=== PATIENT | male | born 1940 | race Caucasian/White ===

== ENCOUNTER 2022-07-19 15:00 | Outpatient (CLI) | payer MEDICARE, BC, SELFPAY | END 2022-07-19 15:01 | disposition home or self-care (01) | PROVIDERS: PCP Family Medicine; Visit Provider Family Medicine | DX: I48.91 Unspecified atrial fibrillation (principal); I25.10 Atherosclerotic heart disease of native coronary artery without angina pectoris; I10 Essential (primary) hypertension; E78.5 Hyperlipidemia, unspecified; E66.01 Morbid (severe) obesity due to excess calories; E11.9 Type 2 diabetes mellitus without complications; Z79.01 Long term (current) use of anticoagulants | CPT/HCPCS: 80053 ==

== ENCOUNTER 2022-11-29 11:14 | Outpatient (CLI) | payer MEDICARE, BC, SELFPAY ==
[2022-11-29 10:33] LABS: Triglycerides* 181 mg/dL (40-149)
[2022-11-29 10:34] LABS: HDL Cholesterol* 53 mg/dL (>=40)
[2022-11-29 11:01] LABS: Creatinine Urine 45.5 mg/dL
[2022-11-29 11:02] LABS: PSA Screen* 5.25 ng/mL (0.10-4.00)
[2022-11-29 11:09] LABS: Microalbumin Creatinine Ratio 20 mg/g (0-30); Microalbumin Urine 1 mg/dL
[2022-11-30 18:56] LABS: Cholesterol* 163 mg/dL (90-199); LDL Cholesterol Calculated 74 mg/dL (<100)
== END 2022-11-29 11:15 | disposition home or self-care (01) ==
PROVIDERS: PCP Family Medicine; Visit Provider Family Medicine
DX: E11.9 Type 2 diabetes mellitus without complications (principal); Z12.5 Encounter for screening for malignant neoplasm of prostate; Z13.6 Encounter for screening for cardiovascular disorders
CPT/HCPCS: 80061; 82043; 82570; 84153

== ENCOUNTER 2023-12-27 10:50 | Outpatient (CLI) | payer MEDICARE, BC, SELFPAY ==
--- OUTSIDE RECORDS SUMMARY | 2023-12-27 10:54 | XMS_ITS | Clinical Summary ---
Author Name Unknown Organization [facility] Address [place], [place] [address] Care Team Providers Care Waste Treatment Operator Name Role Phone Pcp, No Primary Care Provider Unavailabl e Social History Tobacco Use Types Packs/Day Years Used Date Smoking Tobacco: Never Assessed Sex and Gender Information Value Date Recorded Sex Assigned at Not on file Gender Identity Not on file Sexual Orientation Not on file Plan of Treatment Health Maintenance Due Date Last Done Comments Tdap 1952 Depression screening for age 12+ 1953 BMI (ht and wt on same day) for age 18+ 1959 Tetanus booster 1961 Zoster (shingles) series for age 50+ (1 of 2) 1991 Medicare Wellness for age 65+ 2006 Pneumococcal series for age 65+ (1 of 1 - PCV) 2006 COVID-19 vaccine series (2022-24 season) 2023 03/28/2023, 03/03/2022, 08/23/2021, Additional history exists Influenza for age 65+ 07/28/2023 Care Teams Waste Treatment Operator Relationship Specialty Start Date End Date Pcp, No . PCP - General 12/23/22
--- OUTSIDE RECORDS SUMMARY | 2023-12-27 10:55 | XMS_ITS | Encounter Summary ---
Author Name Unknown Organization [facility] Address [address] [place] [address] Care Team Providers Care Commissary Agent Name Role Phone Elsewhere, Pcp Primary Care Provider Unavailabl e Encounter Details Date Type Department Care Team (Latest Contact Info) Description 11/24/2023 10:21 AM CHILDREN TEACHER - 11/24/2023 11:59 PM [facility] Encounter Department of Laboratory Medicine in [place], [place] [address] [phone] Saba Nicole, Nicole-Micah., P.A. [address] [phone] Diabetes Mellitus Type 2 With Other Circulatory Complication Hyperglycemic (HCC); Nursing Home Use Of Insulin Active (HCC) Discharge Disposition: Home or Self Care Social History Tobacco Use Types Packs/Day Years Used Date Smoking Tobacco: Former Cigarettes 1 0 0 07/28/1960 - 11/27/1979 Smokeless Tobacco: Never Alcohol Use Standard Drinks/Week Comments No 0 (1 standard drink = 0.6 oz pur e alcohol) Humiliation, Afraid, Rape, and Kick questionnair e Answer Date Recorded Within the last year, have y ou been afraid of your partner or ex-partner? No 06/02/2022 Within the last year, have y ou been humiliated or emotionally abused in other ways by your partner or ex-partner? No Within the last year, have y ou been kicked, hit, slapped, or otherwise physically hurt by your partner or ex-partner? No 06/02/2022 Within the last year, have y ou been raped or forced to have any kind of sexual activity by your partner or ex-partner? No 06/02/2022 Social Connection and Isolat ion Panel [NHANES] Answer Date Recorded In a typical week, how many times do you talk on the phone with family, friends, or neighbors? More than three times a week 06/02/2022 How often do you get togethe r with friends or relatives? Three times a week 06/02/2022 How often do you attend chur ch or quaker services? More than 4 times per year 06/02/2022 Do you belong to any clubs o r organizations such as presybeterian groups, unions, fraternal or athletic groups, or school groups? Yes 06/02/2022 How often do you attend meet ings of the clubs or organizations you belong to? 1 to 4 times per year 06/02/2022 Are you , , di vorced, , never , or living with a partner? 06/02/2022 AUDIT-C Answer Date Recorded Q1: How often do you have a drink containing alc ohol? Never 06/02/2022 Average Number of Drinks Not on file 022 Frequency of Binge Drinking Not on file 05/2022 Overall Financial Resource Strain (CARDIA) Answe r Date Recorded How hard is it for you to pa y for the very basics like food, housing, medical care, and heating? Not hard at all 06/02/2022 [facility] - Occupational Stress Questionnaire Answer Date Recorded Do you feel stress - tense, restless, nervous, or anxious, or unable to sleep at night because your mind is troubled all the time - these days? Only a little 06/02/2022 Exercise Vital Sign Answer Date Recorde d On average, how many days pe r week do you engage in moderate to strenuous exercise (like a brisk walk)? 7 days 06/02/2022 On average, how many minutes do you engage in exercise at this level? 10 min 06/02/2022 Hunger Vital Sign Answer Date Recorded Within the past 12 months, y ou worried that your food would run out before you got the money to buy more. Never true 06/02/20 Within the past 12 months, t he food you bought just didn't last and you didn't have money to get more. Never true 06/02/2022 PRAPARE - Transportation Answer Date Re corded In the past 12 months, has l ack of transportation kept you from medical appointments or from getting medications? No 05/2022 In the past 12 months, has l ack of transportation kept you from meetings, work, or from getting things needed for daily living? No 06/02/2022 Housing Stability Vital Sign Answer Toñito e Recorded In the last 12 months, was t here a time when you were not able to pay the mortgage or rent on time? Yes 06/02/2022 In the last 12 months, how many places have you lived? 1 06/02/2022 In the last 12 months, was t here a time when you did not have a steady place to sleep or slept in a senior care (including now)? Yes 06/02/2022 Nutrition Answer Date Recorded Nutrition: EVOO Fat Source No 06/02 On average, how many serving s of fruits and vegetables do you eat per day (serving size is equal to 1 cup or approximately the size of a tennis ball)? 0-1 06/02/2022 Dental Answer Date Recorded Dental: Regular Dentist Yes 06/02/20 Employment Answer Date Recorded Employment status Retired 06/02/2022 Education Answer Date Recorded What is the highest level of school you have completed or the highest degree you have received? 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 0 07/16/2014 cholecalciferol (VITAMIN D3) 10 mcg (400 Unit) tablet Take 10 mcg by mouth daily. 0 Contour Test Strips strips daily. for testing 0 07/07/2021 Droplet Pen Needle 32 gauge x 5/32 needle 0 07/07/2021 foot care products pad FOR HOME USE 0 09/29/2018 wtaydvzt-scdouszhyjy-otx t cb25 116-100 mg capsule Take 1 tablet by mouth 2 (two) times a day. 0 07/16/2014 hydroCHLOROthiazide (HYDRODIURIL) 25 mg tablet Take 25 mg by mouth daily. 0 11/28/2018 insulin glargine-yfgn (SEMGLEE) 100 unit/mL (3 mL) injection INJECT 20 UNITS UNDER THE SKIN AT BEDTIME FOR DIABETES 0 08/30/2023 isosorbide mononitrate (IMDUR) 60 mg 24 hr tablet Take 60 mg by mouth daily. 0 10/24/2018 losartan (COZAAR) 100 mg tablet Take 1 tablet by mouth daily. 0 07/16/2014 metFORMIN XR (GLUCOPHAGE-XR) 500 mg 24 hr tabletIndications:Diabet es Mellitus Type 2 With Diabetic Chronic Kidney Disease Hyperglycemic (HCC) Take 2 tablets (1,000 mg total) by mouth 2 (two) times a day with meals. 360 tablet 3 06/14/2023 06/13/2024 metoprolol tartrate (LOPRESSOR) 100 mg tablet Take 100 mg by mouth 2 (two) times a day. 0 11/28/2018 multivitamin tablet Take 1 tablet by mouth daily. 0 07/16/2014 omega 0-eqw-ysw-fish oil 100-160-1,000 mg capsule Take 2 capsules by mouth daily. 0 07/16/2014 pravastatin (PRAVACHOL) 40 mg tablet Take 1 tablet by mouth daily. 0 07/16/2014 psyllium husk (METAMUCIL) 0.4 gram capsule Take 1 capsule by mouth 2 (two) times a day. 0 10/07/2015 semaglutide (OZEMPIC) 1 mg/dose (4 mg/3 mL) injection 2 mg every 7 (seven) days. 0 09/11/2023 spironolactone (ALDACTONE) 25 mg tablet Take 25 mg by mouth daily. 0 11/28/2018 warfarin (COUMADIN) 5 mg tablet Take 5 mg by mouth daily. 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 30 mL 3 06/14/2023 12/07/2023 semaglutide (OZEMPIC) 1 mg/dose (4 mg/3 mL) injection 2 mg. 0 07/13/2022 12/07/2023 documented as of this encounter Miscellaneous Notes * Result Encounter Note - Saba Nicole P.A.-C. - 11/28/2023 2:37 PM CHILDREN TEACHER Willie Vyas, Happy early birthday! Your basic metabolic panel is normal. Your A1c continues to be stable at 7.3%. Please let me know if you have any questions, otherwise I will see you on December 07. Thanks! Saba Nicole P.A.-C. DREN TEACHER documented in this encounter Plan of Treatment Upcoming Encounters Date Type Department Care Team (Late st Contact Info) Description 03/13/2024 12:30 PM CDT Appointment Department of Laboratory Medicine in [place], [place] [address], [place] [phone] Saba Nicole P.A.-C., P.A. [address] [place] [phone] 03/13/2024 2:30 PM CDT Office Visit Department of Endocrinology in [place], [place] [address], [place] [phone] Saba Nicole P.A.-C., P.A. [address] [place] [phone] documented as of this encounter Procedures Procedure Name Priority Date/Time Associated Diagnosis Comments HEMOGLOBIN A1C, B Routine 11/24/2023 10: 40 AM CHILDREN TEACHER Diabetes Mellitus Type 2 With Other Circulatory Complication Hyperglycemic (HCC) Size Stamper Use Of Insulin Active (HCC) BASIC METABOLIC PANEL, S/P Routine 11/24/2023 10:40 AM CHILDREN TEACHER Diabetes Mellitus Type 2 With Other Circulatory Complication Hyperglycemic (HCC) Size Stamper Use Of Insulin Active (HCC) documented in this encounter Results * (ABNORMAL) Basic Metabolic Panel (11/24/2023 10:40 AM CHILDREN TEACHER) Pathologist [facility] Potassium, P 4.4 3.6 - 5.2 mmol/L 11/24/2023 11:41 AM CHILDREN TEACHER OWAT Sodium, P 141 135 - 145 mmol/L 11/24/2023 11:41 AM CHILDREN TEACHER OWAT Chloride, P 102 98 - 107 mmol/L 11/24/2023 11:41 AM CHILDREN TEACHER OWAT Bicarbonate, P 26 22 - 29 mmol/L 11/24/2023 11:41 AM CHILDREN TEACHER OWAT Anion Gap, P 13 7 - 15 11/24/2023 11:41 AM CHILDREN TEACHER OWAT BUN (Blood Urea Nitrogen), P 23 8 - 24 mg/dL 11/24/2023 11:41 AM CHILDREN TEACHER OWAT Creatinine 1.13 0.74 - 1.35 mg/dL 11/24/2023 11:41 AM CHILDREN TEACHER OWAT Estimated GFR (eGFR) 65 >=60 mL/min/BSA 11/24/2023 11:41 AM CHILDREN TEACHER OWAT Comment: Estimated GFR calculated using the 2020 CKD_EPI creatinine equation. Calcium, Total, P 9.5 8.8 - 10.2 mg/dL 11/24/2023 11:41 AM CHILDREN TEACHER OWAT Glucose, P 198(H) 70 - 140 mg/dL 11/24/2023 11:41 AM CHILDREN TEACHER OWAT Blood (Blood, Venous) 11/24/2023 10:40 AM CHILDREN TEACHER 11/24/2023 10:51 AM CHILDREN TEACHER Saba Nicole P.A.-C., P.A. LAB BL OOD ADD-ON Performing Organization Address City/[facility]/ZIP Co de Phone Number [facility] [address] [place] [address], [place] OWAT [facility] [address] [place] [address] * (ABNORMAL) Hemoglobin A1c (11/24/2023 10:40 AM CHILDREN TEACHER) Hemoglobin A1c, B 7.3(H) 4.2 - 5.6 % 11/24/2023 11:32 AM CHILDREN TEACHER OWAT Comment: Hemoglobin A1c values greater than or equal to 6.5 percent are diagnostic for diabetes mellitus. ??Diagnosis should be confirmed by repeat testing. ??In diabetic patients, HbA1c goals should be discussed with healthcare provider. Blood (Blood, Venous) 11/24/2023 10:40 AM CHILDREN TEACHER 11/24/2023 10:52 AM CHILDREN TEACHER Saba Nicole P.A.-C., P.A. LAB BL OOD ADD-ON Performing Organization Address City/[facility]/ZIP Co de Phone Number [facility] [address] [place] [address], [place] OWAT [facility] [address] [place] [address] documented in this encounter Visit Diagnoses Diagnosis Diabetes Mellitus Type 2 With Other Circulatory Complication Hyperglycemic (HCC) Nursing Home Use Of Insulin Active (HCC) documented in this encounter Care Teams Commissary Agent Relationship Specialty Start Date End Date Elsewhere, Pcp PCP - General Family Medicine 11/19/20 documented as of this encounter
--- OUTSIDE RECORDS SUMMARY | 2023-12-27 10:55 | XMS_ITS | Referral Summary ---
Author Name Unknown Organization 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. For routine questions regarding patient records, call [phone] during business hours, M-F 8:00 AM - 5:00 PM Central Time. Record requests for emergency care only can be directed to [phone] at any time.[facility] Encounters Date Type Department Care Team Description 12/07/2023 11:00 AM EMBEDDED SYSTEMS SOFTWARE ENGINEER Office Visit Department of Endocrinology in [place], [place] [address] [phone] Saba Nicole P.A.-C., P.A. 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 Diabetes Mellitus Type 2 With Other Circulatory Complication Hyperglycemic (HCC); Longterm Use Of Insulin Active (HCC) Discharge Disposition: Home or Self Care 10/12/2023 9:04 AM EMBEDDED SYSTEMS SOFTWARE ENGINEER - 10/12/2023 11:59 PM EMBEDDED SYSTEMS SOFTWARE ENGINEER Hospital Encounter Department of Cardiac Rehabilitation in [place], [place] [address] [place] [phone] Mal Oreilly M.D. 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; Longterm Current Use Of Injectable Non-Insulin Antidiabetic Drugs; Air Valve Repairer Use Of Insulin Active (HCC); Hypertension Pulmonary (HCC); Atrial Fibrillation Permanent (HCC) Discharge Disposition: Home or Self Care 10/12/2023 7:31 AM EMBEDDED SYSTEMS SOFTWARE ENGINEER - 10/12/2023 8:00 AM EMBEDDED SYSTEMS SOFTWARE ENGINEER Hospital Encounter Department of Laboratory Medicine and Pathology, [facility] in [place], [place] [address] [place] [phone] Mal Oreilly M.D. 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; Longterm Current Use Of Injectable Non-Insulin Antidiabetic Drugs; Air Valve Repairer Use Of Insulin Active (HCC); Hypertension Pulmonary (HCC); Atrial Fibrillation Permanent (HCC) 10/09/2023 10:45 AM [facility] Clinical Communication Virtual Review in [place], [place] [address] [place] [address] Pre-visit Intake from Last 3 Months Allergies No known active allergies Medications Medication Sig Dispensed Refills Start Date End Date Status foot care products pad FOR HOME USE 0 09/29/2018 Active aspirin 81 mg chewable tablet Chew 1 tablet daily. 0 07/16/2014 Active omega 9-pgs-gjj-fish oil 100-160-1,000 mg capsule Take 2 capsules by mouth daily. 0 07/16/2014 Active glucosam-chondroiti n-diet cb25 116-100 mg capsule Take 1 tablet by mouth 2 (two) times a day. 0 07/16/2014 Active hydroCHLOROthiazide (HYDRODIURIL) 25 mg tablet Take 25 mg by mouth daily. 0 11/28/2018 Active isosorbide mononitrate (IMDUR) 60 mg 24 hr tablet Take 60 mg by mouth daily. 0 10/24/2018 Active losartan (COZAAR) 100 mg tablet Take 1 tablet by mouth daily. 0 07/16/2014 Active metoprolol tartrate (LOPRESSOR) 100 mg tablet Take 100 mg by mouth 2 (two) times a day. 0 11/28/2018 Active multivitamin tablet Take 1 tablet by mouth daily. 0 07/16/2014 Active pravastatin (PRAVACHOL) 40 mg tablet Take 1 tablet by mouth daily. 0 07/16/2014 Active psyllium husk (METAMUCIL) 0.4 gram capsule Take 1 capsule by mouth 2 (two) times a day. 0 10/07/2015 Active spironolactone (ALDACTONE) 25 mg tablet Take 25 mg by mouth daily. 0 11/28/2018 Active warfarin (COUMADIN) 5 mg tablet Take 5 mg by mouth daily. Now taking 0.5 tab on Wed and Fri and 1 tab all other days 0 10/07/2015 Active cholecalciferol (VITAMIN D3) 10 mcg (400 Unit) tablet Take 10 mcg by mouth daily. 0 Active Contour Test Strips strips daily. for testing 0 07/07/2021 Active Droplet Pen Needle 32 gauge x 5/32 needle 0 07/07/2021 Active empagliflozin (JARDIANCE) 25 mg tablet Take 1 tablet (25 mg total) by mouth every morning before breakfast. Take with 8-16 oz water 30 minutes prior to breakfast. 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 360 tablet 3 06/14/2023 4 Active semaglutide (OZEMPIC) 1 mg/dose (4 mg/3 mL) injection 2 mg every 7 (seven) days. 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 7 kit 3 12/07/2023 5 Active semaglutide (OZEMPIC) 1 mg/dose (4 mg/3 mL) injection 2 mg. 0 07/13/2022 4 Discontinue d(Duplicate order) flash glucose sensor (FreeStyle Cyrus 2 Sensor) kitIndications:Diab etes Mellitus Type 2 With Diabetic Neuropathy Hyperglycemic (HCC),Diabetes Mellitus Type 2 With Diabetic Chronic Kidney Disease Hyperglycemic (HCC),Air Valve Repairer Use Of Insulin Active (HCC) 1 each (1 kit total) every 14 (fourteen) days. 7 kit 3 01/24/2023 4 Discontinue d(Reorder) insulin glargine (Lantus Solostar U-100 Insulin) 100 unit/mL (3 mL) injectionIndication s:Diabetes Mellitus Type 2 With Diabetic Chronic Kidney Disease Hyperglycemic (HCC),Diabetes Mellitus Type 2 With Diabetic Neuropathy Hyperglycemic (HCC) Inject 18 Units under the skin at bedtime. 30 mL 3 06/14/2023 4 Discontinue d(Reorder) Active Problems Problem Noted Date Diagnosed Date Air Valve Repairer Use Of Insulin Active 12/14/2022 Air Valve Repairer Current Use Of Inj ectable Non-Insulin Antidiabetic Drugs 10/05/2022 Diabetes Mellitus Type 2 With Diabetic Neuropath y 06/06/2022 Overview: Diagnosis Maintenance Updates Nov 2023 Diabetes Mellitus Type 2 Wit h Other Circulatory Complication 06/06/2022 Overview: Diagnosis Maintenance Updates Nov 2023 Diabetes Mellitus Type 2 Wit h Diabetic Chronic Kidney Disease 06/06/2022 Overview: Diagnosis Maintenance Updates Nov 2023 Regurgitation Tricuspid 11/28/2019 Apnea Sleep Obstructive 11/28/2019 Atrial Fibrillation Permanent 12/05/2018 Morbid Obesity Body Mass Ind ex >= 35 with Comorbid Condition 12/05/2018 Hypertension Pulmonary 08/20/2015 Diabetes Mellitus Type 2 08/20/2015 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 Angina Pectoris 07/27/2007 Coronary Arterial Bypass Graft Status Post Perso nal History 12/14/2000 Social History Tobacco Use Types Packs/Day Years Used Date Smoking Tobacco: Former Cigarettes 1 0 0 07/28/1960 - 11/27/1979 Smokeless Tobacco: Never Tobacco Cessation:Counseling Given: Not Answered Alcohol Use Standard Drinks/Week Comments No 0 (1 standard drink = 0.6 oz pur e alcohol) [facility] Utilities Answer Date Recorded In the past 12 months has e [employer], gas, oil, or water [employer] threatened to shut off services in your home? No 12/03/2023 Humiliation, Afraid, Rape, and Kick questionnair e [...] week 06/02/2022 How often do you attend [facility] or mu-ism services? More than 4 times per year 06/02/2022 Do you belong to any clubs o r organizations such as sikh groups, unions, fraternal or athletic groups, or [...] and heating? Not hard at all 06/02/2022 [facility] Occupat ional Health - Occupational Stress Questionnaire Answer Date [...] to strenuous exercise (like a brisk walk)? 6 days On average, how many minutes do you engage in exercise at this level? Patient declined 12/03/2023 Hunger Vital Sign Answer Date Recorded Within the past 12 months, y ou worried that your food would run out before you got the money to buy more. Never true 12/03/19 24 Within the past 12 months, t he food you bought just didn't last and you didn't have money to get more. Never true 12/03/2023 PRAPARE - Transportation Answer Date Re corded In the past 12 months, has l ack of transportation kept you from medical appointments or from getting medications? No 05/2024 In the past 12 months, has l ack of transportation kept you from meetings, work, or from getting things needed for daily living? No 12/03/2023 Nutrition Answer Date Recorded Nutrition: EVOO Fat Source No 12/03 On average, how many serving s of fruits and vegetables do you eat per day (serving size is equal to 1 cup or approximately the size of a tennis ball)? 0-2 12/03/2023 Dental Answer Date Recorded Dental: Regular Dentist Yes 06/02/20 Employment Answer Date Recorded Employment status Retired 12/03/2023 Housing Stability Answer Date Recorded What is your living situation today? I have a [facility] place to live 12/03/2023 Education Answer Date Recorded What is the highest level of school you have completed or the highest degree you have received? Associate degree: academic program 06/02/2022 Sex and Gender Information Value Date Recorded Sex Assigned at Male 09/22/2023 8:15 PM CDT Gender Identity Male 09/22/2023 8:15 PM CDT Sexual Orientation Straight 06/02/2022 12 :11 PM CDT Last Filed Vital Signs Vital Sign Reading Time Taken Comments Blood Pressure 118/58 12/07/2023 10:51 AM EMBEDDED SYSTEMS SOFTWARE ENGINEER Pulse 56 12/07/2023 10:51 AM EMBEDDED SYSTEMS SOFTWARE ENGINEER Temperature 36.4 ??C (97.6 ??F) 06/14/2023 2 :46 PM CDT Respiratory Rate 20 01/21/2014 11:1 6 AM EMBEDDED SYSTEMS SOFTWARE ENGINEER Vital sign result from Clinical Notes. Oxygen Saturation 94% 06/14/2023 2:4 6 PM CDT Inhaled Oxygen Concentration - - Weight 138 kg (303 lb 5.7 oz) 12/07/2023 10:51 AM EMBEDDED SYSTEMS SOFTWARE ENGINEER Height 183.3 cm (6' 0.17) 02/22/2023 1 :51 PM CDT Body Mass Index 40.95 02/22/2023 1:51 PM CDT Plan of Treatment Upcoming Encounters Date Type Department Care Team (Late st Contact Info) Description 03/13/2024 12:30 PM CDT Appointment Department of Laboratory Medicine in [place], [place] [address] [place] [phone] Saba Nicole P.A.-C., P.A. [address] [place] [phone] 03/13/2024 2:30 PM CDT Office Visit Department of Endocrinology in [place], [place] [address] [place] [phone] Saba Nicole P.A.-C., P.A. [address] [place] [phone] Medical Devices Implanted Type Area Procedures Nurse Device Identifier Shelf Expiration Date Model / Serial / Lot [place] [employer] Fuzzy 1 X 1 - [place] [id number] Implanted:Qty: 1 on 12/14/2000 Mesh or Patch Threat Stack Description:Device Manufactu rer - Mingly. Device Status Text - [id number]. [facility] Data - [id number]. Procedures Procedure Name Priority Date/Time Associated Diagnosis Comments BASIC METABOLIC PANEL, S/P Routine 11/24/2023 10:40 AM EMBEDDED SYSTEMS SOFTWARE ENGINEER Diabetes Mellitus Type 2 With Other Circulatory Complication Hyperglycemic (HCC) Longterm Use Of Insulin Active (HCC) HEMOGLOBIN A1C, B Routine 11/24/2023 10: 40 AM EMBEDDED SYSTEMS SOFTWARE ENGINEER Diabetes Mellitus Type 2 With Other Circulatory Complication Hyperglycemic (HCC) Longterm Use Of Insulin Active (HCC) ECG Routine 10/12/2023 12:19 PM EMBEDDED SYSTEMS SOFTWARE ENGINEER 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 Angina Pectoris Diabetes Mellitus Type 2 With Other Circulatory Complication Hyperglycemic (HCC) 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 Longterm Current Use Of Injectable Non-Insulin Antidiabetic Drugs Longterm Use Of Insulin Active (HCC) Hypertension Pulmonary (HCC) Atrial Fibrillation Permanent (HCC) 6 MINUTE WALK Routine 10/12/2023 10:30 AM EMBEDDED SYSTEMS SOFTWARE ENGINEER 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 Angina Pectoris Diabetes Mellitus Type 2 With Other Circulatory Complication Hyperglycemic (HCC) 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 Air Valve Repairer Current Use Of Injectable Non-Insulin Antidiabetic Drugs Longterm Use Of Insulin Active (HCC) Hypertension Pulmonary (HCC) Atrial Fibrillation Permanent (HCC) (TTE) 2D ECHO DOPPLER COLOR Routine 10/12/2023 8:53 AM EMBEDDED SYSTEMS SOFTWARE ENGINEER 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 Angina Pectoris Diabetes Mellitus Type 2 With Other Circulatory Complication Hyperglycemic (HCC) 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 Air Valve Repairer Current Use Of Injectable Non-Insulin Antidiabetic Drugs Longterm Use Of Insulin Active (HCC) Hypertension Pulmonary (HCC) Atrial Fibrillation Permanent (HCC) NT-PRO B-TYPE NATRIURETIC PEPTIDE (BNP), S Routine 10/12/2023 7:45 AM EMBEDDED SYSTEMS SOFTWARE ENGINEER 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 Angina Pectoris Diabetes Mellitus Type 2 With Other Circulatory Complication Hyperglycemic (HCC) 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 Longterm Current Use Of Injectable Non-Insulin Antidiabetic Drugs Longterm Use Of Insulin Active (HCC) Hypertension Pulmonary (HCC) Atrial Fibrillation Permanent (HCC) THYROID FUNCTION CASCADE, S Routine 10/12/2023 7:45 AM EMBEDDED SYSTEMS SOFTWARE ENGINEER 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 Angina Pectoris Diabetes Mellitus Type 2 With Other Circulatory Complication Hyperglycemic (HCC) 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 Longterm Current Use Of Injectable Non-Insulin Antidiabetic Drugs Air Valve Repairer Use Of Insulin Active (HCC) Hypertension Pulmonary (HCC) Atrial Fibrillation Permanent (HCC) BUN (BLOOD UREA NITROGEN), S/P Routine 10/12/2023 7:45 AM EMBEDDED SYSTEMS SOFTWARE ENGINEER 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 Angina Pectoris Diabetes Mellitus Type 2 With Other Circulatory Complication Hyperglycemic (HCC) 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 Air Valve Repairer Current Use Of Injectable Non-Insulin Antidiabetic Drugs Air Valve Repairer Use Of Insulin Active (HCC) Hypertension Pulmonary (HCC) Atrial Fibrillation Permanent (HCC) BILIRUBIN, TOT, S/P Routine 10/12/2023 7 :45 AM EMBEDDED SYSTEMS SOFTWARE ENGINEER 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 Angina Pectoris Diabetes Mellitus Type 2 With Other Circulatory Complication Hyperglycemic (HCC) 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 Air Valve Repairer Current Use Of Injectable Non-Insulin Antidiabetic Drugs Longterm Use Of Insulin Active (HCC) Hypertension Pulmonary (HCC) Atrial Fibrillation Permanent (HCC) ALKALINE PHOSPHATASE, S/P Routine 10/12/2023 7:45 AM EMBEDDED SYSTEMS SOFTWARE ENGINEER 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 Angina Pectoris Diabetes Mellitus Type 2 With Other Circulatory Complication Hyperglycemic (HCC) 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 Longterm Current Use Of Injectable Non-Insulin Antidiabetic Drugs Longterm Use Of Insulin Active (HCC) Hypertension Pulmonary (HCC) Atrial Fibrillation Permanent (HCC) ALANINE AMINOTRANSFERASE (ALT), S/P Routine 10/12/2023 7:45 AM EMBEDDED SYSTEMS SOFTWARE ENGINEER 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 Angina Pectoris Diabetes Mellitus Type 2 With Other Circulatory Complication Hyperglycemic (HCC) 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 Air Valve Repairer Current Use Of Injectable Non-Insulin Antidiabetic Drugs Longterm Use Of Insulin Active (HCC) Hypertension Pulmonary (HCC) Atrial Fibrillation Permanent (HCC) ASPARTATE AMINOTRANSFERASE (AST), S/P Routine 10/12/2023 7:45 AM EMBEDDED SYSTEMS SOFTWARE ENGINEER 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 Angina Pectoris Diabetes Mellitus Type 2 With Other Circulatory Complication Hyperglycemic (HCC) 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 Air Valve Repairer Current Use Of Injectable Non-Insulin Antidiabetic Drugs Air Valve Repairer Use Of Insulin Active (HCC) Hypertension Pulmonary (HCC) Atrial Fibrillation Permanent (HCC) ALBUMIN, S/P Routine 10/12/2023 7:45 AM EMBEDDED SYSTEMS SOFTWARE ENGINEER 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 Angina Pectoris Diabetes Mellitus Type 2 With Other Circulatory Complication Hyperglycemic (HCC) 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 Longterm Current Use Of Injectable Non-Insulin Antidiabetic Drugs Air Valve Repairer Use Of Insulin Active (HCC) Hypertension Pulmonary (HCC) Atrial Fibrillation Permanent (HCC) CREATININE WITH EGFR, S/P Routine 10/12/2023 7:45 AM EMBEDDED SYSTEMS SOFTWARE ENGINEER 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 Angina Pectoris Diabetes Mellitus Type 2 With Other Circulatory Complication Hyperglycemic (HCC) 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 Air Valve Repairer Current Use Of Injectable Non-Insulin Antidiabetic Drugs Air Valve Repairer Use Of Insulin Active (HCC) Hypertension Pulmonary (HCC) Atrial Fibrillation Permanent (HCC) POTASSIUM, S/P Routine 10/12/2023 7:45 AM EMBEDDED SYSTEMS SOFTWARE ENGINEER 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 Angina Pectoris Diabetes Mellitus Type 2 With Other Circulatory Complication Hyperglycemic (HCC) 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 Air Valve Repairer Current Use Of Injectable Non-Insulin Antidiabetic Drugs Air Valve Repairer Use Of Insulin Active (HCC) Hypertension Pulmonary (HCC) Atrial Fibrillation Permanent (HCC) SODIUM, S/P Routine 10/12/2023 7:45 AM EMBEDDED SYSTEMS SOFTWARE ENGINEER 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 Angina Pectoris Diabetes Mellitus Type 2 With Other Circulatory Complication Hyperglycemic (HCC) 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 Air Valve Repairer Current Use Of Injectable Non-Insulin Antidiabetic Drugs Longterm Use Of Insulin Active (HCC) Hypertension Pulmonary (HCC) Atrial Fibrillation Permanent (HCC) PROTHROMBIN TIME (PT), P Routine 10/12/2023 7:45 AM EMBEDDED SYSTEMS SOFTWARE ENGINEER 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 Angina Pectoris Diabetes Mellitus Type 2 With Other Circulatory Complication Hyperglycemic (HCC) 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 Air Valve Repairer Current Use Of Injectable Non-Insulin Antidiabetic Drugs Air Valve Repairer Use Of Insulin Active (HCC) Hypertension Pulmonary (HCC) Atrial Fibrillation Permanent (HCC) CBC WITH DIFFERENTIAL, B Routine 10/12/2023 7:45 AM EMBEDDED SYSTEMS SOFTWARE ENGINEER 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 Angina Pectoris Diabetes Mellitus Type 2 With Other Circulatory Complication Hyperglycemic (HCC) 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 Air Valve Repairer Current Use Of Injectable Non-Insulin Antidiabetic Drugs Air Valve Repairer Use Of Insulin Active (HCC) Hypertension Pulmonary (HCC) Atrial Fibrillation Permanent (HCC) from Last 3 Months Results * (ABNORMAL) Hemoglobin A1c (11/24/2023 10:40 AM EMBEDDED SYSTEMS SOFTWARE ENGINEER) Hemoglobin A1c, B 7.3(H) 4.2 - 5.6 % 11/24/2023 11:32 AM EMBEDDED SYSTEMS SOFTWARE ENGINEER OWAT Comment: Hemoglobin A1c values greater than or equal to 6.5 percent are diagnostic for diabetes mellitus. ??Diagnosis should be confirmed by repeat testing. ??In diabetic patients, HbA1c goals should be discussed with healthcare provider. Blood (Blood, Venous) 11/24/2023 10:40 AM EMBEDDED SYSTEMS SOFTWARE ENGINEER 11/24/2023 10:52 AM EMBEDDED SYSTEMS SOFTWARE ENGINEER Saba Nicole P.A.-C., P.A. LAB BL OOD ADD[facility] [address] [place] [address], [facility] [place] [address] [place] [address] * (ABNORMAL) Basic Metabolic Panel (11/24/2023 10:40 AM EMBEDDED SYSTEMS SOFTWARE ENGINEER) Potassium, P 4.4 3.6 - 5.2 mmol/L 11/24/2023 11:41 AM EMBEDDED SYSTEMS SOFTWARE ENGINEER OWAT Sodium, P 141 135 - 145 mmol/L 11/24/2023 11:41 AM EMBEDDED SYSTEMS SOFTWARE ENGINEER OWAT Chloride, P 102 98 - 107 mmol/L 11/24/2023 11:41 AM EMBEDDED SYSTEMS SOFTWARE ENGINEER OWAT Bicarbonate, P 26 22 - 29 mmol/L 11/24/2023 11:41 AM EMBEDDED SYSTEMS SOFTWARE ENGINEER OWAT Anion Gap, P 13 7 - 15 11/24/2023 11:41 AM EMBEDDED SYSTEMS SOFTWARE ENGINEER [employer]AT BUN (Blood Urea Nitrogen), P 23 8 - 24 mg/dL 11/24/2023 11:41 AM EMBEDDED SYSTEMS SOFTWARE ENGINEER OWAT Creatinine 1.13 0.74 - 1.35 mg/dL 11/24/2023 11:41 AM EMBEDDED SYSTEMS SOFTWARE ENGINEER OWAT Estimated GFR (eGFR) 65 >=60 mL/min/BSA 11/24/2023 11:41 AM EMBEDDED SYSTEMS SOFTWARE ENGINEER OWAT Comment: Estimated GFR calculated using the 2020 CKD_EPI creatinine equation. Calcium, Total, P 9.5 8.8 - 10.2 mg/dL 11/24/2023 11:41 AM EMBEDDED SYSTEMS SOFTWARE ENGINEER OWAT Glucose, P 198(H) 70 - 140 mg/dL 11/24/2023 11:41 AM EMBEDDED SYSTEMS SOFTWARE ENGINEER OWAT Blood (Blood, Venous) 11/24/2023 10:40 AM EMBEDDED SYSTEMS SOFTWARE ENGINEER 11/24/2023 10:51 AM EMBEDDED SYSTEMS SOFTWARE ENGINEER Saba Nicole P.A.-C., PEdwin LAB BL OOD ADD-ON [facility] [address] [place] [address], [facility] [place] [address] [place] [address] * ECG 12 Lead (10/12/2023 12:19 PM EMBEDDED SYSTEMS SOFTWARE ENGINEER) Ventricular Rate ECG/Min 81 BPM MUSE QRSD Interval 150 ms MUSE QT Interval 422 ms MUSE QTC Interval 490 ms MUSE R [place] 181 degrees MUSE T Wave [place] 3 degrees MUSE 10/12/2023 12:1 9 PM EMBEDDED SYSTEMS SOFTWARE ENGINEER 10/12/2023 12:45 PM EMBEDDED SYSTEMS SOFTWARE ENGINEER Impressions MUSE - 10/12/2023 12:30 PM EMBEDDED SYSTEMS SOFTWARE ENGINEER Atrial fibrillation Right superior axis deviation Right bundle branch block with secondary ST-T abnormalities When compared with ECG of 22-FEB-2023 11:59, No significant change was found Reviewed by PAUL Sierra Narrative Procedure Note Raf Griffin M.D., M.P.H. - 10/12/2023 IMPRESSION: Atrial fibrillation Right superior axis deviation Right bundle branch block with secondary ST-T abnormalities When compared with ECG of 22-FEB-2023 11:59, No significant change was found Reviewed by PAUL Sierra Mal Oreilly M.D. ECG ORDERABLES Performing Organization Address City/[facility]/ZIP Co de Phone Number MUSE NA * 6 MINUTE WALK (10/12/2023 10:30 AM EMBEDDED SYSTEMS SOFTWARE ENGINEER) Narrative Neelam Kent M.D., Ph.D. - 10/12/2023 10:30 AM EMBEDDED SYSTEMS SOFTWARE ENGINEER Neelam Kent M.D., Ph.D. ? 10/13/2023 ??6:26 PM Six Minute Walk Performed by: Anthony Skelton CRAT Authorized by: Mal Oreilly M.D. ?? Were medications taken in the last 24 hours?: ?? PRE WALK Assistive Device: ??None 6 Min Walk Distance Type: ??Track Height (cm): ??183 Weight (kg): ??136 BMI: ??40.6 Resting Heart Rate: ??80 Heart Rate Source: ??Apical Pulse Resting BP: ??122/60 BP Cuff Arm: ??Left BP Cuff Size: ??RegularSupplemental Oxygen used: ??Supplemental Oxygen Not Used Resting SpO2: ??95 SpO2 Site: ??Finger Gillian Dyspnea: ??0 - Nothing at all Gillian Fatigue: ??0 - Nothing at all POST WALK Heart Rate: ??112 Heart Rate Source: ??Apical Pulse SpO2: ??92 BP: ??162/70 BP Cuff Side: ??Left Gillian Dyspnea: ??3 - Moderate Gillian Fatigue: ??0 - Nothing at all Time of Test: ??09:20 EMBEDDED SYSTEMS SOFTWARE ENGINEER Total Distance Walked (Feet): ??1200 Total Distance Walked (Meters): ??365.76 Total # of Times Stopped: ??0 Time Stopped (Seconds): ??0 Time Walked (Seconds): ??360 CALCULATIONS Estimated MPH: ??2.3 Estimated METs: ??2.76 % of Predicted Distance: ??104.47 COMMENTS The patients dyspnea resolved after two minutes of standing rest. ?? Mal Oreilly M.D. CV STRESS PROCEDURE S * (TTE) 2D ECHO DOPPLER COLOR (10/12/2023 8:53 AM EMBEDDED SYSTEMS SOFTWARE ENGINEER) [facility] Signature Ejection Fraction 60 MC CV EIMS LV Mass Index 75 MC CV EIMS LV End-Diastolic Diameter 56 MC CV EIMS LV End-Systolic Diameter 43 MC CV EIMS MV E Velocity 1 MC CV EIMS MV e' Velocity Medial 0.06 MC CV EIMS MV E/e' Medial 16.7 MC CV EIMS Left ventricular stroke volume index 33 MC CV EIMS Cardiac Output 7.15 MC CV EIMS Cardiac Index 2.79 MC CV EIMS LV Interventricular Septal Wall Thickness 9 MC CV EIMS LV Posterior Wall Thickness 9 MC CV EIMS LV Relative Wall Thickness 32 MC CV EIMS RV 4-Chamber Basal Diameter 48 MC CV EIMS RV 4-Chamber Mid Diameter 43 MC CV EIMS RV 4-Chamber Length 76 MC CV EIMS TAPSE 13 MC CV EIMS Tricuspid Annular S? 0.09 MC CV EIMS RV Free Wall Strain -9 MC CV EIMS TR Vmax 3.1 MC CV EIMS RA Pressure 10 MC CV EIMS RV Systolic Pressure 48 MC CV EIMS TR Vmax/RVOT TVI 0.28 MC CV EIMS TV Regurgitant Volume 41 MC CV EIMS Anatomical Region Laterality Modality Echocardiography 10/12/2023 8:11 AM EMBEDDED SYSTEMS SOFTWARE ENGINEER Impressions 10/12/2023 9:15 AM EMBEDDED SYSTEMS SOFTWARE ENGINEER Echocardiogram performed per left ventricular function protocol. Last full echocardiogram performed 02/22/2023. LEFT VENTRICLE:Mildly enlarged left ventricular chamber size. Estimated left ventricular ejection fraction 60% with beat to beat variability. Normal left ventricular wall thickness. Flattening of the ventricular septum. Abnormal ventricular septal motion due to pacing. No regional wall motion abnormalities. Indeterminate left ventricular filling pressure. RIGHT VENTRICLE:Moderately enlarged right ventricular chamber size. Moderate- severely reduced right ventricular systolic function. Estimated right ventricular systolic pressure 48 mmHg (right atrial pressure of 10 mmHg). Averaged right ventricular free wall longitudinal peak systolic strain is -9% (normal </= -25%). ATRIA:Severely enlarged left atrial size. Severely enlarged right atrial size. CARDIAC VALVES:Trileaflet aortic valve. Sclerotic aortic valve. Trivial aortic valve regurgitation. Mildly thickened mitral valve. Trivial mitral valve regurgitation. Normal pulmonary valve. Normal pulmonary valve systolic velocities. Mild pulmonary valve regurgitation. Tricuspid annulus dilatation. Mildly thickened tricuspid valve. Moderate-severe tricuspid valve regurgitation. Tricuspid regurgitation ERO (PISA) 0.39 cm2. Tricuspid regurgitant volume (PISA) 41 ml. OTHER ECHO FINDINGS:Enlarged inferior vena cava size with reduced inspiratory collapse (<50%). Systolic flow reversals in the hepatic veins by pulsed wave Doppler and color flow imaging. Ascending aorta not well visualized. Abdominal aorta incompletely visualized. Normal abdominal aorta Doppler flow pattern. Lipomatous atrial septum. Possible patent foramen ovale. No ??pericardial effusion. No intracardiac mass or thrombus, but the left atrial appendage cannot be visualized adequately with transthoracic echo to exclude thrombus in this location. For the complete report, see the Order-Level Documents. Narrative 10/12/2023 9:15 AM EMBEDDED SYSTEMS SOFTWARE ENGINEER For the complete report, see the Order-Level Documents. Hemodynamics Heart Rate: 80 BPM Blood Pressure: 110 / 66 mmHg ECG: Atrial fibrillation with ectopics, Right bundle branch block Final Impressions 1. Mildly enlarged left ventricular chamber size. 2. Estimated left ventricular ejection fraction 60% with beat to beat variability. 3. No regional wall motion abnormalities. 4. Moderately enlarged right ventricular chamber size. 5. Moderate-severely reduced right ventricular systolic function. 6. Averaged right ventricular free wall longitudinal peak systolic strain is -9% (normal </= -25%). 7. Estimated right ventricular systolic pressure 48 mmHg (right atrial pressure of 10 mmHg). 8. Trivial aortic valve regurgitation. 9. Trivial mitral valve regurgitation. 10. Moderate-severe tricuspid valve regurgitation. 11. Compared to the report of 02/22/2023 no significant change has occurred. Procedure Note Caro, Young Rodriguez M.D., Ph.D. - 10/12/2023 For the complete report, see the Order-Level Documents. Hemodynamics Heart Rate: 80 BPM Blood Pressure: 110 / 66 mmHg ECG: Atrial fibrillation with ectopics, Right bundle branch block Final Impressions 1. Mildly enlarged left ventricular chamber size. 2. Estimated left ventricular ejection fraction 60% with beat to beatvariability. 3. No regional wall motion abnormalities. 4. Moderately enlarged right ventricular chamber size. 5. Moderate-severely reduced right ventricular systolic function. 6. Averaged right ventricular free wall longitudinal peak systolic strainis -9% (normal </= -25%). 7. Estimated right ventricular systolic pressure 48 mmHg (right atrialpressure of 10 mmHg). 8. Trivial aortic valve regurgitation. 9. Trivial mitral valve regurgitation. 10. Moderate-severe tricuspid valve regurgitation. 11. Compared to the report of 02/22/2023 no significant change hasoccurred. Findings Echocardiogram performed per left ventricular function protocol. Last fullechocardiogram performed 02/22/2023. LEFT VENTRICLE:Mildly enlarged left ventricular chamber size. Estimatedleft ventricular ejection fraction 60% with beat to beat variability.Normal left ventricular wall thickness. Flattening of the ventricularseptum. Abnormal ventricular septal motion due to pacing. No regional wallmotion abnormalities. Indeterminate left ventricular filling pressure. RIGHT VENTRICLE:Moderately enlarged right ventricular chamber size.Moderate- severely reduced right ventricular systolic function. Estimatedright ventricular systolic pressure 48 mmHg (right atrial pressure of 10mmHg). Averaged right ventricular free wall longitudinal peak systolicstrain is -9% (normal </= -25%). ATRIA:Severely enlarged left atrial size. Severely enlarged right atrialsize. CARDIAC VALVES:Trileaflet aortic valve. Sclerotic aortic valve. Trivialaortic valve regurgitation. Mildly thickened mitral valve. Trivial mitralvalve regurgitation. Normal pulmonary valve. Normal pulmonary valvesystolic velocities. Mild pulmonary valve regurgitation. Tricuspid annulusdilatation. Mildly thickened tricuspid valve. Moderate-severe tricuspidvalve regurgitation. Tricuspid regurgitation ERO (PISA) 0.39 cm2.Tricuspid regurgitant volume (PISA) 41 ml. OTHER ECHO FINDINGS:Enlarged inferior vena cava size with reducedinspiratory collapse (<50%). Systolic flow reversals in the hepatic veinsby pulsed wave Doppler and color flow imaging. Ascending aorta not wellvisualized. Abdominal aorta incompletely visualized. Normal abdominalaorta Doppler flow pattern. Lipomatous atrial septum. Possible patentforamen ovale. No pericardial effusion. No intracardiac mass or thrombus,but the left atrial appendage cannot be visualized adequately withtransthoracic echo to exclude thrombus in this location. For the complete report, see the Order-Level Documents. Mal Oreilly M.D. CV ECHO PROCEDURES * Thyroid Function [place] (10/12/2023 7:45 AM EMBEDDED SYSTEMS SOFTWARE ENGINEER) TSH, Sensitive 2.0 0.3 - 4.2 mIU/L 10/12/2023 9:11 AM EMBEDDED SYSTEMS SOFTWARE ENGINEER DTL Blood (Blood, Venous) 10/12/2023 7:45 AM EMBEDDED SYSTEMS SOFTWARE ENGINEER 10/12/2023 8:30 AM EMBEDDED SYSTEMS SOFTWARE ENGINEER Mal Oreilly M.D. LAB BLOOD ADD-ON [facility] [place] [address] * NT-Pro B-Type Natriuretic Peptide (BNP) (10/12/2023 7:45 AM EMBEDDED SYSTEMS SOFTWARE ENGINEER) Pathologist [facility] NT-Pro BNP 353 <=540 pg/mL 10/12/2023 9:11 AM EMBEDDED SYSTEMS SOFTWARE ENGINEER DTL Comment: NT-proBNP values less than 300 pg/mL have a 99% negative predictive value for excluding acute congestive heart failure. A cutoff of 1200 pg/mL for patients with an eGFR<60 yields a diagnostic sensitivity and specificity of 89% and 72% for acute congestive heart failure. A diagnostic NT-proBNP cutoff of 1800 pg/mL has been suggested in adults over 75 years of age in the absence of renal failure. Blood (Blood, Venous) 10/12/2023 7:45 AM EMBEDDED SYSTEMS SOFTWARE ENGINEER 10/12/2023 8:30 AM EMBEDDED SYSTEMS SOFTWARE ENGINEER Mal Oreilly M.D. LAB BLOOD ADD-ON [facility] [address] [place] [address] * (ABNORMAL) Prothrombin Time (PT) (10/12/2023 7:45 AM EMBEDDED SYSTEMS SOFTWARE ENGINEER) Pathologist [facility] Prothrombin Time, P 38.9(H) 9.4 - 12.5 sec 10/12/2023 8:42 AM EMBEDDED SYSTEMS SOFTWARE ENGINEER DTL INR 3.4 0.9 - 1.1 10/12/2023 8:42 AM EMBEDDED SYSTEMS SOFTWARE ENGINEER DTL Comment: ----ADDITIONAL INFORMATION---- Standard intensity warfarin therapeutic range: 2.0 to 3.0 ?? High intensity warfarin therapeutic range: 2.5 to 3.5 Blood (Blood, Venous) 10/12/2023 7:45 AM EMBEDDED SYSTEMS SOFTWARE ENGINEER 10/12/2023 8:09 AM EMBEDDED SYSTEMS SOFTWARE ENGINEER Mal Oreilly M.D. LAB BLOOD ADD-ON [facility] [address] [place] [address], [facility] DTL [facility] [address] [place] [address] * CBC with Differential, Blood (10/12/2023 7:45 AM EMBEDDED SYSTEMS SOFTWARE ENGINEER) Hemoglobin 15.3 13.2 - 16.6 g/dL 10/12/2023 8:39 AM EMBEDDED SYSTEMS SOFTWARE ENGINEER DTL Hematocrit 44.9 38.3 - 48.6 % 10/12/2023 8:39 AM EMBEDDED SYSTEMS SOFTWARE ENGINEER DTL Erythrocytes 4.89 4.35 - 5.65 x10(12)/L 10/12/2023 8:39 AM EMBEDDED SYSTEMS SOFTWARE ENGINEER DTL MCV 91.8 78.2 - 97.9 fL 10/12/2023 8:39 AM EMBEDDED SYSTEMS SOFTWARE ENGINEER DTL RBC Distrib Width 13.7 11.8 - 14.5 % 10/12/2023 8:39 AM EMBEDDED SYSTEMS SOFTWARE ENGINEER DTL Platelet Count 155 135 - 317 x10(9)/L 10/12/2023 8:39 AM EMBEDDED SYSTEMS SOFTWARE ENGINEER DTL Leukocytes 7.5 3.4 - 9.6 x10(9)/L 10/12/2023 8:39 AM EMBEDDED SYSTEMS SOFTWARE ENGINEER DTL Neutrophils 4.31 1.56 - 6.45 x10(9)/L 10/12/2023 8:39 AM EMBEDDED SYSTEMS SOFTWARE ENGINEER DHPM Lymphocytes 2.19 0.95 - 3.07 x10(9)/L 10/12/2023 8:39 AM EMBEDDED SYSTEMS SOFTWARE ENGINEER DTL Monocytes 0.60 0.26 - 0.81 x10(9)/L 10/12/2023 8:39 AM EMBEDDED SYSTEMS SOFTWARE ENGINEER DTL Eosinophils 0.35 0.03 - 0.48 x10(9)/L 10/12/2023 8:39 AM EMBEDDED SYSTEMS SOFTWARE ENGINEER DTL Basophils 0.04 0.01 - 0.08 x10(9)/L 10/12/2023 8:39 AM EMBEDDED SYSTEMS SOFTWARE ENGINEER DTL Blood (Blood, Venous) 10/12/2023 7:45 AM EMBEDDED SYSTEMS SOFTWARE ENGINEER 10/12/2023 8:09 AM EMBEDDED SYSTEMS SOFTWARE ENGINEER Mal Oreilly M.D. LAB BLOOD ADD-ON [facility] [address] [place] [address], [facility] [address] [place] [address] [facility] [address] [place] [address] * BUN (Blood Urea Nitrogen) (10/12/2023 7:45 AM EMBEDDED SYSTEMS SOFTWARE ENGINEER) BUN (Blood Urea Nitrogen), S 24 8 - 24 mg/dL 10/12/2023 9:11 AM EMBEDDED SYSTEMS SOFTWARE ENGINEER DTL Blood (Blood, Venous) 10/12/2023 7:45 AM EMBEDDED SYSTEMS SOFTWARE ENGINEER 10/12/2023 8:30 AM EMBEDDED SYSTEMS SOFTWARE ENGINEER Mal Oreilly M.D. LAB BLOOD ADD-ON [facility] [address] [place], [place] [address] [address] [place] [address] * ALT (Alanine Aminotransferase) (10/12/2023 7:45 AM EMBEDDED SYSTEMS SOFTWARE ENGINEER) Alanine Aminotransferase (ALT), S 23 7 - 55 U/L 10/12/2023 9:11 AM EMBEDDED SYSTEMS SOFTWARE ENGINEER DT Blood (Blood, Venous) 10/12/2023 7:45 AM EMBEDDED SYSTEMS SOFTWARE ENGINEER 10/12/2023 8:30 AM EMBEDDED SYSTEMS SOFTWARE ENGINEER Mal Oreilly M.D. LAB BLOOD ADD-ON [facility] [address] [place] [address], [facility] [address] [place] [address] * AST (Aspartate Aminotransferase) (10/12/2023 7:45 AM EMBEDDED SYSTEMS SOFTWARE ENGINEER) Aspartate Aminotransferase (AST), S 19 8 - 48 U/L 10/12/2023 9:11 AM EMBEDDED SYSTEMS SOFTWARE ENGINEER DTL Blood (Blood, Venous) 10/12/2023 7:45 AM EMBEDDED SYSTEMS SOFTWARE ENGINEER 10/12/2023 8:30 AM EMBEDDED SYSTEMS SOFTWARE ENGINEER Mal Oreilly M.D. LAB BLOOD ADD-ON Performing Organization Address City/[facility]/ZIP Co de Phone Number [facility] [address] [place] [address] * Sodium (10/12/2023 7:45 AM EMBEDDED SYSTEMS SOFTWARE ENGINEER) Sodium, S 143 135 - 145 mmol/L 10/12/2023 9:11 AM EMBEDDED SYSTEMS SOFTWARE ENGINEER DTL Blood (Blood, Venous) 10/12/2023 7:45 AM EMBEDDED SYSTEMS SOFTWARE ENGINEER 10/12/2023 8:30 AM EMBEDDED SYSTEMS SOFTWARE ENGINEER Mal Oreilly M.D. LAB BLOOD ADD-ON Performing Organization Address City/[facility] Co de Phone Number [facility] [address] [place], [place] [id number] [place] [address] 200 [place] [address] * Potassium, S (10/12/2023 7:45 AM EMBEDDED SYSTEMS SOFTWARE ENGINEER) Potassium, S 4.9 3.6 - 5.2 mmol/L 10/12/2023 9:11 AM EMBEDDED SYSTEMS SOFTWARE ENGINEER DTL Blood (Blood, Venous) 10/12/2023 7:45 AM EMBEDDED SYSTEMS SOFTWARE ENGINEER 10/12/2023 8:30 AM EMBEDDED SYSTEMS SOFTWARE ENGINEER Mal Oreilly M.D. LAB BLOOD ADD-ON [facility] [address] [place], [place] [id number] [place] [address] 200 [place] [address] * Alkaline Phosphatase (10/12/2023 7:45 AM EMBEDDED SYSTEMS SOFTWARE ENGINEER) Alkaline Phosphatase, S 48 40 - 129 U/L 10/12/2023 9:11 AM EMBEDDED SYSTEMS SOFTWARE ENGINEER DTL Blood (Blood, Venous) 10/12/2023 7:45 AM EMBEDDED SYSTEMS SOFTWARE ENGINEER 10/12/2023 8:30 AM EMBEDDED SYSTEMS SOFTWARE ENGINEER Mal Oreilly M.D. LAB BLOOD ADD-ON [facility] [address] [place] [address], [facility] [address] [place] [address] * Creatinine with Estimated GFR (10/12/2023 7:45 AM EMBEDDED SYSTEMS SOFTWARE ENGINEER) Creatinine 1.16 0.74 - 1.35 mg/dL 10/12/2023 9:11 AM EMBEDDED SYSTEMS SOFTWARE ENGINEER DTL Estimated GFR (eGFR) 63 >=60 mL/min/BSA 10/12/2023 9:11 AM EMBEDDED SYSTEMS SOFTWARE ENGINEER DTL Comment: Estimated GFR calculated using the 2020 CKD_EPI creatinine equation. Blood (Blood, Venous) 10/12/2023 7:45 AM EMBEDDED SYSTEMS SOFTWARE ENGINEER 10/12/2023 8:30 AM EMBEDDED SYSTEMS SOFTWARE ENGINEER Mal Oreilly M.D. LAB BLOOD ADD-ON Performing Organization Address City/[facility]/ZIP Co de Phone Number [facility] [address] [place] [address], [facility] [address] [place] [address] * Bilirubin, Total (10/12/2023 7:45 AM EMBEDDED SYSTEMS SOFTWARE ENGINEER) Pathologist [facility] Bilirubin, Total, S 1.0 0.0 - 1.2 mg/dL 10/12/2023 9:11 AM EMBEDDED SYSTEMS SOFTWARE ENGINEER DTL Blood (Blood, Venous) 10/12/2023 7:45 AM EMBEDDED SYSTEMS SOFTWARE ENGINEER 10/12/2023 8:30 AM EMBEDDED SYSTEMS SOFTWARE ENGINEER Mal Oreilly M.D. LAB BLOOD ADD-ON [facility] [address] [place] [address], [facility] [address] [place] [address] * Albumin (10/12/2023 7:45 AM EMBEDDED SYSTEMS SOFTWARE ENGINEER) Albumin, S 4.3 3.5 - 5.0 g/dL 10/12/2023 9:11 AM EMBEDDED SYSTEMS SOFTWARE ENGINEER DTL Blood (Blood, Venous) 10/12/2023 7:45 AM EMBEDDED SYSTEMS SOFTWARE ENGINEER 10/12/2023 8:30 AM EMBEDDED SYSTEMS SOFTWARE ENGINEER Mal Oreilly M.D. LAB BLOOD ADD-ON [facility] [address] [place] [address], [facility] DTL [facility] [address] [place] [address] from Last 3 Months Care Teams [employer] Relationship Specialty Start Date End Date Elsewhere, Pcp PCP - General Family Medicine 11/19/20
--- OUTSIDE RECORDS SUMMARY | 2023-12-27 10:55 | XMS_ITS | Clinical Summary ---
Author Name Unknown Organization [facility] Address [address] [place] [address] Care Team Providers Care Family Specialist Name Role Phone Elsewhere, Pcp Primary Care Provider Unavailabl e Source Comments Patient records contain information from all sites at [facility]. For routine questions regarding patient records, call [phone] during business hours, M-F 8:00 AM - 5:00 PM Central Time. Record requests for emergency care only can be directed to [phone] at any time.[facility] Allergies No known active allergies Medications Medication Sig Dispensed Refills Start Date End Date Status foot care products pad FOR HOME USE 0 09/29/2018 Active aspirin 81 mg chewable tablet Chew 1 tablet daily. 0 07/16/2014 Active omega 0-bjr-bwh-fish oil 100-160-1,000 mg capsule Take 2 capsules [...] flash glucose sensor (FreeStyle Cyrus 2 Sensor) kitIndications:Medical Sales Associate Use Of Insulin Active (HCC),Diabetes Mellitus Type [...] 2 With Diabetic Chronic Kidney Disease Hyperglycemic (HCC),Medical Sales Associate Use Of Insulin Active (HCC) 1 each [...] Active Problems Problem Noted Date Diagnosed Date Medical Sales Associate Use Of Insulin Active 12/14/2022 Medical Sales Associate Current Use Of Inj ectable Non-Insulin Antidiabetic [...] Graft Status Post Perso nal History 12/14/2000 Encounters Date Type Department Care Team Description 12/07/2023 11:00 AM ASSEMBLY MACHINE TENDER Office Visit Department of Endocrinology in [address] [phone] Saba Nicole P.A.-C., P.A. 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 Diabetes Mellitus Type 2 With Other Circulatory Complication Hyperglycemic (HCC); Medical Sales Associate Use Of Insulin Active (HCC) Discharge Disposition: Home or Self Care 10/12/2023 1:30 PM ASSEMBLY MACHINE TENDER Office Visit Department of Cardiovascular Medicine in [address] [phone] Mal Oreilly M.D. 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; Medical Sales Associate Current Use Of Injectable Non-Insulin Antidiabetic Drugs; Long-Term Use Of Insulin Active (HCC); Hypertension Pulmonary (HCC); Atrial Fibrillation Permanent (HCC) Discharge Disposition: Home or Self Care 10/09/2023 10:45 AM [facility] Clinical Communication Virtual Review in [address] [address] Pre-visit Intake from Last 3 Months Family History Medical History Relation Name Comments Diabetes type II Aunt paternal Coronary artery disease Father Thierno Rodriguez Diabetes mellitus type II Father Thierno Rodriguez Obesity Father Thierno Rodriguez Relation Name Status Comments Aunt paternal Father Thierno Rodriguez Mother Social History Tobacco Use Types Packs/Day Years Used Date Smoking Tobacco: Former Cigarettes 1 0 0 07/28/1960 - 11/27/1979 Smokeless Tobacco: Never Tobacco Cessation:Counseling Given: Not Answered Alcohol Use Standard Drinks/Week Comments No 0 (1 standard drink = 0.6 oz pur e alcohol) [facility] Utilities Answer Date Recorded In the past 12 months has th e electric, gas, oil, or water company threatened to shut off services in your [...] often do you attend chur ch or islam services? More than 4 times per year 06/02/2022 Do you belong to any clubs o r organizations such as religious groups, unions, fraternal or athletic groups, or [...] heating? Not hard at all 06/02/2022 [facility] [place] of Occupat ional Health - Occupational Stress [...] your living situation today? I have a [facility] place to live 12/03/2023 Education Answer [...] Comments Blood Pressure 118/58 12/07/2023 10:51 AM ASSEMBLY MACHINE TENDER Pulse 56 12/07/2023 10:51 AM ASSEMBLY MACHINE TENDER Temperature 36.4 ??C (97.6 ??F) 06/14/2023 2 :46 PM CDT Respiratory Rate 20 01/21/2014 11:1 6 AM ASSEMBLY MACHINE TENDER Vital sign result from Clinical Notes. Oxygen Saturation 94% 06/14/2023 2:4 6 PM CDT Inhaled Oxygen Concentration - - Weight 138 kg (303 lb 5.7 oz) 12/07/2023 10:51 AM ASSEMBLY MACHINE TENDER Height 183.3 cm (6' 0.17) 02/22/2023 1 :51 PM CDT Body Mass Index 40.95 02/22/2023 1:51 PM CDT Plan of Treatment Upcoming Encounters Date Type Department Care Team (Late st Contact Info) Description 03/13/2024 12:30 PM CDT Appointment Department of Laboratory Medicine in [place], [place] [address] [place] [phone] Saba Nicole P.A.Michela., P.A. [address] [place] [phone] 03/13/2024 2:30 PM CDT Office Visit Department of Endocrinology in [place], [place] [address] [place] [phone] Saba Nicole P.A.-C., P.A. [address] [place] [phone] Health Maintenance Due Date Last Done Comments Diabetic Office Visit with F oot Exam 1941 Urine Albumin 1941 Hepatitis B Vaccines (1 of 3 - Risk 3-dose series) 2001 Depression Screening (Annual PHQ-2) 11/27/2023 Fall Risk Screen (Annual) 11/27/2023 Hemoglobin A1C 05/25/2024 11/24/2023, 07/29, 05/25/2023, Additional history exists Dilated Eye Exam 08/21/2024 08/21/2023 Creatinine Level (Kidney Fun ction Test) 11/24/2024 11/24/2023, 10/12/2023, 08/24/2023, Additional history exists Potassium Level 11/24/2024 11/24/2023, 09/27, 08/24/2023, Additional history exists Sodium Level 11/24/2024 11/24/2023, 09/27, 08/24/2023, Additional history exists Office Visit for Blood Press ure Check / Re-check 12/07/2024 12/07/2023 DTaP,Tdap,and Td Vaccines (5 - Td or Tdap) 03/29/2031 03/29/2021, 11/07/2011, 10/28/2011, Additional history exists Colonoscopy Discontinued 12/07/2009 (Perf ormed elsewhere) Colorectal Cancer Surveillance Discontinued Pneumococcal vaccine (65+ years) Completed 07/28/2016, 01/06/2015, 11/27/2013, Additional history exists Zoster Vaccines Completed 12/13/2018, 07/28, 11/27/2007, Additional history exists Influenza Vaccine Completed 08/22/2023, , 08/15/2022, Additional history exists COVID-19 Vaccine Completed 08/30/2023, 12/2022, 08/15/2022, Additional history exists CT Colonography Discontinued Cologuard Discontinued Medical Devices Implanted Type Area Buckle Attaching Machine Operator Device Identifier Shelf Expiration Date Model / Serial / Lot [place] Andi Fuzzy 1 X 1 - Nettles [id number] Implanted:Qty: 1 on 12/14/2000 Mesh or Patch Ryzing Description:Device 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 Device Status Text - [id number]. KIMBERLYN Data - [id number]. Procedures Procedure Name Priority Date/Time Associated Diagnosis Comments BASIC METABOLIC PANEL, S/P Routine 11/24/2023 10:40 AM ASSEMBLY MACHINE TENDER Diabetes Mellitus Type 2 With Other Circulatory Complication Hyperglycemic (HCC) Long-Term Use Of Insulin Active (HCC) HEMOGLOBIN A1C, B Routine 11/24/2023 10: 40 AM ASSEMBLY MACHINE TENDER Diabetes Mellitus Type 2 With Other Circulatory Complication Hyperglycemic (HCC) Medical Sales Associate Use Of Insulin Active (HCC) ECG Routine 10/12/2023 12:19 PM ASSEMBLY MACHINE TENDER 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 Angina Pectoris Diabetes Mellitus Type 2 With Other Circulatory Complication Hyperglycemic (HCC) 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 Long-Term Current Use Of Injectable Non-Insulin Antidiabetic Drugs Long-Term Use Of Insulin Active (HCC) Hypertension Pulmonary (HCC) Atrial Fibrillation Permanent (HCC) 6 MINUTE WALK Routine 10/12/2023 10:30 AM ASSEMBLY MACHINE TENDER 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 Angina Pectoris Diabetes Mellitus Type 2 With Other Circulatory Complication Hyperglycemic (HCC) 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 Medical Sales Associate Current Use Of Injectable Non-Insulin Antidiabetic Drugs Medical Sales Associate Use Of Insulin Active (HCC) Hypertension Pulmonary (HCC) Atrial Fibrillation Permanent (HCC) (TTE) 2D ECHO DOPPLER COLOR Routine 10/12/2023 8:53 AM ASSEMBLY MACHINE TENDER 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 Angina Pectoris Diabetes Mellitus Type 2 With Other Circulatory Complication Hyperglycemic (HCC) 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 Medical Sales Associate Current Use Of Injectable Non-Insulin Antidiabetic Drugs Medical Sales Associate Use Of Insulin Active (HCC) Hypertension Pulmonary (HCC) Atrial Fibrillation Permanent (HCC) NT-PRO B-TYPE NATRIURETIC PEPTIDE (BNP), S Routine 10/12/2023 7:45 AM ASSEMBLY MACHINE TENDER 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 Angina Pectoris Diabetes Mellitus Type 2 With Other Circulatory Complication Hyperglycemic (HCC) 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 Long-Term Current Use Of Injectable Non-Insulin Antidiabetic Drugs Long-Term Use Of Insulin Active (HCC) Hypertension Pulmonary (HCC) Atrial Fibrillation Permanent (HCC) THYROID FUNCTION CASCADE, S Routine 10/12/2023 7:45 AM ASSEMBLY MACHINE TENDER 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 Angina Pectoris Diabetes Mellitus Type 2 With Other Circulatory Complication Hyperglycemic (HCC) 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 Medical Sales Associate Current Use Of Injectable Non-Insulin Antidiabetic Drugs Long-Term Use Of Insulin Active (HCC) Hypertension Pulmonary (HCC) Atrial Fibrillation Permanent (HCC) BUN (BLOOD UREA NITROGEN), S/P Routine 10/12/2023 7:45 AM ASSEMBLY MACHINE TENDER 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 Angina Pectoris Diabetes Mellitus Type 2 With Other Circulatory Complication Hyperglycemic (HCC) 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 Long-Term Current Use Of Injectable Non-Insulin Antidiabetic Drugs Medical Sales Associate Use Of Insulin Active (HCC) Hypertension Pulmonary (HCC) Atrial Fibrillation Permanent (HCC) BILIRUBIN, TOT, S/P Routine 10/12/2023 7 :45 AM ASSEMBLY MACHINE TENDER 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 Angina Pectoris Diabetes Mellitus Type 2 With Other Circulatory Complication Hyperglycemic (HCC) 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 Long-Term Current Use Of Injectable Non-Insulin Antidiabetic Drugs Long-Term Use Of Insulin Active (HCC) Hypertension Pulmonary (HCC) Atrial Fibrillation Permanent (HCC) ALKALINE PHOSPHATASE, S/P Routine 10/12/2023 7:45 AM ASSEMBLY MACHINE TENDER 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 Angina Pectoris Diabetes Mellitus Type 2 With Other Circulatory Complication Hyperglycemic (HCC) 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 Long-Term Current Use Of Injectable Non-Insulin Antidiabetic Drugs Medical Sales Associate Use Of Insulin Active (HCC) Hypertension Pulmonary (HCC) Atrial Fibrillation Permanent (HCC) ALANINE AMINOTRANSFERASE (ALT), S/P Routine 10/12/2023 7:45 AM ASSEMBLY MACHINE TENDER 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 Angina Pectoris Diabetes Mellitus Type 2 With Other Circulatory Complication Hyperglycemic (HCC) 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 Long-Term Current Use Of Injectable Non-Insulin Antidiabetic Drugs Long-Term Use Of Insulin Active (HCC) Hypertension Pulmonary (HCC) Atrial Fibrillation Permanent (HCC) ASPARTATE AMINOTRANSFERASE (AST), S/P Routine 10/12/2023 7:45 AM ASSEMBLY MACHINE TENDER 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 Angina Pectoris Diabetes Mellitus Type 2 With Other Circulatory Complication Hyperglycemic (HCC) 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 Long-Term Current Use Of Injectable Non-Insulin Antidiabetic Drugs Medical Sales Associate Use Of Insulin Active (HCC) Hypertension Pulmonary (HCC) Atrial Fibrillation Permanent (HCC) ALBUMIN, S/P Routine 10/12/2023 7:45 AM ASSEMBLY MACHINE TENDER 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 Angina Pectoris Diabetes Mellitus Type 2 With Other Circulatory Complication Hyperglycemic (HCC) 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 Medical Sales Associate Current Use Of Injectable Non-Insulin Antidiabetic Drugs Medical Sales Associate Use Of Insulin Active (HCC) Hypertension Pulmonary (HCC) Atrial Fibrillation Permanent (HCC) CREATININE WITH EGFR, S/P Routine 10/12/2023 7:45 AM ASSEMBLY MACHINE TENDER 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 Angina Pectoris Diabetes Mellitus Type 2 With Other Circulatory Complication Hyperglycemic (HCC) 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 Long-Term Current Use Of Injectable Non-Insulin Antidiabetic Drugs Long-Term Use Of Insulin Active (HCC) Hypertension Pulmonary (HCC) Atrial Fibrillation Permanent (HCC) POTASSIUM, S/P Routine 10/12/2023 7:45 AM ASSEMBLY MACHINE TENDER 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 Angina Pectoris Diabetes Mellitus Type 2 With Other Circulatory Complication Hyperglycemic (HCC) 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 Long-Term Current Use Of Injectable Non-Insulin Antidiabetic Drugs Long-Term Use Of Insulin Active (HCC) Hypertension Pulmonary (HCC) Atrial Fibrillation Permanent (HCC) SODIUM, S/P Routine 10/12/2023 7:45 AM ASSEMBLY MACHINE TENDER 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 Angina Pectoris Diabetes Mellitus Type 2 With Other Circulatory Complication Hyperglycemic (HCC) 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 Medical Sales Associate Current Use Of Injectable Non-Insulin Antidiabetic Drugs Long-Term Use Of Insulin Active (HCC) Hypertension Pulmonary (HCC) Atrial Fibrillation Permanent (HCC) PROTHROMBIN TIME (PT), P Routine 10/12/2023 7:45 AM ASSEMBLY MACHINE TENDER 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 Angina Pectoris Diabetes Mellitus Type 2 With Other Circulatory Complication Hyperglycemic (HCC) 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 Medical Sales Associate Current Use Of Injectable Non-Insulin Antidiabetic Drugs Medical Sales Associate Use Of Insulin Active (HCC) Hypertension Pulmonary (HCC) Atrial Fibrillation Permanent (HCC) CBC WITH DIFFERENTIAL, B Routine 10/12/2023 7:45 AM ASSEMBLY MACHINE TENDER 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 Angina Pectoris Diabetes Mellitus Type 2 With Other Circulatory Complication Hyperglycemic (HCC) 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 ??Diagnosis should be confirmed by repeat testing. ??In diabetic patients, HbA1c goals should be discussed with healthcare provider. Blood (Blood, Venous) 11/24/2023 10:40 AM ASSEMBLY MACHINE TENDER 11/24/2023 10:52 AM ASSEMBLY MACHINE TENDER Saba Nicole P.A.-C. P.AJazmin LAB BL OOD ADD-ON - [facility] [address], [place] [address], [facility] OWAT [facility] in [place] [address] [place] [address] * (ABNORMAL) Basic Metabolic Panel (11/24/2023 10:40 AM ASSEMBLY MACHINE TENDER) Potassium, P 4.4 3.6 - 5.2 mmol/L 11/24/2023 11:41 AM ASSEMBLY MACHINE TENDER OWAT Sodium, P 141 135 - 145 mmol/L 11/24/2023 11:41 AM ASSEMBLY MACHINE TENDER OWAT Chloride, P 102 98 - 107 mmol/L 11/24/2023 11:41 AM ASSEMBLY MACHINE TENDER OWAT Bicarbonate, P 26 22 - 29 mmol/L 11/24/2023 11:41 AM ASSEMBLY MACHINE TENDER OWAT Anion Gap, P 13 7 - 15 11/24/2023 11:41 AM ASSEMBLY MACHINE TENDER OWAT BUN (Blood Urea Nitrogen), P 23 8 - 24 mg/dL 11/24/2023 11:41 AM ASSEMBLY MACHINE TENDER OWAT Creatinine 1.13 0.74 - 1.35 mg/dL 11/24/2023 11:41 AM ASSEMBLY MACHINE TENDER OWAT Estimated GFR (eGFR) 65 >=60 mL/min/BSA 11/24/2023 11:41 AM ASSEMBLY MACHINE TENDER OWAT Comment: Estimated GFR calculated using the 2020 CKD_EPI creatinine equation. Calcium, Total, P 9.5 8.8 - 10.2 mg/dL 11/24/2023 11:41 AM ASSEMBLY MACHINE TENDER OWAT Glucose, P 198(H) 70 - 140 mg/dL 11/24/2023 11:41 AM ASSEMBLY MACHINE TENDER OWAT Blood (Blood, Venous) 11/24/2023 10:40 AM ASSEMBLY MACHINE TENDER 11/24/2023 10:51 AM ASSEMBLY MACHINE TENDER Saba Nicole P.A.-C., P.A. LAB BL OOD ADD-ON Performing Organization Address City/[facility]/ZIP Co de Phone Number - [facility] [address] [place] [address], [place] OWAT [facility] in [place] [address] [place] [address] * ECG 12 Lead (10/12/2023 12:19 PM ASSEMBLY MACHINE TENDER) Ventricular Rate ECG/Min 81 BPM MUSE QRSD Interval 150 ms MUSE QT Interval 422 ms MUSE QTC Interval 490 ms MUSE R [place] 181 degrees MUSE T Wave [place] 3 degrees MUSE 10/12/2023 12:1 9 PM ASSEMBLY MACHINE TENDER 10/12/2023 12:45 PM ASSEMBLY MACHINE TENDER Impressions MUSE - 10/12/2023 12:30 PM ASSEMBLY MACHINE TENDER Atrial fibrillation Right superior axis deviation Right [...] change was found Reviewed by PAUL Sierra Mla Oreilly M.D. ECG ORDERABLES Performing Organization Address City/[facility]/ZIP Co de Phone Number MUSE NA * 6 MINUTE WALK (10/12/2023 10:30 AM ASSEMBLY MACHINE TENDER) Narrative Neelam Kent M.D., Ph.D. - 10/12/2023 10:30 AM ASSEMBLY MACHINE TENDER Neelam Kent M.D., Ph.D. ? 10/13/2023 ??6:26 [...] Nothing at all Time of Test: ??09:20 ASSEMBLY MACHINE TENDER Total Distance Walked (Feet): ??1200 Total Distance [...] 2D ECHO DOPPLER COLOR (10/12/2023 8:53 AM ASSEMBLY MACHINE TENDER) [facility] Ejection Fraction 60 MC CV EIMS LV [...] Region Laterality Modality Echocardiography 10/12/2023 8:11 AM ASSEMBLY MACHINE TENDER Impressions 10/12/2023 9:15 AM ASSEMBLY MACHINE TENDER Echocardiogram performed per left ventricular function protocol. [...] the Order-Level Documents. Narrative 10/12/2023 9:15 AM ASSEMBLY MACHINE TENDER For the complete report, see the Order-Level [...] M.D. CV ECHO PROCEDURES * Thyroid Function [place] (10/12/2023 7:45 AM ASSEMBLY MACHINE TENDER) TSH, Sensitive 2.0 0.3 - 4.2 mIU/L 10/12/2023 9:11 AM ASSEMBLY MACHINE TENDER DTL Blood (Blood, Venous) 10/12/2023 7:45 AM ASSEMBLY MACHINE TENDER 10/12/2023 8:30 AM ASSEMBLY MACHINE TENDER Mal Oreilly M.D. LAB BLOOD ADD-ON [facility] [address] [place], [place] [address] [address] [place] [address] * NT-Pro B-Type Natriuretic Peptide (BNP) (10/12/2023 7:45 AM ASSEMBLY MACHINE TENDER) Pathologist [facility] NT-Pro BNP 353 <=540 pg/mL 10/12/2023 9:11 AM ASSEMBLY MACHINE TENDER DTL Comment: NT-proBNP values less than 300 [...] failure. Blood (Blood, Venous) 10/12/2023 7:45 AM ASSEMBLY MACHINE TENDER 10/12/2023 8:30 AM ASSEMBLY MACHINE TENDER Mal Oreilly M.D. LAB BLOOD ADD-ON Performing Organization Address City/[facility] Co de Phone Number [facility] [address] [place] [address], [facility] [address] [place] [address] * (ABNORMAL) Prothrombin Time (PT) (10/12/2023 7:45 AM ASSEMBLY MACHINE TENDER) Pathologist [facility] Prothrombin Time, P 38.9(H) 9.4 - 12.5 sec 10/12/2023 8:42 AM ASSEMBLY MACHINE TENDER DTL INR 3.4 0.9 - 1.1 10/12/2023 8:42 AM ASSEMBLY MACHINE TENDER DTL Comment: ----ADDITIONAL INFORMATION---- Standard intensity warfarin therapeutic range: 2.0 to 3.0 ?? High intensity warfarin therapeutic range: 2.5 to 3.5 Blood (Blood, Venous) 10/12/2023 7:45 AM ASSEMBLY MACHINE TENDER 10/12/2023 8:09 AM ASSEMBLY MACHINE TENDER Mal Oreilly M.D. LAB BLOOD ADD-ON Performing Organization Address City/[facility]/ZIP Co de Phone Number [facility] [address] [place] [address], [facility] DTL [facility] [address] [place] [address] * CBC with Differential, Blood (10/12/2023 7:45 AM ASSEMBLY MACHINE TENDER) Hemoglobin 15.3 13.2 - 16.6 g/dL 10/12/2023 8:39 AM ASSEMBLY MACHINE TENDER DTL Hematocrit 44.9 38.3 - 48.6 % 10/12/2023 8:39 AM ASSEMBLY MACHINE TENDER DTL Erythrocytes 4.89 4.35 - 5.65 x10(12)/L 10/12/2023 8:39 AM ASSEMBLY MACHINE TENDER DTL MCV 91.8 78.2 - 97.9 fL 10/12/2023 8:39 AM ASSEMBLY MACHINE TENDER DTL RBC Distrib Width 13.7 11.8 - 14.5 % 10/12/2023 8:39 AM ASSEMBLY MACHINE TENDER DTL Platelet Count 155 135 - 317 x10(9)/L 10/12/2023 8:39 AM ASSEMBLY MACHINE TENDER DTL Leukocytes 7.5 3.4 - 9.6 x10(9)/L 10/12/2023 8:39 AM ASSEMBLY MACHINE TENDER DTL Neutrophils 4.31 1.56 - 6.45 x10(9)/L 10/12/2023 8:39 AM ASSEMBLY MACHINE TENDER DHPM Lymphocytes 2.19 0.95 - 3.07 x10(9)/L 10/12/2023 8:39 AM ASSEMBLY MACHINE TENDER DTL Monocytes 0.60 0.26 - 0.81 x10(9)/L 10/12/2023 8:39 AM ASSEMBLY MACHINE TENDER DTL Eosinophils 0.35 0.03 - 0.48 x10(9)/L 10/12/2023 8:39 AM ASSEMBLY MACHINE TENDER DTL Basophils 0.04 0.01 - 0.08 x10(9)/L 10/12/2023 8:39 AM ASSEMBLY MACHINE TENDER DTL Blood (Blood, Venous) 10/12/2023 7:45 AM ASSEMBLY MACHINE TENDER 10/12/2023 8:09 AM ASSEMBLY MACHINE TENDER Mal Oreilly M.D. LAB BLOOD ADD-ON [facility] [address] [place], [place] [address] [address] [place] [address] [facility] [address] [place] [address] * BUN (Blood Urea Nitrogen) (10/12/2023 7:45 AM ASSEMBLY MACHINE TENDER) BUN (Blood Urea Nitrogen), S 24 8 - 24 mg/dL 10/12/2023 9:11 AM ASSEMBLY MACHINE TENDER DTL Blood (Blood, Venous) 10/12/2023 7:45 AM ASSEMBLY MACHINE TENDER 10/12/2023 8:30 AM ASSEMBLY MACHINE TENDER Mal Oreilly M.D. LAB BLOOD ADD-ON [facility] [address] [place], [place] [address] [address] [place] [address] * ALT (Alanine Aminotransferase) (10/12/2023 7:45 AM ASSEMBLY MACHINE TENDER) Alanine Aminotransferase (ALT), S 23 7 - 55 U/L 10/12/2023 9:11 AM ASSEMBLY MACHINE TENDER DTL Blood (Blood, Venous) 10/12/2023 7:45 AM ASSEMBLY MACHINE TENDER 10/12/2023 8:30 AM ASSEMBLY MACHINE TENDER Mal Oreilly M.D. LAB BLOOD ADD-ON [facility] [address] [place], [place] [address] [address] [place] [address] * AST (Aspartate Aminotransferase) (10/12/2023 7:45 AM ASSEMBLY MACHINE TENDER) Aspartate Aminotransferase (AST), S 19 8 - 48 U/L 10/12/2023 9:11 AM ASSEMBLY MACHINE TENDER DTL Blood (Blood, Venous) 10/12/2023 7:45 AM ASSEMBLY MACHINE TENDER 10/12/2023 8:30 AM ASSEMBLY MACHINE TENDER Mal Oreilly M.D. LAB BLOOD ADD-ON Performing Organization Address City/[facility]/ZIP Co de Phone Number [facility] [address] [place], [place] [phone] [place] [address] 200 [place] [address] * Sodium (10/12/2023 7:45 AM ASSEMBLY MACHINE TENDER) Sodium, S 143 135 - 145 mmol/L 10/12/2023 9:11 AM ASSEMBLY MACHINE TENDER DTL Blood (Blood, Venous) 10/12/2023 7:45 AM ASSEMBLY MACHINE TENDER 10/12/2023 8:30 AM ASSEMBLY MACHINE TENDER Mal Oreilly M.D. LAB BLOOD ADD-ON Performing Organization Address City/[facility] Co de Phone Number [facility] [address] [place], [place] [phone] [place] [phone] * Potassium, S (10/12/2023 7:45 AM ASSEMBLY MACHINE TENDER) Potassium, S 4.9 3.6 - 5.2 mmol/L 10/12/2023 9:11 AM ASSEMBLY MACHINE TENDER DTL Blood (Blood, Venous) 10/12/2023 7:45 AM ASSEMBLY MACHINE TENDER 10/12/2023 8:30 AM ASSEMBLY MACHINE TENDER Mal Oreilly M.D. LAB BLOOD ADD-ON [facility] [address] [place], [place] [id number] [place] [address] 200 [place] [address] * Alkaline Phosphatase (10/12/2023 7:45 AM ASSEMBLY MACHINE TENDER) Alkaline Phosphatase, S 48 40 - 129 U/L 10/12/2023 9:11 AM ASSEMBLY MACHINE TENDER DTL Blood (Blood, Venous) 10/12/2023 7:45 AM ASSEMBLY MACHINE TENDER 10/12/2023 8:30 AM ASSEMBLY MACHINE TENDER Mal Oreilly M.D. LAB BLOOD ADD-ON [facility] [address] [place] [address], [facility] [address] [place] [address] * Creatinine with Estimated GFR (10/12/2023 7:45 AM ASSEMBLY MACHINE TENDER) Creatinine 1.16 0.74 - 1.35 mg/dL 10/12/2023 9:11 AM ASSEMBLY MACHINE TENDER DTL Estimated GFR (eGFR) 63 >=60 mL/min/BSA 10/12/2023 9:11 AM ASSEMBLY MACHINE TENDER DTL Comment: Estimated GFR calculated using the 2020 CKD_EPI creatinine equation. Blood (Blood, Venous) 10/12/2023 7:45 AM ASSEMBLY MACHINE TENDER 10/12/2023 8:30 AM ASSEMBLY MACHINE TENDER Mal Oreilly M.D. LAB BLOOD ADD-ON Performing Organization Address City/[facility] Co de Phone Number [facility] [address] [place] [address], [facility] [address] [place] [address] * Bilirubin, Total (10/12/2023 7:45 AM ASSEMBLY MACHINE TENDER) Bilirubin, Total, S 1.0 0.0 - 1.2 mg/dL 10/12/2023 9:11 AM ASSEMBLY MACHINE TENDER DT Blood (Blood, Venous) 10/12/2023 7:45 AM ASSEMBLY MACHINE TENDER 10/12/2023 8:30 AM ASSEMBLY MACHINE TENDER Mal Oreilly M.D. LAB BLOOD ADD-ON [facility] [address] [place] [address], [facility] [address] [place] [address] * Albumin (10/12/2023 7:45 AM ASSEMBLY MACHINE TENDER) Albumin, S 4.3 3.5 - 5.0 g/dL 10/12/2023 9:11 AM ASSEMBLY MACHINE TENDER DTL Blood (Blood, Venous) 10/12/2023 7:45 AM ASSEMBLY MACHINE TENDER 10/12/2023 8:30 AM ASSEMBLY MACHINE TENDER Mal Oreilly M.D. LAB BLOOD ADD-ON [facility] [address] [place] [address], [place] DTL [facility] [address] [place] [address] from Last 3 Months Care Teams Family Specialist Relationship Specialty Start Date End Date Elsewhere, Pcp PCP - General Family Medicine 11/19/20
--- OUTSIDE RECORDS SUMMARY | 2023-12-27 10:55 | XMS_ITS ---
Author Name Unknown Organization [facility] Address [address] [place] [address] Care Team Providers Care Wax Specialist Name Role Phone Unavailable Unavailable Unavailable Surgery Details Not on file Complications Check Surgery Details section. Procedure Estimated Blood Loss Check Surgery Details section. Procedure Findings Check Surgery Details section. Procedure Specimens Taken Check Surgery Details section.
--- OUTSIDE RECORDS SUMMARY | 2023-12-27 10:55 | XMS_ITS | Encounter Summary ---
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 [address] [phone] [facility] Region Referral ID Status Reason Start Date Expiration Date V isits Requested Visits Authorized [id number] Authorized 12/07/2023 12/06/2026 1 1 HET SETTER Reason for Visit * Reason Comments Diabetes Mellitus Type 2 * Outpatient (Routine) - Closed Specialty Diagnoses / Procedures Referred By Contac t Referred To Contact Endocrinology Diagnoses Diabetes Mellitus Type 2 With Other Circulatory Complication Hyperglycemic (HCC) Long-Term Use Of Insulin Active (HCC) Saba Nicole P.A.-C., P.A. [address] [address] [facility] Region Referral ID Status Reason Start Date Expiration Date Visits Re quested Visits Authorized [id number] Closed 06/14/2023 06/13/2026 1 1 Encounter Details Date Type Department Care Team (Latest Contact Info) Description 12/07/2023 11:00 AM RATCHET SETTER Office Visit Department of Endocrinology in [place], [place] [address] [phone] Saba Nicole P.A.-C., P.A. [address] [place] [address] Diabetes Mellitus Type 2 With Other Circulatory Complication Hyperglycemic (HCC) (Primary Dx); Long-Term Use Of Insulin Active (HCC); Morbid Obesity Body Mass Index >= 35 with Comorbid Condition (HCC); Diabetes Mellitus Type 2 With Diabetic Neuropathy Hyperglycemic (HCC); Diabetes Mellitus Type 2 With Diabetic Chronic Kidney Disease Hyperglycemic (HCC); Long-Term Current Use Of Injectable Non-Insulin Antidiabetic Drugs Social History Tobacco Use Types Packs/Day Years Used Date Smoking Tobacco: Former Cigarettes 1 0 0 07/28/1960 - 11/27/1979 Smokeless Tobacco: Never Tobacco Cessation:Counseling Given: Not Answered Alcohol Use Standard Drinks/Week Comments No 0 (1 standard drink = 0.6 oz pur e alcohol) [facility] Utilities Answer Date Recorded In the past 12 months has [facility] [employer], gas, oil, or water [employer] threatened to shut off services in your [...] often do you attend chur ch or hinduism services? More than 4 times per year 06/02/2022 Do you belong to any clubs o r organizations such as latter day groups, unions, fraternal or athletic groups, or [...] and heating? Not hard at all 06/02/2022 [facility] Occupat ional [facility] [place] [facility] - Occupational Stress Questionnaire Answer Date Recorded [...] your living situation today? I have a [facility] place to live 12/03/2023 Education Answer [...] PM CDT documented as of this encounter Last Filed Vital Signs Vital Sign Reading Time Taken Comments Blood Pressure 118/58 12/07/2023 10:51 AM RATCHET SETTER Pulse 56 12/07/2023 10:51 AM RATCHET SETTER Temperature - - Respiratory Rate - - Oxygen Saturation - - Inhaled Oxygen Concentration - - Weight 138 kg (303 lb 5.7 oz) 12/07/2023 10:51 A M RATCHET SETTER Height - - Body Mass Index 40.95 02/22/2023 1:51 PM CDT documented in this encounter Patient Instructions * Patient Instructions* Saba Nicole, PMicheline.-C., P.A. - 12/07/2023 11:00 AM RATCHET SETTER [facility] aim to do more walking vs biking, and also go to [employer] classes 3 days weekly. No change to treatment plan today, as will focus on more movement and better dietary choices. Continue the following: - 1000 mg Metformin XR BID; - Jardiance 25 mg once daily; - Ozempic 2 mg once weekly; - Lantus: 20 units once daily- nightly. 4. A1c due 02/23/2024. 5 Endo return visit in 3 months. HET SETTER documented in this encounter Progress Notes * Saba Nicole P.A.-C., P.A. - 12/07/2023 11:00 AM CST SUBJECTIVE CHIEF COMPLAINT Chief Complaint Patient presents with Diabetes Mellitus Type 2 Lab Results Component Value Date HGBA1C 7.3 (H) 11/24/2023 HISTORY OF PRESENT ILLNESS Patient presents today for a evaluation and treatment of diabetes mellitus type 2. - Date of dx: 20+ years. - Family history of diabetes: pat aunt- DM2; father- suspected DM2. A1c: 9.3% on 03/14/2022. A1c: 8.7% on 08/30/2022. A1c: 8.7%- 11/29/2022. A1c: 7.3%- 11/24/2023. Interim: - notes 70# loss since 2017. - [facility] 2 mg Ozempic. - Cyrus 2 supplies come from [employer]. Diabetes related medication: - 1000 mg Metformin XR BID- notes less diarrhea than normal; - Jardiance 25 mg once daily; - Ozempic 2 mg once weekly- has to take 2- 1 mg shots once weekly (q ). - Lantus: 20 units once daily- nightly. - no abdominal pain/nausea/vomiting. - denies burning/painful urination or genital infection s/sx. - Patient had previously been on: glipizide- stopped in favor of Jardiance. - History of pancreatitis: none. Current T- 11/29/2022. - History of pancreatic cancer: none. - History of medullary thyroid cancer: self: none; family: none. - History of MEN (multiple endocrine neoplasia-2): none. - History of recurrent UTIs: never. Blood glucose monitoring: - 11/24-12/07/2023: - % time CGM active: 72% - Avg glucose: 155 mg/dL; - GMI: 7.0%; - GV: 22.2%; TIME in range - very high: 1%; - high: 20%; - target range: 79% - low: 0%; - very low: 0%. BG patterns: - stable, but elevated overnight: 130-170s (fasting). - some post-lunch/post-supper hyperglycemia pending dietary choices. Minimal bg levels > 250 mg/dL. Hypoglycemia: - Hypoglycemia: no. - Frequency of hypoglycemia: none. - Patient does not have symptoms of hypoglycemia. - Symptoms of hypoglycemia include: none currently- no hypoglycemia. - Hypoglycemic treatment: fruit. - Glucagon available: none. - History of hypoglycemia that needed treatment assistance: never. Complication/Comorbidity management: - Complications: Neuropathy, Nephropathy and CAD - Aspirin therapy: 81 mg ASA. Also on warfarin. - Statin therapy: pravastatin 40 mg daily. Fish oil 1000 mg twice daily. - KYMBERLY/Arb therapy: is taking an ARB. On spironolactone, metoprolol tartrate; losartan; Imdur; Hctz. - Last diabetic eye exam: 08/09/2022- [facility]. Denies retinopathy or macular edema. Hx cataract repair. Dry eye syndrome. - Last Diabetic foot exam/ Monofilament: follows with podiatry, last exam with PCP. + neuropathy- intermittent. Reports balance problem when ambulating on grass. - Daily Self Foot Exam: yes. Patient has not noted any signs of erythema or ulceration. he has had any numbness in his feet that he is aware of. Numbness has been going on for 5 years. - Patient describes his mood as 'intermittently feeling down'- reports associated with boredom. Social history: - Patient does not use tobacco products. - Alcohol intake: none. - Last Certified Four H Agent Visit: several years. - Last Silver Buffer Visit: several years. Current Diet: 3 meals daily- loves sweets. - Beverage intake: carb free beverages. Current Exercise: ADLs- trying to walk more. 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 Marital status: . MEDICATIONS Current Outpatient Medications Medication Sig alcohol swabs pads, medicated Use as needed for diabetes control aspirin 81 mg chewable tablet Chew 1 tablet daily. cholecalciferol (VITAMIN D3) 10 mcg (400 Unit) tablet Take 10 mcg by mouth daily. Contour Test Strips strips daily. for testing Droplet Pen Needle 32 gauge x 5/32 needle flash glucose sensor (FreeStyle Cyrus 2 Sensor) kit 1 each (1 kit total) every 14 (fourteen) days. foot care products pad FOR HOME USE [id number] cb25 116-100 mg capsule Take 1 tablet by mouth 2 (two) times a day. hydroCHLOROthiazide (HYDRODIURIL) 25 mg tablet Take 25 mg by mouth daily. insulin glargine (Lantus Solostar U-100 Insulin) 100 unit/mL (3 mL) injection Inject 20 Units underthe skin at bedtime. isosorbide mononitrate (IMDUR) 60 mg 24 hr tablet Take 60 mg by mouth daily. losartan (COZAAR) 100 mg tablet Take 1 tablet by mouth daily. metFORMIN XR (GLUCOPHAGE-XR) 500 mg 24 hr tablet Take 2 tablets (1,000 mg total) by mouth 2 (two) times a day with meals. metoprolol tartrate (LOPRESSOR) 100 mg tablet Take 100 mg by mouth 2 (two) times a day. multivitamin tablet Take 1 tablet by mouth daily. omega 1-jbq-zqe-fish oil 100-160-1,000 mg capsule Take 2 capsules by mouth daily. pravastatin (PRAVACHOL) 40 mg tablet Take 1 tablet by mouth daily. psyllium husk (METAMUCIL) 0.4 gram capsule Take 1 capsule by mouth 2 (two) times a day. semaglutide (OZEMPIC) 1 mg/dose (4 mg/3 mL) injection 2 mg every 7 (seven) days. spironolactone (ALDACTONE) 25 mg tablet Take 25 mg by mouth daily. warfarin (COUMADIN) 5 mg tablet Take 5 mg by mouth daily. Now taking 0.5 tab on Mon and Mon and 1 tab all other days empagliflozin (JARDIANCE) 25 mg tablet Take 1 tablet (25 mg total) by mouth every morning before breakfast. Take with 8-16 oz water 30 minutes prior to breakfast. insulin glargine-yfgn (SEMGLEE) 100 unit/mL (3 mL) injection INJECT 20 UNITS UNDER THE SKIN AT BEDTIME FOR DIABETES REVIEW OF SYSTEMS Respiratory: Positive for shortness of breath. Gastrointestinal: Positive for diarrhea. Genitourinary: Positive for frequent urination. Hematologic: Positive for bruises or bleeds easily. Musculoskeletal: Positive for joint swelling. Neurological: Positive for light-headedness. Psychiatric/Behavioral: Positive for erectile dysfunction. The following systems were negative: Constitutional, Skin, Eyes, ENT, Cardiovascular HISTORY REVIEW: History Review OBJECTIVE PHYSICAL EXAM BP 118/58 (BP Location: Right arm, Patient Position: Sitting, Cuff Size: Large) Pulse (!) 56 Wt(!) 138 kg BMI 40.95 kg/m?? GENERAL: Well developed, well nourished. No apparent distress. Appearance, behavior, and speech areappropriate. SKIN: Warm to touch, good turgor. No rash on exposed skin. MUSCULOSKELETAL: Gait normal. NEUROLOGICAL: Mental Status: Alert and oriented times 3, relaxed, and cooperative. Normal affect. DIAGNOSTICS Wt Readings from Last 3 Encounters: 12/07/23 (!) 138 kg 06/14/23 (!) 140 kg 03/15/23 (!) 142 kg Most Recent Diabetic Monitoring Labs: Last A1c: Lab Results Component Value Date HGBA1C 7.3 (H) 11/24/2023 Last urine microalbumin: Last lipid panel: Lab Results Component Value Date CHOL 168 08/31/2021 Lab Results Component Value Date HDL 52 08/31/2021 Lab Results Component Value Date LDLCALC 72 08/31/2021 Lab Results Component Value Date TRIG 222 (H) 08/31/2021 Last Creatinine: Lab Results Component Value Date CREATININE 1.13 11/24/2023 Lab Results Component Value Date EGFR 65 11/24/2023 EGFRNONBLKAA 58 (L) 06/02/2022 EGFRBLKAA 67 06/02/2022 Lipids updated 11/29/2022 through [facility] and include the following: Triglycerides 181; total cholesterol 163; LDL 74; HDL 53. Urine microalbumin was negative. 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 Current Use Of Injectable Non-Insulin Antidiabetic Drugs Other orders - Endocrinology office visit (clinic) - insulin glargine (Lantus Solostar U-100 Insulin) 100 unit/mL (3 mL) injection; Inject 20 Units under the skin at bedtime., Starting Emma 12/07/2023, Until Mon12/06/2024, NormalFILE- dose adjustment - flash glucose sensor (FreeStyle Cyrus 2 Sensor) kit; 1 each (1 kit total) every 14 (fourteen) days., Starting Emma 12/07/2023, Until Mon12/06/2024, Normal - Endocrinology office visit (clinic); Future; Expected date: 03/07/2024 - Basic Metabolic Panel; Future; Expected date: 03/13/2024 Recommended changes: - reports tolerance of both 2 mg weekly Ozempic and 25 mg daily Jardiance. - reports diarrhea is less than normal with Metformin XR. - Denies abdominal pain/n/v/fever/chills. - Denies burning/painful urination or s/sx genital mycotic infections. -patient's overnight blood sugars have improved significantly since starting Lantus insulin. - hemoglobin A1c has improved to 7.3%, down from 9.3% on 03/14/2022. - goal A1c: <7.5% without hypoglycemia. - patient will continue to utilize the FreeStyle Cyrus 2. - encouraged increased activity to help further improve post-prandial bg levels as well as support weight loss. PLAN: Restart going to [employer]- aim to do more walking vs biking, and also go to [employer] classes 3 days weekly. No change to treatment plan today, as will focus on more movement and better dietary choices. Continue the following: - 1000 mg Metformin XR BID; - Jardiance 25 mg once daily; - Ozempic 2 mg once weekly; - Lantus: 20 units once daily- nightly. 4. A1c due 02/23/2024. 5 Endo return visit in 3 months. -Goal hemoglobin A1C: less than 7.5% without hypoglycemia. -Goal capillary plasma glucose: fasting and preprandial: 90-140 mg/dL. 2 hour peak post-prandial bglevel: <180 mg/dL. - Frequency of hemoglobin A1C measurement: Every 3 months. Next due: 02/23/2024 - ordered. - Certified Four H Agent visit: declined. - Next Diabetic Follow-up Visit: 3 months. Labs ordered. Tobacco cessation: does not use tobacco products. Recommend daily physical activity with a goal of 30 minutes of moderate intensity activity most days per week. Consume a consistent well balanced diet and no intake of sweetened beverages. Inspect feet daily and have annual diabetic eye exam. Check lipid panel, creatinine, and urine microalbumin bhavani ually, more frequently if levels not at goal. Patient states he understands and agrees with current care plan. No learning barriers noted. No further questions today. Total time: 39 minutes with time also spent in chart/lab review. Saba Nicole P.A.-C., P.A. Patient Instructions Restart going to [employer]- aim to do more walking vs biking, and also go to [employer] classes 3 days weekly. No change to treatment plan today, as will focus on more movement and better dietary choices. Continue the following: - 1000 mg Metformin XR BID; - Jardiance 25 mg once daily; - Ozempic 2 mg once weekly; - Lantus: 20 units once daily- nightly. 4. A1c due 02/23/2024. 5 Endo return visit in 3 months. Answers submitted by the patient for this visit: Low Blood Sugar Awareness Survey (Submitted on 12/07/2023) How often do you have classic symptoms (suddenly feeling weak, shaky, and sweaty at onset) when youhave a low blood sugar? : Never Have you lost some of the classic symptoms (suddenly feeling weak, shaky and sweaty at onset) that used to occur when you have a low blood sugar? : No Are you confident that you will recognize when you are having a low blood sugar?: Yes At what number is your blood sugar when you feel a low? : I never feel one How often in the past 30 days have you had a blood sugar below 70 with warning symptoms of sweatiness, shakiness, weakness?: Never How often in the past 30 days have you had a blood sugar below 70 without any warning symptoms of sweatiness, shakiness weakness?: Never How often in the past three months have you had a low blood sugar event where you needed assistancefrom another person? : Never How often in the past three months have you had a low blood sugar event where you were unconscious,or had a seizure, and either received Glucagon or called 911? : Never HET SETTER documented in this encounter Plan of Treatment Upcoming Encounters Date Type Department Care Team (Late st Contact Info) Description 03/13/2024 12:30 PM CDT Appointment Department of Laboratory Medicine in [place], [place] [address] [place] [phone] Saba Nicole P.A.-C., P.A. [address] [place] [phone] 03/13/2024 2:30 PM CDT Office Visit Department of Endocrinology in [place], [place] [address] [place] [phone] Saba Nicole P.A.-C., P.A. [address] [phone] Scheduled Orders Name Type Priority Associated Diagnoses Orde r Schedule Hemoglobin A1c Lab Routine Diabetes Mellitus Type 2 With Other Circulatory Complication (HCC) Expected: 02/23/2024 (Approximate), Expires: 03/07/2025 Basic Metabolic Panel Lab Routine Diabetes Mellitus Type 2 With Other Circulatory Complication (HCC) Diabetes Mellitus Type 2 With Diabetic Neuropathy (HCC) Expected: 03/13/2024, Expires: 03/07/2025 Scheduled Referrals Name Type Priority Associated Diagnoses Orde r Schedule Endocrinology office visit (clinic) Outpatient Referral Routine Diabetes Mellitus Type 2 With Other Circulatory Complication (HCC) Long-Term Use Of Insulin Active (HCC) Expected: 03/07/2024 (Approximate), Expires: 03/07/2025 documented as of this encounter Visit Diagnoses Diagnosis Diabetes Mellitus Type 2 With Other Circulatory Complication Hyperglycemic (HCC)- Primary Long-Term Use Of Insulin Active (HCC) Morbid Obesity Body Mass Index >= 35 with Comorbid Condition (HCC) Diabetes Mellitus Type 2 With Diabetic Neuropathy Hyperglycemic (HCC) Diabetes Mellitus Type 2 With Diabetic Chronic Kidney Disease Hyperglycemic (HCC) 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
--- OUTSIDE RECORDS SUMMARY | 2023-12-27 10:56 | XMS_ITS | Encounter Summary ---
Author Name Unknown Organization [facility] Address [address] [place] [address] Care Team Providers Care Checkroom Attendant Name Role Phone Elsewhere, Pcp Primary Care Provider Unavailabl e Reason for Referral * Outpatient (Routine) - Closed Specialty Diagnoses / Procedures Referred By Daron basilio Referred To Contact Endocrinology Diagnoses Diabetes Mellitus Type 2 With Other Circulatory Complication Hyperglycemic (HCC) Residential Use Of Insulin Active (HCC) Saba Nicole P.A.-C., P.A. [address] [phone] [facility] Region Referral ID Status Reason Start Date Expiration Date Visits Re quested Visits Authorized [id number] Closed 06/14/2023 06/13/2026 1 1 Scheduling Instructions Reverse video or face to face. 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 [address] [phone] [facility] Referral ID Status Reason Start Date Expiration Date Visits Re quested Visits Authorized [id number] Closed 03/15/2023 03/14/2026 1 1 Encounter Details Date Type Department Care Team (Latest Contact Info) Description 06/14/2023 3:00 PM CDT Office Visit Department of Endocrinology in [place], [place] [address] [phone] Saba Nicole P.A.-C., P.A. 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 More than 4 times per year 06/02/2022 Do you belong to any clubs o r organizations such as muslim groups, unions, fraternal or athletic groups, or [...] and heating? Not hard at all 06/02/2022 [facility] - Occupational Stress Questionnaire Answer Date [...] money to buy more. Never true 06/02/20 22 Within the past 12 months, t he [...] to sleep or slept in a senior living (including now)? Yes 06/02/2022 Nutrition Answer Date [...] Sign Reading Time Taken Comments Blood Pressure 116/57 06/14/2023 2:46 PM CDT Pulse 67 06/14/2023 2:46 PM CDT Temperature 36.4 ??C (97.6 ??F) 06/14/2023 2:46 PM CD T Respiratory Rate - - Oxygen Saturation 94% 06/14/2023 2:46 PM CDT Inhaled Oxygen Concentration - - Weight 140 kg (307 lb 8.7 oz) 06/14/2023 2:46 PM CDT Height - - Body Mass Index 41.52 02/22/2023 1:51 PM CDT documented in this encounter Patient Instructions * Patient Instructions* Saba Nicole P.A.-C. - 06/14/2023 3:00 PM CDT Eye exam due in July. Increase Lantus 18 units once daily. Continue Metformin XR 1000 mg twice daily. Continue Jardiance 25 mg once daily. Continue Ozempic 1 mg once weekly. A1c and basic metabolic panel due around 08/25/2023. Endo return visit with Saba in 6 months. Make sure to scan sensor every 6-8 hours to capture 24 hours of blood sugar data. documented in this encounter Progress Notes * Saba Nicole P.A.-C. - 06/14/2023 3:00 PM CDT SUBJECTIVE CHIEF COMPLAINT Chief Complaint Patient presents with Follow-up Lab Results Component Value Date HGBA1C 7.4 (H) 05/25/2023 HISTORY OF PRESENT ILLNESS Patient presents today for a evaluation and treatment of diabetes mellitus type 2. - Date of dx: 20+ years. - Family history of diabetes: pat aunt- DM2; father- suspected DM2. A1c: 9.3% on 03/14/2022. A1c: 8.7% on 08/30/2022. A1c: 8.7%- 11/29/2022. Interim: - notes 70# loss since 2017. - recent improvement with addition of Ozempic. - notes he 'craves sugars'. - [facility]. Diabetes related medication: - 1000 mg Metformin XR BID- notes less diarrhea than normal; - Jardiance 25 mg once daily; - Ozempic 1 mg once weekly. - Lantus: 16 units once daily- nightly. - no abdominal pain/nausea/vomiting. - denies n/v. - denies burning/painful urination or genital infection s/sx. - Patient had previously been on: glipizide- stopped in favor of Jardiance. - History of pancreatitis: none. Current T- 11/29/2022. - History of pancreatic cancer: none. - History of medullary thyroid cancer: self: none; family: none. - History of MEN (multiple endocrine neoplasia-2): none. - History of recurrent UTIs: never. Blood glucose monitoring: - 06/01-06/14/2023: - % time CGM active: 81% - Avg glucose: 165 mg/dL; - GMI: n/a; - GV: 20.7%; TIME in range - very high: 3%; - high: 23%; - target range: 74% - low: 0%; - very low: 0%. BG patterns: - stable, but elevated overnight: 143-180s (fasting). - after breakfast blood sugar elevations. Hypoglycemia: - Hypoglycemia: no. - Frequency of [...] Hctz. - Last diabetic eye exam: 08/09/2022- [facility]. Denies retinopathy or macular [...] - Alcohol intake: none. - Last Certified Entry Clerk Visit: several years. - Last Beta Tester Visit: several years. Current Diet: 3 meals daily- loves sweets. - Beverage intake: carb free beverages. Current Exercise: ADLs- trying to walk more. Work: retired. Marital status: . MEDICATIONS Current Outpatient Medications Medication Sig alcohol swabs pads, medicated Use as needed for diabetes control aspirin 81 mg chewable tablet Chew 1 tablet daily. cholecalciferol (VITAMIN D3) 10 mcg (400 Unit) tablet Take 10 mcg by mouth daily. Contour Test Strips strips daily. for testing Droplet Pen Needle 32 gauge x 5/32 needle empagliflozin (JARDIANCE) 25 mg tablet Take 1 tablet (25 mg total) by mouth every morning before breakfast. Take with 8-16 oz water 30 minutes prior to breakfast. flash glucose sensor (FreeStyle Cyrus 2 Sensor) kit 1 each (1 kit total) every 14 (fourteen) days. foot care products pad FOR HOME USE cusqvivp-onozmllxoti-wzdd cb25 116-100 mg capsule Take 1 tablet by mouth 2 (two) times a day. hydroCHLOROthiazide (HYDRODIURIL) 25 mg tablet Take 25 mg by mouth daily. insulin glargine (Lantus Solostar U-100 Insulin) 100 unit/mL (3 mL) injection Inject 18 Units underthe skin at bedtime. isosorbide mononitrate [...] Take 1 tablet by mouth daily. omega 2-ptb-hsi-fish oil 100-160-1,000 mg capsule Take 2 capsules by mouth daily. pen needle, diabetic (Novofine 32) 32 gauge x 1/4 needle 1 Injection daily. pravastatin (PRAVACHOL) 40 mg tablet Take 1 tablet by mouth daily. psyllium husk (METAMUCIL) 0.4 gram capsule Take 1 capsule by mouth 2 (two) times a day. semaglutide (OZEMPIC) 1 mg/dose (4 mg/3 mL) injection INJECT 1MG UNDER THE SKIN EVERY WEEK spironolactone (ALDACTONE) 25 mg tablet Take 25 mg by mouth daily. warfarin (COUMADIN) 5 mg tablet Take 5 mg by mouth daily. Now taking 0.5 tab on Mon and Mon and 1 tab all other days REVIEW OF SYSTEMS Respiratory: Positive for shortness of breath. Gastrointestinal: Positive for diarrhea. Genitourinary: Positive for frequent urination. Hematologic: Positive for bruises or bleeds easily. Musculoskeletal: Positive for joint swelling. Neurological: Positive for light-headedness. Psychiatric/Behavioral: Positive for erectile dysfunction. The following systems were negative: Constitutional, Skin, Eyes, ENT, Cardiovascular HISTORY REVIEW: History Review OBJECTIVE PHYSICAL EXAM BP 116/57 (BP Location: Right arm, Patient Position: Sitting, Cuff Size: Large) Pulse 67 Temp 36.4 ??C (Temporal) Wt (!) 140 kg SpO2 94% BMI 41.52 kg/m?? GENERAL: Well developed, well nourished. No apparent distress. Appearance, behavior, and speech areappropriate. SKIN: Warm to touch, good turgor. No rash on exposed skin. MUSCULOSKELETAL: Gait normal. NEUROLOGICAL: Mental Status: Alert and oriented times 3, relaxed, and cooperative. Normal affect. DIAGNOSTICS Wt Readings from Last 3 Encounters: 06/14/23 (!) 140 kg 03/15/23 (!) 142 kg 02/22/23 (!) 141 kg Most Recent Diabetic Monitoring Labs: Last A1c: Lab Results Component Value Date HGBA1C 7.4 (H) 05/25/2023 Last urine microalbumin: Last lipid panel: Lab Results Component Value Date CHOL 168 08/31/2021 Lab Results Component Value Date HDL 52 08/31/2021 Lab Results Component Value Date LDLCALC 72 08/31/2021 Lab Results Component Value Date TRIG 222 (H) 08/31/2021 Last Creatinine: Lab Results Component Value Date CREATININE 1.14 05/25/2023 Lab Results Component Value Date EGFR 65 05/25/2023 EGFRNONBLKAA 58 (L) 06/02/2022 EGFRBLKAA 67 06/02/2022 Lipids updated 11/29/2022 through [facility] and include the following: Triglycerides 181; total cholesterol 163; LDL 74; HDL 53. Urine microalbumin was negative. 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) #5 Residential Current Use Of Injectable Non-Insulin Antidiabetic Drugs Other orders - Endocrinology office visit (clinic) - insulin glargine (Lantus Solostar U-100 Insulin) 100 unit/mL (3 mL) injection; Inject 18 Units under the skin at bedtime., Starting 06/14/2023, Until Emma 06/13/2024, NormalFILE- dose adjustment - Hemoglobin A1c; Future; Expected date: 08/25/2023 - Basic Metabolic Panel; Future; Expected date: 08/25/2023 - Hemoglobin A1c; Future; Expected date: 11/24/2023 - Basic Metabolic Panel; Future; Expected date: 11/24/2023 - Endocrinology office visit (clinic); Future; Expected date: 12/15/2023 Recommended changes: - reports tolerance of both 1 mg weekly Ozempic and 25 mg daily Jardiance. - Denies abdominal pain/n/v/fever/chills. - Denies burning/painful urination or s/sx genital mycotic infections. - Jardiance 25 mg once daily has been tolerated well. Drinks at least 64-80 oz water daily. - unable to acquire Ozempic to 2 mg once weekly due to lack of LA coverage. - patient would likely benefit significantly from Ozempic 2 mg once weekly due to continued postprandial blood sugar elevations. -patient is overall overnight blood sugars have improved significantly since starting Lantus insulin. Blood sugars are still somewhat elevated, consequently will increase Lantus to 16 units once daily at bedtime. -patient started basal insulin mid October. -hemoglobin A1c has improved to 7.4%, down from 9.3% on 03/14/2022. - goal A1c: <7.5% without hypoglycemia. - patient will continue to utilize the FreeStyle Cyrus 2. PLAN: Increase Lantus to 16 units once daily- bedtime nightly. 2. Continue Metformin XR 1000 mg twice daily. 3. Continue Jardiance 25 mg once daily. 4. Continue Ozempic 1 mg once weekly. 5. Endo return visit in 3 months with Saba. 6. A1c due: 05/25/2023 7. [facility]. -Goal hemoglobin A1C: less than 7.5% without hypoglycemia. -Goal capillary plasma glucose: fasting and preprandial: 90-140 mg/dL. 2 hour peak post-prandial bglevel: <180 mg/dL. - Frequency of hemoglobin A1C measurement: Every 3 months. Next due: 08/25/2023- ordered. - Certified Entry Clerk visit: declined. - Next Diabetic Follow-up Visit: 6 months. Labs ordered to be done in 3 months. Tobacco cessation: does not use tobacco products. [...] learning barriers noted. No further questions today. Medical decision making: Level 3. Saba Nicole P.A.-C. Patient Instructions Eye exam due in July. Increase Lantus 18 units once daily. Continue Metformin XR 1000 mg twice daily. Continue Jardiance 25 mg once daily. Continue Ozempic 1 mg once weekly. A1c and basic metabolic panel due around 08/25/2023. Endo return visit with Saba in 6 months. Make sure to scan sensor every 6-8 hours to capture 24 hours of blood sugar data. documented in this encounter Plan of Treatment Upcoming Encounters Date Type Department Care Team (Late st Contact Info) Description 03/13/2024 12:30 PM CDT Appointment Department of Laboratory Medicine in [place], [place] [address] [phone] Saba Nicole P.A.-C., P.A. [address] [place] [phone] 03/13/2024 2:30 PM CDT Office Visit Department of Endocrinology in [place], [place] [address] [phone] Saba Nicole P.A.-C., P.A. [address] [phone] Scheduled Referrals Name Type Priority Associated Diagnoses Orde r Schedule Endocrinology office visit (clinic) Outpatient Referral Routine Diabetes Mellitus Type 2 With Other Circulatory Complication Hyperglycemic (HCC) Residential Use Of Insulin Active (HCC) Expected: 12/15/2023 (Approximate), Expires: 09/14/2024 documented as of this encounter Results * (ABNORMAL) Basic Metabolic Panel (11/24/2023 10:40 AM HOTEL DIRECTOR) Potassium, P 4.4 3.6 - 5.2 mmol/L 11/24/2023 11:41 AM HOTEL DIRECTOR OWAT Sodium, P 141 135 - 145 mmol/L 11/24/2023 11:41 AM HOTEL DIRECTOR OWAT Chloride, P 102 98 - 107 mmol/L 11/24/2023 11:41 AM HOTEL DIRECTOR OWAT Bicarbonate, P 26 22 - 29 mmol/L 11/24/2023 11:41 AM HOTEL DIRECTOR OWAT Anion Gap, P 13 7 - 15 11/24/2023 11:41 AM HOTEL DIRECTOR OWAT BUN (Blood Urea Nitrogen), P 23 8 - 24 mg/dL 11/24/2023 11:41 AM HOTEL DIRECTOR OWAT Creatinine 1.13 0.74 - 1.35 mg/dL 11/24/2023 11:41 AM HOTEL DIRECTOR OWAT Estimated GFR (eGFR) 65 >=60 mL/min/BSA 11/24/2023 11:41 AM HOTEL DIRECTOR OWAT Comment: Estimated GFR calculated using the 2020 CKD_EPI creatinine equation. Calcium, Total, P 9.5 8.8 - 10.2 mg/dL 11/24/2023 11:41 AM HOTEL DIRECTOR OWAT Glucose, P 198(H) 70 - 140 mg/dL 11/24/2023 11:41 AM HOTEL DIRECTOR OWAT Blood (Blood, Venous) 11/24/2023 10:40 AM HOTEL DIRECTOR 11/24/2023 10:51 AM HOTEL DIRECTOR Saba Nicole P.A.-C., P.A. LAB BL OOD ADD-ON [facility] [address] [place] [address], [facility] OWAT [facility] [place] [address] [place] [address] * (ABNORMAL) Hemoglobin A1c (11/24/2023 10:40 AM HOTEL DIRECTOR) Hemoglobin A1c, B 7.3(H) 4.2 - 5.6 % 11/24/2023 11:32 AM HOTEL DIRECTOR OWAT Comment: Hemoglobin A1c values greater than or equal to 6.5 percent are diagnostic for diabetes mellitus. ??Diagnosis should be confirmed by repeat testing. ??In diabetic patients, HbA1c goals should be discussed with healthcare provider. Blood (Blood, Venous) 11/24/2023 10:40 AM HOTEL DIRECTOR 11/24/2023 10:52 AM HOTEL DIRECTOR Saba Nicole P.A.-C., P.A. LAB BL OOD ADD-ON [facility] [address] [place] [address], [facility] OWAT [facility] [place] [address] * (ABNORMAL) Basic Metabolic Panel (08/24/2023 3:11 PM CDT) Potassium, P 4.6 3.6 - 5.2 mmol/L 08/24/2023 3:45 PM CDT OWAT Sodium, P 142 135 - 145 mmol/L 08/24/2023 3:45 PM CDT OWAT Chloride, P 100 98 - 107 mmol/L 08/24/2023 3:45 PM CDT OWAT Bicarbonate, P 27 22 - 29 mmol/L 08/24/2023 3:45 PM CDT OWAT Anion Gap, P 15 7 - 15 08/24/2023 3:45 PM CDT OWAT BUN (Blood Urea Nitrogen), P 24 8 - 24 mg/dL 08/24/2023 3:45 PM CDT OWAT Creatinine 1.32 0.74 - 1.35 mg/dL 08/24/2023 3:45 PM CDT OWAT Estimated GFR (eGFR) 54(L) >=60 mL/min/BSA 08/24/2023 3:45 PM CDT OWAT Comment: Estimated GFR calculated using the 2020 CKD_EPI creatinine equation. Calcium, Total, P 9.8 8.8 - 10.2 mg/dL 08/24/2023 3:45 PM CDT OWAT Glucose, P 199(H) 70 - 140 mg/dL 08/24/2023 3:45 PM CDT OWAT Blood (Blood, Venous) 08/24/2023 3:11 PM CDT 08/24/2023 3:15 PM CDT Saba Nicole P.A.-C., P.A. LAB BL OOD ADD-ON Performing Organization Address [facility] Co de Phone Number [facility] [address] [place] [address], [facility] OWAT [facility] [place] [address], [place] [address] * (ABNORMAL) Hemoglobin A1c (08/24/2023 3:11 PM CDT) Hemoglobin A1c, B 7.2(H) 4.2 - 5.6 % 08/24/2023 3:50 PM CDT OWAT Comment: Hemoglobin A1c values greater than or equal to 6.5 percent are diagnostic for diabetes mellitus. ??Diagnosis should be confirmed by repeat testing. ??In diabetic patients, HbA1c goals should be discussed with healthcare provider. Blood (Blood, Venous) 08/24/2023 3:11 PM CDT 08/24/2023 3:15 PM CDT Saab Nicole P.A.-C., P.A. 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
--- OUTSIDE RECORDS SUMMARY | 2023-12-27 10:56 | XMS_ITS | Encounter Summary ---
Author Name Unknown Organization [facility] Address [address] [place] [address] Care Team Providers Care Glassware Engraver Name Role Phone Elsewhere, Pcp Primary Care Provider Unavailabl e Encounter Details Date Type Department Care Team (Latest Contact Info) Description 08/24/2023 3:01 PM CDT - 08/24/2023 11:59 PM CDT Hospital Encounter Department of Laboratory Medicine in [place], [place] [address] [phone] Saba Nicole P.A.-Micah., P.A. [address] [phone] Diabetes Mellitus Type 2 With Other Circulatory Complication Hyperglycemic (HCC); Residential Use Of Insulin Active (HCC) Discharge Disposition: [...] often do you attend chur ch or caodaism services? More than 4 times per year [...] and heating? Not hard at all 06/02/2022 [facility] - Occupational Stress Questionnaire Answer Date [...] place to sleep or slept in a longterm (including now)? Yes 06/02/2022 Nutrition Answer Date [...] products pad FOR HOME USE 0 09/29/2018 zecygket-piuzqkqzwiv-npy t cb25 116-100 mg capsule Take 1 tablet by mouth 2 (two) times a day. 0 07/16/2014 hydroCHLOROthiazide (HYDRODIURIL) 25 mg tablet Take 25 mg by mouth daily. 0 11/28/2018 isosorbide mononitrate (IMDUR) 60 mg 24 hr [...] tablet by mouth daily. 0 07/16/2014 omega 4-qip-yak-fish oil 100-160-1,000 mg capsule Take 2 capsules by mouth daily. 0 07/16/2014 pravastatin (PRAVACHOL) 40 mg tablet Take 1 tablet by mouth daily. 0 07/16/2014 psyllium husk (METAMUCIL) 0.4 gram capsule Take 1 capsule by mouth 2 (two) times a day. 0 10/07/2015 spironolactone (ALDACTONE) 25 mg tablet Take 25 [...] 2 With Diabetic Chronic Kidney Disease Hyperglycemic (HCC),Principal Technical Architect Use Of Insulin Active (HCC) 1 each [...] 07/13/2022 12/07/2023 documented as of this encounter Plan of Treatment Upcoming Encounters Date Type Department Care Team (Late st Contact Info) Description 03/13/2024 12:30 PM CDT Appointment Department of Laboratory Medicine in [place], [place] [address] [place] [phone] Saba Nicole P.A.-C., P.A. [address] [place] [phone] 03/13/2024 2:30 PM CDT Office Visit Department of Endocrinology in [place], [place] [address] [place] [phone] Saba Nicole P.A.-C., P.A. [address] [place] [phone] documented as of this encounter Procedures Procedure Name Priority Date/Time Associated Diagnosis Comments HEMOGLOBIN A1C, B Routine 08/24/2023 3:1 1 PM CDT Diabetes Mellitus Type 2 With Other Circulatory Complication Hyperglycemic (HCC) Principal Technical Architect Use Of Insulin Active (HCC) BASIC METABOLIC PANEL, S/P Routine 08/24/2023 3:11 PM CDT Diabetes Mellitus Type 2 With Other Circulatory Complication Hyperglycemic (HCC) Principal Technical Architect Use Of Insulin Active (HCC) documented in this encounter Results * (ABNORMAL) Basic Metabolic Panel (08/24/2023 3:11 [...] Nicole P.A.-C., P.A. LAB BL OOD ADD-ON [facility] [address] [place] [address], [place] OWAT [facility] [address] [place] [address] * (ABNORMAL) Hemoglobin A1c (08/24/2023 3:11 PM [...] Nicole P.A.-C., P.A. LAB BL OOD ADD-ON [facility] [address] [place] [address], [facility] OWAT [facility] [address] [place] [address] documented in this encounter Visit Diagnoses Diagnosis Diabetes Mellitus Type 2 With Other Circulatory Complication Hyperglycemic (HCC) Principal Technical Architect Use Of Insulin Active (HCC) documented in this encounter Care Teams Glassware Engraver Relationship Specialty Start Date End Date Elsewhere, Pcp PCP - General Family Medicine 11/19/20 documented as of this encounter
--- OUTSIDE RECORDS SUMMARY | 2023-12-27 10:56 | XMS_ITS | Encounter Summary ---
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 [address] [place] [address] [facility] Referral ID Status Reason Start Date Expiration Date Visits Re quested Visits Authorized [id number] Closed 02/22/2023 02/22/2024 1 1 Encounter Details Date Type Department Care Team (Latest Contact Info) Description 10/12/2023 9:04 AM CIVIL ENGINEERING MANAGER - 10/12/2023 11:59 PM CIVIL ENGINEERING MANAGER Hospital Encounter Department of Cardiac Rehabilitation in [place], [place] [address] [place] [address] Mal Oreilly M.D. 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 More than 4 times per year 06/02/2022 Do you belong to any clubs o r organizations such as sikhism groups, unions, fraternal or athletic groups, or [...] and heating? Not hard at all 06/02/2022 [facility] - Occupational Stress Questionnaire Answer Date Recorded [...] place to sleep or slept in a chcf (including now)? Yes 06/02/2022 Nutrition Answer Date [...] products pad FOR HOME USE 0 09/29/2018 arldbhgb-hosppbklowg-rpz t cb25 116-100 mg capsule Take 1 [...] tablet by mouth daily. 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; Sales Porter Current Use Of Injectable Non-Insulin Antidiabetic Drugs; Residential Use Of Insulin Active (HCC); Hypertension Pulmonary (HCC); Atrial Fibrillation Permanent (HCC) Post-Procedure Diagnose(s): 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 Angina Pectoris; Diabetes Mellitus Type2 With Other Circulatory Complication Hyperglycemic (HCC); Regurgitation Tricuspid; 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 Were medications taken in the last 24 hours?: PRE WALK Assistive Device: None 6 Min Walk Distance Type: Track Height (cm): 183 Weight (kg): 136 BMI: 40.6 Resting Heart Rate: 80 Heart Rate Source: Apical Pulse Resting BP: 122/60 BP Cuff Arm: Left BP Cuff Size: RegularSupplemental Oxygen used: Supplemental Oxygen Not Used Resting SpO2: 95 SpO2 Site: Finger Gillian Dyspnea: 0 - Nothing at all Gillian Fatigue: 0 - Nothing at all POST WALK Heart Rate: 112 Heart Rate Source: Apical Pulse SpO2: 92 BP: 162/70 BP Cuff Side: Left Gillian Dyspnea: 3 - Moderate Gillian Fatigue: 0 - Nothing at all Time of Test: 09:20 CIVIL ENGINEERING MANAGER Total Distance Walked (Feet): 1200 Total Distance Walked (Meters): 365.76 Total # of Times Stopped: 0 Time Stopped (Seconds): 0 Time Walked (Seconds): 360 CALCULATIONS Estimated MPH: 2.3 Estimated METs: 2.76 % of Predicted Distance: 104.47 COMMENTS The patients dyspnea resolved after two minutes of standing rest. Interpretation: Six minute walk was reviewed. I agree with the reported results. L ENGINEERING MANAGER documented in this encounter Plan of Treatment Upcoming Encounters Date Type Department Care Team (Late st Contact Info) Description 03/13/2024 12:30 PM CDT Appointment Department of Laboratory Medicine in [address] [phone] Saba Nicole P.A.-C., P.A. [address] [place] [phone] 03/13/2024 2:30 PM CDT Office Visit Department of Endocrinology in [place], [place] [address] [place] [phone] Saba Nicole P.A.-C., P.A. 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 - 10/12/2023 10:30 AM CIVIL ENGINEERING MANAGER Neelam Kent M.D., Ph.D. ? 10/13/2023 ??6:26 [...] Nothing at all Time of Test: ??09:20 CIVIL ENGINEERING MANAGER Total Distance Walked (Feet): ??1200 Total Distance Walked (Meters): ??365.76 Total # of Times Stopped: ??0 Time Stopped (Seconds): ??0 Time Walked (Seconds): ??360 CALCULATIONS Estimated MPH: ??2.3 Estimated METs: ??2.76 % of Predicted Distance: ??104.47 COMMENTS The patients dyspnea resolved after two minutes of standing rest. ?? Mal Oreilly M.D. 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
--- OUTSIDE RECORDS SUMMARY | 2023-12-27 10:56 | XMS_ITS | Encounter Summary ---
Author Name Unknown Organization [facility] Address [address] [place] [address] Care Team Providers Care Purler Name Role Phone Elsewhere, Pcp Primary Care Provider Unavailabl e Reason for Visit * Reason Onset Date Comments Pre-visit Intake 10/09/2023 Encounter Details Date Type Department Care Team (Latest Contact Info) Description 10/09/2023 10:45 AM FIREWORKS ASSEMBLY SUPERVISOR Clinical Communication Virtual Review in [place], [place] [address] [place] [address] Pre-visit Intake Social History Tobacco Use Types Packs/Day Years [...] any clubs o r organizations such as rastafarian groups, unions, fraternal or athletic groups, or [...] and heating? Not hard at all 06/02/2022 [facility] - Occupational Stress [...] place to sleep or slept in a [place] [facility] [place] [facility] (including now)? Yes 06/02/2022 Nutrition Answer Date [...] PM CDT documented as of this encounter Plan of Treatment Upcoming Encounters Date Type Department Care Team (Late st Contact Info) Description 03/13/2024 12:30 PM CDT Appointment Department of Laboratory Medicine in [place], [place] [address] [phone] Saba Nicole P.A.-C., P.A. [address] [place] [phone] 03/13/2024 2:30 PM CDT Office Visit Department of Endocrinology in [place], [place] [address] [phone] MilbraSaba clifford P.A.-C., P.A. [address] [phone] documented as of this encounter Visit Diagnoses Not on filedocumented in this encounter Care Teams Purler Relationship Specialty Start Date End Date Elsewhere, Pcp PCP - General Family Medicine 11/19/20 documented as of this encounter
--- OUTSIDE RECORDS SUMMARY | 2023-12-27 10:56 | XMS_ITS | Encounter Summary ---
Author Name Unknown Organization [facility] Address [address] [place] [address] Care Team Providers Care Fire And Explosion Investigator Name Role Phone Elsewhere, Pcp Primary Care Provider Unavailabl e Encounter Details Date Type Department Care Team (Late st Contact Info) Description 07/04/2023 Clinical Communication Department of Endocrinology in [place], [place] [address] [place] [address] Saba Nicole, PAlan., P.A. [address], [place] [phone] Social History Tobacco Use Types Packs/Day Years [...] any clubs o r organizations such as congregation groups, unions, fraternal or athletic groups, or [...] and heating? Not hard at all 06/02/2022 [facility] - Occupational Stress [...] place to sleep or slept in a alf (including now)? Yes 06/02/2022 Nutrition Answer Date [...] CDT Appointment Department of Laboratory Medicine in [place], [place] [address] [place] [address] Saba Nicole P.A.-C., P.A. [address] [phone] 03/13/2024 2:30 PM CDT Office Visit Department of Endocrinology in [place], [place] [address] [place] [phone] Saba Nicole P.A.-C., P.A. [address] [place] [phone] documented as of this encounter Visit Diagnoses Not on filedocumented in this encounter Care Teams Fire And Explosion Investigator Relationship Specialty Start Date End Date Elsewhere, Pcp PCP - General Family Medicine 11/19/20 documented as of this encounter
--- OUTSIDE RECORDS SUMMARY | 2023-12-27 10:56 | XMS_ITS | Encounter Summary ---
Author Name Unknown Organization [facility] Address [address] [place] [address] Care Team Providers Care Timing Adjuster Name Role Phone Elsewhere, Pcp Primary Care Provider Unavailabl e Encounter Details Date Type Department Care Team (Latest Contact Info) Description 10/12/2023 7:31 AM BACTERIOLOGIST FOOD - 10/12/2023 8:00 AM [facility] Hospital Encounter Department of Laboratory Medicine and Pathology, [facility] in [place], [place] [address] [place] [address] Mal Oreilly M.D. 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 More than 4 times per year 06/02/2022 Do you belong to any clubs o r organizations such as worship groups, unions, fraternal or athletic groups, or [...] and heating? Not hard at all 06/02/2022 [facility] - [...] products pad FOR HOME USE 0 09/29/2018 pluidner-kagyotimipd-jow t cb25 116-100 mg capsule Take 1 [...] tablet by mouth daily. 0 07/16/2014 omega 7-kun-qhm-fish oil 100-160-1,000 mg capsule Take 2 capsules [...] 2 With Diabetic Chronic Kidney Disease Hyperglycemic (HCC),Mcc Use Of Insulin Active (HCC) 1 each [...] CDT Appointment Department of Laboratory Medicine in [place], [place] [address] [phone] Saba Nicoel P.A.-C., P.A. [address] [phone] 03/13/2024 2:30 PM CDT Office Visit Department of Endocrinology in [place], [place] [address] [phone] Saba Nicole P.A.-C., P.A. 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-Insulin Antidiabetic Drugs Mcc Use Of Insulin Active (HCC) Hypertension Pulmonary (HCC) Atrial Fibrillation Permanent (HCC) NT-PRO B-TYPE NATRIURETIC PEPTIDE (BNP), S Routine 10/12/2023 7:45 AM BACTERIOLOGIST FOOD 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 Angina Pectoris Diabetes Mellitus Type 2 With Other Circulatory Complication Hyperglycemic (HCC) 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 Mcc Current Use Of Injectable Non-Insulin Antidiabetic Drugs Mcc Use Of Insulin Active (HCC) Hypertension Pulmonary (HCC) Atrial Fibrillation Permanent (HCC) PROTHROMBIN TIME (PT), P Routine 10/12/2023 7:45 AM BACTERIOLOGIST FOOD 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 Angina Pectoris Diabetes Mellitus Type 2 With Other Circulatory Complication Hyperglycemic (HCC) 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-Insulin Antidiabetic Drugs 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 Active (HCC) Hypertension Pulmonary (HCC) Atrial Fibrillation Permanent (HCC) CBC WITH DIFFERENTIAL, B Routine 10/12/2023 7:45 AM BACTERIOLOGIST FOOD 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 Angina Pectoris Diabetes Mellitus Type 2 With Other Circulatory Complication Hyperglycemic (HCC) 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 Mcc Current Use Of Injectable Non-Insulin Antidiabetic Drugs Mcc Use Of Insulin Active (HCC) Hypertension Pulmonary (HCC) Atrial Fibrillation Permanent (HCC) BUN (BLOOD UREA NITROGEN), S/P Routine 10/12/2023 7:45 AM BACTERIOLOGIST FOOD 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 Angina Pectoris Diabetes Mellitus Type 2 With Other Circulatory Complication Hyperglycemic (HCC) 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-Insulin Antidiabetic Drugs 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 Active (HCC) Hypertension Pulmonary (HCC) Atrial Fibrillation Permanent (HCC) ALANINE AMINOTRANSFERASE (ALT), S/P Routine 10/12/2023 7:45 AM BACTERIOLOGIST FOOD 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 Angina Pectoris Diabetes Mellitus Type 2 With Other Circulatory Complication Hyperglycemic (HCC) 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 Mcc Current Use Of Injectable Non-Insulin Antidiabetic Drugs 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 (HCC) Hypertension Pulmonary (HCC) Atrial Fibrillation Permanent (HCC) ASPARTATE AMINOTRANSFERASE (AST), S/P Routine 10/12/2023 7:45 AM BACTERIOLOGIST FOOD 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 Angina Pectoris Diabetes Mellitus Type 2 With Other Circulatory Complication Hyperglycemic (HCC) 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 Mcc Current Use Of Injectable Non-Insulin Antidiabetic Drugs 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 (HCC) Hypertension Pulmonary (HCC) Atrial Fibrillation Permanent (HCC) SODIUM, S/P Routine 10/12/2023 7:45 AM BACTERIOLOGIST FOOD 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 Angina Pectoris Diabetes Mellitus Type 2 With Other Circulatory Complication Hyperglycemic (HCC) 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-Insulin Antidiabetic Drugs 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 Active (HCC) Hypertension Pulmonary (HCC) Atrial Fibrillation Permanent (HCC) POTASSIUM, S/P Routine 10/12/2023 7:45 AM BACTERIOLOGIST FOOD 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 Angina Pectoris Diabetes Mellitus Type 2 With Other Circulatory Complication Hyperglycemic (HCC) 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-Insulin Antidiabetic Drugs Mcc Use Of Insulin Active (HCC) Hypertension Pulmonary (HCC) Atrial Fibrillation Permanent (HCC) ALKALINE PHOSPHATASE, S/P Routine 10/12/2023 7:45 AM BACTERIOLOGIST FOOD 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 Angina Pectoris Diabetes Mellitus Type 2 With Other Circulatory Complication Hyperglycemic (HCC) 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-Insulin Antidiabetic Drugs Mcc Use Of Insulin Active (HCC) Hypertension Pulmonary (HCC) Atrial Fibrillation Permanent (HCC) CREATININE WITH EGFR, S/P Routine 10/12/2023 7:45 AM BACTERIOLOGIST FOOD 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 Angina Pectoris Diabetes Mellitus Type 2 With Other Circulatory Complication Hyperglycemic (HCC) 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-Insulin Antidiabetic Drugs Mcc Use Of Insulin Active (HCC) Hypertension Pulmonary (HCC) Atrial Fibrillation Permanent (HCC) BILIRUBIN, TOT, S/P Routine 10/12/2023 7 :45 AM BACTERIOLOGIST FOOD 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 Angina Pectoris Diabetes Mellitus Type 2 With Other Circulatory Complication Hyperglycemic (HCC) 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 Mcc Current Use Of Injectable Non-Insulin Antidiabetic Drugs 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 (HCC) Hypertension Pulmonary (HCC) Atrial Fibrillation Permanent (HCC) ALBUMIN, S/P Routine 10/12/2023 7:45 AM BACTERIOLOGIST FOOD 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 Angina Pectoris Diabetes Mellitus Type 2 With Other Circulatory Complication Hyperglycemic (HCC) 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 Blood (Blood, Venous) 10/12/2023 7:45 AM BACTERIOLOGIST FOOD 10/12/2023 8:30 AM BACTERIOLOGIST FOOD Mal Oreilly M.D. LAB BLOOD ADD-ON [facility] [address] [place] [address], [facility] [address] [place] [address] * Thyroid Function Marion (10/12/2023 7:45 AM BACTERIOLOGIST FOOD) TSH, Sensitive 2.0 0.3 - 4.2 mIU/L 10/12/2023 9:11 AM BACTERIOLOGIST FOOD DTL Blood (Blood, Venous) 10/12/2023 7:45 AM BACTERIOLOGIST FOOD 10/12/2023 8:30 AM BACTERIOLOGIST FOOD Mal Oreilly M.D. LAB BLOOD ADD-ON [facility] [address] [place] [address], [facility] 200 [place] [address] * BUN (Blood Urea Nitrogen) (10/12/2023 7:45 AM BACTERIOLOGIST FOOD) BUN (Blood Urea Nitrogen), S 24 8 - 24 mg/dL 10/12/2023 9:11 AM BACTERIOLOGIST FOOD DT Blood (Blood, Venous) 10/12/2023 7:45 AM BACTERIOLOGIST FOOD 10/12/2023 8:30 AM BACTERIOLOGIST FOOD Mal Oreilly M.D. LAB BLOOD ADD-ON Performing Organization Address City/[facility]/ZIP Co de Phone Number [facility] [address] [place] [address], [facility] 200 [place] [address] * Bilirubin, Total (10/12/2023 7:45 AM BACTERIOLOGIST FOOD) Bilirubin, Total, S 1.0 0.0 - 1.2 mg/dL 10/12/2023 9:11 AM BACTERIOLOGIST FOOD DT Blood (Blood, Venous) 10/12/2023 7:45 AM BACTERIOLOGIST FOOD 10/12/2023 8:30 AM BACTERIOLOGIST FOOD Mal Oreilly M.D. LAB BLOOD ADD-ON [facility] [address] [place] [address], [facility] [address] [place] [address] * Alkaline Phosphatase (10/12/2023 7:45 AM BACTERIOLOGIST FOOD) Alkaline Phosphatase, S 48 40 - 129 U/L 10/12/2023 9:11 AM BACTERIOLOGIST FOOD DTL Blood (Blood, Venous) 10/12/2023 7:45 AM BACTERIOLOGIST FOOD 10/12/2023 8:30 AM BACTERIOLOGIST FOOD Mal Oreilly M.D. LAB BLOOD ADD-ON [facility] [address] [place] [address], [facility] [address] [place] [address] * ALT (Alanine Aminotransferase) (10/12/2023 7:45 AM BACTERIOLOGIST FOOD) Alanine Aminotransferase (ALT), S 23 7 - 55 U/L 10/12/2023 9:11 AM BACTERIOLOGIST FOOD DTL Blood (Blood, Venous) 10/12/2023 7:45 AM BACTERIOLOGIST FOOD 10/12/2023 8:30 AM BACTERIOLOGIST FOOD Mal Oreilly M.D. LAB BLOOD ADD-ON [facility] [address] [place], [place] [address] [address] [place] [address] * AST (Aspartate Aminotransferase) (10/12/2023 7:45 AM BACTERIOLOGIST FOOD) Aspartate Aminotransferase (AST), S 19 8 - 48 U/L 10/12/2023 9:11 AM BACTERIOLOGIST FOOD DTL Blood (Blood, Venous) 10/12/2023 7:45 AM BACTERIOLOGIST FOOD 10/12/2023 8:30 AM BACTERIOLOGIST FOOD Mal Oreilly M.D. LAB BLOOD ADD-ON [facility] [address] [place] [address], [facility] [address] [place] [address] * Albumin (10/12/2023 7:45 AM BACTERIOLOGIST FOOD) Albumin, S 4.3 3.5 - 5.0 g/dL 10/12/2023 9:11 AM BACTERIOLOGIST FOOD DTL Blood (Blood, Venous) 10/12/2023 7:45 AM BACTERIOLOGIST FOOD 10/12/2023 8:30 AM BACTERIOLOGIST FOOD Mal Oreilly M.D. LAB BLOOD ADD-ON Performing Organization Address City/[facility] Co de Phone Number [facility] [address] [place], [place] [phone] [place] [address] [facility] [address] [place] [address] * Creatinine with Estimated GFR (10/12/2023 7:45 AM BACTERIOLOGIST FOOD) Creatinine 1.16 0.74 - 1.35 mg/dL 10/12/2023 9:11 AM BACTERIOLOGIST FOOD DTL Estimated GFR (eGFR) 63 >=60 mL/min/BSA 10/12/2023 9:11 AM BACTERIOLOGIST FOOD DTL Comment: Estimated GFR calculated using the 2020 CKD_EPI creatinine equation. Blood (Blood, Venous) 10/12/2023 7:45 AM BACTERIOLOGIST FOOD 10/12/2023 8:30 AM BACTERIOLOGIST FOOD Mal Oreilly M.D. LAB BLOOD ADD-ON Performing Organization Address [facility] Co de Phone Number [facility] [address] [place] [address], [facility] 200 [place] [address] * Potassium, S (10/12/2023 7:45 AM BACTERIOLOGIST FOOD) Potassium, S 4.9 3.6 - 5.2 mmol/L 10/12/2023 9:11 AM BACTERIOLOGIST FOOD DTL Blood (Blood, Venous) 10/12/2023 7:45 AM BACTERIOLOGIST FOOD 10/12/2023 8:30 AM BACTERIOLOGIST FOOD Mal Oreilly M.D. LAB BLOOD ADD-ON Performing Organization Address City/[facility] Co de Phone Number [facility] [address] [place], [place] [phone] [place] [address] 200 [place] [address] * Sodium (10/12/2023 7:45 AM BACTERIOLOGIST FOOD) Pathologist [facility] Sodium, S 143 135 - 145 mmol/L 10/12/2023 9:11 AM BACTERIOLOGIST FOOD DTL Blood (Blood, Venous) 10/12/2023 7:45 AM BACTERIOLOGIST FOOD 10/12/2023 8:30 AM BACTERIOLOGIST FOOD Mal Oreilly M.D. LAB BLOOD ADD-ON Performing Organization Address City/[facility] Co de Phone Number [facility] [address] [place], [place] [phone] [place] [address] 200 [place] [address] * (ABNORMAL) Prothrombin Time (PT) (10/12/2023 7:45 AM BACTERIOLOGIST FOOD) Pathologist [facility] Prothrombin Time, P 38.9(H) 9.4 - 12.5 sec 10/12/2023 8:42 AM BACTERIOLOGIST FOOD DTL INR 3.4 0.9 - 1.1 10/12/2023 8:42 AM BACTERIOLOGIST FOOD DTL Comment: ----ADDITIONAL INFORMATION---- Standard intensity warfarin therapeutic range: 2.0 to 3.0 ?? High intensity warfarin therapeutic range: 2.5 to 3.5 Blood (Blood, Venous) 10/12/2023 7:45 AM BACTERIOLOGIST FOOD 10/12/2023 8:09 AM BACTERIOLOGIST FOOD Mal Oreilly M.D. LAB BLOOD ADD-ON Performing Organization Address City/[facility]/ZIP Co de Phone Number [facility] [address] [place], [place] [address] [place] [address] 200 [place] [address] * CBC with Differential, Blood (10/12/2023 7:45 AM BACTERIOLOGIST FOOD) Hemoglobin 15.3 13.2 - 16.6 g/dL 10/12/2023 8:39 AM BACTERIOLOGIST FOOD DTL Hematocrit 44.9 38.3 - 48.6 % 10/12/2023 8:39 AM BACTERIOLOGIST FOOD DTL Erythrocytes 4.89 4.35 - 5.65 x10(12)/L 10/12/2023 8:39 AM BACTERIOLOGIST FOOD DTL MCV 91.8 78.2 - 97.9 fL 10/12/2023 8:39 AM BACTERIOLOGIST FOOD DTL RBC Distrib Width 13.7 11.8 - 14.5 % 10/12/2023 8:39 AM BACTERIOLOGIST FOOD DTL Platelet Count 155 135 - 317 x10(9)/L 10/12/2023 8:39 AM BACTERIOLOGIST FOOD DTL Leukocytes 7.5 3.4 - 9.6 x10(9)/L 10/12/2023 8:39 AM BACTERIOLOGIST FOOD DTL Neutrophils 4.31 1.56 - 6.45 x10(9)/L 10/12/2023 8:39 AM BACTERIOLOGIST FOOD DHPM Lymphocytes 2.19 0.95 - 3.07 x10(9)/L 10/12/2023 8:39 AM BACTERIOLOGIST FOOD DTL Monocytes 0.60 0.26 - 0.81 x10(9)/L 10/12/2023 8:39 AM BACTERIOLOGIST FOOD DTL Eosinophils 0.35 0.03 - 0.48 x10(9)/L 10/12/2023 8:39 AM BACTERIOLOGIST FOOD DTL Basophils 0.04 0.01 - 0.08 x10(9)/L 10/12/2023 8:39 AM BACTERIOLOGIST FOOD DTL Blood (Blood, Venous) 10/12/2023 7:45 AM BACTERIOLOGIST FOOD 10/12/2023 8:09 AM BACTERIOLOGIST FOOD Mal Oreilly M.D. 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
--- OUTSIDE RECORDS SUMMARY | 2023-12-27 10:56 | XMS_ITS | Encounter Summary ---
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 200 [place] [address] [facility] Referral ID Status Reason Start Date Expiration Date Visits Re quested Visits Authorized [id number] Closed 02/22/2023 02/22/2024 1 1 Encounter Details Date Type Department Care Team (Latest Contact Info) Description 10/12/2023 8:01 AM HYDROTHERAPIST - 10/12/2023 9:03 AM HYDROTHERAPIST Hospital Encounter Department of Cardiovascular Diseases in [place], [place] [address] [place] [address] Mal Oreilly M.D. 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 More than 4 times per year 06/02/2022 Do you belong to any clubs o r organizations such as islam groups, unions, fraternal or athletic groups, or [...] and heating? Not hard at all 06/02/2022 [facility] - [...] place to sleep or slept in a half-way (including now)? Yes 06/02/2022 Nutrition Answer Date [...] 07/07/2021 Droplet Pen Needle 32 gauge x /32 needle 0 07/07/2021 foot care products pad FOR HOME USE 0 09/29/2018 hmtswhyp-zcaxyneeduq-ebu t cb25 116-100 mg capsule Take 1 [...] tablet by mouth daily. 0 07/16/2014 omega 1-ktv-kfx-fish oil 100-160-1,000 mg capsule Take 2 capsules [...] U-100 Insulin) 100 unit/mL (3 mL) injectionIndications:Nory anthony Mellitus Type 2 With Diabetic Chronic Kidney [...] CDT Appointment Department of Laboratory Medicine in [place], [place] [address] [place] [phone] Saba Nicole P.A.-C., P.A. [address] [place] [phone] 03/13/2024 2:30 PM CDT Office Visit Department of Endocrinology in [place], [place] [address] [place] [phone] Saba Nicole P.A.-C., P.A. 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 [...] the Order-Level Documents. Narrative 10/12/2023 9:15 AM HYDROTHERAPIST For the complete report, see the Order-Level [...] no significant change has occurred. Procedure Note Young Elizondo M.D., Ph.D. - 10/12/2023 For the complete [...] Documents. Mal Oreilly M.D. 

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
--- OUTSIDE RECORDS SUMMARY | 2023-12-27 10:57 | XMS_ITS | Encounter Summary ---
Author Name Unknown Organization [facility] Address [address] [place] [address] Care Team Providers Care Grades 7 And 8 Teacher Name Role Phone Elsewhere, Pcp Primary Care Provider Unavailabl e Reason for Referral * Outpatient (Routine) - Closed Specialty Diagnoses / Procedures Referred By Daron basilio Referred To Contact Endocrinology Diagnoses Diabetes Mellitus Type 2 With Other Circulatory Complication Hyperglycemic (HCC) Custodial Use Of Insulin Active (HCC) Diabetes Mellitus Type 2 With Diabetic Chronic Kidney Disease Hyperglycemic (HCC) Diabetes Mellitus Type 2 With Diabetic Neuropathy Hyperglycemic (HCC) Custodial Current Use Of Injectable Non-Insulin Antidiabetic 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 [address] [phone] [facility] Region Referral ID Status Reason Start Date Expiration Date Visits Re quested Visits Authorized [id number] Closed 03/15/2023 03/14/2026 1 1 Reason for Visit * Reason Comments Diabetes Mellitus Type 2 * Outpatient (Routine) - Closed Specialty Diagnoses / Procedures Referred By Daron basilio Referred To Contact Endocrinology Diagnoses Diabetes Mellitus Type 2 With Other Circulatory Complication Hyperglycemic (HCC) Family Counselor Use Of Insulin Active (HCC) Diabetes Mellitus Type 2 With Diabetic Chronic Kidney Disease Hyperglycemic (HCC) Diabetes Mellitus Type 2 With Diabetic Neuropathy Hyperglycemic (HCC) Custodial Current Use Of Injectable Non-Insulin Antidiabetic 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 [address] [phone] [facility] Region Referral ID Status Reason Start Date Expiration Date Visits Re quested Visits Authorized [id number] Closed 12/14/2022 12/13/2025 1 1 Encounter Details Date Type Department Care Team (Latest Contact Info) Description 03/15/2023 10:00 AM CDT Office Visit Department of Endocrinology in [place], [place] [address] [phone] Saba Nicole P.A.-C., P.A. [address] [phone] Diabetes Mellitus Type 2 With Other Circulatory Complication Hyperglycemic (HCC); Family Counselor Use Of Insulin Active (HCC); Diabetes Mellitus Type 2 With Diabetic Chronic Kidney Disease Hyperglycemic (HCC); Diabetes Mellitus Type 2 With Diabetic Neuropathy Hyperglycemic (HCC); Family Counselor Current Use Of Injectable Non-Insulin Antidiabetic Drugs [...] often do you attend chur ch or oriental orthodox services? More than 4 times per year 06/02/2022 Do you belong to any clubs o r organizations such as restoration groups, unions, fraternal or athletic groups, or [...] and heating? Not hard at all 06/02/2022 [facility] of Occupat ional Health - Occupational Stress [...] Sign Reading Time Taken Comments Blood Pressure 120/75 03/15/2023 10:00 AM CDT Pulse 76 03/15/2023 10:00 AM CDT Temperature - - Respiratory Rate - - Oxygen Saturation - - Inhaled Oxygen Concentration - - Weight 142 kg (313 lb 0.9 oz) 03/15/2023 10:00 A M CDT Height - - Body Mass Index 42.26 02/22/2023 1:51 PM CDT documented in this encounter Patient Instructions * Patient Instructions* Saba Nicole P.A.-C. - 03/15/2023 10:00 AM CDT Increase Lantus to 16 units once daily- bedtime nightly. 2. Continue Metformin XR 1000 mg twice daily. 3. Continue Jardiance 25 mg once daily. 4. Continue Ozempic 1 mg once weekly. 5. Endo return visit in 3 months with Saba. 6. A1c due: 05/25/2023 7. [facility]. documented in this encounter Progress Notes * Saba Nicole P.A.-C. - 03/15/2023 10:00 AM CDT SUBJECTIVE CHIEF COMPLAINT Chief Complaint Patient presents with Diabetes Mellitus Type 2 Lab Results Component Value Date HGBA1C 7.9 (H) 02/22/2023 HISTORY OF PRESENT ILLNESS Patient presents today [...] Ozempic. - notes he 'craves sugars'. - most recent visit with PCP: 04/15/2022- [facility]. - upcoming visit with PCP in 1 week. - reports [facility] not [facility] high dose GLP-1 agonist therapy. Diabetes related medication: - 1000 mg Metformin XR BID- notes less diarrhea than normal; - Jardiance 25 mg once daily; - Ozempic 1 mg once weekly. - Lantus: 14 units once daily- nightly. - no abdominal [...] recurrent UTIs: never. Blood glucose monitoring: - 03/02/2023- 03/15/2023: - % time CGM active: 33%- only on for 5 days. - Avg glucose: 178 mg/dL; - GMI: n/a; - GV: 16.8%; TIME in range - very high: 2%; - high: 34%; - target range: 64% - low: 0%; - very low: 0%. BG patterns: - stable, but elevated overnight: 143 or above. - after breakfast blood sugar elevations. Hypoglycemia: [...] Hctz. - Last diabetic eye exam: 08/09/2022- [facility]. Denies retinopathy or macular edema. [...] - Alcohol intake: none. - Last Certified Dietary Worker Visit: several years. - Last Operations Intern Visit: several years. Current Diet: 3 meals [...] foot care products pad FOR HOME USE [id number]-lobm cb25 116-100 mg capsule Take 1 tablet by mouth 2 (two) times a day. hydroCHLOROthiazide (HYDRODIURIL) 25 mg tablet Take 25 mg by mouth daily. insulin glargine (Lantus Solostar U-100 Insulin) 100 unit/mL (3 mL) injection Inject 16 Units underthe skin at bedtime. isosorbide mononitrate (IMDUR) 60 mg 24 hr tablet Take 60 mg by mouth daily. losartan (COZAAR) 100 mg tablet Take 1 tablet by mouth daily. metFORMIN XR (GLUCOPHAGE-XR) 500 mg 24 hr tablet Take 2 tablets (1,000 mg total) by mouth 2 (two) times a day with meals. Week 1: 500 mg at breakfast; week 2: 500 mg twice daily; week 3: 1000 mg a.m.and 500 mg p.m.; week 4: 1000 mg twice daily. metoprolol tartrate (LOPRESSOR) 100 mg tablet Take 100 mg by mouth 2 (two) times a day. multivitamin tablet Take 1 tablet by mouth daily. omega 3-jxx-vat-fish oil 100-160-1,000 mg capsule Take 2 capsules [...] REVIEW: History Review OBJECTIVE PHYSICAL EXAM BP 120/75 (BP Location: Right arm, Patient Position: Sitting, Cuff Size: Large) Pulse 76 Wt (!)142 kg BMI 42.26 kg/m?? GENERAL: Well developed, well nourished. No apparent distress. Appearance, behavior, and speech areappropriate. SKIN: Warm to touch, good turgor. No rash on exposed skin. MUSCULOSKELETAL: Gait normal. NEUROLOGICAL: Mental Status: Alert and oriented times 3, relaxed, and cooperative. Normal affect. DIAGNOSTICS Wt Readings from Last 3 Encounters: 03/15/23 (!) 142 kg 02/22/23 (!) 141 kg 12/14/22 (!) 141 kg Most Recent Diabetic Monitoring Labs: Last A1c: Lab Results Component Value Date HGBA1C 7.9 (H) 02/22/2023 Last urine microalbumin: Last lipid panel: Lab Results Component Value Date CHOL 168 08/31/2021 Lab Results Component Value Date HDL 52 08/31/2021 Lab Results Component Value Date LDLCALC 72 08/31/2021 Lab Results Component Value Date TRIG 222 (H) 08/31/2021 Last Creatinine: Lab Results Component Value Date CREATININE 1.31 02/22/2023 Lab Results Component Value Date EGFR 55 (L) 02/22/2023 EGFRNONBLKAA 58 (L) 06/02/2022 EGFRBLKAA 67 06/02/2022 Lipids updated 11/29/2022 through [facility] and include the following: Triglycerides 181; total cholesterol 163; LDL 74; HDL 53. Urine microalbumin was negative. ASSESSMENT / PLAN #1 Diabetes Mellitus Type 2 With Other Circulatory Complication Hyperglycemic (HCC) #2 Custodial Use Of Insulin Active (HCC) #3 Diabetes Mellitus Type 2 With Diabetic Chronic Kidney Disease Hyperglycemic (HCC) #4 Diabetes Mellitus Type 2 With Diabetic Neuropathy Hyperglycemic (HCC) #5 Custodial Current Use Of Injectable Non-Insulin Antidiabetic Drugs Other orders - Endocrinology office visit (clinic) - insulin glargine (Lantus Solostar U-100 Insulin) 100 unit/mL (3 mL) injection; Inject 16 Units under the skin at bedtime., Starting 03/15/2023, Until Emma 03/14/2024, NormalFILE- dose adjustment - Basic Metabolic Panel; Future; Expected date: 05/25/2023 - Hemoglobin A1c; Future; Expected date: 05/25/2023 - Endocrinology office visit (clinic); Future; Expected date: 06/14/2023 Recommended changes: - reports tolerance of both 1 mg weekly Ozempic and 25 mg daily Jardiance. - Denies abdominal pain/n/v/fever/chills. - Denies burning/painful urination or s/sx genital mycotic infections. - Jardiance 25 mg once daily has been tolerated well. Drinks at least 64-80 oz water daily. - unable to acquire Ozempic to 2 mg once weekly due to [facility] of [facility]. - patient would likely benefit significantly from Ozempic 2 mg once weekly due to continued postprandial blood sugar elevations. -patient is overall overnight blood sugars have improved significantly since starting Lantus insulin. Blood sugars are still somewhat elevated, consequently will increase Lantus to 16 units once daily at bedtime. -patient started basal insulin mid October. -hemoglobin A1c has improved to 7.9%, down from 9.3% on 03/14/2022. - goal [...] A1C measurement: Every 3 months. Next due: 05/25/2023- ordered. - Certified Dietary Worker visit: declined. - Next Diabetic Follow-up Visit: 3 months. Tobacco cessation: does not use [...] noted. No further questions today. Total time: 30 minutes with time also spent in chart review and lab review. Saba Nicole P.A.-C. Patient Instructions Increase Lantus to 16 units once daily- bedtime nightly. 2. Continue Metformin XR 1000 mg twice daily. 3. Continue Jardiance 25 mg once daily. 4. Continue Ozempic 1 mg once weekly. 5. Endo return visit in 3 months with Saba. 6. A1c due: 05/25/2023 7. [facility] 2 mg weekly Ozem[facility]. documented in this encounter Plan of Treatment Upcoming Encounters Date Type Department Care Team (Late st Contact Info) Description 03/13/2024 12:30 PM CDT Appointment Department of Laboratory Medicine in [place], [place] [address] [phone] Saba Nicole P.A.-C., P.A. [address] [phone] 03/13/2024 2:30 PM CDT Office Visit Department of Endocrinology in [place], [place] [address] [phone] Saba Nicole P.A.-C., P.A. [address] [phone] Scheduled Referrals Name Type Priority Associated Diagnoses Orde r Schedule Endocrinology office visit (clinic) Outpatient Referral Routine Diabetes Mellitus Type 2 With Other Circulatory Complication Hyperglycemic (HCC) Custodial Use Of Insulin Active (HCC) Diabetes Mellitus Type 2 With Diabetic Chronic Kidney Disease Hyperglycemic (HCC) Diabetes Mellitus Type 2 With Diabetic Neuropathy Hyperglycemic (HCC) Custodial Current Use Of Injectable Non-Insulin Antidiabetic Drugs Expected: 06/14/2023 (Approximate), Expires: 06/14/2024 documented as of this encounter Results * (ABNORMAL) Hemoglobin A1c (05/25/2023 3:07 PM CDT) Hemoglobin A1c, B 7.4(H) 4.2 - 5.6 % 05/25/2023 3:47 PM CDT [facility] Comment: Hemoglobin A1c values greater than or equal to 6.5 percent are diagnostic for diabetes mellitus. ??Diagnosis should be confirmed by repeat testing. ??In diabetic patients, HbA1c goals should be discussed with healthcare provider. Blood (Blood, Venous) 05/25/2023 3:07 PM CDT 05/25/2023 3:14 PM CDT Saba Nicole P.A.-C., P.A. LAB BL OOD ADD-ON [facility] [address] [place] [id number], [facility] in [place] [address] [place] [id number] * (ABNORMAL) Basic Metabolic Panel (05/25/2023 3:07 PM CDT) Potassium, P 4.7 3.6 - 5.2 mmol/L 05/25/2023 4:09 PM CDT [facility] Sodium, P 140 135 - 145 mmol/L 05/25/2023 4:09 PM CDT [facility] Chloride, P 100 98 - 107 mmol/L 05/25/2023 4:09 PM CDT [facility] Bicarbonate, P 26 22 - 29 mmol/L 05/25/2023 4:09 PM CDT [facility] Anion Gap, P 14 7 - 15 05/25/2023 4:09 PM CDT [facility] BUN (Blood Urea Nitrogen), P 26(H) 8 - 24 mg/dL 05/25/2023 4:09 PM CDT [facility] Creatinine 1.14 0.74 - 1.35 mg/dL 05/25/2023 4:09 PM CDT [facility] Estimated GFR (eGFR) 65 >=60 mL/min/BSA 05/25/2023 4:09 PM CDT [facility] Comment: Estimated GFR calculated using the 2020 CKD_EPI creatinine equation. Calcium, Total, P 9.7 8.8 - 10.2 mg/dL 05/25/2023 4:09 PM CDT [facility] Glucose, P 158(H) 70 - 140 mg/dL 05/25/2023 4:09 PM CDT [facility] Blood (Blood, Venous) 05/25/2023 3:07 PM CDT 05/25/2023 3:14 PM CDT Saba Nicole P.A.-C., P.A. LAB BL OOD ADD-ON [facility] [address] [place] [id number], [facility] in [place] [address] [address] documented in this encounter Visit Diagnoses Diagnosis Diabetes Mellitus Type 2 With Other Circulatory Complication Hyperglycemic (HCC) Family Counselor Use Of Insulin Active (HCC) Diabetes Mellitus Type 2 With Diabetic Chronic Kidney Disease Hyperglycemic (HCC) Diabetes Mellitus Type 2 With Diabetic Neuropathy Hyperglycemic (HCC) Custodial Current Use Of Injectable Non-Insulin Antidiabetic Drugs documented in this encounter Care Teams Grades 7 And 8 Teacher Relationship Specialty Start Date End Date Elsewhere, Pcp PCP - General Family Medicine 11/19/20 documented as of this encounter
--- OUTSIDE RECORDS SUMMARY | 2023-12-27 10:57 | XMS_ITS | Encounter Summary ---
Author Name Unknown Organization [facility] Address [address] [place] [id number] Care Team Providers Care Leasing Associate Name Role Phone Elsewhere, Pcp Primary Care Provider Unavailabl e Reason for Visit * Reason Onset Date Comments Pre-visit Intake 02/21/2023 Encounter Details Date Type Department Care Team (Latest Contact Info) Description 02/21/2023 9:00 AM CDT Clinical Communication Virtual Review in [place], [place] [address] [place] [address] Pre-visit Intake Social History Tobacco Use Types [...] often do you attend chur ch or worship services? More than 4 times per year 06/02/2022 Do you belong to any clubs o r organizations such as confucianism groups, unions, fraternal or athletic groups, or [...] and heating? Not hard at all 06/02/2022 [facility] of Occupat ional Health - Occupational Stress [...] CDT Appointment Department of Laboratory Medicine in [place], [place] [address] [place] [phone] Saba Nicole P.A.-C., P.A. [address] [place] [phone] 03/13/2024 2:30 PM CDT Office Visit Department of Endocrinology in [place], [place] [address] [place] [phone] Saba Nicole P.A.-C., P.A. [address] [phone] documented as of this encounter Visit Diagnoses Not on filedocumented in this encounter Care Teams Leasing Associate Relationship Specialty Start Date End Date Elsewhere, Pcp PCP - General Family Medicine 11/19/20 documented as of this encounter
--- OUTSIDE RECORDS SUMMARY | 2023-12-27 10:57 | XMS_ITS | Encounter Summary ---
Author Name Unknown Organization [facility] Address [address] [place] [address] Care Team Providers Care Monument Erector Name Role Phone Elsewhere, Pcp Primary Care Provider Unavailabl e Reason for Referral * Outpatient (Routine) - Closed Specialty Diagnoses / Procedures Referred By Contac t Referred To Contact Diagnoses 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 Angina Pectoris Hypertension Pulmonary (HCC) Atrial Fibrillation Permanent (HCC) Regurgitation Tricuspid Morbid Obesity (HCC) Diabetes Mellitus Type 2 (HCC) Fdc (Current) Anticoagulant Treatment Procedures Echo Transthoracic (TTE) Mal Oreilly M.D. 200 [place] [address] [facility] Referral ID Status Reason Start Date Expiration Date Visits Re quested Visits Authorized [id number] Closed 08/31/2021 02/22/2023 1 1 Reason for Visit * Outpatient (Routine) - Closed Specialty Diagnoses / Procedures Referred By Contac t Referred To Contact Diagnoses 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 Angina Pectoris Hypertension Pulmonary (HCC) Atrial Fibrillation Permanent (HCC) Regurgitation Tricuspid Morbid Obesity (HCC) Diabetes Mellitus Type 2 (HCC) Fdc (Current) Anticoagulant Treatment Procedures Echo Transthoracic (TTE) Mal Oreilly M.D. [address] [place] [address] [facility] Referral ID Status Reason Start Date Expiration Date Visits Re quested Visits Authorized [id number] Closed 08/31/2021 02/22/2023 1 1 Encounter Details Date Type Department Care Team (Latest Contact Info) Description 02/22/2023 9:03 AM CDT - 02/22/2023 12:48 PM CDT Hospital Encounter Department of Cardiovascular Diseases in [place], [place] [address] [place] [address] Mal Oreilly M.D. [address] [place] [address] 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 Angina Pectoris; Hypertension Pulmonary (HCC); Atrial Fibrillation Permanent (HCC); Regurgitation Tricuspid; Morbid Obesity (HCC); Diabetes Mellitus Type 2 (HCC); Sash Maker (Current) Anticoagulant Treatment Discharge Disposition: Home or Self Care Social [...] How often do you attend chur or mosque services? More than 4 times per year 06/02/2022 Do you belong to any clubs o r organizations such as zoroastrianism groups, unions, fraternal or athletic groups, or [...] and heating? Not hard at all 06/02/2022 [facility] [place] of Occupat ional Health - Occupational Stress [...] Start Date End Date alcohol swabs pads, medicatedIndications:Di abetes Mellitus Type 2 With Diabetic Neuropathy Hyperglycemic [...] 32 gauge x 5/32 needle 0 07/07/2021 empagliflozin (JARDIANCE) 25 mg tablet Take 1 tablet (25 mg total) by mouth every morning before breakfast. Take with 8-16 oz water 30 minutes prior to breakfast. 90 tablet 3 07/07/2022 foot care products pad FOR HOME USE 0 09/29/2018 plxoqusn-fhrcnjfcjxi-qv et cb25 116-100 mg capsule Take 1 tablet by mouth 2 (two) times a day. 0 07/16/2014 hydroCHLOROthiazide (HYDRODIURIL) 25 mg tablet Take 25 mg by mouth daily. 0 11/28/2018 isosorbide mononitrate (IMDUR) 60 mg 24 hr tablet Take 60 mg by mouth daily. 0 10/24/2018 losartan (COZAAR) 100 mg tablet Take 1 tablet by mouth daily. 0 07/16/2014 metoprolol tartrate (LOPRESSOR) 100 mg tablet Take 100 mg by mouth 2 (two) times a day. 0 11/28/2018 multivitamin tablet Take 1 tablet by mouth daily. 0 07/16/2014 omega 1-dny-ndd-fish oil 100-160-1,000 mg capsule Take 2 capsules [...] 1 tab all other days 0 10/07/2015 pen needle, diabetic (Novofine 32) 32 gauge x 1/4 needleIndications:Diabe mayo Mellitus Type 2 With Diabetic Neuropathy Hyperglycemic (HCC),Diabetes Mellitus Type 2 With Diabetic Chronic Kidney Disease Hyperglycemic (HCC) 1 Injection daily. 100 each 3 08/05/2022 08/05/2023 dulaglutide (Trulicity) 1.5 mg/0.5 mL pen injector injectionIndications:Di abetes Mellitus Type 2 With Diabetic Neuropathy Hyperglycemic (HCC),Diabetes Mellitus Type 2 With Other Circulatory Complication Hyperglycemic (HCC),Diabetes Mellitus Type 2 With Diabetic Chronic Kidney Disease Hyperglycemic (HCC) Inject 0.5 mL (1.5 mg total) under the skin every 7 (seven) days for 14 days. After 2 weeks of 1.5 mg dosing, will increase to 3 mg weekly dose. 1 mL 0 10/05/2022 03/15/2023 dulaglutide (Trulicity) 3 mg/0.5 mL injectionIndications:Di abetes Mellitus Type 2 With Diabetic Neuropathy Hyperglycemic (HCC),Diabetes Mellitus Type 2 With Other Circulatory Complication Hyperglycemic (HCC),Diabetes Mellitus Type 2 With Diabetic Chronic Kidney Disease Hyperglycemic (HCC) Inject 0.5 mL (3 mg total) under the skin every 7 (seven) days. 2 mL 11 10/05/2022 03/15/2023 flash glucose sensor (FreeStyle Cyrus 2 Sensor) kitIndications:Diabetes Mellitus Type 2 With Diabetic Neuropathy Hyperglycemic (HCC),Diabetes Mellitus Type 2 With Diabetic Chronic Kidney Disease Hyperglycemic (HCC),Sash Maker Use Of Insulin Active (HCC) 1 each (1 kit total) every 14 (fourteen) days. 7 kit 3 01/24/2023 12/07/2023 insulin glargine (Lantus Solostar U-100 Insulin) 100 unit/mL (3 mL) injectionIndications:Di abetes Mellitus Type 2 With Diabetic Chronic Kidney Disease Hyperglycemic (HCC),Diabetes Mellitus Type 2 With Diabetic Neuropathy Hyperglycemic (HCC) Inject 14 Units under the skin at bedtime. 15 mL 3 12/14/2022 03/15/2023 metFORMIN XR (GLUCOPHAGE-XR) 500 mg 24 hr tablet Take 2 tablets (1,000 mg total) by mouth 2 (two) times a day with meals. Week 1: 500 mg at breakfast; week 2: 500 mg twice daily; week 3: 1000 mg a.m. and 500 mg p.m.; week 4: 1000 mg twice daily. 360 tablet 3 06/02/2022 06/14/2023 semaglutide (OZEMPIC) 1 mg/dose (4 mg/3 mL) injection 2 mg. 0 07/13/2022 12/07/2023 documented as of this encounter Plan of Treatment Upcoming Encounters Date Type Department Care Team (Late st Contact Info) Description 03/13/2024 12:30 PM CDT Appointment Department of Laboratory Medicine in [place], [place] [address] [phone] Saba Nicole P.A.-C., P.A. [address] [place] [phone] 03/13/2024 2:30 PM CDT Office Visit Department of Endocrinology in [place], [place] [address] [phone] Saba Nicole P.A.-C., P.A. [address] [phone] documented as of this encounter Procedures Procedure Name Priority Date/Time Associated Diagnosis Comments (TTE) 2D ECHO DOPPLER COLOR Routine 02/22/2023 10:45 AM CDT 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 Angina Pectoris Hypertension Pulmonary (HCC) Atrial Fibrillation Permanent (HCC) Regurgitation Tricuspid Morbid Obesity (HCC) Diabetes Mellitus Type 2 (HCC) Sash Maker (Current) Anticoagulant Treatment documented in this encounter Results * (TTE) 2D ECHO DOPPLER COLOR (02/22/2023 10:45 AM CDT) Ejection Fraction 62 MC CV EIMS LV Mass Index 93 MC CV EIMS LV End-Diastolic Diameter 57 MC CV EIMS LV End-Systolic Diameter 37 MC CV EIMS MV E Velocity 1.1 MC CV EIMS MV e' Velocity Lateral 0.13 MC CV EIMS MV E/e' Lateral 8.5 MC CV EIMS Left ventricular stroke volume index 36 MC CV EIMS Cardiac Output 6.84 MC CV EIMS Cardiac Index 2.65 MC CV EIMS LV Interventricular Septal Wall Thickness 10 MC CV EIMS LV Posterior Wall Thickness 11 MC CV EIMS LV Relative Wall Thickness 39 MC CV EIMS RV 4-Chamber Basal Diameter 60 MC CV EIMS RV 4-Chamber Mid Diameter 44 MC CV EIMS RV 4-Chamber Length 86 MC CV EIMS TAPSE 14 MC CV EIMS Tricuspid Annular S? 0.07 MC CV EIMS RV Free Wall Strain -13 MC CV EIMS TR Vmax 2.8 MC CV EIMS RA Pressure 15 MC CV EIMS RV Systolic Pressure 46 MC CV EIMS Estimated diastolic pulmonary artery pressure 23 MC CV EIMS AV mean gradient 5 MC CV EIMS Aortic valve area 2.85 MC CV EIMS Aortic Valve Dimensionless Index 0.63 MC CV EIMS TV Regurgitant Volume 32 MC CV EIMS Aortic Valve Systolic Peak Velocity 1.5 MC CV EIMS Anatomical Region Laterality Modality Echocardiography 02/22/2023 9:29 AM CDT Impressions 02/22/2023 11:39 AM CDT LEFT VENTRICLE:Mildly enlarged left ventricular chamber size. Normal left ventricular wall thickness. Calculated 2-D linear left ventricular ejection fraction 62%. Flattening of the ventricular septum. No regional wall motion abnormalities. Indeterminate left ventricular filling pressure. RIGHT VENTRICLE:Moderately enlarged right ventricular chamber size. Moderate- severely reduced right ventricular systolic function. Strain imaging examination performed to assess right ventricular function. Averaged right ventricular free wall longitudinal peak systolic strain is -13% (normal = more negative than -24%). Estimated right ventricular systolic pressure 46 mmHg (right atrial pressure of 15 mmHg). ATRIA:Severely enlarged left atrial size by visual estimate. Severely enlarged right atrial size by visual estimate. CARDIAC VALVES:Trileaflet aortic valve. Sclerotic aortic valve. Trivial aortic valve regurgitation. Mildly thickened mitral valve. Trivial mitral valve regurgitation. Normal pulmonary valve. Normal pulmonary valve systolic velocities. Mild pulmonary valve regurgitation. Mildly thickened tricuspid valve. Tricuspid annulus dilatation. Moderate-severe tricuspid valve regurgitation. OTHER ECHO FINDINGS:Enlarged inferior vena cava size with reduced inspiratory collapse (<50%). Doppler evidence of systolic reversal in the hepatic veins (a- fib). Ascending aorta not well visualized. Abdominal aorta incompletely visualized. Normal abdominal aorta Doppler flow pattern. Lipomatous atrial septum. Possible patent foramen ovale. No intracardiac mass or thrombus, but the left atrial appendage cannot be visualized adequately with transthoracic echo to exclude thrombus in this location. No ??pericardial effusion. For the complete report, see the Order-Level Documents. Narrative 02/22/2023 11:39 AM CDT For the complete report, see the Order-Level Documents. Hemodynamics Heart Rate: 73 BPM Blood Pressure: 112 / 60 mmHg ECG: Atrial fibrillation Final Impressions 1. Mildly enlarged left ventricular chamber size, no regional wall motion abnormalities, calculated 2-D linear ejection fraction 62%. 2. Flattening of the ventricular septum. 3. Severe bi-atrial enlargement. 4. Moderately enlarged right ventricular chamber size, moderate-severely reduced systolic function, estimated right ventricular systolic pressure 46 mmHg (right atrial pressure of 15 mmHg). 5. Averaged right ventricular free wall longitudinal peak systolic strain is - 13% (normal = more negative than -24%). 6. Moderate-severe tricuspid valve regurgitation. Anular dilatation. 7. Enlarged inferior vena cava size with reduced inspiratory collapse (<50%). 8. No ??pericardial effusion. 9. Compared to the report of 08/31/2021 no significant change has occurred. Side by side comparison of images performed. Procedure Note Sam Lowe M.D. - 02/22/2023 For the complete report, see the Order-Level Documents. Hemodynamics Heart Rate: 73 BPM Blood Pressure: 112 / 60 mmHg ECG: Atrial fibrillation Final Impressions 1. Mildly enlarged left ventricular chamber size, no regional wall motionabnormalities, calculated 2-D linear ejection fraction 62%. 2. Flattening of the ventricular septum. 3. Severe bi-atrial enlargement. 4. Moderately enlarged right ventricular chamber size, moderate-severelyreduced systolic function, estimated right ventricular systolic itozohxa53 mmHg (right atrial pressure of 15 mmHg). 5. Averaged right ventricular free wall longitudinal peak systolic strainis -13% (normal = more negative than -24%). 6. Moderate-severe tricuspid valve regurgitation. Anular dilatation. 7. Enlarged inferior vena cava size with reduced inspiratory collapse(<50%). 8. No pericardial effusion. 9. Compared to the report of 08/31/2021 no significant change hasoccurred. Side by side comparison of images performed. Findings LEFT VENTRICLE:Mildly enlarged left ventricular chamber size. Normal leftventricular wall thickness. Calculated 2-D linear left ventricularejection fraction 62%. Flattening of the ventricular septum. No regionalwall motion abnormalities. Indeterminate left ventricular fillingpressure. RIGHT VENTRICLE:Moderately enlarged right ventricular chamber size.Moderate- severely reduced right ventricular systolic function. Strainimaging examination performed to assess right ventricular function.Averaged right ventricular free wall longitudinal peak systolic strain is-13% (normal = more negative than -24%). Estimated right ventricularsystolic pressure 46 mmHg (right atrial pressure of 15 mmHg). ATRIA:Severely enlarged left atrial size by visual estimate. Severelyenlarged right atrial size by visual estimate. CARDIAC VALVES:Trileaflet aortic valve. Sclerotic aortic valve. Trivialaortic valve regurgitation. Mildly thickened mitral valve. Trivial mitralvalve regurgitation. Normal pulmonary valve. Normal pulmonary valvesystolic velocities. Mild pulmonary valve regurgitation. Mildly thickenedtricuspid valve. Tricuspid annulus dilatation. Moderate-severe tricuspidvalve regurgitation. OTHER ECHO FINDINGS:Enlarged inferior vena cava size with reducedinspiratory collapse (<50%). Doppler evidence of systolic reversal in thehepatic veins (a-fib). Ascending aorta not well visualized. Abdominalaorta incompletely visualized. Normal abdominal aorta Doppler flowpattern. Lipomatous atrial septum. Possible patent foramen ovale. Nointracardiac mass or thrombus, but the left atrial appendage cannot bevisualized adequately with transthoracic echo to exclude thrombus in thislocation. No pericardial effusion. For the complete report, see the Order-Level Documents. Mal Oreilly M.D. CV ECHO PROCEDURES documented in this encounter Visit Diagnoses Diagnosis 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 Angina Pectoris Hypertension Pulmonary (HCC) Atrial Fibrillation Permanent (HCC) Regurgitation Tricuspid Morbid Obesity (HCC) Diabetes Mellitus Type 2 (HCC) Fdc (Current) Anticoagulant Treatment documented in this encounter Care Teams Monument Erector Relationship Specialty Start Date End Date Elsewhere, Pcp PCP - General Family Medicine 11/19/20 documented as of this encounter
--- OUTSIDE RECORDS SUMMARY | 2023-12-27 10:57 | XMS_ITS | Encounter Summary ---
Author Name Unknown Organization [facility] Address [address] [place] [address] Care Team Providers Care Tape Transferrer Name Role Phone Elsewhere, Pcp Primary Care Provider Unavailabl e Encounter Details Date Type Department Care Team (Late st Contact Info) Description 01/24/2023 Orders Only Department of Endocrinology in [place], [place] [address] [phone] Saba Nicole, Gerardo., P.A. [address] [place] [phone] Mcfp Use Of Insulin Active (HCC) (Primary Dx); Diabetes Mellitus Type 2 With Diabetic Neuropathy Hyperglycemic (HCC); Diabetes Mellitus Type 2 With Diabetic Chronic Kidney Disease Hyperglycemic (HCC) Social History Tobacco Use Types Packs/Day [...] often do you attend chur ch or druze services? More than 4 times per year 06/02/2022 Do you belong to any clubs o r organizations such as jehovah's witness groups, unions, fraternal or athletic groups, or [...] and heating? Not hard at all 06/02/2022 [facility] Questionnaire Answer Date [...] CDT Appointment Department of Laboratory Medicine in [place], [place] [address] [phone] Saba Nicole P.A.-C., P.A. [address] [phone] 03/13/2024 2:30 PM CDT Office Visit Department of Endocrinology in [place], [place] [address] [place] [phone] Saba Nicole P.A.-C., P.A. 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
--- OUTSIDE RECORDS SUMMARY | 2023-12-27 10:57 | XMS_ITS | Encounter Summary ---
Author Name Unknown Organization [facility] Address [address] [place] [address] Care Team Providers Care Coding Specialist Home Health Name Role Phone Elsewhere, Pcp Primary Care Provider Unavailabl e Encounter Details Date Type Department Care Team (Latest Contact Info) Description 05/25/2023 3:01 PM CDT - 05/25/2023 11:59 PM CDT Hospital Encounter Department of Laboratory Medicine in [place], [place] [address] [phone] Saba Nicole P.A.-C., P.A. [address] [phone] Diabetes Mellitus Type 2 With Other Circulatory Complication Hyperglycemic (HCC); Diabetes Mellitus Type 2 With Diabetic Chronic Kidney Disease Hyperglycemic (HCC) Discharge Disposition: Home or Self Care [...] often do you attend chur ch or zoroastrianism services? More than 4 times per year 06/02/2022 Do you belong to any clubs o r organizations such as episcopalian groups, unions, fraternal or athletic groups, or [...] and heating? Not hard at all 06/02/2022 [facility] of Occupat ional Health - [...] place to sleep or slept in a jail (including now)? Yes 06/02/2022 Nutrition Answer Date [...] 07/07/2021 Droplet Pen Needle 32 gauge x needle 0 07/07/2021 empagliflozin (JARDIANCE) 25 mg tablet Take 1 tablet (25 mg total) by mouth every morning before breakfast. Take with 8-16 oz water 30 minutes prior to breakfast. 90 tablet 3 07/07/2022 foot care products pad FOR HOME USE 0 09/29/2018 raguwfxj-wwpfsgcvbfk-cl et cb25 116-100 mg capsule Take 1 [...] tablet by mouth daily. 0 07/16/2014 omega 4-tyo-eut-fish oil 100-160-1,000 mg capsule Take 2 capsules [...] needle, diabetic (Novofine 32) 32 gauge x 11/30 needleIndications:Diabe mayo Mellitus Type 2 With Diabetic Neuropathy Hyperglycemic (HCC),Diabetes Mellitus Type 2 With Diabetic Chronic Kidney Disease Hyperglycemic (HCC) 1 Injection daily. 100 each 3 08/05/2022 08/05/2023 flash glucose sensor (FreeStyle Cyrus 2 Sensor) kitIndications:Diabetes Mellitus Type 2 With Diabetic Neuropathy Hyperglycemic (HCC),Diabetes Mellitus Type 2 With Diabetic Chronic Kidney Disease Hyperglycemic (HCC),Insurance Licensing Supervisor Use Of Insulin Active (HCC) 1 each (1 kit total) every 14 (fourteen) days. 7 kit 3 01/24/2023 12/07/2023 insulin glargine (Lantus Solostar U-100 Insulin) 100 unit/mL (3 mL) injectionIndications:Di abetes Mellitus Type 2 With Diabetic Chronic Kidney Disease Hyperglycemic (HCC),Diabetes Mellitus Type 2 With Diabetic Neuropathy Hyperglycemic (HCC) Inject 16 Units under the skin at bedtime. 15 mL 3 03/15/2023 06/14/2023 metFORMIN XR (GLUCOPHAGE-XR) 500 mg 24 hr [...] Encounter Note - Saba Nicole P.A.-C. - 06/25/2023 5:23 PM CDT Reviewed during qijz-wx-xlai visit on 06/14/2023. Saba Nicole P.A.-C. documented in this encounter Plan of Treatment Upcoming Encounters Date Type Department Care Team (Late st Contact Info) Description 03/13/2024 12:30 PM CDT Appointment Department of Laboratory Medicine in [place], [place] [address] [place] [phone] Saba Nicole P.A.-C., P.A. [address], [place] [phone] 03/13/2024 2:30 PM CDT Office Visit Department of Endocrinology in [place], [place] [address], [place] [phone] Saba Nicole P.A.-C., P.A. [address] [place] [phone] documented as of this encounter Procedures Procedure Name Priority Date/Time Associated Diagnosis Comments HEMOGLOBIN A1C, B Routine 05/25/2023 3:0 7 PM CDT Diabetes Mellitus Type 2 With Other Circulatory Complication Hyperglycemic (HCC) Diabetes Mellitus Type 2 With Diabetic Chronic Kidney Disease Hyperglycemic (HCC) BASIC METABOLIC PANEL, S/P Routine 05/25/2023 3:07 PM CDT Diabetes Mellitus Type 2 With Other Circulatory Complication Hyperglycemic (HCC) Diabetes Mellitus Type 2 With Diabetic Chronic Kidney Disease Hyperglycemic (HCC) documented in this encounter Results * (ABNORMAL) Hemoglobin A1c [...] P.A. LAB BL OOD ADD-ON [facility] [address] [place] [address], [facility] [place] [address] [place] [address] * (ABNORMAL) Basic Metabolic Panel (05/25/2023 3:07 [...] P.A. LAB BL OOD ADD[facility] [address] [place] [address], [place] [facility] [place] [address] [place] [address] documented in this encounter Visit Diagnoses Diagnosis Diabetes Mellitus Type 2 With Other Circulatory Complication Hyperglycemic (HCC) Diabetes Mellitus Type 2 With Diabetic Chronic Kidney Disease Hyperglycemic (HCC) documented in this encounter Care Teams Coding Specialist Home Health Relationship Specialty Start Date End Date Elsewhere, Pcp PCP - General Family Medicine 11/19/20 documented as of this encounter
--- OUTSIDE RECORDS SUMMARY | 2023-12-27 10:57 | XMS_ITS | Encounter Summary ---
Author Name Unknown Organization [facility] Address [address] [place] [id number] Care Team Providers Care Hospitalist Name Role Phone Elsewhere, Pcp Primary Care Provider Unavailabl e Encounter Details Date Type Department Care Team (Latest Contact Info) Description 02/22/2023 8:40 AM CDT - 02/22/2023 9:02 AM CDT Hospital Encounter Department of Laboratory Medicine and Pathology, [facility] in [place], [place] [address] [place] [phone] Mal Oreilly M.D. 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 More than 4 times per year 06/02/2022 Do you belong to any clubs o r organizations such as scientology groups, unions, fraternal or athletic groups, or [...] heating? Not hard at all 06/02/2022 [facility] - Occupational Stress [...] products pad FOR HOME USE 0 09/29/2018 [id number] 116-100 mg capsule Take 1 [...] tablet by mouth daily. 0 07/16/2014 omega 7-ept-max-fish oil 100-160-1,000 mg capsule Take 2 capsules [...] 2 With Diabetic Chronic Kidney Disease Hyperglycemic (HCC),Career And Guidance Counselor Use Of Insulin Active (HCC) 1 each [...] Encounter Note - Saba Nicole P.A.-C. - 02/22/2023 6:16 PM CDT Willie Vyas, A1c is 7.9%, which is improved from 8.7 on 11/29/2022. Definitely going in the right direction! If you have any questions, please let me know. See you in a couple weeks! Saba Nicole P.A.-C. documented in this encounter Plan of Treatment Upcoming Encounters Date Type Department Care Team (Late st Contact Info) Description 03/13/2024 12:30 PM CDT Appointment Department of Laboratory Medicine in [address] [phone] Saba Nicole P.A.-C., P.A. [address] [place] [phone] 03/13/2024 2:30 PM CDT Office Visit Department of Endocrinology in [place], [place] [address] [place] [phone] Saba Nicole P.A.-C., P.AJazmin [address] [place] [phone] documented as of this encounter Procedures Procedure Name Priority Date/Time Associated Diagnosis Comments THYROID FUNCTION CASCADE, S Routine 02/22/2023 8:49 AM CDT 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 Angina Pectoris Hypertension Pulmonary (HCC) Atrial Fibrillation Permanent (HCC) Regurgitation Tricuspid Morbid Obesity (HCC) Diabetes Mellitus Type 2 (HCC) Career And Guidance Counselor (Current) Anticoagulant Treatment NT-PRO B-TYPE NATRIURETIC PEPTIDE (BNP), S Routine 02/22/2023 8:49 AM CDT 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 Angina Pectoris Hypertension Pulmonary (HCC) Atrial Fibrillation Permanent (HCC) Regurgitation Tricuspid Morbid Obesity (HCC) Diabetes Mellitus Type 2 (HCC) Nursing Home (Current) Anticoagulant Treatment Dyspnea PROTHROMBIN TIME (PT), P Routine 02/22/2023 8:49 AM CDT 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 Angina Pectoris Hypertension Pulmonary (HCC) Atrial Fibrillation Permanent (HCC) Regurgitation Tricuspid Morbid Obesity (HCC) Diabetes Mellitus Type 2 (HCC) Nursing Home (Current) Anticoagulant Treatment CBC WITH DIFFERENTIAL, B Routine 02/22/2023 8:49 AM CDT 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 Angina Pectoris Hypertension Pulmonary (HCC) Atrial Fibrillation Permanent (HCC) Regurgitation Tricuspid Morbid Obesity (HCC) Diabetes Mellitus Type 2 (HCC) Career And Guidance Counselor (Current) Anticoagulant Treatment BUN (BLOOD UREA NITROGEN), S/P Routine 02/22/2023 8:49 AM CDT 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 Angina Pectoris Hypertension Pulmonary (HCC) Atrial Fibrillation Permanent (HCC) Regurgitation Tricuspid Morbid Obesity (HCC) Diabetes Mellitus Type 2 (HCC) Nursing Home (Current) Anticoagulant Treatment ASPARTATE AMINOTRANSFERASE (AST), S/P Routine 02/22/2023 8:49 AM CDT 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 Angina Pectoris Hypertension Pulmonary (HCC) Atrial Fibrillation Permanent (HCC) Regurgitation Tricuspid Morbid Obesity (HCC) Diabetes Mellitus Type 2 (HCC) Career And Guidance Counselor (Current) Anticoagulant Treatment SODIUM, S/P Routine 02/22/2023 8:49 AM CDT 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 Angina Pectoris Hypertension Pulmonary (HCC) Atrial Fibrillation Permanent (HCC) Regurgitation Tricuspid Morbid Obesity (HCC) Diabetes Mellitus Type 2 (HCC) Nursing Home (Current) Anticoagulant Treatment POTASSIUM, S/P Routine 02/22/2023 8:49 AM CDT 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 Angina Pectoris Hypertension Pulmonary (HCC) Atrial Fibrillation Permanent (HCC) Regurgitation Tricuspid Morbid Obesity (HCC) Diabetes Mellitus Type 2 (HCC) Nursing Home (Current) Anticoagulant Treatment ALKALINE PHOSPHATASE, S/P Routine 02/22/2023 8:49 AM CDT 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 Angina Pectoris Hypertension Pulmonary (HCC) Atrial Fibrillation Permanent (HCC) Regurgitation Tricuspid Morbid Obesity (HCC) Diabetes Mellitus Type 2 (HCC) Career And Guidance Counselor (Current) Anticoagulant Treatment HEMOGLOBIN A1C, B Routine 02/22/2023 8:4 9 AM CDT 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 Angina Pectoris Hypertension Pulmonary (HCC) Atrial Fibrillation Permanent (HCC) Regurgitation Tricuspid Morbid Obesity (HCC) Diabetes Mellitus Type 2 (HCC) Nursing Home (Current) Anticoagulant Treatment CREATININE WITH EGFR, S/P Routine 02/22/2023 8:49 AM CDT 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 Angina Pectoris Hypertension Pulmonary (HCC) Atrial Fibrillation Permanent (HCC) Regurgitation Tricuspid Morbid Obesity (HCC) Diabetes Mellitus Type 2 (HCC) Career And Guidance Counselor (Current) Anticoagulant Treatment BILIRUBIN, TOT, S/P Routine 02/22/2023 8 :49 AM CDT 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 Angina Pectoris Hypertension Pulmonary (HCC) Atrial Fibrillation Permanent (HCC) Regurgitation Tricuspid Morbid Obesity (HCC) Diabetes Mellitus Type 2 (HCC) Nursing Home (Current) Anticoagulant Treatment documented in this encounter Results * (ABNORMAL) Hemoglobin A1c (02/22/2023 8:49 AM CDT) Hemoglobin A1c, B 7.9(H) 4.0 - 5.6 % 02/22/2023 9:41 AM CDT DTL Comment: Hemoglobin A1c values greater than or equal to 6.5 percent are diagnostic for diabetes mellitus. ??Diagnosis should be confirmed by repeat testing. ??In diabetic patients, HbA1c goals should be discussed with healthcare provider. Blood (Blood, Venous) 02/22/2023 8:49 AM CDT 02/22/2023 9:14 AM CDT Mal Oreilly M.D. LAB BLOOD ADD-ON [facility] [address] [place] [address], [place] DTL [facility] [address] [place] [address] * (ABNORMAL) Prothrombin Time (PT) (02/22/2023 8:49 AM CDT) Prothrombin Time, P 37.0(H) 9.4 - 12.5 sec 02/22/2023 9:43 AM CDT DTL INR 3.3 0.9 - 1.1 02/22/2023 9:43 AM CDT DTL Comment: ----ADDITIONAL INFORMATION---- Standard intensity warfarin therapeutic range: 2.0 to 3.0 ?? High intensity warfarin therapeutic range: 2.5 to 3.5 Blood (Blood, Venous) 02/22/2023 8:49 AM CDT 02/22/2023 9:14 AM CDT Mal Oreilly M.D. LAB BLOOD ADD-ON Performing Organization Address [facility] Co de Phone Number [facility] [address] [place] [address], [facility] [[email or web address]] [facility] [address] [place] [address] * NT-Pro B-Type Natriuretic Peptide (BNP) (02/22/2023 8:49 AM CDT) NT-Pro BNP 248 <=540 pg/mL 02/22/2023 9:56 AM CDT DTL Comment: NT-proBNP values less than 300 [...] absence of renal failure. Blood (Blood, Venous) 02/22/2023 8:49 AM CDT 02/22/2023 9:29 AM CDT Mal Oreilly M.D. LAB BLOOD ADD-ON Performing Organization Address City/[facility] Co de Phone Number [facility] [address] [place] [address], [facility] [[email or web address]] [facility] [address] [place] [address] * Thyroid Function Tyler (02/22/2023 8:49 AM CDT) TSH, Sensitive 1.6 0.3 - 4.2 mIU/L 02/22/2023 9:56 AM CDT DT Blood (Blood, Venous) 02/22/2023 8:49 AM CDT 02/22/2023 9:29 AM CDT Mal Oreilly M.D. LAB BLOOD ADD-ON [facility] [address] [place] [address], [facility] [address] [place] [address] * (ABNORMAL) BUN (Blood Urea Nitrogen) (02/22/2023 8:49 AM CDT) BUN (Blood Urea Nitrogen), S 26(H) 8 - 24 mg/dL 02/22/2023 9:56 AM CDT DT Blood (Blood, Venous) 02/22/2023 8:49 AM CDT 02/22/2023 9:29 AM CDT Mal Oreilly M.D. LAB BLOOD ADD-ON Performing Organization Address City/[facility]/ZIP Co de Phone Number [facility] [address] [place] [address], [facility] [address] [place] [address] * Bilirubin, Total (02/22/2023 8:49 AM CDT) Bilirubin, Total, S 1.0 <=1.2 mg/dL 02/22/2023 9:56 AM CDT DT Blood (Blood, Venous) 02/22/2023 8:49 AM CDT 02/22/2023 9:29 AM CDT Mal Oreilly M.D. LAB BLOOD ADD-ON [facility] [address] [place] [address], [facility] [address] [place] [address] * Alkaline Phosphatase (02/22/2023 8:49 AM CDT) Alkaline Phosphatase, S 52 40 - 129 U/L 02/22/2023 9:56 AM CDT DTL Blood (Blood, Venous) 02/22/2023 8:49 AM CDT 02/22/2023 9:29 AM CDT Mal Oreilly M.D. LAB BLOOD ADD-ON [facility] [address] [place] [address], [facility] [address] [place] [address] * AST (Aspartate Aminotransferase) (02/22/2023 8:49 AM CDT) Pathologist [facility] Aspartate Aminotransferase (AST), S 15 8 - 48 U/L 02/22/2023 9:56 AM CDT DTL Blood (Blood, Venous) 02/22/2023 8:49 AM CDT 02/22/2023 9:29 AM CDT Mal Oreilly M.D. LAB BLOOD ADD-ON [facility] [address] [place] [address], [facility] [address] [place] [address] * (ABNORMAL) Creatinine with Estimated GFR (02/22/2023 8:49 AM CDT) Creatinine 1.31 0.74 - 1.35 mg/dL 02/22/2023 9:56 AM CDT DTL Estimated GFR (eGFR) 55(L) >=60 mL/min/BSA 02/22/2023 9:56 AM CDT DTL Comment: Estimated GFR calculated using the 2020 CKD_EPI creatinine equation. Blood (Blood, Venous) 02/22/2023 8:49 AM CDT 02/22/2023 9:29 AM CDT Mal Oreilly M.D. LAB BLOOD ADD-ON [facility] [address] [place] [address], [facility] [address] [place] [address] * Potassium, S (02/22/2023 8:49 AM CDT) Potassium, S 4.9 3.6 - 5.2 mmol/L 02/22/2023 9:56 AM CDT DT Blood (Blood, Venous) 02/22/2023 8:49 AM CDT 02/22/2023 9:29 AM CDT Mal Oreilly M.D. LAB BLOOD ADD-ON [facility] [address] [place] [address], [facility] [address] [place] [address] * Sodium (02/22/2023 8:49 AM CDT) Sodium, S 144 135 - 145 mmol/L 02/22/2023 9:56 AM CDT DT Blood (Blood, Venous) 02/22/2023 8:49 AM CDT 02/22/2023 9:29 AM CDT Mal Oreilly M.D. LAB BLOOD ADD-ON [facility] [address] [place] [address], [facility] [address] [place] [address] * CBC with Differential, Blood (02/22/2023 8:49 AM CDT) Hemoglobin 15.8 13.2 - 16.6 g/dL 02/22/2023 9:27 AM CDT DTL Hematocrit 47.8 38.3 - 48.6 % 02/22/2023 9:27 AM CDT DTL Erythrocytes 5.19 4.35 - 5.65 x10(12)/L 02/22/2023 9:27 AM CDT DTL MCV 92.1 78.2 - 97.9 fL 02/22/2023 9:27 AM CDT DTL RBC Distrib Width 13.2 11.8 - 14.5 % 02/22/2023 9:27 AM CDT DTL Platelet Count 150 135 - 317 x10(9)/L 02/22/2023 9:27 AM CDT DTL Leukocytes 6.4 3.4 - 9.6 x10(9)/L 02/22/2023 9:27 AM CDT DTL Neutrophils 3.67 1.56 - 6.45 x10(9)/L 02/22/2023 9:27 AM CDT DTL Lymphocytes 1.99 0.95 - 3.07 x10(9)/L 02/22/2023 9:27 AM CDT DTL Monocytes 0.45 0.26 - 0.81 x10(9)/L 02/22/2023 9:27 AM CDT DTL Eosinophils 0.21 0.03 - 0.48 x10(9)/L 02/22/2023 9:27 AM CDT DTL Basophils 0.06 0.01 - 0.08 x10(9)/L 02/22/2023 9:27 AM CDT DTL Blood (Blood, Venous) 02/22/2023 8:49 AM CDT 02/22/2023 9:14 AM CDT Mal Oreilly M.D. LAB BLOOD ADD-ON [facility] [address] [place] [address], [place] DTL [facility] [address] [place] [address] documented in this encounter Visit Diagnoses Diagnosis 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 Angina Pectoris Hypertension Pulmonary (HCC) Atrial Fibrillation Permanent (HCC) Regurgitation Tricuspid Morbid Obesity (HCC) Diabetes Mellitus Type 2 (HCC) Career And Guidance Counselor (Current) Anticoagulant Treatment Dyspnea documented in this encounter Care Teams Hospitalist Relationship Specialty Start Date End Date Elsewhere, Pcp PCP - General Family Medicine 11/19/20 documented as of this encounter
--- OUTSIDE RECORDS SUMMARY | 2023-12-27 10:57 | XMS_ITS | Encounter Summary ---
Author Name Unknown Organization [facility] Address [address] [place] [address] Care Team Providers Care Encyclopedia Research Worker Name Role Phone Elsewhere, Pcp Primary Care Provider Unavailabl e Reason for Referral * Outpatient (Routine) - Closed Specialty Diagnoses / Procedures Referred By Contac t Referred To Contact Cardiovascular Disease Diagnoses 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 Angina Pectoris Diabetes Mellitus Type 2 With Other Circulatory Complication Hyperglycemic (HCC) 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 Chcf Current Use Of Injectable Non-Insulin Antidiabetic Drugs Data Clerk Use Of Insulin Active (HCC) Hypertension Pulmonary (HCC) Atrial Fibrillation Permanent (HCC) Mal Oreilly M.D. [address] [place] [address] [facility] Referral ID Status Reason Start Date Expiration Date Visits Re quested Visits Authorized [id number] Closed 02/22/2023 02/21/2026 1 1 * Outpatient (Routine) - Closed Specialty Diagnoses / Procedures Referred By Contac t Referred To Contact Diagnoses 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 Angina Pectoris Diabetes Mellitus Type 2 With Other Circulatory Complication Hyperglycemic (HCC) 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 Data Clerk Current Use Of Injectable Non-Insulin Antidiabetic Drugs Data Clerk Use Of Insulin Active (HCC) Hypertension Pulmonary (HCC) Atrial Fibrillation Permanent (HCC) Procedures Echo Transthoracic (TTE) Mal Oreilly M.D. [address] [place] [address] [facility] Referral ID Status Reason Start Date Expiration Date Visits Re quested Visits Authorized [id number] Closed 02/22/2023 02/22/2024 1 1 * Outpatient (Routine) - Closed Specialty Diagnoses / Procedures Referred By Contac t Referred To Contact Diagnoses 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 Angina Pectoris Diabetes Mellitus Type 2 With Other Circulatory Complication Hyperglycemic (HCC) 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 Chcf Current Use Of Injectable Non-Insulin Antidiabetic Drugs Chcf Use Of Insulin Active (HCC) Hypertension Pulmonary (HCC) Atrial Fibrillation Permanent (HCC) Procedures Six Minute Walk Mal Oreilly M.D. [address] [place] [phone] [facility] Referral ID Status Reason Start Date Expiration Date Visits Re quested Visits Authorized [id number] Closed 02/22/2023 02/22/2024 1 1 * Outpatient (Routine) - Closed Specialty Diagnoses / Procedures Referred By Contac t Referred To Contact Diagnoses 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 Angina Pectoris Diabetes Mellitus Type 2 With Other Circulatory Complication Hyperglycemic (HCC) 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 Chcf Current Use Of Injectable Non-Insulin Antidiabetic Drugs Data Clerk Use Of Insulin Active (HCC) Hypertension Pulmonary (HCC) Atrial Fibrillation Permanent (HCC) Procedures ECG 12 Lead Mal Oreilly M.D. [address] [place] [address] [facility] Referral ID Status Reason Start Date Expiration Date Visits Re quested Visits Authorized [id number] Closed 02/22/2023 02/22/2024 1 1 Reason for Visit * Appointment Request (Routine) - Closed Specialty Diagnoses / Procedures Referred By Contac t Referred To Contact Cardiovascular Disease Mal Oreilly M.D. [address] [place] [phone] Referral ID Status Reason Start Date Expiration Date Visits Re quested Visits Authorized [id number] Closed 06/17/2022 06/17/2023 1 1 Encounter Details Date Type Department Care Team (Latest Contact Info) Description 02/22/2023 3:00 PM CDT Office Visit Department of Cardiovascular Medicine in [place], [place] [address] [place] [address] Mal Oreilly M.D. [address] [place] [phone] 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 Angina Pectoris (Primary Dx); Diabetes Mellitus Type 2 With Other Circulatory Complication Hyperglycemic (HCC); Regurgitation Tricuspid; Coronary Arterial Bypass Graft Status Post Personal History; Chcf Current Use Of Injectable Non-Insulin Antidiabetic Drugs; Data Clerk Use Of Insulin Active (HCC); Hypertension Pulmonary (HCC); Atrial Fibrillation Permanent (HCC) Social History Tobacco Use Types Packs/Day Years Used Date Smoking Tobacco: Former Cigarettes 1 0 0 07/28/1960 - 11/27/1979 Smokeless Tobacco: Never Tobacco Cessation:Counseling Given: No Alcohol Use Standard Drinks/Week Comments No 0 [...] often do you attend chur ch or sikhism services? More than 4 times per year 06/02/2022 Do you belong to any clubs o r organizations such as restorationist groups, unions, fraternal or athletic groups, or [...] and heating? Not hard at all 06/02/2022 [facility] - Occupational Stress Questionnaire Answer Date [...] place to sleep or slept in a penitentiary (including now)? Yes 06/02/2022 Nutrition Answer Date [...] Sign Reading Time Taken Comments Blood Pressure 124/82 02/22/2023 1:51 PM CDT Pulse 84 02/22/2023 1:51 PM CDT Temperature - - Respiratory Rate - - Oxygen Saturation 95% 02/22/2023 1:51 PM CDT Inhaled Oxygen Concentration - - Weight 141 kg (311 lb 8.2 oz) 02/22/2023 1:51 PM CDT Height 183.3 cm (6' 0.17) 02/22/2023 1:51 PM CD T Body Mass Index 42.06 02/22/2023 1:51 PM CDT documented in this encounter H&P Notes * Mal Oreilly M.D. - 02/22/2023 3:00 PM CDT REFERRAL SOURCE Mal Oreilly M.D. [address] [place] [address] CHIEF COMPLAINT / REASON FOR VISIT Follow-up coronary disease, pulmonary hypertension associated with sleep apnea. HISTORY OF PRESENT ILLNESS Mr. Rodriguez is a pleasant 82 year old man from [facility]. He returns accompanied by his for followup of CAD with coronary artery bypass grafting performed by Dr. Deniz Conway for left main/three-vessel disease in 2000. This was with full arterial revascularization. Last cardiac stress imaging was back in 2013 with stress echo showing no evidence of ischemia. He has diabetes mellitus, treated hypertension, chronic atrial fibrillation and hyperlipidemia plus obstructive sleep apnea treated with CPAP. He has had medically complicated obesity for many years. When I visited with him via telephone in November 2020 he reported deliberate 40 lb weight loss, getting down to 345 lb. He had gradually increased his walking to 3 miles in his house daily. He has subsequently continued to lose weight during the pandemic, now down to 141 kilos. This has been through deliberate diet and he also lost an additional 10 lb with addition of semaglutide for his diabetes. He has acquired an electric 3 wheeled bike and is going to be trying to increase his leg strength with that since it is getting a bit difficult for him to get out of a low chair. Otherwise he feels like his condition is stable. The following portions of the patient's history were reviewed and updated as appropriate: allergies, current medications, family history, medical history, social history, surgical history, problem list, labs, diagnostics tests.. I also reviewed pertinent clinical notes in the electronic health record. REVIEW OF SYSTEMS A comprehensive review of systems was completed; pertinent abnormalities are included in the History of Present Illness. MEDICATIONS Current Medications: alcohol swabs pads, medicated, Use as needed for diabetes control aspirin 81 mg chewable tablet, Chew 1 tablet daily. cholecalciferol (VITAMIN D3) 10 mcg (400 Unit) tablet, Take 10 mcg by mouth daily. Contour Test Strips strips, daily. for testing Droplet Pen Needle 32 gauge x 5/32 needle, dulaglutide (Trulicity) 1.5 mg/0.5 mL pen injector injection, Inject 0.5 mL (1.5 mg total) under the skin every 7 (seven) days for 14 days. After 2 weeks of 1.5 mg dosing, will increase to 3 mg weekly dose. dulaglutide (Trulicity) 3 mg/0.5 mL injection, Inject 0.5 mL (3 mg total) under the skin every 7 (seven) days. empagliflozin (JARDIANCE) 25 mg tablet, Take 1 tablet (25 mg total) by mouth every morning before breakfast. Take with 8-16 oz water 30 minutes prior to breakfast. flash glucose sensor (FreeStyle Cyrus 2 Sensor) kit, 1 each (1 kit total) every 14 (fourteen) days. foot care products pad, FOR HOME USE sarwksyd-ewpozkswuyr-btsy cb25 116-100 mg capsule, Take 1 tablet by mouth 2 (two) times a day. hydroCHLOROthiazide (HYDRODIURIL) 25 mg tablet, Take 25 mg by mouth daily. insulin glargine (Lantus Solostar U-100 Insulin) 100 unit/mL (3 mL) injection, Inject 14 Units under the skin at bedtime. isosorbide mononitrate (IMDUR) 60 mg 24 hr tablet, Take 60 mg by mouth daily. losartan (COZAAR) 100 mg tablet, Take 1 tablet by mouth daily. metFORMIN XR (GLUCOPHAGE-XR) 500 mg 24 hr tablet, Take 2 tablets (1,000 mg total) by mouth 2 (two) times a day with meals. Week 1: 500 mg at breakfast; week 2: 500 mg twice daily; week 3: 1000 mg a.m. and 500 mg p.m.; week 4: 1000 mg twice daily. metoprolol tartrate (LOPRESSOR) 100 mg tablet, Take 100 mg by mouth 2 (two) times a day. multivitamin tablet, Take 1 tablet by mouth daily. omega 0-awc-yls-fish oil 100-160-1,000 mg capsule, Take 2 capsules by mouth daily. pen needle, diabetic (Novofine 32) 32 gauge x 1/4 needle, 1 Injection daily. pravastatin (PRAVACHOL) 40 mg tablet, Take 1 tablet by mouth daily. psyllium husk (METAMUCIL) 0.4 gram capsule, Take 1 capsule by mouth 2 (two) times a day. semaglutide (OZEMPIC) 1 mg/dose (4 mg/3 mL) injection, INJECT 1MG UNDER THE SKIN EVERY WEEK spironolactone (ALDACTONE) 25 mg tablet, Take 25 mg by mouth daily. warfarin (COUMADIN) 5 mg tablet, Take 5 mg by mouth daily. Now taking 0.5 tab on Mon and Mon and 1 tab all other days VITALS Blood Pressure: 124/82 SpO2: 95 % Height: 183.3 cm Weight: 141 kg BMI (Calculated): 42.1 kg/m?? Body mass index is 42.06 kg/m??. PHYSICAL EXAMINATION General: Bright and alert Psychiatric: Normal mood and affect Skin: Lesion on he looks of right ear concerning for nonmelanoma skin cancer Eyes: Non-icteric Vessels: Normal carotid pulses without bruit. Central venous pressure is normal. Heart: Irregular S1, S2 without murmur or gallop Lungs: Clear to auscultation bilaterally. Abdomen: Soft, non-tender, without palpable liver or spleen enlargement. Extremities: Venous stasis changes with mild edema DIAGNOSTIC REVIEW All labs and diagnostic studies were reviewed. Everything looks very stable. ECHO: 1. Mildly enlarged left ventricular chamber size, no regional wall motion abnormalities, calculated2-D linear ejection fraction 62%. 2. Flattening of the ventricular septum. 3. Severe bi-atrial enlargement. 4. Moderately enlarged right ventricular chamber size, moderate-severely reduced systolic function,estimated right ventricular systolic pressure 46 mmHg (right atrial pressure of 15 mmHg). 5. Averaged right ventricular free wall longitudinal peak systolic strain is - 13% (normal = more negative than -24%). 6. Moderate-severe tricuspid valve regurgitation. Anular dilatation. 7. Enlarged inferior vena cava size with reduced inspiratory collapse (<50%). 8. No pericardial effusion. 9. Compared to the report of 08/31/2021 no significant change has occurred. Side by side comparisonof images performed. ECG 12 Lead Result Date: 02/22/2023 Atrial fibrillation Right superior axis deviation Right bundle branch block with secondary ST-T abnormalities When compared with ECG of 31-AUG-2021 08:53, Premature ventricular complexes or aberrantly conducted complexes are no longer present Reviewed by PAUL Jeff Recent Results (from the past 72 hour(s)) CBC with Differential, Blood Collection Time: 02/22/23 8:49 AM Result Value Hemoglobin 15.8 Hematocrit 47.8 Erythrocytes 5.19 MCV 92.1 RBC Distrib Width 13.2 Platelet Count 150 Leukocytes 6.4 Neutrophils 3.67 Lymphocytes 1.99 Monocytes 0.45 Eosinophils 0.21 Basophils 0.06 Sodium Collection Time: 02/22/23 8:49 AM Result Value Sodium, S 144 Potassium, S Collection Time: 02/22/23 8:49 AM Result Value Potassium, S 4.9 Creatinine with Estimated GFR Collection Time: 02/22/23 8:49 AM Result Value Creatinine 1.31 Estimated GFR (eGFR) 55 (L) AST (Aspartate Aminotransferase) Collection Time: 02/22/23 8:49 AM Result Value Aspartate Aminotransferase (AST), S 15 Alkaline Phosphatase Collection Time: 02/22/23 8:49 AM Result Value Alkaline Phosphatase, S 52 Bilirubin, Total Collection Time: 02/22/23 8:49 AM Result Value Bilirubin, Total, S 1.0 BUN (Blood Urea Nitrogen) Collection Time: 02/22/23 8:49 AM Result Value BUN (Blood Urea Nitrogen), S 26 (H) Thyroid Function Mulga Collection Time: 02/22/23 8:49 AM Result Value TSH, Sensitive 1.6 NT-Pro B-Type Natriuretic Peptide (BNP) Collection Time: 02/22/23 8:49 AM Result Value NT-Pro BNP 248 Prothrombin Time (PT) Collection Time: 02/22/23 8:49 AM Result Value Prothrombin Time, P 37.0 (H) INR 3.3 Hemoglobin A1c Collection Time: 02/22/23 8:49 AM Result Value Hemoglobin A1c, B 7.9 (H) 6 minute walk 357 m satisfactory blood pressure heart rate and oxygen saturations. ASSESSMENT / PLAN #1 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 Angina Pectoris #2 Diabetes Mellitus Type 2 With Other Circulatory Complication Hyperglycemic (HCC) #3 Regurgitation Tricuspid #4 Coronary Arterial Bypass Graft Status Post Personal History #5 Chcf Current Use Of Injectable Non-Insulin Antidiabetic Drugs #6 Data Clerk Use Of Insulin Active (HCC) #7 Hypertension Pulmonary (HCC) #8 Atrial Fibrillation Permanent (HCC) He is really doing very well and if anything getting healthier year by year. He will continue with gradually increasing his activity as tolerated. We did not make any changes to his program. I will plan to see him again in 1 year, sooner p.r.n.. It was a great pleasure to see Mr. Rodriguez and his again today. Mla Oreilly M.D. 02/22/2023 documented in this encounter Plan of Treatment Upcoming Encounters Date Type Department Care Team (Late st Contact Info) Description 03/13/2024 12:30 PM CDT Appointment Department of Laboratory Medicine in [place], [place] [address] [phone] Saba Nicole P.A.-C., P.A. [address] [phone] 03/13/2024 2:30 PM CDT Office Visit Department of Endocrinology in [place], [place] [address] [address] Saba Nicole P.A.-C., P.A. [address] [phone] Scheduled Referrals Name Type Priority Associated Diagnoses Orde r Schedule Cardiovascular Disease office visit (clinic) General Outpatient Referral Routine 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 Angina Pectoris Diabetes Mellitus Type 2 With Other Circulatory Complication Hyperglycemic (HCC) 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 Chcf Current Use Of Injectable Non-Insulin Antidiabetic Drugs Data Clerk Use Of Insulin Active (HCC) Hypertension Pulmonary (HCC) Atrial Fibrillation Permanent (HCC) Expected: 02/22/2024 (Approximate), Expires: 10/14/2024 documented as of this encounter Results * ECG 12 Lead (10/12/2023 12:19 PM SPRAY STAINER) Ventricular Rate ECG/Min 81 BPM MUSE QRSD Interval 150 ms MUSE QT Interval 422 ms MUSE QTC Interval 490 ms MUSE R [place] 181 degrees MUSE T Wave [place] 3 degrees MUSE 10/12/2023 12:1 9 PM SPRAY STAINER 10/12/2023 12:45 PM SPRAY STAINER Impressions MUSE - 10/12/2023 12:30 PM SPRAY STAINER Atrial fibrillation Right superior axis deviation Right [...] PAUL Sierra Mal Oreilly M.D. ECG ORDERABLES MUSE NA * 6 MINUTE WALK (10/12/2023 10:30 AM SPRAY STAINER) Narrative Neelam Kent M.D., Ph.D. - 10/12/2023 10:30 AM SPRAY STAINER Neelam Kent M.D., Ph.D. ? 10/13/2023 ??6:26 [...] Nothing at all Time of Test: ??09:20 SPRAY STAINER Total Distance Walked (Feet): ??1200 Total Distance [...] 2D ECHO DOPPLER COLOR (10/12/2023 8:53 AM SPRAY STAINER) [facility] Ejection Fraction 60 MC CV EIMS LV [...] Region Laterality Modality Echocardiography 10/12/2023 8:11 AM SPRAY STAINER Impressions 10/12/2023 9:15 AM SPRAY STAINER Echocardiogram performed per left ventricular function protocol. [...] the Order-Level Documents. Narrative 10/12/2023 9:15 AM SPRAY STAINER For the complete report, see the Order-Level [...] Mal Oreilly M.D. CV ECHO PROCEDURES * NT-Pro B-Type Natriuretic Peptide (BNP) (10/12/2023 7:45 AM SPRAY STAINER) [facility] NT-Pro BNP 353 <=540 pg/mL 10/12/2023 9:11 AM SPRAY STAINER DT Comment: NT-proBNP values less than 300 pg/mL [...] failure. Blood (Blood, Venous) 10/12/2023 7:45 AM SPRAY STAINER 10/12/2023 8:30 AM SPRAY STAINER Mal Oreilly M.D. LAB BLOOD ADD-ON Performing Organization Address City/[facility]/ZIP Co de Phone Number [address] [place] [address] * Thyroid Function Mulga (10/12/2023 7:45 AM SPRAY STAINER) [facility] TSH, Sensitive 2.0 0.3 - 4.2 mIU/L 10/12/2023 9:11 AM SPRAY STAINER DT Blood (Blood, Venous) 10/12/2023 7:45 AM SPRAY STAINER 10/12/2023 8:30 AM SPRAY STAINER Mal Oreilly M.D. LAB BLOOD ADD-ON [facility] [address] [place], [place] [phone] [place] [address] * BUN (Blood Urea Nitrogen) (10/12/2023 7:45 AM SPRAY STAINER) [facility] BUN (Blood Urea Nitrogen), S 24 8 - 24 mg/dL 10/12/2023 9:11 AM SPRAY STAINER DT Blood (Blood, Venous) 10/12/2023 7:45 AM SPRAY STAINER 10/12/2023 8:30 AM SPRAY STAINER Mal Oreilly M.D. LAB BLOOD ADD-ON [facility] [address] [place], [place] [phone] [place] [address] [address] [place] [address] * Bilirubin, Total (10/12/2023 7:45 AM SPRAY STAINER) Bilirubin, Total, S 1.0 0.0 - 1.2 mg/dL 10/12/2023 9:11 AM SPRAY STAINER DT Blood (Blood, Venous) 10/12/2023 7:45 AM SPRAY STAINER 10/12/2023 8:30 AM SPRAY STAINER Mal Oreilly M.D. LAB BLOOD ADD-ON Performing Organization Address City/[facility]/ZIP Co de Phone Number [facility] [address] [place], [place] [address] [place] [address] [address] [place] [address] * Alkaline Phosphatase (10/12/2023 7:45 AM SPRAY STAINER) Alkaline Phosphatase, S 48 40 - 129 U/L 10/12/2023 9:11 AM SPRAY STAINER DT Blood (Blood, Venous) 10/12/2023 7:45 AM SPRAY STAINER 10/12/2023 8:30 AM SPRAY STAINER Mal Oreilly M.D. LAB BLOOD ADD-ON [facility] [address] [place], [place] [phone] [place] [address] [address] [place] [address] * ALT (Alanine Aminotransferase) (10/12/2023 7:45 AM SPRAY STAINER) Alanine Aminotransferase (ALT), S 23 7 - 55 U/L 10/12/2023 9:11 AM SPRAY STAINER DTL Blood (Blood, Venous) 10/12/2023 7:45 AM SPRAY STAINER 10/12/2023 8:30 AM SPRAY STAINER Mal Oreilly M.D. LAB BLOOD ADD-ON [facility] [address] [place], [place] [phone] [place] [address] [address] [place] [address] * AST (Aspartate Aminotransferase) (10/12/2023 7:45 AM SPRAY STAINER) Aspartate Aminotransferase (AST), S 19 8 - 48 U/L 10/12/2023 9:11 AM SPRAY STAINER DT Blood (Blood, Venous) 10/12/2023 7:45 AM SPRAY STAINER 10/12/2023 8:30 AM SPRAY STAINER Mal Oreilly M.D. LAB BLOOD ADD-ON [facility] [address] [place] [address], [facility] [address] [place] [address] * Albumin (10/12/2023 7:45 AM SPRAY STAINER) Albumin, S 4.3 3.5 - 5.0 g/dL 10/12/2023 9:11 AM SPRAY STAINER DT Blood (Blood, Venous) 10/12/2023 7:45 AM SPRAY STAINER 10/12/2023 8:30 AM SPRAY STAINER Mal Oreilly M.D. LAB BLOOD ADD-ON [facility] [address] [place], [place] [phone] [place] [address] [address] [place] [address] * Creatinine with Estimated GFR (10/12/2023 7:45 AM SPRAY STAINER) Creatinine 1.16 0.74 - 1.35 mg/dL 10/12/2023 9:11 AM SPRAY STAINER DTL Estimated GFR (eGFR) 63 >=60 mL/min/BSA 10/12/2023 9:11 AM SPRAY STAINER DTL Comment: Estimated GFR calculated using the 2020 CKD_EPI creatinine equation. Blood (Blood, Venous) 10/12/2023 7:45 AM SPRAY STAINER 10/12/2023 8:30 AM SPRAY STAINER Mal Oreilly M.D. LAB BLOOD ADD-ON [facility] [address] [place], [place] [phone] [place] [address] [address] [place] [address] * Potassium, S (10/12/2023 7:45 AM SPRAY STAINER) Potassium, S 4.9 3.6 - 5.2 mmol/L 10/12/2023 9:11 AM SPRAY STAINER DTL Blood (Blood, Venous) 10/12/2023 7:45 AM SPRAY STAINER 10/12/2023 8:30 AM SPRAY STAINER Mal Oreilly M.D. LAB BLOOD ADD-ON Performing Organization Address City/[facility]/ZIP Co de Phone Number [facility] [address] [place] [address], [facility] [address] [place] [address] * Sodium (10/12/2023 7:45 AM SPRAY STAINER) Sodium, S 143 135 - 145 mmol/L 10/12/2023 9:11 AM SPRAY STAINER DTL Blood (Blood, Venous) 10/12/2023 7:45 AM SPRAY STAINER 10/12/2023 8:30 AM SPRAY STAINER Mal Oreilly M.D. LAB BLOOD ADD-ON [facility] [address] [place], [place] [phone] [place] [address] DTL [facility] [address] [place] [address] * (ABNORMAL) Prothrombin Time (PT) (10/12/2023 7:45 AM SPRAY STAINER) [facility] Prothrombin Time, P 38.9(H) 9.4 - 12.5 sec 10/12/2023 8:42 AM SPRAY STAINER DTL INR 3.4 0.9 - 1.1 10/12/2023 8:42 AM SPRAY STAINER DTL Comment: ----ADDITIONAL INFORMATION---- Standard intensity warfarin therapeutic range: 2.0 to 3.0 ?? High intensity warfarin therapeutic range: 2.5 to 3.5 Blood (Blood, Venous) 10/12/2023 7:45 AM SPRAY STAINER 10/12/2023 8:09 AM SPRAY STAINER Mal Oreilly M.D. LAB BLOOD ADD-ON [facility] [address] [place], [place] [address] [address] [place] [address] * CBC with Differential, Blood (10/12/2023 7:45 AM SPRAY STAINER) [facility] Hemoglobin 15.3 13.2 - 16.6 g/dL 10/12/2023 8:39 AM SPRAY STAINER DTL Hematocrit 44.9 38.3 - 48.6 % 10/12/2023 8:39 AM SPRAY STAINER DTL Erythrocytes 4.89 4.35 - 5.65 x10(12)/L 10/12/2023 8:39 AM SPRAY STAINER DTL MCV 91.8 78.2 - 97.9 fL 10/12/2023 8:39 AM SPRAY STAINER DTL RBC Distrib Width 13.7 11.8 - 14.5 % 10/12/2023 8:39 AM SPRAY STAINER DTL Platelet Count 155 135 - 317 x10(9)/L 10/12/2023 8:39 AM SPRAY STAINER DTL Leukocytes 7.5 3.4 - 9.6 x10(9)/L 10/12/2023 8:39 AM SPRAY STAINER DTL Neutrophils 4.31 1.56 - 6.45 x10(9)/L 10/12/2023 8:39 AM SPRAY STAINER DHPM Lymphocytes 2.19 0.95 - 3.07 x10(9)/L 10/12/2023 8:39 AM SPRAY STAINER DTL Monocytes 0.60 0.26 - 0.81 x10(9)/L 10/12/2023 8:39 AM SPRAY STAINER DTL Eosinophils 0.35 0.03 - 0.48 x10(9)/L 10/12/2023 8:39 AM SPRAY STAINER DTL Basophils 0.04 0.01 - 0.08 x10(9)/L 10/12/2023 8:39 AM SPRAY STAINER DTL Blood (Blood, Venous) 10/12/2023 7:45 AM SPRAY STAINER 10/12/2023 8:09 AM SPRAY STAINER Mal Oreilly M.D. LAB BLOOD ADD-ON Performing Organization Address City/State/[facility] Co de Phone Number [facility] [address] [place] [address], [facility] DTL [facility] [address] [place] [address] DHPM [facility] [address] [place] [address] documented in this encounter Visit Diagnoses Diagnosis 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 Angina Pectoris- Primary Diabetes Mellitus Type 2 With Other Circulatory Complication Hyperglycemic (HCC) 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 Chcf Current Use Of Injectable Non-Insulin Antidiabetic Drugs Chcf Use Of Insulin Active (HCC) Hypertension Pulmonary (HCC) Atrial Fibrillation Permanent (HCC) 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 Angina Pectoris Diabetes Mellitus Type 2 With Other Circulatory Complication Hyperglycemic (HCC) 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 Chcf Current Use Of Injectable Non-Insulin Antidiabetic Drugs Data Clerk Use Of Insulin Active (HCC) Hypertension Pulmonary (HCC) Atrial Fibrillation Permanent (HCC) 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 Angina Pectoris Diabetes Mellitus Type 2 With Other Circulatory Complication Hyperglycemic (HCC) 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 Data Clerk Current Use Of Injectable Non-Insulin Antidiabetic Drugs Data Clerk Use Of Insulin Active (HCC) Hypertension Pulmonary (HCC) Atrial Fibrillation Permanent (HCC) documented in this encounter Care Teams Encyclopedia Research Worker Relationship Specialty Start Date End Date Elsewhere, Pcp PCP - General Family Medicine 11/19/20 documented as of this encounter
--- OUTSIDE RECORDS SUMMARY | 2023-12-27 10:57 | XMS_ITS | Encounter Summary ---
Author Name Unknown Organization [facility] Address [address] [place] [address] Care Team Providers Care Residential Collections Name Role Phone Elsewhere, Pcp Primary Care Provider Unavailabl e Reason for Referral * Outpatient (Routine) - Closed Specialty Diagnoses / Procedures Referred By Radhaac t Referred To Contact Diagnoses 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 Angina Pectoris Hypertension Pulmonary (HCC) Atrial Fibrillation Permanent (HCC) Regurgitation Tricuspid Morbid Obesity (HCC) Diabetes Mellitus Type 2 (HCC) Nursing Home (Current) Anticoagulant Treatment Procedures Six Minute Walk Mal Oreilly M.D. [address] [place] [address] [facility] Referral ID Status Reason Start Date Expiration Date Visits Re quested Visits Authorized [id number] Closed 08/31/2021 08/31/2022 1 1 Reason for Visit * Outpatient (Routine) - Closed Specialty Diagnoses / Procedures Referred By Contac t Referred To Contact Diagnoses 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 Angina Pectoris Hypertension Pulmonary (HCC) Atrial Fibrillation Permanent (HCC) Regurgitation Tricuspid Morbid Obesity (HCC) Diabetes Mellitus Type 2 (HCC) Nursing Home (Current) Anticoagulant Treatment Procedures Six Minute Walk aMl Oreilly M.D. [address] [place] [address] [facility] Referral ID Status Reason Start Date Expiration Date Visits Re quested Visits Authorized [id number] Closed 08/31/2021 08/31/2022 1 1 Encounter Details Date Type Department Care Team (Latest Contact Info) Description 02/22/2023 12:49 PM CDT - 02/22/2023 11:59 PM CDT Hospital Encounter Department of Cardiac Rehabilitation in [place], [place] [address] [place] [address] Mal Oreilly M.D. [address] [place] [address] 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 Angina Pectoris; Hypertension Pulmonary (HCC); Atrial Fibrillation Permanent (HCC); Regurgitation Tricuspid; Morbid Obesity (HCC); Diabetes Mellitus Type 2 (HCC); Nursing Home (Current) Anticoagulant Treatment Discharge Disposition: Home or [...] How often do you attend chur or temple services? More than 4 times per year 06/02/2022 Do you belong to any clubs o r organizations such as faith groups, unions, fraternal or athletic groups, or [...] and heating? Not hard at all 06/02/2022 [facility] - Occupational [...] place to sleep or slept in a residential (including now)? Yes 06/02/2022 Nutrition Answer Date [...] products pad FOR HOME USE 0 09/29/2018 xvhavpcu-yqfudcftxcr-co et cb25 116-100 mg capsule Take 1 [...] tablet by mouth daily. 0 07/16/2014 omega 1-dwm-vim-fish oil 100-160-1,000 mg capsule Take 2 capsules [...] as of this encounter Procedure Notes * Brayden Main CRAT - 02/22/2023 1:00 PM CDTAssociated Order(s): 6 MINUTE WALK Six Minute Walk Test VITAL SIGNS Height: 183.3 cm. Weight: 141.3 kg. BMI: 42.05 KG/M2. IMPRESSION/REPORT/PLAN Patient instructed on six minute walk test. Patient verbalized understanding. Patient performed test masked per COVID-19 protocol. Walk start time: 13:00 Walk stop time: 13:06 BASELINE DATA Standing BP: 124/82 Cuff size: large Arm: left Standing HR: 84 ( apical ) Dyspnea (Gillian Scale): 1 /10 Fatigue (Gillian Scale): 0 /10 SpO2(%): 95% ( finger ) Medications taken as scheduled in last 24 hours: Yes SIX-MINUTE WALK DATA Total time walked: 6.0 minutes Total distance walked: 1,170 feet; 356.61 meters, which is 104 % for age and gender. Rest Stops: none O2 usage: none POST TEST DATA Standing BP: 146/78 Standing HR: 112 (apical ) Dyspnea (Gillian Scale): 3 /10 Fatigue (Gillian Scale): 1 /10 SpO2(%): 95 % Other symptoms comments: None documented in this encounter Plan of Treatment Upcoming Encounters Date Type Department Care Team (Late st Contact Info) Description 03/13/2024 12:30 PM CDT Appointment Department of Laboratory Medicine in [place], [place] [address] [place] [phone] Saba Nicole P.A.-C., P.A. [address] [phone] 03/13/2024 2:30 PM CDT Office Visit Department of Endocrinology in [place], [place] [address] [phone] Saba Nicole P.A.-C., P.A. [address] [phone] documented as of this encounter Procedures Procedure Name Priority Date/Time Associated Diagnosis Comments 6 MINUTE WALK Routine 02/22/2023 1:00 PM CDT 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 Angina Pectoris Hypertension Pulmonary (HCC) Atrial Fibrillation Permanent (HCC) Regurgitation Tricuspid Morbid Obesity (HCC) Diabetes Mellitus Type 2 (HCC) Nursing Home (Current) Anticoagulant Treatment documented in this encounter Results * Six Minute Walk (02/22/2023 1:00 PM CDT) Narrative Brayden Main CRAT - 02/22/2023 1:00 PM CDT Brayden Main CRAT ? 02/22/2023 ??1:13 PM Six Minute Walk Test VITAL SIGNS Height: 183.3 cm. ??Weight: 141.3 kg. ??BMI: 42.05 KG/M2. IMPRESSION/REPORT/PLAN Patient instructed on six minute walk test. ??Patient verbalized understanding. Patient performed test masked per COVID-19 protocol. Walk start time: 13:00 Walk stop time: 13:06 BASELINE DATA Standing BP: 124/82 Cuff size: large Arm: left Standing HR: 84 ( apical ??) Dyspnea (Gillian Scale): 1 /10 Fatigue (Gillian Scale): 0 /10 SpO2(%): 95% ( finger ) Medications taken as scheduled in last 24 hours: Yes SIX-MINUTE WALK DATA Total time walked: ??6.0 minutes Total distance walked: 1,170 feet; 356.61 meters, which is 104 % for age and gender. Rest Stops: none O2 usage: none POST TEST DATA Standing BP: 146/78 Standing HR: 112 (apical ) Dyspnea (Gillian Scale): 3 /10 Fatigue (Gillian Scale): 1 /10 SpO2(%): 95 % Other symptoms comments: None Mal Oreilly M.D. CV STRESS PROCEDURE S documented in this encounter Visit Diagnoses Diagnosis 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 Angina Pectoris Hypertension Pulmonary (HCC) Atrial Fibrillation Permanent (HCC) Regurgitation Tricuspid Morbid Obesity (HCC) Diabetes Mellitus Type 2 (HCC) [facility] (Current) Anticoagulant Treatment documented in this encounter Care Teams Residential Collections Relationship Specialty Start Date End Date Elsewhere, Pcp PCP - General Family Medicine 11/19/20 documented as of this encounter
[2023-12-27] MEDS: BRIMONIDINE TARTRATE 0.2% OPHTH 1 DROP EYE-BOTH ×2 (12:50→13:30)
[2023-12-27] MEDS: TETRACAINE 0.5% OPHTH 1 DROP EYE-BOTH ×3 (12:50→13:15)
[2023-12-27 12:51] VITALS: BP 128/71; PULSE 76; RESP 16; O2SAT 94
--- NOTE | 2023-12-27 14:26 | W.PM.OPTPROC ---
Procedure Note Date of procedure: 12/27/23 Will [facility] bill your pro fee for this procedure?: Yes Procedure Description: SURGEON: Venita Ambriz MD PREOPERATIVE DIAGNOSIS: Posterior capsular opacity, right and left eye POSTOPERATIVE DIAGNOSIS: Posterior capsular opacity, right and left eye PROCEDURE: YAG laser capsulotomy, both eyes ANESTHESIA: Topical. ESTIMATED BLOOD LOSS: None PATHOLOGY SPECIMEN: None COMPLICATIONS: None INDICATIONS: See consult note for details. The risks, benefits and alternatives of the procedure were explained to the patient, who elected to proceed and signed informed consent to do so. PROCEDURE: The patient was brought to the pre-holding area where the right and left eyes were identified as the operative eyes. I placed my initials above the eyes. The following was given in both eyes: The patient received 2 sets of 1 drop of 0.5% tetracaine and 1 drop of 1% tropicamide. They also received 1 drop of 0.2% brimonidine. They received 1 drop of 0.5% tetracaine immediately prior to bringing them back for the procedure. The patient was then brought to the procedure room where the right and left eyes were again identified as the operative eyes. A YAG Edwin capsulotomy lens was placed on the right eye. The laser was administered using a total number of 11 shots with an energy of 2.4 mJ per shot for a total energy of 26 mJ. The patient tolerated the procedure well. A YAG Edwin capsulotomy lens was placed on the left eye. The laser was administered using a total number of 22 shots with an energy of 2.4 mJ per shot for a total energy of 53 mJ. The patient tolerated the procedure well. DISPOSITION: The patient was taken back to the pre-holding area and given 1 drop of 0.2% brimonidine in both eyes. They were discharged to home in stable condition. The patient was instructed to call me or go to the emergency department with any sudden change, including dramatic loss of vision, severe pain in the eye or eyebrow region, nausea, or vomiting. The patient was instructed to use the 0.2% brimonidine 1 drop 2 times a day in both eyes for 1 week. The patient will follow up in the clinic in 1-2 weeks.
--- NOTE | 2023-12-27 15:27 | PC.NURSE ---
Unable to document eye drops in MAR due to registration or order takers supervisor issue that remains unresolved. At 1250 - one of each waadministered to bilat eyes - Tetracaine 0.5%, Tropicamide 1%, Brimonidine Tartrate 0.2%. At 1255 - One drop of each was administered to bilat eyes - Tetracaine 0.5%, Tropicamide 1%. At 1315, one drop of Tetracaine 0.5% was administered to bilat eyes. At 1330, one drop of Brimonidine Tartrate 0.2% was administered to bilat eyes.
== END 2023-12-27 13:35 | disposition home or self-care (01) ==
PROVIDERS: PCP Family Medicine; Visit Provider Ophthalmology
DX: H26.9 Unspecified cataract (principal)
CPT/HCPCS: 66821; A9270

== ENCOUNTER 2024-05-17 08:50 | Outpatient (CLI) | payer MEDICARE, BC, SELFPAY ==
--- OUTSIDE RECORDS SUMMARY | 2024-05-21 13:53 | XMS_ITS | Clinical Summary ---
Author Organization [facility] Address [place], [place] [address] Care Team Providers Care Fortune Teller Name Role Phone Pcp, No Primary Care [...] Additional history exists Influenza for age 65+ 07/28/2024 Care Teams Fortune Teller Relationship Specialty Start Date End Date Pcp, No . PCP - General 12/23/22
--- OUTSIDE RECORDS SUMMARY | 2024-05-21 13:53 | XMS_ITS | Encounter Summary ---
Author Organization [facility] Address [address] [place] [address] Care Team Providers Care Store Operations Associate Name Role Phone Elsewhere, Pcp Primary Care Provider Unavailabl e Encounter Details Date Type Department Care Team (Latest Contact Info) Description 04/30/2024 1:11 PM CDT - 04/30/2024 11:59 PM CDT Hospital Encounter Department of Laboratory Medicine in [place], [place] [address] [phone] Saba Nicole, Nicole-Micah., P.A. [address] [phone] Diabetes Mellitus Type 2 With Other Circulatory Complication (HCC); Diabetes Mellitus Type 2 With Diabetic Neuropathy (HCC) Discharge Disposition: Home or Self Care Social History Tobacco Use Types Packs/Day Years Used Date Smoking Tobacco: Former Cigarettes 1 19.3 0 07/28/1960 - 11/27/1979 Smokeless Tobacco: Never Alcohol Use Standard Drinks/Week Comments No 0 (1 standard drink = 0.6 oz pur e alcohol) [facility] Utilities Answer Date Recorded In the past 12 months has e Collarity, gas, oil, or water [employer] threatened to shut off services in your [...] How often do you attend chur or episcopal services? More than 4 times per year 06/02/2022 Do you belong to any clubs o r organizations such as advent groups, unions, fraternal or athletic groups, or [...] and heating? Not hard at all 06/02/2022 [facility] - Occupational Stress [...] living? No 12/03/2023 Nutrition Answer Date Recorded On average, how many serving s of fruits and vegetables do you eat per day (serving size is equal to 1 cup or approximately the size of a tennis ball)? 0-2 12/03/2023 Dental Answer Date Recorded Dental: Regular Dentist Yes 06/02/20 Employment Answer Date Recorded Employment status Retired 12/03/2023 Housing Stability Answer Date Recorded What is your living situation today? I have a [facility] place to live 12/03/2023 Education Answer [...] mg chewable tablet Chew 1 tablet daily. 07/16/2014 cholecalciferol (VITAMIN D3) 10 mcg (400 Unit) tablet Take 10 mcg by mouth daily. Contour Test Strips strips daily. 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 7 kit 3 12/07/2023 12/06/2024 foot care products pad FOR HOME USE 0 09/29/2018 zdwdffzk-yxcgddjryqw-oaa t cb25 116-100 mg capsule Take 1 tablet by mouth 2 (two) times a day. 07/16/2014 hydroCHLOROthiazide (HYDRODIURIL) 25 mg tablet Take 25 mg by mouth daily. 11/28/2018 insulin glargine (Lantus Solostar U-100 Insulin) 100 unit/mL (3 mL) injectionIndications:Nory betes Mellitus Type 2 With Diabetic Neuropathy Hyperglycemic (HCC),Diabetes Mellitus Type 2 With Diabetic Chronic Kidney Disease Hyperglycemic (HCC) Inject 20 Units under the skin at bedtime. 20 mL 3 12/07/2023 12/06/2024 insulin glargine-yfgn (SEMGLEE) 100 unit/mL (3 mL) injection Inject 22 Units under the skin at bedtime. 08/30/2023 isosorbide mononitrate (IMDUR) 60 mg 24 hr tablet Take 60 mg by mouth daily. 10/24/2018 losartan (COZAAR) 100 mg tablet Take 1 tablet by mouth daily. 07/16/2014 metFORMIN XR (GLUCOPHAGE-XR) 500 mg 24 hr tabletIndications:Diabet es Mellitus Type 2 With Diabetic Chronic Kidney Disease Hyperglycemic (HCC) Take 2 tablets (1,000 mg total) by mouth 2 (two) times a day with meals. 360 tablet 3 06/14/2023 06/13/2024 metoprolol tartrate (LOPRESSOR) 100 mg tablet Take 100 mg by mouth 2 (two) times a day. 11/28/2018 multivitamin tablet Take 1 tablet by mouth daily. 07/16/2014 omega 0-ojn-ghm-fish oil 100-160-1,000 mg capsule Take 2 capsules by mouth daily. 07/16/2014 pravastatin (PRAVACHOL) 40 mg tablet Take 1 tablet by mouth daily. 07/16/2014 psyllium husk (METAMUCIL) 0.4 gram capsule Take 1 capsule by mouth 2 (two) times a day. 10/07/2015 semaglutide (OZEMPIC) 1 mg/dose (4 mg/3 mL) injection 2 mg every 7 (seven) days. 09/11/2023 spironolactone (ALDACTONE) 25 mg tablet Take 25 mg by mouth daily. 11/28/2018 warfarin (COUMADIN) 5 mg tablet Take 5 mg by mouth daily. Now taking 0.5 tab on Mon and Mon and 1 tab all other days 10/07/2015 documented as of this encounter Plan of Treatment Upcoming Encounters Date Type Department Care Team (Late st Contact Info) Description 09/03/2024 1:30 PM CDT Appointment Department of Laboratory Medicine in [place], [place] [address] [place] [address], [place] [phone] Saba Nicole P.A.-C., P.A. [address] [phone] 09/03/2024 3:00 PM CDT Office Visit Department of Endocrinology in [place], [place] [address] [place] [address] Saba Nicole P.A.-C., P.A. [address] [phone] documented as of this encounter Procedures Procedure Name Priority Date/Time Associated Diagnosis Comments HEMOGLOBIN A1C, B Routine 04/30/2024 1:2 3 PM CDT Diabetes Mellitus Type 2 With Other Circulatory Complication (HCC) BASIC METABOLIC PANEL, S/P Routine 04/30/2024 1:23 PM CDT Diabetes Mellitus Type 2 With Other Circulatory Complication (HCC) Diabetes Mellitus Type 2 With Diabetic Neuropathy (HCC) documented in this encounter Results * (ABNORMAL) Basic Metabolic Panel (04/30/2024 1:23 PM CDT) [facility] Potassium, P 4.5 3.6 - 5.2 mmol/L 04/30/2024 2:10 PM CDT [facility] Sodium, P 140 135 - 145 mmol/L 04/30/2024 2:10 PM CDT [facility] Chloride, P 101 98 - 107 mmol/L 04/30/2024 2:10 PM CDT [facility] Bicarbonate, P 28 22 - 29 mmol/L 04/30/2024 2:10 PM CDT [facility] Anion Gap, P 11 7 - 15 04/30/2024 2:10 PM CDT [facility] BUN (Blood Urea Nitrogen), P 27(H) 8 - 24 mg/dL 04/30/2024 2:10 PM CDT [facility] Creatinine 1.27 0.74 - 1.35 mg/dL 04/30/2024 2:10 PM CDT [facility] Estimated GFR (eGFR) 56(L) >=60 mL/min/BSA 04/30/2024 2:10 PM CDT [facility] Comment: Estimated GFR calculated using the 2020 CKD_EPI creatinine equation. Calcium, Total, P 9.5 8.8 - 10.2 mg/dL 04/30/2024 2:10 PM CDT [facility] Glucose, P 144(H) 70 - 140 mg/dL 04/30/2024 2:10 PM CDT [facility] Blood (Blood, Venous) 04/30/2024 1:23 PM CDT 04/30/2024 1:31 PM CDT Saba Nicole P.A.-C., P.A. LAB BL OOD ADD-ON [facility] [address] [place] [address], [facility] in [place] [address] [place] [address] * (ABNORMAL) Hemoglobin A1c (04/30/2024 1:23 PM CDT) Hemoglobin A1c, B 7.0(H) 4.2 - 5.6 % 04/30/2024 1:54 PM CDT [facility] Comment: Hemoglobin A1c values greater than or equal to 6.5 percent are diagnostic for diabetes mellitus. ??Diagnosis should be confirmed by repeat testing. ??In diabetic patients, HbA1c goals should be discussed with healthcare provider. Blood (Blood, Venous) 04/30/2024 1:23 PM CDT 04/30/2024 1:31 PM CDT Saba Nicole P.A.-C., P.A. LAB BL OOD ADD-ON [facility] [address] [place] [address], [facility] in [place] [address] [place] [address] documented in this encounter Visit Diagnoses Diagnosis Diabetes Mellitus Type 2 With Other Circulatory Complication (HCC) Diabetes Mellitus Type 2 With Diabetic Neuropathy (HCC) documented in this encounter Care Teams Store Operations Associate Relationship Specialty Start Date End Date Elsewhere, Pcp PCP - General Family Medicine 11/19/20 documented as of this encounter
--- OUTSIDE RECORDS SUMMARY | 2024-05-21 13:53 | XMS_ITS ---
Author Organization [facility] Address [address] [place] [address] Care Team Providers Care Fondant Puff Maker Name Role Phone Unavailable Unavailable Unavailable Surgery Details Not on file Complications Check Surgery Details section. Procedure Estimated Blood Loss Check Surgery Details section. Procedure Findings Check Surgery Details section. Procedure Specimens Taken Check Surgery Details section.
--- OUTSIDE RECORDS SUMMARY | 2024-05-21 13:53 | XMS_ITS | Referral Summary ---
Author Organization [facility] Address [address] [place] [address] Care Team Providers Care Material Handler Name Role Phone Elsewhere, Pcp Primary Care Provider Unavailabl e Source Comments Patient records contain information from all sites at [facility]. For routine questions regarding patient records, call [phone] during business hours, M-F 8:00 AM - 5:00 PM Central Time. Record requests for emergency care only can be directed to [phone] at any time.[facility] Encounters Date Type Department Care Team Description 04/30/2024 1:11 PM CDT - 04/30/2024 11:59 PM CDT Hospital Encounter Department of Laboratory Medicine in [place], [place] [address] [place] [phone] Saba Nicole P.A.-C., P.A. Diabetes Mellitus Type 2 With Other Circulatory Complication (HCC); Diabetes Mellitus Type 2 With Diabetic Neuropathy (HCC) Discharge Disposition: Home or Self Care 04/30/2024 3:00 PM CDT Office Visit Department of Endocrinology in [place], [place] [address] [place] [phone] Saba Nicole P.A.-C., P.A. Diabetes Mellitus Type 2 With Other Circulatory Complication (HCC) (Primary Dx); Jail Use Of Insulin Active (HCC); Diabetes Mellitus Type 2 With Diabetic Chronic Kidney Disease (HCC); Diabetes Mellitus Type 2 With Diabetic Neuropathy (HCC); Morbid Obesity Body Mass Index >= 35 with Comorbid Condition (HCC); Jail Current Use Of Injectable Non-Insulin Antidiabetic Drugs from Last 3 Months Allergies No known active allergies Medications Medication Sig Dispensed Refills Start Date End Date Status foot care products pad FOR HOME USE 0 09/29/2018 Active aspirin 81 mg chewable tablet Chew 1 tablet daily. 07/16/2014 Active omega 6-fnv-wmk-fish oil 100-160-1,000 mg capsule Take 2 capsules by mouth daily. 07/16/2014 Active glucosam-chondroitin -diet cb25 116-100 mg capsule Take 1 tablet by mouth 2 (two) times a day. 07/16/2014 Active hydroCHLOROthiazide (HYDRODIURIL) 25 mg tablet Take 25 mg by mouth daily. 11/28/2018 Active isosorbide mononitrate (IMDUR) 60 mg 24 hr tablet Take 60 mg by mouth daily. 10/24/2018 Active losartan (COZAAR) 100 mg tablet Take 1 tablet by mouth daily. 07/16/2014 Active metoprolol tartrate (LOPRESSOR) 100 mg tablet Take 100 mg by mouth 2 (two) times a day. 11/28/2018 Active multivitamin tablet Take 1 tablet by mouth daily. 07/16/2014 Active pravastatin (PRAVACHOL) 40 mg tablet Take 1 tablet by mouth daily. 07/16/2014 Active psyllium husk (METAMUCIL) 0.4 gram capsule Take 1 capsule by mouth 2 (two) times a day. 10/07/2015 Active spironolactone (ALDACTONE) 25 mg tablet Take 25 mg by mouth daily. 11/28/2018 Active warfarin (COUMADIN) 5 mg tablet Take 5 mg by mouth daily. Now taking 0.5 tab on Mon and Mon and 1 tab all other days 10/07/2015 Active cholecalciferol (VITAMIN D3) 10 mcg (400 Unit) tablet Take 10 mcg by mouth daily. Active Contour Test Strips strips daily. for testing 07/07/2021 Active Droplet Pen Needle 32 gauge x /32 needle 07/07/2021 Active empagliflozin (JARDIANCE) 25 mg tablet Take 1 tablet (25 mg total) by mouth every morning before breakfast. Take with 8-16 oz water 30 minutes prior to breakfast. 90 tablet 3 07/07/2022 Active alcohol swabs pads, medicatedIndications :Diabetes Mellitus Type 2 With Diabetic Neuropathy Hyperglycemic (HCC),Diabetes Mellitus Type 2 With Diabetic Chronic Kidney Disease Hyperglycemic (HCC) Use as needed for diabetes control 100 each 3 08/05/2022 Active metFORMIN XR (GLUCOPHAGE-XR) 500 mg 24 hr tabletIndications:Di abetes Mellitus Type 2 With Diabetic Chronic Kidney Disease Hyperglycemic (HCC) Take 2 tablets (1,000 mg total) by mouth 2 (two) times a day with meals. 360 tablet 3 06/14/2023 06/13/2024 Active semaglutide (OZEMPIC) 1 mg/dose (4 mg/3 mL) injection 2 mg every 7 (seven) days. 09/11/2023 Active insulin glargine-yfgn (SEMGLEE) 100 unit/mL (3 mL) injection Inject 22 Units under the skin at bedtime. 08/30/2023 Active insulin glargine (Lantus Solostar U-100 Insulin) 100 unit/mL (3 mL) injectionIndications :Diabetes Mellitus Type 2 With Diabetic Neuropathy Hyperglycemic (HCC),Diabetes Mellitus Type 2 With Diabetic Chronic Kidney Disease Hyperglycemic (HCC) Inject 20 Units under the skin at bedtime. 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 More than 4 times per year [...] and heating? Not hard at all 06/02/2022 [facility] of Occupat ional Health - Occupational Stress [...] your living situation today? I have a [facility] place to live 12/03/2023 Education Answer Date [...] Sign Reading Time Taken Comments Blood Pressure 116/64 04/30/2024 2:53 PM CDT Pulse 72 04/30/2024 2:53 PM CDT Temperature 36.4 ??C (97.6 ??F) 06/14/2023 2 :46 PM CDT Respiratory Rate 20 01/21/2014 11:1 6 AM GALLEY STRIPPER Vital sign result from Clinical Notes. Oxygen Saturation 94% 06/14/2023 2:4 6 PM CDT Inhaled Oxygen Concentration - - Weight 136 kg (300 lb 11.3 oz) 04/30/2024 2:53 PM CDT Height 183.3 cm (6' 0.17) 02/22/2023 1 :51 PM CDT Body Mass Index 40.6 02/22/2023 1:51 PM CDT Plan of Treatment Upcoming Encounters Date Type Department Care Team (Late st Contact Info) Description 09/03/2024 1:30 PM CDT Appointment Department of Laboratory Medicine in [place], [place] [address] [phone] Saba Nicole P.A.-C., P.A. [address] [phone] 09/03/2024 3:00 PM CDT Office Visit Department of Endocrinology in [place], [place] [address] [phone] Saba Nicole P.A.-C., P.A. 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 Device Status Text - [id number]. [employer] Data - [id number]. Procedures Procedure Name Priority Date/Time Associated Diagnosis Comments BASIC METABOLIC PANEL, S/P Routine 04/30/2024 1:23 PM CDT Diabetes Mellitus Type 2 With Other Circulatory Complication (HCC) Diabetes Mellitus Type 2 With Diabetic Neuropathy (HCC) HEMOGLOBIN A1C, B Routine 04/30/2024 1:2 3 PM CDT Diabetes Mellitus Type 2 With Other Circulatory Complication (HCC) from Last 3 Months Results * (ABNORMAL) Hemoglobin A1c (04/30/2024 1:23 PM [...] Nicole P.A.-C., P.A. LAB BL OOD ADD-ON [facility] [address] [place] [address], [facility] [place] [address] [place] [address] * (ABNORMAL) Basic Metabolic Panel (04/30/2024 1:23 PM CDT) Potassium, P 4.5 3.6 - 5.2 mmol/L [...] Nicole P.A.-C., P.A. LAB BL OOD ADD-ON [facility] [address] [place] [address], [place] [facility] [place] [address], [place] [address] from Last 3 Months Care Teams Material Handler Relationship Specialty Start Date End Date Elsewhere, Pcp PCP - General Family Medicine 11/19/20
--- OUTSIDE RECORDS SUMMARY | 2024-05-21 13:53 | XMS_ITS | Clinical Summary ---
Author Organization [facility] Address [address] [place] [address] Care Team Providers Care Unix Administrator Name Role Phone Elsewhere, Pcp Primary Care Provider Unavailabl e Source Comments Patient records contain information from all sites at [facility]. For routine questions regarding patient records, call [phone] during business hours, M-F 8:00 AM - 5:00 PM Central Time. Record requests for emergency care only can be directed to [phone] at any time.[facility] Allergies No known active allergies Medications Medication Sig Dispensed Refills Start Date End Date Status foot care products pad FOR HOME USE 0 09/29/2018 Active aspirin 81 mg chewable tablet Chew 1 tablet daily. 07/16/2014 Active omega 2-yqz-lkr-fish oil 100-160-1,000 mg capsule Take 2 capsules [...] Needle 32 gauge x 5/32 needle 07/07/2021 Active empagliflozin (JARDIANCE) 25 mg [...] flash glucose sensor (FreeStyle Cyrus 2 Sensor) kitIndications:Alf Use Of Insulin Active (HCC),Diabetes Mellitus Type 2 With Diabetic Neuropathy Hyperglycemic (HCC),Diabetes Mellitus Type 2 With Diabetic Chronic Kidney Disease Hyperglycemic (HCC) 1 each (1 kit total) every 14 (fourteen) days. 7 kit 3 12/07/2023 12/06/2024 Active Active Problems Problem Noted Date Diagnosed Date Management Department Chair Use Of Insulin Active 12/14/2022 Management Department Chair Current Use Of Inj ectable Non-Insulin Antidiabetic [...] Date Type Department Care Team Description 04/30/2024 3:00 PM CDT Office Visit Department of Endocrinology in [place], [place] [address] [phone] Saba Nicole P.A.-C., P.A. Diabetes Mellitus Type 2 With Other Circulatory Complication (HCC) (Primary Dx); Management Department Chair Use Of Insulin Active (HCC); Diabetes Mellitus Type 2 With Diabetic Chronic Kidney Disease (HCC); Diabetes Mellitus Type 2 With Diabetic Neuropathy (HCC); Morbid Obesity Body Mass Index >= 35 with Comorbid Condition (HCC); Management Department Chair Current Use Of Injectable Non-Insulin Antidiabetic Drugs 04/30/2024 1:11 PM CDT - 04/30/2024 11:59 PM CDT Hospital Encounter Department of Laboratory Medicine in [place], [place] [address] [phone] Saba Nicole P.A.-C., P.A. Diabetes Mellitus Type 2 With Other Circulatory Complication (HCC); Diabetes Mellitus Type 2 With Diabetic Neuropathy (HCC) Discharge Disposition: Home or Self Care from Last 3 Months Family History Medical [...] drink = 0.6 oz pur e alcohol) [facility] Utilities Answer Date Recorded In the past 12 months has e [employer], gas, oil, or water [employer] threatened to shut off services in your [...] often do you attend chur ch or mandaen services? More than 4 times per year 06/02/2022 Do you belong to any clubs o r organizations such as shinto groups, unions, fraternal or athletic groups, or [...] and heating? Not hard at all 06/02/2022 [facility] of Occupat ional Health - Occupational [...] Date Recorded Dental: Regular Dentist Yes 06/02/20 22 Employment Answer Date Recorded Employment status Retired 12/03/2023 Housing Stability Answer Date Recorded What is your living situation today? I have a [facility] place to live 12/03/2023 Education Answer [...] Respiratory Rate 20 01/21/2014 11:1 6 AM COMPUTATIONAL GENETICIST Vital sign result from Clinical Notes. Oxygen [...] CDT Appointment Department of Laboratory Medicine in [place], [place] [address] [phone] Saba Nicole P.A.-Micah., P.A. [address] [phone] 09/03/2024 3:00 PM CDT Office Visit Department of Endocrinology in [place], [place] [address] [phone] Saba Nicole P.Olya.-C., P.A. [address] [phone] Health Maintenance Due Date Last Done Comments Diabetic Office Visit with F oot Exam 1941 Urine Albumin 1941 Hepatitis B Vaccines (1 of 3 - Risk 3-dose series) 2001 Depression Screening (Annual PHQ-2) 11/27/2023 Fall Risk Screen (Annual) 11/27/2023 Dilated Eye Exam 08/21/2024 08/21/2023 Hemoglobin A1C 10/30/2024 04/30/2024, 10/28, 08/24/2023, Additional history exists Creatinine Level (Kidney Fun ction Test) 04/30/2025 04/30/2024, 11/24/2023, 10/12/2023, Additional history exists Office Visit for Blood Press ure Check / Re-check 04/30/2025 04/30/2024 Potassium Level 04/30/2025 04/30/2024, 10/28, 10/12/2023, Additional history exists Sodium Level 04/30/2025 04/30/2024, 10/28, 10/12/2023, Additional history exists DTaP,Tdap,and Td Vaccines (5 - Td or Tdap) 03/29/2031 03/29/2021, 11/07/2011, 10/28/2011, Additional history exists Colonoscopy Discontinued 12/07/2009 (Perf ormed elsewhere) Colorectal Cancer Surveillance Discontinued Pneumococcal vaccine (65+ years) Completed 07/28/2016, 01/06/2015, 11/27/2013, Additional history exists Zoster Vaccines Completed 12/13/2018, 07/28, 11/27/2007, Additional history exists Influenza Vaccine Completed 08/22/2023, , 08/12/2021, Additional history exists COVID-19 Vaccine Completed 03/15/2024, 02/2023, 03/28/2023, Additional history exists CT Colonography Discontinued Cologuard Discontinued Medical Devices Implanted Type Area Induction Coordination Power Engineer Device Identifier Shelf Expiration Date Model / Serial / Lot [place] Andi Fuzzy 1 X 1 - Nettles [id number] Implanted:Qty: 1 on 12/14/2000 Mesh or Patch [employer] Description:Device Manufactu rer - [employer]. Device Status Text - [id number]. [facility] Data - [id number]. Procedures Procedure Name Priority Date/Time Associated Diagnosis [...] Nicole P.A.-C., P.A. LAB BL OOD ADD-ON [facility] [address] [place] [address], [email or web address] [place] [address] [place] [address] * (ABNORMAL) Basic Metabolic Panel (04/30/2024 1:23 [...] Nicole P.A.-C., P.A. LAB BL OOD ADD-ON [facility] [address] [place] [address], [facility] [[email or web address] [place] [address] [place] [address] from Last 3 Months Care Teams Unix Administrator Relationship Specialty Start Date End Date Elsewhere, Pcp PCP - General Family Medicine 11/19/20
--- OUTSIDE RECORDS SUMMARY | 2024-05-21 13:53 | XMS_ITS | Encounter Summary ---
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 [address] [phone] [facility] Referral ID Status Reason Start Date Expiration Date V isits Requested Visits Authorized [id number] Authorized 04/30/2024 10/30/2025 1 1 Scheduling Instructions 30 min face to face Reason for Visit * Outpatient (Routine) - Closed Specialty Diagnoses / Procedures Referred By Daron basilio Referred To Contact Endocrinology Diagnoses Diabetes Mellitus Type 2 With Other Circulatory Complication Hyperglycemic (HCC) Emergency Veterinary Assistant Use Of Insulin Active (HCC) Saba Nicole P.A.-C., P.A. [address] [phone] [facility] Referral ID Status Reason Start Date Expiration Date Visits Re quested Visits Authorized [id number] Closed 12/07/2023 12/06/2026 1 1 Encounter Details Date Type Department Care Team (Late st Contact Info) Description 04/30/2024 3:00 PM CDT Office Visit Department of Endocrinology in [place], [place] [address] [phone] Saba Nicole P.A.-C., P.A. [address] [phone] Diabetes Mellitus Type 2 With Other Circulatory Complication (HCC) (Primary Dx); Penitentiary Use Of Insulin Active (HCC); Diabetes Mellitus Type 2 With Diabetic Chronic Kidney Disease (HCC); Diabetes Mellitus Type 2 With Diabetic Neuropathy (HCC); Morbid Obesity Body Mass Index >= 35 with Comorbid Condition (HCC); Emergency Veterinary Assistant Current Use Of Injectable Non-Insulin Antidiabetic Drugs Social History Tobacco Use Types Packs/Day Years Used Date Smoking Tobacco: Former Cigarettes 1 19.3 0 07/28/1960 - 11/27/1979 Smokeless Tobacco: Never Tobacco Cessation:Counseling Given: Not Answered Alcohol Use Standard Drinks/Week Comments No 0 (1 standard drink = 0.6 oz pur e alcohol) [facility] Utilities Answer Date Recorded In the past 12 months has [facility] [employer], gas, oil, or water [employer] threatened to shut off services in your [...] often do you attend chur ch or zoroastrian services? More than 4 times per year 06/02/2022 Do you belong to any clubs o r organizations such as alevism groups, unions, fraternal or athletic groups, or [...] and heating? Not hard at all 06/02/2022 [facility] of Occupat ional Health [...] your living situation today? I have a [facility] place to live 12/03/2023 Education [...] Pulse 72 04/30/2024 2:53 PM CDT Temperature - - Respiratory Rate - - Oxygen Saturation - - Inhaled Oxygen Concentration - - Weight 136 kg (300 lb 11.3 oz) 04/30/2024 2:53 P M CDT Height - - Body Mass Index 40.6 02/22/2023 1:51 PM CDT documented in this encounter Patient Instructions * Patient Instructions* Saba Nicole, PMicheline.-C., P.A. - 04/30/2024 3:00 PM CDT Drink 64-80 oz water daily. Increase Lantus to 22 units every night. Continue Jardiance 25 mg once daily. Continue Metformin XR 1000 mg twice daily. Continue Ozempic 2 mg once weekly. Endo return visit in early August with Saba. Labs prior to visit (A1c, metabolic panel, and cholesterol levels). documented in this encounter Plan of Treatment Upcoming Encounters Date Type Department Care Team (Late st Contact Info) Description 09/03/2024 1:30 PM CDT Appointment Department of Laboratory Medicine in [place], [place] [address] [place] [address], [place] [phone] Saba Nicole P.A.-C., P.AJazmin [address] [place] [address], [place] [phone] 09/03/2024 3:00 PM CDT Office Visit Department of Endocrinology in [place], [place] [address] [place] [address], [place] [phone] Saba Nicole P.A.-C., P.AJazmin [address] [place] [address], [place] [phone] Scheduled Orders Name Type Priority Associated Diagnoses Orde r Schedule Hemoglobin A1c Lab Routine Diabetes Mellitus Type 2 With Other Circulatory Complication (HCC) Expected: 08/30/2024, Expires: 07/31/2025 Basic Metabolic Panel Lab Routine Diabetes Mellitus Type 2 With Other Circulatory Complication (HCC) Expected: 08/30/2024, Expires: 07/31/2025 Lipid Panel Lab Routine Diabetes Mellitus Type 2 With Other Circulatory Complication (HCC) Expected: 08/30/2024 (Approximate), Expires: 07/31/2025 Scheduled Referrals Name Type Priority Associated Diagnoses Orde r Schedule Endocrinology office visit (clinic) Outpatient Referral Routine Diabetes Mellitus Type 2 With Other Circulatory Complication (HCC) Penitentiary Use Of Insulin Active (HCC) 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) Penitentiary Current Use Of Injectable Non-Insulin Antidiabetic Drugs Expected: 08/30/2024 (Approximate), Expires: 07/31/2025 documented as of this encounter Visit Diagnoses Diagnosis Diabetes Mellitus Type 2 With Other Circulatory Complication (HCC)- Primary Penitentiary Use Of Insulin Active (HCC) 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
== END 2024-05-17 08:51 | disposition home or self-care (01) ==
LOC: NFLDREF 05-21 13:51
PROVIDERS: PCP Family Medicine; Referring Provider Family Medicine; Visit Provider Family Medicine
DX: Z12.5 Encounter for screening for malignant neoplasm of prostate (principal); E78.5 Hyperlipidemia, unspecified
CPT/HCPCS: 80061; G0103

== ENCOUNTER 2024-06-20 09:22 | Outpatient (CLI) | payer MEDICARE, BC, SELFPAY ==
--- OUTSIDE RECORDS SUMMARY | 2024-06-21 08:56 | XMS_ITS | Encounter Summary ---
Author Organization [facility] Address [address] [place] [address] Care Team Providers Care Accounting Supervisor Name Role Phone Elsewhere, Pcp Primary Care Provider Unavailabl e Reason for Referral * Outpatient (Routine) - Authorized Specialty Diagnoses / Procedures Referred By Daron basilio Referred To Contact Urology Justine Finn APRN, C.N.P. [address], [place] [address] [facility] Region Referral ID Status Reason Start Date Expiration Date V isits Requested Visits Authorized [id number] Authorized 06/10/2024 12/10/2025 1 1 Reason for Visit * Reason Comments Consult Consult on PSA * Outpatient (Routine) - Closed Specialty Diagnoses / Procedures Referred By Daron basilio Referred To Contact Urology Diagnoses Elevated Prostate-Specific Antigen Cameron Blair M.D. [address] [place] [address] [facility] Referral ID Status Reason Start Date Expiration Date Visits Re quested Visits Authorized [id number] Closed 05/24/2024 11/23/2025 1 1 Encounter Details Date Type Department Care Team (Latest Contact Info) Description 06/10/2024 10:30 AM CDT Comprehensive Visit Department of Urology in [place] [address] [place] [phone] Justine Finn APRN, C.N.P. [address] [phone] Elevated Prostate-Specific Antigen Social History Tobacco Use Types Packs/Day Years Used Date Smoking Tobacco: Former Cigarettes 1 19.3 0 07/28/1960 - 11/27/1979 Smokeless Tobacco: Never Tobacco Cessation:Counseling Given: Not Answered Alcohol Use Standard Drinks/Week Comments No 0 (1 standard drink = 0.6 oz pur e alcohol) [facility] [employer]IR[employer]ities Answer Date Recorded In the past 12 months has e [employer], gas, oil, or water [employer] threatened to shut off services in your [...] often do you attend chur ch or restorationist services? More than 4 times per year 06/02/2022 Do you belong to any clubs o r organizations such as sabianism groups, unions, fraternal or athletic groups, or [...] and heating? Not hard at all 06/02/2022 [facility] [place] of Occupat ional Health - Occupational Stress [...] your living situation today? I have a [facility] to live 12/03/2023 Education Answer Date [...] PM CDT documented as of this encounter Consult Notes * Justine Finn APRN, C.N.P. - 06/10/2024 10:30 AM CDT SUBJECTIVE REQUESTING PROVIDER Cameron Blair M.D. REASON FOR CONSULT Rising PSA Level HISTORY OF PRESENT ILLNESS Asael is a pleasant 83-year-old male here today with his for consultation for elevated PSA level. He denies any family history of prostate cancer or prostate issues. He states that his stream is weak and that is unchanged for him, it has been week for many years. He typically gets up 2 or 3 times in the night to urinate. This has also baseline for him. He does have history of service in [place] and he was exposed to Agent [place]ura. PSA TABLE Nov 2022 5.21 May 2024 7.72 The following portions of the patient's history were reviewed and updated as appropriate: allergies, current medications, family history, medical history, social history, surgical history, and problem list. REVIEW OF SYSTEMS Gastrointestinal: - Negative for constipation and diarrhea. Genitourinary: Positive for difficulty urinating. - Negative for incontinence, pain with urination, blood in urine, urgency and frequent urination. Past Medical History: Diagnosis Date Atrial Fibrillation Unspecified (HCC) Coronary Artery Disease (Unspecified) Diabetes Mellitus NOS Hyperlipidemia Hypertension NOS Irritable Bowel Syndrome Without Diarrhea Polyp Colon Sleep Apnea Past Surgical History: Procedure Laterality Date CORONARY ARTERY BYPASS GRAFT OTHER CONVERTED SHX (SEE COMMENT) N/A 12/14/2000 >Coronary artery bypass grafting x4: Left internal thoracic artery to the left anterior Family History Problem Relation Name Age of Onset Coronary artery disease Father Thierno Rodriguez Obesity Father Thierno Rodriguez Diabetes mellitus type II Father Thierno Rodriguez Diabetes type II Aunt paternal No Known Allergies Current Outpatient Medications on File Prior to Visit Medication Sig Dispense Refill alcohol swabs pads, medicated Use as needed for diabetes control 100 each 3 aspirin 81 mg chewable tablet Chew 1 [...] minutes prior to breakfast. 90 tablet 3 flash glucose sensor (FreeStyle Cyrus 2 Sensor) kit 1 each (1 kit total) every 14 (fourteen) days. 7 kit 3 foot care products pad FOR HOME USE 0 juhppvon-lukfoicpeuh-smux cb25 116-100 mg capsule Take 1 tablet by mouth 2 (two) times a day. hydroCHLOROthiazide (HYDRODIURIL) 25 mg tablet Take 25 mg by mouth daily. insulin glargine (Lantus Solostar U-100 Insulin) 100 unit/mL (3 mL) injection Inject 20 Units underthe skin at bedtime. 20 mL 3 isosorbide mononitrate (IMDUR) 60 mg 24 hr tablet Take 60 mg by mouth daily. losartan (COZAAR) 100 mg tablet Take 1 tablet by mouth daily. metFORMIN XR (GLUCOPHAGE-XR) 500 mg 24 hr tablet Take 2 tablets (1,000 mg total) by mouth 2 (two) times a day with meals. 360 tablet 3 metoprolol tartrate (LOPRESSOR) 100 mg tablet Take 100 mg by mouth 2 (two) times a day. multivitamin tablet Take 1 tablet by mouth daily. omega 9-txi-ley-fish oil 100-160-1,000 mg capsule Take 2 capsules by mouth daily. pravastatin (PravachoL) 40 mg tablet Take 40 mg by mouth daily. psyllium husk (METAMUCIL) 0.4 [...] Mon and 1 tab all other days insulin glargine-yfgn (SEMGLEE) 100 unit/mL (3 mL) injection Inject 22 Units under the skin at bedtime. No current facility-administered medications on file prior to visit. Social History Tobacco Use Smoking status: Former Current packs/day: 0.00 Average packs/day: 1 pack/day for 19.3 years (19.3 ttl pk-yrs) Types: Cigarettes Start date: 07/28/1960 Quit date: 11/27/1979 Years since quittin.5 Smokeless tobacco: Never Vaping Use Vaping status: never used Substance Use Topics Alcohol use: No Drug use: No OBJECTIVE There were no vitals filed for this visit. PHYSICAL EXAM Vitals and nursing note reviewed. General: Well developed, well nourished, well groomed elderly male in no acute distress. Neurological: Alert, cooperative, oriented x3. Appropriate mood and affect. : Skin color and turgor appropriate for region. No ulcers, erythema, rashes, or pigmented lesionsnoted. PROSTATE: Perianal area intact without lesions or visible hemorrhoids. No fissures or fistulas. Good sphincter tone, no masses. Prostate is symmetrical, smooth, slightly enlarged, non-tender and without nodules. Seminal vesicles are non-palpable. Approximate size is 35-40 grams. Extremities: Warm, without edema or ulcerations. Musculoskeletal: Erwin is symmetrical and balanced. ASSESSMENT / PLAN 1. Elevated Prostate-Specific Antigen We had an in-depth discussion about his PSA levels and causes of elevated PSA. We discussed that PSA is elevated for typically 3 reasons: Prostate cancer, prostatitis, or Benign Prostatic Hypertrophy. Because his prostate exam is normal and does not show any masses, we will recheck PSA total and free in 2-3 months and follow-up at that time. If his PSA continues to climb or if his PSA ratio is quite low we would discuss going forward with prostate MRI or prostate biopsy at that time. - Urology Referral - PSA (Prostate-Specific Antigen), Total and Free; Future Signed by: Justine Finn APRN, C.N.P. 06/12/2024 4:03 PM CDT documented in this encounter Plan of Treatment Upcoming Encounters Date Type Department Care Team (Late st Contact Info) Description 09/03/2024 9:30 AM CDT Appointment Department of Laboratory Medicine in [place] [address] [place] [address] Justine Finn APRN CJazminN.P. [address] [phone] 09/03/2024 1:30 PM CDT Appointment Department of Laboratory Medicine in [place], [place] [address] [phone] Saba Nicole P.A.-C., P.A. [address] [phone] 09/03/2024 3:00 PM CDT Office Visit Department of Endocrinology in [place], [place] [address] [phone] Saba Nicole P.A.-C., P.A. [address] [phone] Scheduled Orders Name Type Priority Associated Diagnoses Orde r Schedule PSA (Prostate-Specific Antigen), Total and Free Lab Routine Elevated Prostate-Specific Antigen Expected: 09/03/2024, Expires: 06/10/2025 Scheduled Referrals Name Type Priority Associated Diagnoses Orde r Schedule Urology office visit (clinic) General Outpatient Referral Routine Expected: 09/10/2024 (Approximate), Expires: 09/10/2025 documented as of this encounter Visit Diagnoses Diagnosis Elevated Prostate-Specific Antigen documented in this encounter Care Teams Accounting Supervisor Relationship Specialty Start Date End Date Elsewhere, Pcp PCP - General Family Medicine 11/19/20 documented as of this encounter
--- OUTSIDE RECORDS SUMMARY | 2024-06-21 08:56 | XMS_ITS | Clinical Summary ---
Author Organization [facility] Address [place], [place] [address] Care Team Providers Care Ios Architect Name Role Phone Pcp, No Primary Care [...] Influenza for age 65+ 07/28/2024 Care Teams Ios Architect Relationship Specialty Start Date End Date Pcp, No . PCP - General 12/23/22
--- OUTSIDE RECORDS SUMMARY | 2024-06-21 08:56 | XMS_ITS ---
Author Organization [facility] Address [address] [place] [address] Care Team Providers Care Utility Engineer Name Role Phone Unavailable Unavailable Unavailable Surgery Details Not on file Complications Check Surgery Details section. Procedure Estimated Blood Loss Check Surgery Details section. Procedure Findings Check Surgery Details section. Procedure Specimens Taken Check Surgery Details section.
--- OUTSIDE RECORDS SUMMARY | 2024-06-21 08:56 | XMS_ITS | Encounter Summary ---
Author Organization [facility] Address [address] [place] [address] Care Team Providers Care Second Hand Paper Machine Name Role Phone Elsewhere, Pcp Primary Care Provider Unavailabl e Reason for Referral * Outpatient (Routine) - Closed Specialty Diagnoses / Procedures Referred By Daron t Referred To Contact Urology Diagnoses Elevated Prostate-Specific Antigen Cameron Blair M.D. [address] [place] [address] [facility] Region Referral ID Status Reason Start Date Expiration Date Visits Re quested Visits Authorized [id number] Closed 05/24/2024 11/23/2025 1 1 Encounter Details Date Type Department Care Team (Late st Contact Info) Description 05/24/2024 [facility] [address] [place] [address] Cameron Blair M.D. [address] [place] [address] Elevated Prostate-Specific Antigen (Primary Dx) Social History Tobacco Use Types Packs/Day Years Used Date Smoking Tobacco: Former Cigarettes 1 19.3 0 07/28/1960 - 11/27/1979 Smokeless Tobacco: Never Alcohol Use Standard Drinks/Week Comments No 0 (1 standard drink = 0.6 oz pur e alcohol) [facility] Utilities Answer Date Recorded In the past 12 months has th e electric, [employer], oil, or water [employer] threatened to shut off services in your [...] any clubs o r organizations such as oriental orthodox groups, unions, fraternal or athletic groups, or [...] and heating? Not hard at all 06/02/[address] [facility] [place] of Occupat ional Health - Occupational Stress [...] your living situation today? I have a [facility] place to live 12/03/2023 Education Answer Date [...] CDT Appointment Department of Laboratory Medicine in [address] [phone] Justine Finn APRN, C.NJazminP. [address] [phone] 09/03/2024 1:30 PM CDT Appointment Department of Laboratory Medicine in [place], [place] [address] [phone] Saba Nicole P.A.-C., P.A. [address] [phone] 09/03/2024 3:00 PM CDT Office Visit Department of Endocrinology in [place], [place] [address] [phone] Saba Nicole P.A.-C., P.A. [address] [phone] Scheduled Referrals Name Type Priority Associated Diagnoses Orde r Schedule Urology Referral Outpatient Referral Routine Elevated Prostate-Specific Antigen Expected: 05/24/2024 (Approximate), Expires: 08/24/2025 documented as of this encounter Visit Diagnoses Diagnosis Elevated Prostate-Specific Antigen- Primary documented in this encounter Care Teams Second Hand Paper Machine Relationship Specialty Start Date End Date Elsewhere, Pcp PCP - General Family Medicine 11/19/20 documented as of this encounter
--- OUTSIDE RECORDS SUMMARY | 2024-06-21 08:56 | XMS_ITS | Referral Summary ---
Author Organization [facility] Address [address] [place] [address] Care Team Providers Care Cdl Bulk Driver Name Role Phone Elsewhere, Pcp Primary Care Provider Unavailabl e Source Comments Patient records contain information from all sites at [facility]. For routine questions regarding patient records, call [phone] during business hours, M-F 8:00 AM - 5:00 PM Central Time. Record requests for emergency care only can be directed to [phone] at any time.[facility] Encounters Date Type Department Care Team Description 06/10/2024 10:30 AM CDT Comprehensive Visit Department of Urology in [place], [place] [address] [place] [address] Justine Finn, ALBAN, C.N.P. Elevated Prostate-Specific Antigen 05/24/2024 [facility] [address] [place] [address] Cameron Blair M.D. Elevated Prostate-Specific Antigen (Primary Dx) 04/30/2024 1:11 PM CDT - 04/30/2024 11:59 PM CDT Hospital Encounter Department of Laboratory Medicine in [place], [place] [address] [place] [address] Saba Nicole P.A.-C., P.A. Diabetes Mellitus Type 2 With Other Circulatory Complication (HCC); Diabetes Mellitus Type 2 With Diabetic Neuropathy (HCC) Discharge Disposition: Home or Self Care 04/30/2024 3:00 PM CDT Office Visit Department of Endocrinology in [place], [place] [address] [place] [address] Saba Nicole P.A.-C., P.A. 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 07/16/2014 Active omega 3-gaq-fth-fish oil 100-160-1,000 mg capsule Take 2 capsules by mouth daily. 07/16/2014 Active glucosam-chondroiti n-diet cb25 116-100 mg [...] day with meals. 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 7 kit 3 12/07/2023 5 Active pravastatin (PravachoL) 40 mg tablet Take 40 mg by mouth daily. 12/19/2022 Active pravastatin (PRAVACHOL) 40 mg tablet Take 1 tablet by mouth daily. 07/16/2014 4 Discontinue d(Duplicate order) spironolactone (Aldactone) 25 mg tablet Take 25 mg by mouth once. 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 Not hard at all 06/02/2022 [facility] of Occupat ional Health - Occupational [...] your living situation today? I have a [facility] place to live 12/03/2023 Education Answer [...] Respiratory Rate 20 01/21/2014 11:1 6 AM DIVISIONAL HUMAN RESOURCES DIRECTOR Vital sign result from Clinical Notes. Oxygen [...] CDT Appointment Department of Laboratory Medicine in [place] [address] [place] [phone] Justine Finn, ALBAN, C.N.P. [address] [place] [phone] 09/03/2024 1:30 PM CDT Appointment Department of Laboratory Medicine in [place], [place] [address] [phone] Saba Nicole P.A.-C., P.A. [address] [phone] 09/03/2024 3:00 PM CDT Office Visit Department of Endocrinology in [place], [place] [address] [phone] Saba Nicole P.A.-C., P.A. [address] [phone] Medical Devices Implanted Type Area [place] Decorator Device Identifier Shelf Expiration Date Model / Serial / Lot [place] Andi Fuzzy 1 X 1 - Nettles [id number] Implanted:Qty: 1 on 12/14/2000 Mesh or Patch [employer] Description:Device Manufactu [facility] - Clean Runner. Device Status Text - [id number]. [facility] Data - [id number]. Procedures Procedure Name Priority Date/Time Associated Diagnosis [...] 04/30/2024 1:31 PM CDT Saba Nicole P.A.-C., P.AJazmin LAB BL OOD ADD-ON [facility] [address] [place] [address], [place] [facility] [place] [address] [place] [address] * (ABNORMAL) Basic Metabolic Panel (04/30/2024 1:23 [...] CDT 04/30/2024 1:31 PM CDT Saba Nicole P.A.-C. PJazminAJazmin LAB BL OOD ADD-ON [facility] [address] [place] [address], [place] [facility] [facility] [place] [address] [place] [address] from Last 3 Months Care Teams Cdl Bulk Driver Relationship Specialty Start Date End Date Elsewhere, Pcp PCP - General Family Medicine 11/19/20
--- OUTSIDE RECORDS SUMMARY | 2024-06-21 08:56 | XMS_ITS | Clinical Summary ---
Author Organization [facility] Address [address] [place] [address] Care Team Providers Care Keypunch Operators Supervisor Name Role Phone Elsewhere, Pcp Primary Care Provider Unavailabl e Source Comments Patient records contain information from all sites at [facility]. For routine questions regarding patient records, call [phone] during business hours, M-F 8:00 AM - 5:00 PM Central Time. Record requests for emergency care only can be directed to [phone] at any time.[facility] Allergies No known active allergies Medications Medication Sig Dispensed Refills Start Date End Date Status foot care products pad FOR HOME USE 0 09/29/2018 Active aspirin 81 mg chewable tablet Chew 1 tablet daily. 07/16/2014 Active omega 9-sex-ppf-fish oil 100-160-1,000 mg capsule Take 2 capsules [...] skin at bedtime. 20 mL 3 12/07/2023 Active flash glucose sensor (FreeStyle Cyrus 2 Sensor) kitIndications:Day Care Teacher Use Of Insulin Active (HCC),Diabetes Mellitus Type [...] Active Problems Problem Noted Date Diagnosed Date Half-Way Use Of Insulin Active 12/14/2022 Day Care Teacher Current Use Of Inj ectable Non-Insulin Antidiabetic [...] CDT Comprehensive Visit Department of Urology in [place], [place] [address] [place] [address] Justine Finn, ALBAN, C.N.P. Elevated Prostate-Specific Antigen 05/24/2024 [facility] [address] [place] [address] Cameron Blair M.D. Elevated Prostate-Specific Antigen (Primary Dx) 04/30/2024 3:00 PM CDT Office Visit Department of Endocrinology in [place], [place] [address] [place] [address] Saba Nicole P.A.-C., P.A. Diabetes Mellitus Type 2 With Other Circulatory Complication (HCC) (Primary Dx); Half-Way Use Of Insulin Active (HCC); Diabetes Mellitus Type 2 With Diabetic Chronic Kidney Disease (HCC); Diabetes Mellitus Type 2 With Diabetic Neuropathy (HCC); Morbid Obesity Body Mass Index >= 35 with Comorbid Condition (HCC); Half-Way Current Use Of Injectable Non-Insulin Antidiabetic Drugs 04/30/2024 1:11 PM CDT - 04/30/2024 11:59 PM CDT Hospital Encounter Department of Laboratory Medicine in [place], [place] [address] [phone] Saba Nicole P.A.-C., P.A. Diabetes Mellitus Type [...] = 0.6 oz pur e alcohol) [facility] [employer] Answer Date Recorded In the past 12 months has [facility] [employer], gas, oil, or water [employer] threatened to shut off services in your [...] often do you attend chur ch or christianity services? More than 4 times per year 06/02/2022 Do you belong to any clubs o r organizations such as yazidi groups, unions, fraternal or athletic groups, or [...] and heating? Not hard at all 06/02/2022 [facility] [place] of Occupat ional Health - Occupational Stress [...] your living situation today? I have a [facility] place to live 12/03/2023 Education Answer [...] Respiratory Rate 20 01/21/2014 11:1 6 AM SHED WORKERS SUPERVISOR Vital sign result from Clinical Notes. Oxygen [...] CDT Appointment Department of Laboratory Medicine in [address] [phone] Justine Finn APRN CJazminNJazminP. [address] [phone] 09/03/2024 1:30 PM CDT Appointment Department of Laboratory Medicine in [place], [place] [address] [phone] Saba Nicole P.A.-C., P.A. [address] [phone] 09/03/2024 3:00 PM CDT Office Visit Department of Endocrinology in [place], [place] [address] [phone] Saba Nicole P.A.-C., P.A. [address] [phone] Health Maintenance Due Date Last Done Comments Diabetic Office Visit with F oot Exam 1941 Urine Albumin 1941 Hepatitis B Vaccines (1 of 3 - Risk 3-dose series) 2001 Depression Screening (Annual PHQ-2) 11/27/2023 Fall Risk Screen (Annual) 11/27/2023 Dilated Eye Exam 08/21/2024 08/21/2023 Influenza Vaccine (#1) 2024 , 08/15/2022, 08/12/2021, Additional history exists Hemoglobin A1C 10/30/2024 04/30/2024, 10/28, 08/24/2023, Additional [...] Completed 12/13/2018, 07/28, 11/27/2007, Additional history exists COVID-19 Vaccine Completed 03/15/2024, 02/2023, 03/28/2023, Additional history exists CT Colonography Discontinued Cologuard Discontinued Medical Devices Implanted Type Area Weld Inspector Device Identifier Shelf Expiration Date Model / Serial / Lot [place]y Eight Andi Fuzzy 1 X 1 - Nettles [id number] Implanted:Qty: 1 on 12/14/2000 Mesh or Patch [employer] Description:Device Manufactu [facility] - [employer]ju. Device Status Text - [id number]. [facility] Data - [id number]. Procedures Procedure Name Priority Date/Time Associated Diagnosis [...] 04/30/2024 1:31 PM CDT Saba Nicole P.A.-C., P.Warren LAB BL OOD ADD-ON [facility] [address] [place] [address], [facility] [place] [address] [place] [address] * (ABNORMAL) Basic Metabolic Panel (04/30/2024 1:23 [...] Nicole P.A.-C. PJazminAJazmin LAB BL OOD ADD-ON [facility] [address] [place] [address], [place] [facility] [place] [address] [place] [address] from Last 3 Months Care Teams Keypunch Operators Supervisor Relationship Specialty Start Date End Date Elsewhere, Pcp PCP - General Family Medicine 11/19/20
--- OUTSIDE RECORDS SUMMARY | 2024-06-21 08:57 | XMS_ITS | Encounter Summary ---
Author Organization [facility] Address [address] [place] [address] Care Team Providers Care Ethylbenzene Cracking Supervisor Name Role Phone Elsewhere, Pcp Primary Care Provider Unavailabl e Encounter Details Date Type Department Care Team (Latest Contact Info) Description 04/30/2024 1:11 PM CDT - 04/30/2024 11:59 PM CDT Hospital Encounter Department of Laboratory Medicine in [place], [place] [address] [phone] Saba Nicole, Nicole-Micah., P.A. [address] [phone] Diabetes Mellitus Type 2 With Other Circulatory Complication (HCC); Diabetes Mellitus Type 2 With Diabetic Neuropathy (HCC) Discharge Disposition: Home or Self Care Social History Tobacco Use Types Packs/Day Years Used Date Smoking Tobacco: Former Cigarettes 1 19.3 0 07/28/1960 - 11/27/1979 Smokeless Tobacco: Never Alcohol Use Standard Drinks/Week Comments No 0 (1 standard drink = 0.6 oz pur e alcohol) [facility] Utilities Answer Date Recorded In the past 12 months has e [employer], gas, oil, or water [employer] threatened to shut off services in your [...] How often do you attend chur or gnosticism services? More than 4 times per year 06/02/2022 Do you belong to any clubs o r organizations such as latter-day groups, unions, fraternal or athletic groups, or [...] and heating? Not hard at all 06/02/2022 [facility] [place] of Occupat ional Health - Occupational Stress [...] your living situation today? I have a [facility] place to live 12/03/2023 Education Answer [...] Needle 32 gauge x 5/32 needle 07/07/2021 empagliflozin (JARDIANCE) 25 mg tablet Take 1 tablet (25 mg total) by mouth every morning before breakfast. Take with 8-16 oz water 30 minutes prior to breakfast. 90 tablet 3 07/07/2022 flash glucose sensor (FreeStyle Cyrus 2 Sensor) kitIndications:[facility] Use Of Insulin Active (HCC),Diabetes Mellitus Type 2 With Diabetic Neuropathy Hyperglycemic (HCC),Diabetes Mellitus Type 2 With Diabetic Chronic Kidney Disease Hyperglycemic (HCC) 1 each (1 kit total) every 14 (fourteen) days. 7 kit 3 12/07/2023 12/06/2024 foot care products pad FOR HOME USE 0 09/29/2018 leblecjs-oxqrtesoymp-ljd t cb25 116-100 mg capsule Take 1 [...] at bedtime. 20 mL 3 12/07/2023 12/06/2024 isosorbide mononitrate (IMDUR) 60 mg 24 hr [...] day with meals. 360 tablet 3 06/14/2023 metoprolol tartrate (LOPRESSOR) 100 mg tablet Take 100 mg by mouth 2 (two) times a day. 11/28/2018 multivitamin tablet Take 1 tablet by mouth daily. 07/16/2014 omega 2-wlr-afo-fish oil 100-160-1,000 mg capsule Take 2 capsules by mouth daily. 07/16/2014 pravastatin (PravachoL) 40 mg tablet Take 40 mg by mouth daily. 12/19/2022 psyllium husk (METAMUCIL) 0.4 gram capsule Take [...] and 1 tab all other days 10/07/2015 insulin glargine-yfgn (SEMGLEE) 100 unit/mL (3 mL) injection Inject 22 Units under the skin at bedtime. 08/30/2023 pravastatin (PRAVACHOL) 40 mg tablet Take 1 tablet by mouth daily. 07/16/2014 06/10/2024 spironolactone (Aldactone) 25 mg tablet Take 25 mg by mouth once. 12/19/2022 06/10/2024 documented as of this encounter Plan of Treatment Upcoming Encounters Date Type Department Care Team (Late st Contact Info) Description 09/03/2024 9:30 AM CDT Appointment Department of Laboratory Medicine in [address] [place] [phone] Justine Finn, ALBAN, C.N.P. [address] [phone] 09/03/2024 1:30 PM CDT Appointment Department of Laboratory Medicine in [place], [place] [address] [phone] Saba Nicole P.A.-C., P.A. [address] [phone] 09/03/2024 3:00 PM CDT Office Visit Department of Endocrinology in [place], [place] [address] [phone] Saba Nicole P.A.-C., P.A. [address] [phone] documented as of this encounter Procedures Procedure [...] LAB BL OOD ADD-ON Performing Organization Address City/[facility] Co de Phone Number [facility] [address] [place] [address], [place] [facility] [place] [address] [place] [address] * (ABNORMAL) Hemoglobin A1c (04/30/2024 1:23 PM CDT) Hemoglobin A1c, B 7.0(H) 4.2 - 5.6 % 04/30/2024 1:54 PM CDT [facility] Comment: Hemoglobin A1c values greater than or equal to 6.5 percent are diagnostic for diabetes mellitus. ??Diagnosis should be confirmed by repeat testing. ??In diabetic patients, HbA1c goals should be discussed with healthcare provider. Blood (Blood, Venous) 04/30/2024 1:23 PM CDT 04/30/2024 1:31 PM CDT Saba Nicole P.A.-C., P.A. LAB BL OOD ADD-ON Performing Organization Address [facility] Co de Phone Number [facility] [address] [place] [address], [place] [facility] [place] [address] [place] [address] documented in this encounter Visit Diagnoses Diagnosis Diabetes Mellitus Type 2 With Other Circulatory Complication (HCC) Diabetes Mellitus Type 2 With Diabetic Neuropathy (HCC) documented in this encounter Care Teams Ethylbenzene Cracking Supervisor Relationship Specialty Start Date End Date Elsewhere, Pcp PCP - General Family Medicine 11/19/20 documented as of this encounter
--- OUTSIDE RECORDS SUMMARY | 2024-06-21 08:57 | XMS_ITS | Encounter Summary ---
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 [address] [phone] [facility] Region Referral ID Status Reason Start Date Expiration Date Visits Re quested Visits Authorized [id number] Closed 12/07/2023 12/06/2026 1 1 Encounter Details Date Type Department Care Team (Late st Contact Info) Description 04/30/2024 3:00 PM CDT Office Visit Department of Endocrinology in [place], [place] [address] [phone] Saba Nicole P.A.-C., P.A. 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 More than 4 times per year [...] your living situation today? I have a [facility] place to live 12/03/2023 Education Answer [...] and cholesterol levels). documented in this encounter Progress Notes * Saba Nicole P.A.-C., PMicheline. - 04/30/2024 3:00 PM CDT SUBJECTIVE CHIEF COMPLAINT Chief Complaint Patient presents with Diabetes Mellitus Type 2 Lab Results Component Value Date HGBA1C 7.0 (H) 04/30/2024 HISTORY OF PRESENT ILLNESS Patient presents today for a evaluation and treatment of diabetes mellitus type 2. - Date of dx: 20+ years. - Family history of diabetes: pat aunt- DM2; father- suspected DM2. A1c: 9.3% on 03/14/2022. A1c: 8.7% on 08/30/2022. A1c: 8.7%- 11/29/2022. A1c: 7.3%- 11/24/2023. Interim: - notes 90# loss since 2016. - [facility] 2 mg Ozempic. - Cyrus 2 supplies come from [employer]. Diabetes related medication: - 1000 mg Metformin XR BID; - Jardiance 25 mg once daily; - Ozempic 2 mg once weekly. - Lantus: 20 units once daily- nightly. [...] recurrent UTIs: never. Blood glucose monitoring: - 04/17-04/30/2024 - % time CGM active: 68% - Avg glucose: 165 mg/dL; - GMI: 7.3%; - GV: 23.9%; TIME in range - very high: 4%; - high: 22%; - target range: 74% - low: 0%; [...] Hctz. - Last diabetic eye exam: 08/09/2022- [facility]. Denies retinopathy or macular [...] years. - Patient describes his mood as intermittently feeling down'- reports associated with boredom. Social history: - Patient does not use tobacco products. - Alcohol intake: none. - Last Certified Envelope Stuffer Visit: several years. - Last Tower Operator Visit: several years. Current Diet: 3 meals daily- loves sweets. - Beverage intake: carb free beverages. Current Exercise: ADLs- trying to walk more. 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 Work: retired. Marital status: . MEDICATIONS [...] foot care products pad FOR HOME USE ctdctqdb-hjkumuwmmfp-wbhj cb25 116-100 mg capsule Take 1 tablet by mouth 2 (two) times a day. hydroCHLOROthiazide (HYDRODIURIL) 25 mg tablet Take 25 mg by mouth daily. insulin glargine (Lantus Solostar U-100 Insulin) 100 unit/mL (3 mL) injection Inject 20 Units underthe skin at bedtime. insulin glargine-yfgn (SEMGLEE) 100 unit/mL (3 mL) injection Inject 22 Units under the skin at bedtime. isosorbide [...] Take 1 tablet by mouth daily. omega 7-ljr-fgv-fish oil 100-160-1,000 mg capsule Take 2 capsules [...] oz water 30 minutes prior to breakfast. REVIEW OF SYSTEMS Respiratory: Positive for shortness of breath. Gastrointestinal: Positive for diarrhea. Genitourinary: Positive for frequent urination. Hematologic: Positive for bruises or bleeds easily. Musculoskeletal: Positive for joint swelling. Neurological: Positive for light-headedness. Psychiatric/Behavioral: Positive for erectile dysfunction. The following systems were negative: Constitutional, Skin, Eyes, ENT, Cardiovascular HISTORY REVIEW: History Review OBJECTIVE PHYSICAL EXAM BP 116/64 (BP Location: Left arm, Patient Position: Sitting, Cuff Size: Large) Pulse 72 Wt (!) 136 kg BMI 40.60 kg/m?? GENERAL: Well developed, well nourished. No apparent distress. Appearance, behavior, and speech areappropriate. SKIN: Warm to touch, good turgor. No rash on exposed skin. MUSCULOSKELETAL: Gait normal. NEUROLOGICAL: Mental Status: Alert and oriented times 3, relaxed, and cooperative. Normal affect. DIAGNOSTICS Wt Readings from Last 3 Encounters: 04/30/24 (!) 136 kg 12/07/23 (!) 138 kg 06/14/23 (!) 140 kg Most Recent Diabetic Monitoring Labs: Last A1c: Lab Results Component Value Date HGBA1C 7.0 (H) 04/30/2024 Last urine microalbumin: Last lipid panel: Lab Results Component Value Date CHOL 168 08/31/2021 Lab Results Component Value Date HDL 52 08/31/2021 Lab Results Component Value Date LDLCALC 72 08/31/2021 Lab Results Component Value Date TRIG 222 (H) 08/31/2021 Last Creatinine: Lab Results Component Value Date CREATININE 1.27 04/30/2024 Lab Results Component Value Date EGFR 56 (L) 04/30/2024 EGFRNONBLKAA 58 (L) 06/02/2022 EGFRBLKAA 67 06/02/2022 Lipids updated 11/29/2022 through [facility] and include the following: Triglycerides 181; total cholesterol 163; LDL 74; HDL 53. Urine microalbumin was negative. 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 - reports diarrhea is less than normal with Metformin XR. - Denies abdominal pain/n/v/fever/chills. - Denies burning/painful urination or s/sx genital mycotic infections. -patient's overnight blood sugars have improved significantly since starting Lantus insulin, however patient is having some overall elevated overnight and fasting blood sugars. Consequently, will increase Lantus insulin to 22 units nightly. - hemoglobin A1c has improved to 7.0%, down from 9.3% on 03/14/2022. - goal A1c: <7.5% without hypoglycemia. - patient will continue to utilize the FreeStyle Cyrus 2. - encouraged increased activity to help further improve post-prandial bg levels as well as support weight loss. PLAN: Drink 64-80 oz water daily. Increase Lantus to 22 units every night. Continue Jardiance 25 mg once daily. Continue Metformin XR 1000 mg twice daily. Continue Ozempic 2 mg once weekly. Endo return visit in early August with Saba. Labs prior to visit (A1c, metabolic panel, and cholesterol levels). -Goal hemoglobin A1C: less than 7.5% without hypoglycemia. -Goal capillary plasma glucose: fasting and preprandial: 90-140 mg/dL. 2 hour peak post-prandial bglevel: <180 mg/dL. - Frequency of hemoglobin A1C measurement: Every 3 months. Next due: 07/31/2024 - ordered. - Certified Envelope Stuffer visit: declined. - Next Diabetic Follow-up Visit: 3-4 months. Labs ordered. Tobacco cessation: does not [...] noted. No further questions today. Total time: 25 minutes with time also spent in chart/lab review. Saba Nicole P.A.-C., P.A. Patient Instructions Drink 64-80 oz water daily. Increase Lantus to 22 units every night. Continue Jardiance 25 mg once daily. Continue Metformin XR 1000 mg twice daily. Continue Ozempic 2 mg once weekly. Endo return visit in early August with Saba. Labs prior to visit (A1c, metabolic panel, and cholesterol levels). Answers submitted by the patient for this visit: Low Blood Sugar Awareness Survey (Submitted on 03/11/2024) How often do you have classic symptoms [...] received Glucagon or called 911? : Never documented in this encounter Plan of Treatment Upcoming Encounters Date Type Department Care Team (Late st Contact Info) Description 09/03/2024 9:30 AM CDT Appointment Department of Laboratory Medicine in [address] [phone] Justine Finn APRN, C.N.P. [address] [place] [phone] 09/03/2024 1:30 PM CDT Appointment Department of Laboratory Medicine in [place], [place] [address] [place] [phone] Saba Nicole P.A.-C., P.A. [address] [place] [phone] 09/03/2024 3:00 PM CDT Office Visit Department of Endocrinology in [place], [place] [address] [place] [phone] Saba Nicole P.A.-C., P.A. 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 Current Use Of Injectable Non-Insulin Antidiabetic Drugs Expected: 08/30/2024 (Approximate), Expires: 07/31/2025 documented as of this encounter Visit Diagnoses Diagnosis Diabetes Mellitus Type 2 With Other Circulatory Complication (HCC)- Primary 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
== END 2024-06-20 09:23 | disposition home or self-care (01) ==
LOC: NFLDREF 06-21 08:54
PROVIDERS: PCP Family Medicine; Referring Provider Family Medicine; Visit Provider Family Medicine
DX: I48.91 Unspecified atrial fibrillation (principal); Z51.81 Encounter for therapeutic drug level monitoring; Z79.01 Long term (current) use of anticoagulants
CPT/HCPCS: 85610

== ENCOUNTER 2024-10-22 13:51 | Outpatient (CLI) | payer MEDICARE, BC, SELFPAY ==
--- OUTSIDE RECORDS SUMMARY | 2024-10-22 13:54 | XMS_ITS | Clinical Summary ---
Author Organization [facility] Address [address] [place] [id number] Care Team Providers Care Veneer Jointer Helper Name Role Phone Elsewhere, Pcp Primary Care Provider Unavailabl e Source Comments Patient records contain information from all sites at [facility]. For routine questions regarding patient records, call [phone] during business hours, M-F 8:00 AM - 5:00 PM Central Time. Record requests for emergency care only can be directed to [phone] at any time.[facility] Allergies No known active allergies Medications foot care products pad FOR HOME USE 0 09/29/20 18 Active aspirin 81 mg chewable tablet Chew 1 tablet daily. 07/16/20 14 Active omega 7-ytj-ozg-fish oil 100-160-1,000 mg capsule Take 2 capsules by mouth daily. 07/16/20 14 Active glucosam-chondroi tin-diet cb25 116-100 mg capsule Take 1 tablet by mouth 2 (two) times a day. 07/16/20 14 Active hydroCHLOROthiazi de (HYDRODIURIL) 25 mg tablet Take 25 mg by mouth daily. 11/28/19 19 Active isosorbide mononitrate (IMDUR) 60 mg 24 hr tablet Take 60 mg by mouth daily. 10/24/20 18 Active losartan (COZAAR) 100 mg tablet Take 1 tablet by mouth daily. 07/16/20 14 Active metoprolol tartrate (LOPRESSOR) 100 mg tablet Take 100 mg by mouth 2 (two) times a day. 11/28/19 19 Active multivitamin tablet Take 1 tablet by mouth daily. 07/16/20 14 Active psyllium husk (METAMUCIL) 0.4 gram capsule Take 1 capsule by mouth 2 (two) times a day. 10/07/20 15 Active spironolactone (ALDACTONE) 25 mg tablet Take 25 mg by mouth daily. 11/28/19 19 Active warfarin (COUMADIN) 5 mg tablet Take 5 mg by mouth daily. Now taking 0.5 tab on Mon and Mon and 1 tab all other days 10/07/20 15 Active cholecalciferol (VITAMIN D3) 10 mcg (400 Unit) tablet Take 10 mcg by mouth daily. Active Contour Test Strips strips daily. 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 7 kit 3 12/07/19 24 025 Active pravastatin (PravachoL) 40 mg tablet Take 40 mg by mouth daily. 12/19/19 23 Active metFORMIN XR (Glucophage-XR) 500 mg 24 hr tabletIndications :Diabetes Mellitus Type 2 With Diabetic Chronic Kidney Disease (HCC) Take 1 tablet (500 mg total) by mouth 2 (two) times a day with meals. 180 tablet 3 09/03/20 24 025 Active empagliflozin (Jardiance) 25 mg tabletIndications :Diabetes Mellitus Type 2 With Other Circulatory Complication (HCC) Take 1 tablet (25 mg total) by mouth daily before morning meal. Take with 8-16 oz water 30 minutes prior to breakfast. 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 30 mL 3 09/03/20 24 025 Active albuterol 90 mcg/actuation inhaler Inhale. 09/02/20 24 Active ketoconazole (Nizoral) 2 % cream MIX 11 WITH TRIAMCINOLONE ACETONIDE 0.1% TOPICAL CREAM. APPLY ON AFFECTED AREAS ON BODY 1-2X DAILY FOR UP TO 2 WEEKS. CONTINUE WITH ONLY KE 06/26/20 24 Active triamcinolone (Kenalog) 0.1 % cream MIX 11 WITH KETOCONAZOLE TOPICAL CREAM. APPLY ON AFFECTED AREAS ON BODY 1-2X DAILY FOR UP TO 2 WEEKS. CONTINUE WITH ONLY KETOCONAZOLE FOR 2 06/26/20 24 Active alcohol swabs (Alcohol Prep) pads, medicated Apply topically. 08/08/20 22 Active ciprofloxacin (Cipro) 500 mg tablet Take 1 tablet (500 mg total) by mouth every 12 (twelve) hours for 3 days. 1st dose 2 hours prior to procedure 6 tablet 09/19/20 24 024 Active Problems Problem Noted Date Diagnosed Date Primary Malignant Neoplasm Of Prostate 4 Cancer Staging:Clinical stage from 09/27/2024:Stage IIC(cT1c, cN0, cM0, PSA: 8.1, Grade Group: 3) - Signed by Justine Finn APRN, C.N.P. on 09/27/2024 Clay Temperer Use Of Insulin Active 12/14/2022 Clay Temperer Current Use Of Inj ectable Non-Insulin Antidiabetic [...] Encounters Date Type Department Care Team Description 10/22/2024 1:00 PM FIBERGLASS DOWEL DRAWING OPERATOR Hospital Encounter Department of Radiation Oncology in [address] [phone] Chris Kinsey M.D. Primary Malignant Neoplasm Of Prostate (HCC) 10/22/2024 12:06 PM FIBERGLASS DOWEL DRAWING OPERATOR Hospital Encounter Department of Radiation Oncology in [address] [phone] Chris Kinsey M.D. Rhodes, Lori L 10/10/2024 12:49 PM FIBERGLASS DOWEL DRAWING OPERATOR - 10/10/2024 3:41 PM FIBERGLASS DOWEL DRAWING OPERATOR Hospital Encounter Department of Radiation Oncology in [address] [phone] Chris Kinsey M.D. Primary Malignant Neoplasm Of Prostate (HCC) 10/01/2024 12:12 PM FIBERGLASS DOWEL DRAWING OPERATOR - 10/01/2024 11:59 PM FIBERGLASS DOWEL DRAWING OPERATOR Hospital Encounter Department of Radiology in [place], [place] [address] [address] Justine Finn APRN, C.N.P. Primary Malignant Neoplasm Of Prostate (HCC) Discharge Disposition: Home or Self Care 09/27/2024 1:00 PM CDT Office Visit Department of Urology in [place], [place] [address] [address] Justine Finn APRN, C.N.P. Primary Malignant Neoplasm Of Prostate (HCC) (Primary Dx) 09/23/2024 2:15 PM CDT Ancillary Procedure Department of Urology 09/23/2024 1:30 PM CDT Procedure visit Department of Urology in [address] [address] Saji Charles M.D. Elevated Prostate-Specific Antigen; Abnormal Magnetic Resonance Imaging Prostate 09/19/2024 10:00 AM CDT Office Visit Department of Urology in [address] [phone] Justine Finn APRN, C.N.P. Elevated Prostate-Specific Antigen (Primary Dx); Abnormal Magnetic Resonance Imaging Prostate 09/17/2024 12:08 PM CDT - 09/17/2024 11:59 PM CDT Hospital Encounter Department of Radiology in [address] [phone] Justine Finn APRN, C.N.P. Elevated Prostate-Specific Antigen Discharge Disposition: Home or Self Care 09/16/2024 2:30 PM CDT Office Visit Department of Urology in [address] [phone] Justine Finn APRN, C.N.P. Elevated Prostate-Specific Antigen (Primary Dx) 09/03/2024 3:00 PM CDT Office Visit Department of Endocrinology in [address] [address] Saba Gutierrez, MPAS, P.A.-C., P.A. 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 Diabetes Mellitus Type 2 With Other Circulatory Complication (HCC); Elevated Prostate-Specific Antigen Discharge Disposition: Home or Self Care from [...] drink = 0.6 oz pur e alcohol) [facility] Personal Development Bureauities Answer Date Recorded In the past 12 months has [facility] [employer], [employer], oil, or water [employer] threatened to shut off services in your [...] week 06/02/2022 How often do you attend [facility] or yazdanism services? More than 4 times per year [...] and heating? Not hard at all 06/02/2022 [facility] - [...] your living situation today? I have a [facility] to live 12/03/2023 Education Answer Date Recorded What is the highest level of school you have completed or the highest degree you have received? Associate degree: academic program 06/02/2022 Sex and Gender Information Value Date Recorded Sex Assigned at Male 09/22/2023 8:15 PM CDT Legal Sex Male 3:53 AM FIBERGLASS DOWEL DRAWING OPERATOR Gender Identity Male 09/22/2023 8:15 PM CDT Sexual Orientation Straight 06/02/2022 12 :11 PM CDT Last Filed Vital Signs Vital Sign Reading Time Taken Comments Blood Pressure 109/64 10/10/2024 12:55 PM FIBERGLASS DOWEL DRAWING OPERATOR Pulse 62 10/10/2024 12:55 PM FIBERGLASS DOWEL DRAWING OPERATOR Temperature 36.2 C (97.2 F) 10/22/2024 12:23 PM FIBERGLASS DOWEL DRAWING OPERATOR Respiratory Rate 20 01/21/2014 11:1 6 AM FIBERGLASS DOWEL DRAWING OPERATOR Vital sign result from Clinical Notes. Oxygen Saturation 94% 06/14/2023 2:4 6 PM CDT Inhaled Oxygen Concentration - - Weight 139 kg (306 lb 14.1 oz) 10/22/2024 12:23 PM FIBERGLASS DOWEL DRAWING OPERATOR Height 183.3 cm (6' 0.17) 02/22/2023 1 :51 PM CDT Body Mass Index 41.43 02/22/2023 1:51 PM CDT Plan of Treatment Upcoming Encounters Date Type Department Care Team (Late st Contact Info) Description 10/29/2024 1:45 PM FIBERGLASS DOWEL DRAWING OPERATOR Appointment Department of Radiation Oncology in [place], [place] [address] [place] [phone] Chris Kinsey M.D. [address] [place] [address] 11/28/2024 12:00 PM FIBERGLASS DOWEL DRAWING OPERATOR Appointment Department of Laboratory Medicine in [place], [place] [address] [place] [phone] Saba Pearson MPAS, P.A.-C., P.A. [address] [phone] 03/05/2025 1:20 PM CDT Appointment Department of Laboratory Medicine in [place], [place] [address] [phone] Saba Pearson MPAS, P.A.-C., P.A. [address] [phone] 03/05/2025 2:30 PM CDT Office Visit Department of Endocrinology in [place], [place] [address] [phone] Saba Pearson MPAS, P.A.-C., P.A. [address] [phone] Health Maintenance Due Date Last Done Comments Diabetic Office Visit with Foot Exam 1941 Urine Albumin 1941 Hepatitis B Vaccines (1 of 3 - Risk 3-dose series) 2001 Depression Screening (Annual PHQ-2) 11/27/2023 Fall Risk Screen (Annual) 11/27/2023 Dilated Eye Exam 08/21/2024 08/21/2023 Hemoglobin A1C 02/26/2025 08/28/2024, 0 02/2024, 11/24/2023, Additional history exists Creatinine Level (Kidney Function Test) 08/28/2025 08/28/2024, 04/30/2024, 11/24/2023, Additional history exists Potassium Level 08/28/2025 08/28/2024, 0 02/2024, 11/24/2023, Additional history exists Sodium Level 08/28/2025 08/28/2024, 06/0 02/2024, 11/24/2023, Additional history exists Office Visit for Blood Pressure Check / Re-check 09/03/2025 09/03/2024 DTaP,Tdap,and Td Vaccines (5 - Td or Tdap) 03/29/2031 03/29/2021, 11/07/2011, 10/28/2011, Additional history exists Colonoscopy Discontinued 12/07/2009 (Perf ormed elsewhere) Colorectal Cancer Surveillance Discontinued Pneumococcal vaccine (65+ years) Completed 07/28/2016, 01/06/2015, 11/27/2013, Additional history exists Zoster Vaccines Completed 12/13/2018, 07/28, 11/27/2007, Additional history exists RSV vaccine - (32-36 weeks) or 60+ years Completed 09/18/2023 COVID-19 Vaccine Completed 08/05/2024, , 08/30/2023, Additional history exists Influenza Vaccine Completed 08/05/2024, , 08/15/2022, Additional history exists CT Colonography Discontinued Cologuard Discontinued IPV Vaccines Aged Out No longer eligi ble based on patient's age to complete this topic Medical Devices Implanted Type Area Painter Set Device Identifier Shelf Expiration Date Model / Serial / Lot [place] Andi Fuzzy 1 X 1 - Nettles [id number] Implanted:Qty: 1 on 12/14/2000 Mesh or Patch PPDai Description:Device Manufactu rer - [id number]. Device Status Text - [id number]. [facility] Data - [id number]. Procedures Procedure Name Priority Date/Time Associated Diagnosis Comments INITIAL RAD ONC TREATMENT PLANNING CT SIMULATION Routine 10/22/2024 1:00 PM FIBERGLASS DOWEL DRAWING OPERATOR Primary Malignant Neoplasm Of Prostate (HCC) PET CT SKULL TO THIGH PSMA RAD - Routine (most inpatients and all outpatients) 10/01/2024 2:10 PM FIBERGLASS DOWEL DRAWING OPERATOR Primary Malignant Neoplasm Of Prostate (HCC) SURGICAL PATHOLOGY Routine 09/23/2024 1:41 PM CDT Elevated Prostate-Specific Antigen Abnormal Magnetic Resonance Imaging Prostate UROLOGY IMAGE EXAM Routine 09/23/2024 1:36 PM CDT MR PROSTATE WITHOUT AND WITH IV CONTRAST RAD - Routine (most inpatients and all outpatients) 09/17/2024 1:31 PM CDT Elevated Prostate-Specific Antigen GLUCOSE POCT, B Routine 09/17/2024 12:32 PM CDT PROSTATE-SPECIFIC AG (PSA), TOT AND FR, S Routine 08/28/2024 1:48 PM CDT Elevated Prostate-Specific Antigen LIPID PANEL, S Routine 08/28/2024 1:48 PM CDT Diabetes Mellitus Type 2 With Other Circulatory Complication (HCC) BASIC METABOLIC PANEL, S/P Routine 08/28/2024 1:48 PM CDT Diabetes Mellitus Type 2 With Other Circulatory Complication (HCC) HEMOGLOBIN A1C, B Routine 08/28/2024 1:4 8 PM CDT Diabetes Mellitus Type 2 With Other Circulatory Complication (HCC) from Last 3 Months Results * PET CT Skull to Thigh PSMA (10/01/2024 2:10 PM FIBERGLASS DOWEL DRAWING OPERATOR) Anatomical Region Laterality Modality Body, Nuclear Medicine PET R ST LOS, PET ARZ LOS, Nuclear Medicine PET FLA LOS, Nuclear Medicine N/A Positron Emission Tomography (PET) Impressions 10/01/2024 3:32 PM FIBERGLASS DOWEL DRAWING OPERATOR 1. Prominent uptake noted within the right prostate gland, consistent with MRI and primary prostatic malignancy. 2. No evidence for osseous metastatic disease. 3. Focal uptake in the right lower lobe/pleura with associated focal opacity, findings concerning for infection. Narrative 10/01/2024 3:32 PM FIBERGLASS DOWEL DRAWING OPERATOR EXAM: PET CT SKULL TO THIGH PSMA COMPARISON: None INDICATION: Fabens 4+3 prostate cancer.. The patient reports no recent vaccinations. FINDINGS: Uptake: 65 minutes PET findings : Prominent uptake noted within the right prostate gland, consistent with MRI findings. Focal uptake noted within the right lower lobe/pleura. No suspicious osseous uptake. CT findings: Cardiomegaly. Right lower lobe focal opacity. Prominent gallstone without evidence of cholecystitis. Fat-containing right inguinal hernia. . Small hiatal hernia. Sternotomy wires appear grossly intact. RADIOPHARMACEUTICAL/MEDS: Route: intravenous piflufolastat F 18 injection (Pylarify F-18),9.9 millicurie Procedure Note Anthony Winslow M.D. - 10/01/2024 EXAM: PET CT SKULL TO THIGH PSMA COMPARISON: None INDICATION: Fabens 4+3 prostate cancer.. The patient reports no recent vaccinations. FINDINGS: Uptake: 65 minutes PET findings : Prominent uptake noted within the right prostate gland, consistent withMRI findings. Focal uptake noted within the right lower lobe/pleura. No suspicious osseous uptake. CT findings: Cardiomegaly. Right lower lobe focal opacity. Prominent gallstone withoutevidence of cholecystitis. Fat-containing right inguinal hernia. . Smallhiatal hernia. Sternotomy wires appear grossly intact. RADIOPHARMACEUTICAL/MEDS: Route: intravenous piflufolastat F 18 injection (Pylarify F-18),9.9 millicurie IMPRESSION: 1. Prominent uptake noted within the right prostate gland, consistent withMRI and primary prostatic malignancy. 2. No evidence for osseous metastatic disease. 3. Focal uptake in the right lower lobe/pleura with associated focalopacity, findings concerning for infection. Justine Finn APRN C.N.P. IMG NM PROCEDURES Final Result * Surgical Pathology (09/23/2024 1:41 PM CDT) 09/25/2024 9:13 AM CDT MKTO Report electronically signed by Loreto Child MD 09/25/2024 9:13 AM CDT MKTO Specimen Received A. Prostate needle biopsy six cores right side B. Prostate needle biopsy six cores left side 09/25/2024 9:13 AM CDT MKTO Clinical History Elevated PSA, abnormal MRI prostate 09/25/2024 9:13 AM CDT MKTO Gross Description A: Submitted as right prostate biopsy are multiple goins biopsies aggregating to 1.7 cm in length, less than 0.1 cm in diameter. ESB, one block. B: Submitted as left prostate biopsy are multiple goins biopsies aggregating to 1.7 cm in length, less than 0.1 cm in diameter. ESB, one block. af/bhc/dms 09/25/2024 9:13 AM CDT MKTO Interpretation FINAL DIAGNOSIS A. Prostate, right, core biopsies: --- Prostate adenocarcinoma , acinar type. --- Grade group 3 (Fabens score 4+3=7). --- Tumor involves 40% of overall specimen (4 of 6 cores). --- Percentage pattern 4: Greater than 75%. --- Most affected core is involved by tumor over 75% of its length. B. Prostate, left, core biopsies: Benign prostate tissue with focal atrophic change and chronic inflammation. 09/25/2024 9:13 AM CDT MKTO Tissue 09/23/2024 1:41 PM CDT 09/24/2024 6:44 AM CDT us Saji Charles M.D. LAB SURG PATH ORDERABLES Kelly l Result [facility] [address] [place] [address] [facility] [address] [place] [address] * Non-Radiology Image-Urology Image Exam (09/23/2024 1:36 PM CDT) 09/23/2024 2:14 PM CDT Narrative IIMS - 09/23/2024 1:36 PM CDT This order has been created and auto-finalized to support the import of images acquired without order. The clinical documentation to support these images can be found on the encounter that produced images. us Provider Not In System IMG NON RAD IMAGING PROCE DURES Final Result Performing Organization Address City/[facility]/ZIP Co de Phone Number IIMS NA * MR Prostate without and with IV Contrast (09/17/2024 1:31 PM CDT) Anatomical Region Laterality Modality Pelvis, Abdominal RST LOS, A bdominal ARZ LOS, Abdominal FLA LOS N/A Magnetic Resonance Impressions 09/17/2024 2:32 PM CDT PIRADS 4- High (clinically significant cancer is likely to be present). Narrative 09/17/2024 2:32 PM CDT EXAM: MR PROSTATE WITHOUT AND WITH IV CONTRAST CLINICAL HISTORY: Screening - biopsy naive. Most Recent PSA 8.1 ng/mL. COMPARISON: None. PROSTATE: Volume: 79cc (PSA density 0.10) Exam quality: Good. Peripheral zone: Focal finding, as below Transition zone: Multiple BPH nodules. Lesion # 1 Size: 1.4 x 0.3 x 0.6cm, 0.21cc Zone: Peripheral zone Location: Right posterior lateral at midgland. (Series 9, image 21) T2WI: Non-circumscribed, rounded, moderate hypointensity (T2WI score 3) DWI: Moderate diffusion restriction. (ADC: 875, Focal (discrete and different from the background) hypointense on ADC and/or focal hyperintense on high b-value DWI) (DWI score 3) DCE: Positive. Overall category: PIRADS 4- High (clinically significant cancer is likely to be present). LOCAL STAGING: Capsule: The BI-RADS 4 lesion diffusely abuts the capsule without definite extracapsular invasion. Neurovascular bundle invasion: Absent Seminal vesicles invasion: Absent Other organ invasion: Absent LYMPH NODES: Negative for suspicious lymph node(s). BONES: Negative for suspicious bone lesion(s). OTHER FINDINGS: Mild thickening and trabeculation of the urinary bladder wall. Small urinary bladder diverticulum on the right. Right inguinal hernia containing fat and a tiny portion of the bladder dome. Colonic diverticulosis. PROSTATE MRI TECHNIQUE: Multiparametric MRI of the prostate was performed at [address] [place] with surface coil. High resolution T2WI, DWI/ADC, and DCE imaging with IV contrast performed. Procedure Note Arvin Baugh M.D. - 09/17/2024 EXAM: MR PROSTATE WITHOUT AND WITH IV CONTRAST CLINICAL HISTORY: Screening - biopsy naive. Most Recent PSA 8.1 ng/mL. COMPARISON: None. PROSTATE: Volume: 79cc (PSA density 0.10) Exam quality: Good. Peripheral zone: Focal finding, as below Transition zone: Multiple BPH nodules. Lesion # 1 Size: 1.4 x 0.3 x 0.6cm, 0.21cc Zone: Peripheral zone Location: Right posterior lateral at midgland. (Series 9, image 21) T2WI: Non-circumscribed, rounded, moderate hypointensity (T2WI score 3) DWI: Moderate diffusion restriction. (ADC: 875, Focal (discrete anddifferent from the background) hypointense on ADC and/or focalhyperintense on high b-value DWI) (DWI score 3) DCE: Positive. Overall category: PIRADS 4- High (clinically significant cancer is likelyto be present). LOCAL STAGING: Capsule: The BI-RADS 4 lesion diffusely abuts the capsule without definiteextracapsular invasion. Neurovascular bundle invasion: Absent Seminal vesicles invasion: Absent Other organ invasion: Absent LYMPH NODES: Negative for suspicious lymph node(s). BONES: Negative for suspicious bone lesion(s). OTHER FINDINGS: Mild thickening and trabeculation of the urinary bladderwall. Small urinary bladder diverticulum on the right. Right inguinalhernia containing fat and a tiny portion of the bladder dome. Colonicdiverticulosis. PROSTATE MRI TECHNIQUE: Multiparametric MRI of the prostate was performedat [address] [place] with surface coil. High resolution T2WI, DWI/ADC, and DCEimaging with IV contrast performed. IMPRESSION: PIRADS 4- High (clinically significant cancer is likely to be present). us Justine Finn APRN, C.N.P. IMG MRI PROCEDURE S Final Result * (ABNORMAL) Glucose, POCT (09/17/2024 12:32 PM CDT) Glucose, POCT, B 165(H) 70 - 140 mg/dL 09/17/2024 12:32 PM CDT [facility] Blood 09/17/2024 12:3 2 PM CDT 09/17/2024 1:19 PM CDT us Generic Rals LAB POCT ORDERABLES-MANUAL Final Result [facility] [address] [place] [address], [facility] [place] [address] [place] [address] * (ABNORMAL) Lipid Panel (08/28/2024 1:48 PM CDT) Triglycerides 263(H) mg/dL 08/28/2024 2:38 PM CDT [facility] Comment: ----REFERENCE VALUE---- Normal: <150 mg/dL Borderline High: 150-199 mg/dL High: 200-499 mg/dL Very High: > or =500 mg/dL Cholesterol, Total 165 mg/dL 2023 2:38 PM CDT [facility] Comment: ----REFERENCE VALUE---- Desirable: < 200 mg/dL Borderline High: 200 - 239 mg/dL High: > or = 240 mg/dL Cholesterol, LDL, Calculated 73 mg/dL 08/28/2024 2:38 PM CDT [facility] Comment: ----REFERENCE VALUE---- Desirable: <100 mg/dL Above Desirable: 100-129 mg/dL Borderline High: 130-159 mg/dL High: 160-189 mg/dL Very High: >=190 mg/dL ----ADDITIONAL INFORMATION---- LDL cholesterol calculated using the Laird/NIH equation. Cholesterol, HDL 49 >=40 mg/dL 08/28/20 2:38 PM CDT [facility] Cholesterol, Non-HDL, Calculated 116 mg/dL 08/28/2024 2:38 PM CDT [facility] Comment: ----REFERENCE VALUE---- Desirable: <130 mg/dL Above Desirable: 130-159 mg/dL Borderline High: 160-189 mg/dL High: 190-219 mg/dL Very High: > or =220 mg/dL Fasting (8 HR or more) No 08/28/2024 1:48 PM CDT [facility] Blood (Blood, Venous) 08/28/2024 1:48 PM CDT 08/28/2024 1:56 PM CDT us Saba Pearson [facility], [facility].-C., P.A. LAB BLOOD ADD-ON Final Result [facility] [address] [place] [address], [facility] [place] [address] [place] [address] * (ABNORMAL) PSA (Prostate-Specific Antigen), Total and Free (08/28/2024 1:48 PM CDT) Prostate-Specific Ag 8.1(H) <=7.2 ng/mL 08/29/2024 10:57 AM CDT [facility] Free PSA 0.5 ng/mL 08/29/2024 10:57 AM CDT [facility] Free PSA/PSA Ratio 0.06 ratio 2023 10:57 AM CDT [facility] Comment: When Total PSA is in the range of 4.0-10.0 ng/mL: Probability of Cancer fPSA/tPSA ratio 50-59 years 60-69 years >or= 70 years < or = 0.10 49% 58% 65% 0.11 - 0.18 27% 34% 41% 0.19 - 0.25 18% 24% 30% > 0.25 9% 12% 16% ----ADDITIONAL INFORMATION---- The testing method is an electrochemiluminescence assay manufactured by [employer] and performed on the Modular or Chivo system. Values obtained with different assay methods or kits may be different and cannot be used interchangeably. Test results cannot be interpreted as absolute evidence for the presence or absence of malignant disease. Blood (Blood, Venous) 08/28/2024 1:48 PM CDT 08/29/2024 10:12 AM CDT us Justine Finn APRN, C.N.PJazmin LAB BLOOD NON ADD -ON Final Result [facility] [address] [place] [address] [facility] [address] [place] [address] * (ABNORMAL) Hemoglobin A1c (08/28/2024 1:48 PM CDT) Pathologist [facility] Hemoglobin A1c, B 7.1(H) 4.2 - 5.6 % 08/28/2024 2:36 PM CDT OWAT Comment: Hemoglobin A1c values greater than or equal to 6.5 percent are diagnostic for diabetes mellitus. Diagnosis should be confirmed by repeat testing. In diabetic patients, HbA1c goals should be discussed with healthcare provider. Blood (Blood, Venous) 08/28/2024 1:48 PM CDT 08/28/2024 1:56 PM CDT us Saba COBIAN, P.A.-C., P.A. LAB BLOOD ADD-ON Final Result [facility] [address] [place] [address], [facility] OWAT [facility] [place] [address] [place] [address] * (ABNORMAL) Basic Metabolic Panel (08/28/2024 1:48 PM CDT) Pathologist [facility] Potassium, P 4.9 3.6 - 5.2 mmol/L 08/28/2024 2:38 PM CDT OWAT Sodium, P 141 135 - 145 mmol/L 08/28/2024 2:38 PM CDT OWAT Chloride, P 102 98 - 107 mmol/L 08/28/2024 2:38 PM CDT OWAT Bicarbonate, P 27 22 - 29 mmol/L 08/28/2024 2:38 PM CDT OWAT Anion Gap, P 12 7 - 15 08/28/2024 2:38 PM CDT OWAT BUN (Blood Urea Nitrogen), P 35(H) 8 - 24 mg/dL 08/28/2024 2:38 PM CDT OWAT Creatinine 1.38(H) 0.74 - 1.35 mg/dL 08/28/2024 2:38 PM CDT OWAT Estimated GFR (eGFR) 51(L) >=60 mL/min/BSA 08/28/2024 2:38 PM CDT OWAT Comment: Estimated GFR calculated using the 2020 CKD_EPI creatinine equation. Calcium, Total, P 10.0 8.8 - 10.2 mg/dL 08/28/2024 2:38 PM CDT OWAT Glucose, P 152(H) 70 - 140 mg/dL 08/28/2024 2:38 PM CDT OWAT Blood (Blood, Venous) 08/28/2024 1:48 PM CDT 08/28/2024 1:56 PM CDT Saba COBIAN, P.A.-C., P.A. LAB BLOOD ADD-ON Final Result [facility] [address] [place] [address], [place] OW[facility] [place] [address] [place] [address] from Last 3 Months Insurance MEDICARE [facility] [place] [address] Care Teams Veneer Jointer Helper Relationship Specialty Start Date End Date Elsewhere, Pcp PCP - General Family Medicine 11/19/20
--- OUTSIDE RECORDS SUMMARY | 2024-10-22 13:54 | XMS_ITS | Clinical Summary ---
Author Organization [facility] [facility] Address [place], [place] [address] Care Team Providers Care Pre K Special Education Teacher Name Role Phone Pcp, No Primary Care [...] 65+ (1 of 1 - PCV) 2006 RSV vaccine for adults or (1 - 1-dose 75+ series) 2016 COVID-19 vaccine series ( season) 2024 03/28/2023, 03/03/2022, 08/23/2021, Additional history exists Influenza for age 65+ 07/28/2024 Care Teams Pre K Special Education Teacher Relationship Specialty Start Date End Date Pcp, No . PCP - General 12/23/22
--- OUTSIDE RECORDS SUMMARY | 2024-10-22 13:55 | XMS_ITS | Referral Summary ---
Author Organization [facility] Address [address] [place] [address] Care Team Providers Care Prefitter Doors Name Role Phone Elsewhere, Pcp Primary Care Provider Unavailabl e Source Comments Patient records contain information from all sites at [facility]. For routine questions regarding patient records, call [phone] during business hours, M-F 8:00 AM - 5:00 PM Central Time. Record requests for emergency care only can be directed to [phone] at any time.[facility] Encounters Date Type Department Care Team Description 10/22/2024 1:00 PM TETRYL SCREEN OPERATOR Hospital Encounter Department of Radiation Oncology in [place], [place] [address] [place] [phone] Chris Kinsey M.D. Primary Malignant Neoplasm Of Prostate (HCC) 10/22/2024 12:06 PM TETRYL SCREEN OPERATOR Hospital Encounter Department of Radiation Oncology in [place], [place] [address] [place] [phone] Chris Kinsey M.D. Rhodes, Lori L 10/10/2024 12:49 PM TETRYL SCREEN OPERATOR - 10/10/2024 3:41 PM TETRYL SCREEN OPERATOR Hospital Encounter Department of Radiation Oncology in [place], [place] [address] [place] [phone] Chris Kinsey M.D. Primary Malignant Neoplasm Of Prostate (HCC) 10/01/2024 12:12 PM TETRYL SCREEN OPERATOR - 10/01/2024 11:59 PM TETRYL SCREEN OPERATOR Hospital Encounter Department of Radiology in [place], [place] [address], [place] [address] Justine Finn APRN, C.N.P. Primary Malignant Neoplasm Of Prostate (HCC) Discharge Disposition: Home or Self Care 09/27/2024 1:00 PM CDT Office Visit Department of Urology in [address] [phone] Justine Finn APRN, C.N.P. Primary Malignant Neoplasm Of Prostate (HCC) (Primary Dx) 09/23/2024 2:15 PM CDT Ancillary Procedure Department of Urology 09/23/2024 1:30 PM CDT Procedure visit Department of Urology in [address] [phone] Saji Charles M.D. Elevated Prostate-Specific Antigen; Abnormal Magnetic Resonance Imaging Prostate 09/19/2024 10:00 AM CDT Office Visit Department of Urology in [address] [phone] Justine Finn APRN, C.N.P. Elevated Prostate-Specific Antigen (Primary Dx); Abnormal Magnetic Resonance Imaging Prostate 09/17/2024 12:08 PM CDT - 09/17/2024 11:59 PM CDT Hospital Encounter Department of Radiology in [address] [phone] Justine Finn APRN, C.N.P. Elevated Prostate-Specific Antigen Discharge Disposition: Home or Self Care 09/16/2024 2:30 PM CDT Office Visit Department of Urology in [place] [address] [place] [phone] Justine Finn APRN, C.N.P. Elevated Prostate-Specific Antigen (Primary Dx) 09/03/2024 3:00 PM CDT Office Visit Department of Endocrinology in [address] [phone] Saba Gutierrez MPAS, P.Olya.-C., P.A. Diabetes Mellitus Type 2 With Other Circulatory Complication (HCC) (Primary Dx); Nursing Home Use Of Insulin Active (HCC); Diabetes Mellitus Type 2 With Diabetic Chronic Kidney Disease (HCC); Diabetes Mellitus Type 2 With Diabetic Neuropathy (HCC); Fountain Worker Current Use Of Injectable Non-Insulin Antidiabetic Drugs; Morbid Obesity Body Mass Index >= 35 with Comorbid Condition (HCC) 08/28/2024 1:31 PM CDT - 08/28/2024 11:59 PM CDT Hospital Encounter Department of Laboratory Medicine in [place], [place] [address] [place] [address] Saba Gutierrez MPAS, Jesenia.Olya.-C., P.A. Diabetes Mellitus Type 2 With Other Circulatory Complication (HCC); Elevated Prostate-Specific Antigen Discharge Disposition: Home or Self Care from Last 3 Months Allergies No known active allergies Medications foot care products pad FOR HOME USE 0 09/29/20 18 Active aspirin 81 mg chewable tablet Chew 1 tablet daily. 07/16/20 14 Active omega 7-sfw-sjd-fish oil 100-160-1,000 mg capsule Take 2 capsules [...] Test Strips strips daily. for testing 07/07/20 21 Active Droplet Pen Needle 32 gauge x [...] Mellitus Type 2 With Other Circulatory Complication (HCC),Fountain Worker Use Of Insulin Active (HCC),Diabetes Mellitus Type [...] by Justine Finn APRN, C.N.P. on 09/27/2024 Fountain Worker Use Of Insulin Active 12/14/2022 Fountain Worker Current Use Of Inj ectable Non-Insulin Antidiabetic [...] drink = 0.6 oz pur e alcohol) [facility] [employer] Answer Date Recorded In the past 12 months has e [employer], gas, oil, or water [employer] threatened to shut off services in your [...] any clubs o r organizations such as evangelical groups, unions, fraternal or athletic groups, or [...] and heating? Not hard at all 06/02/2022 [facility] - [...] your living situation today? I have a [place] place to live 12/03/2023 Education Answer Date Recorded What is the highest level of school you have completed or the highest degree you have received? Associate degree: academic program 06/02/2022 Sex and Gender Information Value Date Recorded Sex Assigned at Male 09/22/2023 8:15 PM CDT Legal Sex Male 3:53 AM TETRYL SCREEN OPERATOR Gender Identity Male 09/22/2023 8:15 PM CDT Sexual Orientation Straight 06/02/2022 12 :11 PM CDT Last Filed Vital Signs Vital Sign Reading Time Taken Comments Blood Pressure 109/64 10/10/2024 12:55 PM TETRYL SCREEN OPERATOR Pulse 62 10/10/2024 12:55 PM TETRYL SCREEN OPERATOR Temperature 36.2 C (97.2 F) 10/22/2024 12:23 PM TETRYL SCREEN OPERATOR Respiratory Rate 20 01/21/2014 11:1 6 AM TETRYL SCREEN OPERATOR Vital sign result from Clinical Notes. Oxygen Saturation 94% 06/14/2023 2:4 6 PM CDT Inhaled Oxygen Concentration - - Weight 139 kg (306 lb 14.1 oz) 10/22/2024 12:23 PM TETRYL SCREEN OPERATOR Height 183.3 cm (6' 0.17) 02/22/2023 1 :51 PM CDT Body Mass Index 41.43 02/22/2023 1:51 PM CDT Plan of Treatment Upcoming Encounters Date Type Department Care Team (Late st Contact Info) Description 10/29/2024 1:45 PM TETRYL SCREEN OPERATOR Appointment Department of Radiation Oncology in [place], [place] [address] [place] [phone] Chris Kinsey M.D. [address] [place] [address] 11/28/2024 12:00 PM TETRYL SCREEN OPERATOR Appointment Department of Laboratory Medicine in [place], [place] [address] [place] [phone] Saba Pearson MPAS, P.A.-C., P.A. [address], [place] [phone] 03/05/2025 1:20 PM CDT Appointment Department of Laboratory Medicine in [place], [place] [address] [place] [phone] Saba Pearson MPAS, P.Olya.-C., P.A. [address] [phone] 03/05/2025 2:30 PM CDT Office Visit Department of Endocrinology in [place], [place] [address] [place] [phone] Saba Pearson MPAS, P.Olya.-C., P.A. [address] [phone] Medical Devices Implanted Type Area Plate Glass Installer Helper Device Identifier Shelf Expiration Date Model / Serial / Lot [place] Andi Fuzzy 1 X 1 - Nettles 1667 Implanted:Qty: 1 on 12/14/2000 [employer] or Patch Criptext Description:Device Manufactu rer - [employer]. Device Status Text - [id number]. [facility] Data - [id number]. Procedures Procedure Name Priority Date/Time Associated Diagnosis Comments INITIAL RAD ONC TREATMENT PLANNING CT SIMULATION Routine 10/22/2024 1:00 PM TETRYL SCREEN OPERATOR Primary Malignant Neoplasm Of Prostate (HCC) PET CT SKULL TO THIGH PSMA RAD - Routine (most inpatients and all outpatients) 10/01/2024 2:10 PM TETRYL SCREEN OPERATOR Primary Malignant Neoplasm Of Prostate (HCC) [...] Skull to Thigh PSMA (10/01/2024 2:10 PM TETRYL SCREEN OPERATOR) Anatomical Region Laterality Modality Body, Nuclear Medicine PET R ST LOS, PET ARZ LOS, Nuclear Medicine PET FLA LOS, Nuclear Medicine N/A Positron Emission Tomography (PET) Impressions 10/01/2024 3:32 PM TETRYL SCREEN OPERATOR 1. Prominent uptake noted within the right prostate gland, consistent with MRI and primary prostatic malignancy. 2. No evidence for osseous metastatic disease. 3. Focal uptake in the right lower lobe/pleura with associated focal opacity, findings concerning for infection. Narrative 10/01/2024 3:32 PM TETRYL SCREEN OPERATOR EXAM: PET CT SKULL TO THIGH PSMA COMPARISON: None INDICATION: [place] 4+3 prostate cancer.. The patient reports no [...] SKULL TO THIGH PSMA COMPARISON: None INDICATION: [place] 4+3 prostate cancer.. The patient reports no [...] focalopacity, findings concerning for infection. Justine Finn APRN, C.N.P. IM NM PROCEDURES Final Result * Surgical Pathology (09/23/2024 1:41 PM CDT) 09/25/2024 9:13 AM CDT TO Report electronically signed by Loreto Child MD [...] , acinar type. --- Grade group 3 (Al score 4+3=7). --- Tumor involves 40% of [...] LAB SURG PATH ORDERABLES Kelly l Result [facility] [address] [place] [address] [place] [address] * Non-Radiology Image-Urology Image Exam (09/23/2024 1:36 [...] PROCE DURES Final Result Performing Organization Address City/[facility]/ZIP Co de Phone Number IIMS NA * [...] significant cancer is likely to be present). Justine Finn APRN, C.N.P. IMG MRI PROCEDURE S Final Result * (ABNORMAL) Glucose, POCT (09/17/2024 12:32 PM CDT) Glucose, POCT, B 165(H) 70 - 140 mg/dL 09/17/2024 12:32 PM CDT OWAT Blood 09/17/2024 12:3 2 PM CDT 09/17/2024 1:19 PM CDT Generic Rals LAB POCT ORDERABLES-MANUAL Final Result [facility] [address] [place] [address], [facility] OWAT [facility] [place] [address] [facility] [place] [address] * (ABNORMAL) Lipid Panel (08/28/2024 1:48 PM [...] equation. Cholesterol, HDL 49 >=40 mg/dL 08/28/20 24 2:38 PM CDT OWAT Cholesterol, Non-HDL, Calculated [...] P.A.-C., P.A. LAB BLOOD ADD-ON Final Result [facility] [address] [place] [address], [facility] OWAT [facility] [place] [address] [place] [address] * (ABNORMAL) PSA (Prostate-Specific Antigen), Total and [...] 1:48 PM CDT 08/29/2024 10:12 AM CDT Justine Finn APRN, C.N.P. LAB BLOOD NON ADD -ON Final Result [facility] [address] [place] [address] [facility] [address] [place] [address] * (ABNORMAL) Hemoglobin A1c (08/28/2024 1:48 PM CDT) Hemoglobin A1c, B 7.1(H) 4.2 - 5.6 % 08/28/2024 2:36 PM CDT OWAT Comment: Hemoglobin A1c values greater than or equal to 6.5 percent are diagnostic for diabetes mellitus. Diagnosis should be confirmed by repeat testing. In diabetic patients, HbA1c goals should be discussed with healthcare provider. Blood (Blood, Venous) 08/28/2024 1:48 PM CDT 08/28/2024 1:56 PM CDT Saba Pearson MPAS, P.A.-C., P.A. LAB BLOOD ADD-ON Final Result [facility] [address] [place] [address], [facility] OWAT [facility] [place] [address] [place] [address] * (ABNORMAL) Basic Metabolic Panel (08/28/2024 1:48 PM CDT) Potassium, P 4.9 3.6 - 5.2 mmol/L [...] P.A.-C., P.A. LAB BLOOD ADD-ON Final Result [facility] [address], [place] [address], [place] OW[place] [facility] [place] [address], [place] [address] from Last 3 Months Insurance MEDICARE [facility] Care Teams Prefitter Doors Relationship Specialty Start Date End Date Elsewhere, Pcp PCP - General Family Medicine 11/19/20
--- OUTSIDE RECORDS SUMMARY | 2024-10-22 13:55 | XMS_ITS | Encounter Summary ---
Author Organization [facility] Address [address] [place] [address] Care Team Providers Care Public Safety Dispatcher Name Role Phone Elsewhere, Pcp Primary Care Provider Unavailabl e Reason for Referral * Radiation Therapy (Routine) - Closed Specialty Diagnoses / Procedures Referred By Daron basilio Referred To Contact Diagnoses Primary Malignant Neoplasm Of Prostate (HCC) Procedures Initial Rad Onc Treatment Planning CT Simulation without IV Contrast Chris Kinsey M.D. [address] [place] [address] Phone: tel: fax: [facility] Region Referral ID Status Reason Start Date Expiration Date Visits Re quested Visits Authorized [id number] Closed 10/10/2024 10/10/2025 1 1 RVISOR RUBBER COVERING Reason for Visit * Radiation Therapy (Routine) - Closed Specialty Diagnoses / Procedures Referred By Daron basilio Referred To Contact Diagnoses Primary Malignant Neoplasm Of Prostate (HCC) Procedures Initial Rad Onc Treatment Planning CT Simulation without IV Contrast Chris Kinsey M.D. [address] [place] [address] Phone: tel: fax: [facility] Region Referral ID Status Reason Start Date Expiration Date Visits Re quested Visits Authorized [id number] Closed 10/10/2024 10/10/2025 1 1 Encounter Details Date Type Department Care Team (Latest Contact Info) Description 10/22/2024 1:00 PM SUPERVISOR RUBBER COVERING Hospital Encounter Department of Radiation Oncology in [place], [place] [address] [place] [address] Chris Kinsey M.D. [address] [place] [address] Primary Malignant Neoplasm Of Prostate (HCC) Social History Tobacco Use Types Packs/Day Years Used Date Smoking Tobacco: Former Cigarettes 1 19.3 0 07/28/1960 - 11/27/1979 Smokeless Tobacco: Never Alcohol Use Standard Drinks/Week Comments No 0 (1 standard drink = 0.6 oz pur e alcohol) [facility] Utilities Answer Date Recorded In the past [...] often do you attend chur ch or buddhism services? More than 4 times per year 06/02/2022 Do you belong to any clubs o r organizations such as mu-ism groups, unions, fraternal or athletic groups, or [...] and heating? Not hard at all 06/02/2022 [facility] - Occupational [...] your living situation today? [facility] 12/03/2023 Education Answer Date Recorded What is the highest level of school you have completed or the highest degree you have received? Associate degree: academic program 06/02/2022 Sex and Gender Information Value Date Recorded Sex Assigned at Male 09/22/2023 8:15 PM CDT Legal Sex Male 3:53 AM SUPERVISOR RUBBER COVERING Gender Identity Male 09/22/2023 8:15 PM CDT Sexual Orientation Straight 06/02/2022 12 :11 PM CDT documented as of this encounter Plan of Treatment Upcoming Encounters Date Type Department Care Team (Late st Contact Info) Description 10/29/2024 1:45 PM SUPERVISOR RUBBER COVERING Appointment Department of Radiation Oncology in [place], [place] [address] [place] [address] Chris Kinsey M.D. [address] [place] [address] 11/28/2024 12:00 PM SUPERVISOR RUBBER COVERING Appointment Department of Laboratory Medicine in [place], [place] [address] [phone] Saba Pearson MPAS, P.A.-C., P.A. [address] [phone] 03/05/2025 1:20 PM CDT Appointment Department of Laboratory Medicine in [place], [place] [address] [address] Saba Perason MPAS, P.A.-C., P.A. [address] [phone] 03/05/2025 2:30 PM CDT Office Visit Department of Endocrinology in [place], [place] [address] [address] Saba Pearson, MANGO, P.A.-C., P.A. [address] [phone] Pending Results Name Type Priority Associated Diagnoses Date/Time Initial Rad Onc Treatment Planning CT Simulation without IV Contrast Procedural Imaging Routine Primary Malignant Neoplasm Of Prostate (HCC) 10/22/2024 1:00 PM SUPERVISOR RUBBER COVERING documented as of this encounter Procedures Procedure Name Priority Date/Time Associated Diagnosis Comments INITIAL RAD ONC TREATMENT PLANNING CT SIMULATION Routine 10/22/2024 1:00 PM SUPERVISOR RUBBER COVERING Primary Malignant Neoplasm Of Prostate (HCC) documented in this encounter Visit Diagnoses Diagnosis Primary Malignant Neoplasm Of Prostate (HCC) documented in this encounter Care Teams Public Safety Dispatcher Relationship Specialty Start Date End Date Elsewhere, Pcp PCP - General Family Medicine 11/19/20 documented as of this encounter
--- OUTSIDE RECORDS SUMMARY | 2024-10-22 13:55 | XMS_ITS | Encounter Summary ---
Author Organization [facility] Address [address] [place] [address] Care Team Providers Care Audit Specialist Name Role Phone Elsewhere, Pcp Primary Care Provider Unavailabl e Reason for Referral * Outpatient (Routine) - Closed Specialty Diagnoses / Procedures Referred By Contac t Referred To Contact Urology Justine Finn APRN, C.N.P. [address], [place] [address] Phone: tel: fax: [facility] Region Referral ID Status Reason Start Date Expiration Date Visits Re quested Visits Authorized [id number] Closed 09/16/2024 03/18/2026 1 1 Scheduling Instructions Can be same day as MRI, at least 1-2 hours after MRI * MRI/CAT/PET Scan (Routine) - Closed Specialty Diagnoses / Procedures Referred By Contac t Referred To Contact Radiology Diagnoses Elevated Prostate-Specific Antigen Procedures MR Prostate without and with IV Contrast Justine Finn APRN, C.N.P. [address] [place] [address] Phone: tel: fax: [facility] Region Referral ID Status Reason Start Date Expiration Date Visits Re quested Visits Authorized [id number] Closed 09/16/2024 09/16/2025 1 1 Reason for Visit * Reason Comments Follow-up Elevated PSA * Outpatient (Routine) - Closed Specialty Diagnoses / Procedures Referred By Daron basilio Referred To Contact Urology Justine Finn APRN, C.N.P. [address] [address] Phone: tel: fax: [facility] Region Referral ID Status Reason Start Date Expiration Date Visits Re quested Visits Authorized [id number] Closed 06/10/2024 12/10/2025 1 1 Encounter Details Date Type Department Care Team (Late st Contact Info) Description 09/16/2024 2:30 PM CDT Office Visit Department of Urology in [address] [phone] Justine Finn APRN, C.N.P. [address] [phone] Elevated Prostate-Specific Antigen (Primary Dx) Social History Tobacco Use Types Packs/Day Years Used Date Smoking Tobacco: Former Cigarettes 1 19.3 0 07/28/1960 - 11/27/1979 Smokeless Tobacco: Never Alcohol Use Standard Drinks/Week Comments No 0 (1 standard drink = 0.6 oz pur e alcohol) [facility] Utilities Answer Date Recorded In the past [address] [facility] [employer], oil, or water Takes threatened to shut off services in your [...] How often do you attend chur or baptism services? More than 4 times per year [...] your living situation today? I have a [facility] place to live 12/03/2023 Education Answer Date Recorded What is the highest level of school you have completed or the highest degree you have received? Associate degree: academic program 06/02/2022 Sex and Gender Information Value Date Recorded Sex Assigned at Male 09/22/2023 8:15 PM CDT Legal Sex Male 3:53 AM DIVISION OPERATIONS SPECIALIST Gender Identity Male 09/22/2023 8:15 PM CDT Sexual Orientation Straight 06/02/2022 12 :11 PM CDT documented as of this encounter Progress Notes * Justine Finn APRN, C.N.P. - 09/16/2024 2:30 PM CDT SUBJECTIVE CHIEF COMPLAINT/REASON FOR VISIT Chief Complaint Patient presents with Follow-up Elevated PSA HISTORY OF PRESENT ILLNESS Asael is a pleasant 83-year-old male here today for follow-up for elevated PSA level. He is not aware of family history of prostate cancer, he was exposed to Agent [place]. The following portions of the patient's history were reviewed and updated as appropriate: allergies, current medications, family history, medical history, social history, surgical history, and problem list. Results for orders placed or performed during the hospital encounter of 08/28/24 Hemoglobin A1c Collection Time: 08/28/24 1:48 PM Result Value Ref Range Hemoglobin A1c, B 7.1 (H) 4.2 - 5.6 % Basic Metabolic Panel Collection Time: 08/28/24 1:48 PM Result Value Ref Range Potassium, P 4.9 3.6 - 5.2 mmol/L Sodium, P 141 135 - 145 mmol/L Chloride, P 102 98 - 107 mmol/L Bicarbonate, P 27 22 - 29 mmol/L Anion Gap, P 12 7 - 15 BUN (Blood Urea Nitrogen), P 35 (H) 8 - 24 mg/dL Creatinine 1.38 (H) 0.74 - 1.35 mg/dL Estimated GFR (eGFR) 51 (L) >=60 mL/min/BSA Calcium, Total, P 10.0 8.8 - 10.2 mg/dL Glucose, P 152 (H) 70 - 140 mg/dL Lipid Panel Collection Time: 08/28/24 1:48 PM Result Value Ref Range Triglycerides 263 (H) mg/dL Cholesterol, Total 165 mg/dL Cholesterol, LDL, Calculated 73 mg/dL Cholesterol, HDL 49 >=40 mg/dL Cholesterol, Non-HDL, Calculated 116 mg/dL Fasting (8 HR or more) No PSA (Prostate-Specific Antigen), Total and Free Collection Time: 08/28/24 1:48 PM Result Value Ref Range Prostate-Specific Ag 8.1 (H) <=7.2 ng/mL Free PSA 0.5 ng/mL Free PSA/PSA Ratio 0.06 ratio ASSESSMENT / PLAN 1. Elevated Prostate-Specific Antigen (Primary) We discussed that PSA level has increased and PSA ratio is low. Recommendation is to go forward with prostate MRI. Orders are placed for this. We discussed that if PI-RADS 3, 4, or 5 we would discussgoing forward with prostate biopsy. We will discuss MRI results and next steps going forward at follow-up visit. All questions answered. - MR Prostate without and with IV Contrast; Future Signed by: Justine Finn APRN, C.N.P. 09/16/2024 4:53 PM CDT documented in this encounter Plan of Treatment Upcoming Encounters Date Type Department Care Team (Late st Contact Info) Description 10/29/2024 1:45 PM DIVISION OPERATIONS SPECIALIST Appointment Department of Radiation Oncology in [place], [place] [address] [place] [address] Chris Kinsey M.D. [address] [place] [address] 11/28/2024 12:00 PM DIVISION OPERATIONS SPECIALIST Appointment Department of Laboratory Medicine in [place], [place] [address] [phone] Saba Pearson MPAS, Jesenia.A.-C., P.A. [address] [phone] 03/05/2025 1:20 PM CDT Appointment Department of Laboratory Medicine in [place], [place] [address] [phone] Saba Pearson MPAS, P.A.-C., P.A. [address] [phone] 03/05/2025 2:30 PM CDT Office Visit Department of Endocrinology in [place], [place] [address] [phone] Saba Pearson MPAS, P.A.-C., P.A. [address] [phone] Scheduled Referrals Name Type Priority Associated Diagnoses Orde r Schedule Urology office visit (clinic) Outpatient Referral Routine Expected: 09/16/2024, Expires: 12/17/2025 documented as of this encounter Results * MR Prostate without and with IV [...] is likely to be present). Justine Finn APRN C.N.P. IMAllie MRI PROCEDURE S Final Result documented in this encounter Visit Diagnoses Diagnosis Elevated Prostate-Specific Antigen- Primary Elevated Prostate-Specific Antigen documented in this encounter Care Teams Audit Specialist Relationship Specialty Start Date End Date Elsewhere, Pcp PCP - General Family Medicine 11/19/20 documented as of this encounter
--- OUTSIDE RECORDS SUMMARY | 2024-10-22 13:55 | XMS_ITS | Encounter Summary ---
Author Organization [facility] Address [address] [place] [id number] Care Team Providers Care Dog Bather Name Role Phone Elsewhere, Pcp Primary Care Provider Unavailabl e Reason for Referral * MRI/CAT/PET Scan (Routine) - Authorized Specialty Diagnoses / Procedures Referred By Contac t Referred To Contact Radiology Diagnoses Primary Malignant Neoplasm Of Prostate (HCC) Procedures MR Prostate without IV Contrast Chris Kinsey M.D. [address] [place] [address] Phone: tel: fax: [facility] Region Referral ID Status Reason Start Date Expiration Date V isits Requested Visits Authorized [id number] Authorized 10/10/2024 10/10/2025 1 1 WASHER * Radiation Therapy (Routine) - Authorized Specialty Diagnoses / Procedures Referred By Contac t Referred To Contact Diagnoses Primary Malignant Neoplasm Of Prostate (HCC) Procedures Management Visit Chris Kinsey M.D. [address] [place] [address] Phone: tel: fax: [facility] Region Referral ID Status Reason Start Date Expiration Date V isits Requested Visits Authorized [id number] Authorized 10/10/2024 10/10/2025 10 10 WASHER * Radiation Therapy (Routine) - Closed Specialty Diagnoses / Procedures Referred By Contac t Referred To Contact Diagnoses Primary Malignant Neoplasm Of Prostate (HCC) Procedures Initial Rad Onc Treatment Planning CT Simulation without IV Contrast Chris Kinsey M.D. [address] [place] [address] Phone: tel: fax: [facility] Region Referral ID Status Reason Start Date Expiration Date Visits Re quested Visits Authorized [id number] Closed 10/10/2024 10/10/2025 1 1 WASHER * Radiation Therapy (Routine) - Authorized Specialty Diagnoses / Procedures Referred By Contac t Referred To Contact Diagnoses Primary Malignant Neoplasm Of Prostate (HCC) Procedures Prior Auth Rad Tx Chris Kinsey M.D. [address] [place] [address] Phone: tel: fax: [facility] Referral ID Status Reason Start Date Expiration Date V isits Requested Visits Authorized [id number] Authorized 10/10/2024 10/10/2025 1 1 WASHER * Outpatient (Routine) - Closed Specialty Diagnoses / Procedures Referred By Contac t Referred To Contact Radiation Oncology Chris Kinsey M.D. [address] [place] [address] Phone: tel: fax: [facility] Region Referral ID Status Reason Start Date Expiration Date Visits Re quested Visits Authorized [id number] Closed 10/10/2024 04/11/2026 1 1 Scheduling Instructions Approximately; would like ArteraAI results back prior to appointment WASHER * Outpatient (Routine) - Closed Specialty Diagnoses / Procedures Referred By Contac t Referred To Contact Radiation Oncology Diagnoses Primary Malignant Neoplasm Of Prostate (HCC) Justine Finn, [place]AN, C.N.P. [address] [address] Phone: tel: fax: [facility] Region Referral ID Status Reason Start Date Expiration Date Visits Re quested Visits Authorized [id number] Closed 09/27/2024 03/29/2026 1 1 Scheduling Instructions [place] WASHER Reason for Visit * Outpatient (Routine) - Closed Specialty Diagnoses / Procedures Referred By Contac t Referred To Contact Radiation Oncology Diagnoses Primary Malignant Neoplasm Of Prostate (HCC) Justine Finn APRN, C.N.P. [address] [place] [address] Phone: tel: fax: [facility] Referral ID Status Reason Start Date Expiration Date Visits Re quested Visits Authorized [id number] Closed 09/27/2024 03/29/2026 1 1 Encounter Details Date Type Department Care Team (Latest Contact Info) Description 10/10/2024 12:49 PM CHIP WASHER - 10/10/2024 3:41 PM CHIP WASHER Hospital Encounter Department of Radiation Oncology in [place], [place] [address] [place] [address] Chris Kinsey M.D. [address] [place] [address] Primary Malignant Neoplasm Of Prostate (HCC) Social History Tobacco Use Types Packs/Day Years Used Date Smoking Tobacco: Former Cigarettes 1 19.3 0 07/28/1960 - 11/27/1979 Smokeless Tobacco: Never Alcohol Use Standard Drinks/Week Comments No 0 (1 standard drink = 0.6 oz pur e alcohol) [facility] Utilities Answer Date Recorded In the [...] often do you attend chur ch or congregational services? More than 4 times per year 06/02/2022 Do you belong to any clubs o r organizations such as yarsanism groups, unions, fraternal or athletic groups, or [...] and heating? Not hard at all 06/02/2022 [facility] [place] [facility] Occupat ional Health - Occupational Stress [...] your living situation today? I have a [facility] place to live 12/03/2023 Education Answer Date Recorded What is the highest level of school you have completed or the highest degree you have received? Associate degree: academic program 06/02/2022 Sex and Gender Information Value Date Recorded Sex Assigned at Male 09/22/2023 8:15 PM CDT Legal Sex Male 3:53 AM CHIP WASHER Gender Identity Male 09/22/2023 8:15 PM CDT Sexual Orientation Straight 06/02/2022 12 :11 PM CDT documented as of this encounter Last Filed Vital Signs Vital Sign Reading Time Taken Comments Blood Pressure 109/64 10/10/2024 12:55 PM CHIP WASHER Pulse 62 10/10/2024 12:55 PM CHIP WASHER Temperature 36 C (96.8 F) 10/10/2024 12:55 PM CHIP WASHER Respiratory Rate - - Oxygen Saturation - - Inhaled Oxygen Concentration - - Weight 138 kg (305 lb 5.4 oz) 10/10/2024 12:55 P M CHIP WASHER Height - - Body Mass Index 41.22 02/22/2023 1:51 PM CDT documented in this encounter Medications at Time of Discharge albuterol 90 mcg/actuation inhaler Inhale. 4 alcohol swabs (Alcohol Prep) pads, medicated Apply topically. 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 4 cholecalciferol (VITAMIN D3) 10 mcg (400 Unit) tablet Take 10 mcg by mouth daily. Contour Test Strips strips daily. for testing 07/07/20 2 1 Droplet Pen Needle 32 gauge x 5/32 needle 1 empagliflozin (Jardiance) 25 mg tabletIndications: Diabetes Mellitus Type 2 With Other Circulatory Complication (HCC) Take 1 tablet (25 mg total) by mouth daily before morning meal. Take with 8-16 oz water 30 minutes prior to breakfast. 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 7 kit 3 4 12/06/19 25 foot care products pad FOR HOME USE 0 8 glucosam-chondroit in-diet cb25 116-100 mg capsule Take 1 tablet by mouth 2 (two) times a day. 4 hydroCHLOROthiazid e (HYDRODIURIL) 25 mg tablet Take 25 mg by mouth daily. 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 30 mL 3 4 09/03/20 25 isosorbide mononitrate (IMDUR) 60 mg 24 hr tablet Take 60 mg by mouth daily. 8 ketoconazole (Nizoral) 2 % cream MIX 11 WITH TRIAMCINOLONE ACETONIDE 0.1% TOPICAL CREAM. APPLY ON AFFECTED AREAS ON BODY 1-2X DAILY FOR UP TO 2 WEEKS. CONTINUE WITH ONLY KE 4 losartan (COZAAR) 100 mg tablet Take 1 tablet by mouth daily. 4 metFORMIN XR (Glucophage-XR) 500 mg 24 hr tabletIndications: Diabetes Mellitus Type 2 With Diabetic Chronic Kidney Disease (HCC) Take 1 tablet (500 mg total) by mouth 2 (two) times a day with meals. 180 tablet 3 4 09/03/20 25 metoprolol tartrate (LOPRESSOR) 100 mg tablet Take 100 mg by mouth 2 (two) times a day. 9 multivitamin tablet Take 1 tablet by mouth daily. 4 omega 3-qew-jqm-fish oil 100-160-1,000 mg capsule Take 2 capsules by mouth daily. 4 pravastatin (PravachoL) 40 mg tablet Take 40 mg by mouth daily. 3 psyllium husk (METAMUCIL) 0.4 gram capsule Take 1 capsule by mouth 2 (two) times a day. 5 semaglutide (OZEMPIC) 1 mg/dose (4 mg/3 mL) injection 2 mg every 7 (seven) days. 3 spironolactone (ALDACTONE) 25 mg tablet Take 25 mg by mouth daily. 9 triamcinolone (Kenalog) 0.1 % cream MIX 11 WITH KETOCONAZOLE TOPICAL CREAM. APPLY ON AFFECTED AREAS ON BODY 1-2X DAILY FOR UP TO 2 WEEKS. CONTINUE WITH ONLY KETOCONAZOLE FOR 2 4 warfarin (COUMADIN) 5 mg tablet Take 5 mg by mouth daily. Now taking 0.5 tab on Mon and Mon and 1 tab all other days 5 documented as of this encounter Consult Notes * Quynh Myers M.D. - 10/10/2024 1:00 PM CST RADIATION ONCOLOGY CONSULTATION Supervising Candle Making Supervisor: Dr. Kinsey Referring Provider: Justine Finn APRN, C.N.P. Home address: [address] [place] [phone] SUBJECTIVE History of present illness Mr. Asael Rodriguez is a 83 y.o. 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 The patient's oncologic history is as follows: Oncology History Primary Malignant Neoplasm Of Prostate (HCC) 04/2024 Other 11/2022: PSA 5.25 ng/mL 05/17/2024: PSA 7.72 ng/mL 05/2024: CAPRI - Prostate is symmetrical, smooth, slightly enlarged, non-tender and without nodules. Seminal vesicles are non-palpable. Approximate size is 35- 40 grams. 08/28/2024: PSA 8.1 ng/mL 09/17/2024 Critical Imaging MR Prostate PROSTATE: Volume: 79cc (PSA density 0.10) Exam quality: Good. Peripheral zone: Focal finding, as below Transition zone: Multiple BPH nodules. Lesion # 1 Size: 1.4 x 0.3 x 0.6cm, 0.21cc Zone: Peripheral zone Location: Right posterior lateral at midgland. T2WI: Non-circumscribed, rounded, moderate hypointensity (T2WI score 3) DWI: Moderate diffusion restriction. (ADC: 875, Focal (discrete and different from the background) hypointense on ADC and/or focal hyperintense on high b- value DWI) (DWI score 3) DCE: Positive. Overall category: PIRADS 4- High (clinically significant cancer is likely to be present). LOCAL STAGING: Capsule: The BI-RADS 4 lesion diffusely abuts the capsule without definite extracapsular invasion. Neurovascular bundle invasion: Absent Seminal vesicles invasion: Absent Other organ invasion: Absent LYMPH NODES: Negative for suspicious lymph node(s). BONES: Negative for suspicious bone lesion(s). 09/23/2024 Biopsy/Pathology FINAL DIAGNOSIS A. Prostate, right, core biopsies: --- Prostate adenocarcinoma, acinar type. --- Grade group 3 (Al score 4+3=7). --- Tumor involves 40% of overall specimen (4 of 6 cores). --- Percentage pattern 4: Greater than 75%. --- Most affected core is involved by tumor over 75% of its length. B. Prostate, left, core biopsies: Benign prostate tissue with focal atrophic change and chronic inflammation. 4/12 positive cores 09/27/2024 Clinical Stage Staging form: Prostate, AJCC 8th Edition - Clinical stage from 09/27/2024: Stage IIC (cT1c, cN0, cM0, PSA: 8.1, Grade Group: 3) Histopathologic type: Adenocarcinoma, NOS Stage prefix: Initial diagnosis Prostate specific antigen (PSA) range: Less than 10 Leonardo primary pattern: 4 Al secondary pattern: 3 Al score: 7 Histologic grading system: 5 grade system Laterality: Right Number of biopsy cores examined: 12 Number of biopsy cores positive: 4 Location of positive needle core biopsies: One side Stage used in treatment planning: Yes National guidelines used in treatment planning: Yes Type of national guideline used in treatment planning: NCCN 10/01/2024 Critical Imaging PSMA PET-CT IMPRESSION: 1. Prominent uptake noted within the right prostate gland, consistent with MRI and primary prostatic malignancy. 2. No evidence for osseous metastatic disease. 3. Focal uptake in the right lower lobe/pleura with associated focal opacity, findings concerning for infection. In the clinic today, Mr. Asael Rodriguez states he is doing well. He reports nocturia 2-3x nightly and weak urinary stream during the day. He previously had issues with diarrhea while on metformin, but after decreasing his dose he averages one BM per day. He has COPD which causes dyspnea on exertion. He has not had any recent exacerbations or illnesses. Due to his comorbidities he is hoping to avoid surgery. Past medical history Pertinent past medical history, past surgical history, medications, allergies, social history, and family history were reviewed. Pertinent past medical history includes IBS, diabetes, atrial fibrillation on warfarin, and COPD. The patient does not have a history of lupus, scleroderma, or ulcerativecolitis. The patient has no implanted medical devices. 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 Prior history of radiation None. Review of systems Review of systems as noted in HPI. OBJECTIVE Vitals Weight: 138 kg Physical exam ECO-1 Constitutional: Pleasant, in no acute distress, ambulates without an assistive device. ASSESSMENT / PLAN #1 Unfavorable intermediate risk prostate adenocarcinoma (cT1c, Al 4+3, PSA 8.1) Mr. Asael Rodriguez is a 83 y.o. male with UIR prostate cancer who is seen in Radiation Oncology fora discussion of radiation treatment. I have reviewed the pertinent history, laboratory, and imaging studies. We discussed with the patient that the main treatment options for unfavorable intermediate risk prostate cancer are surgery or radiation. Due to his age and medical comorbidities, the patient is opting for radiation. Radiation may be done over the course of 4 weeks of daily treatment (20 treatments), or in 5 treatments every other day (SBRT). Because SBRT gives higher dose of radiation each time, it can cause more side effects, including bowel symptoms. Therefore, we recommend SpaceOAR placement prior to SBRT if the patient were to choose this. The patient is interested in the 4 week course of treatment. We also discussed hormone therapy. Including 4-6 months of androgen deprivation therapy is standardof care in UIR prostate cancer. However, we discussed that new AI algorithm testing called ArteraAIcan predict likelihood of distant metastases and prostate cancer mortality, which can help patientsbetter understand the potential magnitude of benefit of ADT. The patient would like to pursue this testing and will base his decision about ADT on the results. We discussed the logistics of radiation simulation, planning, and daily treatment. We also reviewedthe acute and late toxicities associated with treatment including .bowel and bladder irritation andfatigue. We also reviewed the side effects of ADT including hot flashes, night sweats, mood changes, and sexual dysfunction. The patient displayed understanding of the risks and benefits. We will order ArteraAI today and plan to follow up in approximately two weeks after we have results. We will schedule CT simulation same day as the follow up. All questions were answered to the patient's satisfaction. Our departmental contact information wasprovided to the patient who was encouraged to contact the Department of Radiation Oncology with further questions or concerns. Quynh Myers M.D. Dr. Kinsey is the regional sales consultant; please see his attestation for details. Cosigned by Chris Kinsey M.D. at 10/10/2024 3:40 PM CHIP WASHER WASHER WASHER Associated attestation - Chris Kinsey M.D. - 10/10/2024 3:40 PM CHIP WASHER I saw and evaluated the patient and participated in the martin portions of the service. I reviewed thedocumentation of Quynh Myers M.D. and agree with the findings and plan. Mr. Asael Rodriguez is an 83 y.o. male with unfavorable intermediate risk, stage IIC (cT1c, cN0, cM0, PSA: 8.1, Grade Group: 3) adenocarcinoma of the prostate. We are asked by Ms. Finn to evaluate the patient for radiotherapy. His oncologic history is well-detailed in Dr. Myers's note. In brief, PSA of 7.72 ng/mL on May 17, 2024 prompted a visit with Ms. Finn on June 10, 2024 where digital rectal exam was normal. Repeat PSA on August 28, 2024 was 8.1 ng/mL. Prostate MRI on September 17, 2024 revealed a 79 cc gland witha 1.4 cm PI- RADS 4 lesion in the right posterior lateral aspect at the midgland. The lesion diffusely abuts the capsule without definite extracapsular invasion. There was no neurovascular bundle invasion, seminal vesicle invasion, or suspicious lymph nodes or bone lesions. A biopsy on September 23, 2024 confirmed Leonardo 4 + 3 disease in 4 of 6 cores on the right, all 6 cores on the left were benign, so 4 of 12 cores were positive. PSMA PET/CT scan on October 01, 2024 revealed prominent PSMA uptake within the right prostate gland consistent with the MRI. No other areas of PSMA avidity were noted. The patient reports that he is currently feeling well. He has stable nocturia times 2-3. His urinary function is good without dysuria, hematuria, or urinary incontinence. He has irregular bowel movements that typically occur daily at different times throughout the day. The patient's ECOG performance status is 1-2. PATIENT COMPLETED QUESTIONNAIRES I-PSS I-PSS Urinary Symptoms Score: 9 I-PSS Quality of Life Score: 1 IIEF-15 Not completed. REVIEW OF SYSTEMS Review of systems was negative except as documented above. PATIENT REPORTED SYMPTOM SCREEN FATIGUE (Scale: 0 = no fatigue; 10 = worst fatigue you can imagine): 3 PAIN (Scale: 0 = no pain; 10 = worst pain you can imagine): 3 OVERALL QUALITY OF LIFE (Scale: 0 = as bad as can be; 10 = as good as can be): 7 OBJECTIVE BP 109/64 (BP Location: Left arm, Patient Position: Sitting, Cuff Size: Large) Pulse 62 Temp 36??C (Temporal) Wt (!) 138 kg BMI 41.22 kg/m?? PHYSICAL EXAM General: Patient is awake, alert, and oriented to person, place, and time. No apparent distress. The patient is here today with his Christina. Remainder of his exam is as per Dr. Myers's note. DIAGNOSTICS I reviewed the patient's pathology reports and imaging. ASSESSMENT / PLAN #1 Stage IIC (cT1c, cN0, cM0, PSA: 8.1, Grade Group: 3) adenocarcinoma of the prostate I had a detailed discussion with the patient and his regarding the risks, benefits, and alternatives of radiotherapy in this setting. I consulted the NCCN guidelines in formulating my recommendations and reviewed these with him. The patient has already discussed prostatectomy with Ms. Finn; hence, I focused my discussion on radiotherapy options. These include: 1. External beam radiotherapy alone to a dose of 60 Gy in 20 fractions or 70.2 Gy in 26 fractions utilizing IMRT; 2. Stereotactic body radiation therapy to a dose of 36.25 to 40 Gy in 5 fractions. Given his unfavorable-intermediate risk disease, I would typically recommend the addition of a short course (4 to 6 months) androgen deprivation therapy. However, his only unfavorable intermediate risk features his Leonardo 4 + 3 disease in 4 of 12 cores. We discussed utilizing the ArteraAI test to help determine whether or not ADT will be beneficial for him. He asked that we proceed in this regard. We discussed the results of the ProtecT trial that randomized patients to surgery, radiotherapy, orobservation (Jake et al, [facility], 2016) that showed that surgery and radiotherapy were equally efficacious. We also discussed the fact that surgical salvage is typically not possible after any form of prostate radiotherapy. I also discussed the indications for adjuvant radiotherapy following prostatectomy as well as salvage radiotherapy in the setting of rising PSA. I discussed the logistics of treatment but did not go into great detail with regard to side effects. For a listing of these, please see Dr. Myers's note. The patient appears to be eligible for enrollment in the RELIEF trial which randomizes patients to treatment with either a full or an empty bladder. He is open to consideration of this. I provided him with consent form for his review. After this discussion, I provided the patient with a written summary of my recommendations. His questions and those of his spouse were answered to their verbalized satisfaction. We discussed our bladder filling and rectal emptying protocol with simulation and treatment. He will take Senokot-S to see if he can become more regular with his bowel movements. He will return for a follow-up, CT simulation, and planning MRI scan on Tuesday, October 22, 2024. My thanks to Ms. Finn and Dr. Blair for the opportunity to participate in this patient's care. EDUCATION Ready to learn, no apparent learning barriers were identified; learning preferences include listening. Explained diagnosis and treatment plan; patient expressed understanding of the content. I have spent 60 minutes caring for this patient including both rbbs-ei-ezhp and krp-prdm-mb-face time. Signed by: Chris Kinsey M.D. 10/10/24 3:40 PM CHIP WASHER [facility] [address] [place] [address] documented in this encounter Miscellaneous Notes * Addendum Note - Palmira Burris, C.N.A. - 10/10/2024 1:00 PM CSTEncounter addended by: Palmira Burris C.N.A. on: 10/11/2024 7:01 AM Actions taken: Letter saved WASHER documented in this encounter Plan of Treatment Upcoming Encounters Date Type Department Care Team (Late st Contact Info) Description 10/29/2024 1:45 PM CHIP WASHER Appointment Department of Radiation Oncology in [place], [place] [address] [place] [address] Chris Kinsey M.D. [address] [place] [address] 11/28/2024 12:00 PM CHIP WASHER Appointment Department of Laboratory Medicine in [place], [place] [address] [phone] Saba Pearson MPAS, P.A.-C., P.A. [address] [phone] 03/05/2025 1:20 PM CDT Appointment Department of Laboratory Medicine in [place], [place] [address] [phone] Saba Pearson MPAS, P.A.-C., P.A. [address] [phone] 03/05/2025 2:30 PM CDT Office Visit Department of Endocrinology in [place], [place] [address] [phone] Saba Pearson MPAS, P.A.-C., P.A. [address] [phone] Pending Results Name Type Priority Associated Diagnoses Date/Time Initial Rad Onc Treatment Planning CT Simulation without IV Contrast Procedural Imaging Routine Primary Malignant Neoplasm Of Prostate (HCC) 10/22/2024 1:00 PM CHIP WASHER Scheduled Orders Name Type Priority Associated Diagnoses Order Schedule Prior Auth Rad Tx Radiation Oncology Routine Primary Malignant Neoplasm Of Prostate (HCC) Ordered: 10/10/2024 Management Visit Radiation Oncology Routine Primary Malignant Neoplasm Of Prostate (HCC) 10 Occurrences starting 10/10/2024 until 01/10/2026 MR Prostate without IV Contrast Imaging RAD - Routine (most inpatients and all outpatients) Primary Malignant Neoplasm Of Prostate (HCC) Expected: 10/22/2024 (Approximate), Expires: 10/10/2025 Scheduled Referrals Name Type Priority Associated Diagnoses Order Schedule Radiation Oncology - consult (clinic) Outpatient Referral Routine Primary Malignant Neoplasm Of Prostate (HCC) Once for 1 Occurrences starting 10/10/2024 until 10/10/2024 Radiation Oncology office visit (clinic) Outpatient Referral Routine Expected: (Approximate), Expires: 01/10/2026 documented as of this encounter Visit Diagnoses Diagnosis Primary Malignant Neoplasm Of Prostate (HCC) documented in this encounter Care Teams Dog Bather Relationship Specialty Start Date End Date Elsewhere, Pcp PCP - General Family Medicine 11/19/20 documented as of this encounter
--- OUTSIDE RECORDS SUMMARY | 2024-10-22 13:55 | XMS_ITS | Encounter Summary ---
Author Organization [facility] Address [address] [place] [address] Care Team Providers Care Rubber Liner Name Role Phone Elsewhere, Pcp Primary Care Provider Unavailabl e Reason for Referral * MRI/CAT/PET Scan (Routine) - Closed Specialty Diagnoses / Procedures Referred By Contac t Referred To Contact Diagnoses Primary Malignant Neoplasm Of Prostate (HCC) Procedures PET CT Skull to Thigh PSMA Justine Finn APRN, C.N.P. [address] [place] [phone] Phone: tel: fax: [facility] Region Referral ID Status Reason Start Date Expiration Date Visits Re quested Visits Authorized [id number] Closed 09/27/2024 09/27/2025 1 1 ADJUDICATION SPECIALIST Reason for Visit * MRI/CAT/PET Scan (Routine) - Closed Specialty Diagnoses / Procedures Referred By Contac t Referred To Contact Diagnoses Primary Malignant Neoplasm Of Prostate (HCC) Procedures PET CT Skull to Thigh PSMA Justine Finn APRN, C.N.P. [address] [place] [phone] Phone: tel: fax: [facility] Region Referral ID Status Reason Start Date Expiration Date Visits Re quested Visits Authorized [id number] Closed 09/27/2024 09/27/2025 1 1 Encounter Details Date Type Department Care Team (Latest Contact Info) Description 10/01/2024 12:12 PM AUTO ADJUDICATION SPECIALIST - 10/01/2024 11:59 PM AUTO ADJUDICATION SPECIALIST Hospital Encounter Department of Radiology in [place], [place] [address] [place] [address] Justine Finn APRN, C.N.P. [address], [place] [address] Primary Malignant Neoplasm Of Prostate (HCC) Discharge Disposition: Home or Self Care Social History Tobacco Use Types Packs/Day Years Used Date Smoking Tobacco: Former Cigarettes 1 19.3 0 07/28/1960 - 11/27/1979 Smokeless Tobacco: Never Alcohol Use Standard Drinks/Week Comments No 0 (1 standard drink = 0.6 oz pur e alcohol) [facility] [employer] Answer Date Recorded In the past 12 months has e [employer], gas, oil, or water [employer] threatened to shut off services in your [...] week 06/02/2022 How often do you attend [facility] or denominational services? 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 4 omega 4-wkt-isf-fish oil 100-160-1,000 mg capsule Take 2 capsules [...] days 5 documented as of this encounter Plan of Treatment Upcoming Encounters Date Type Department Care Team (Late st Contact Info) Description 10/29/2024 1:45 PM AUTO ADJUDICATION SPECIALIST Appointment Department of Radiation Oncology in [place], [place] [address] [place] [address] Chris Kinsey M.D. [address] [place] [address] 11/28/2024 12:00 PM AUTO ADJUDICATION SPECIALIST Appointment Department of Laboratory Medicine in [place], [place] [address] [phone] Saba Pearson MPAS, Jesenia.A.-C., P.A. [address] [place] [phone] 03/05/2025 1:20 PM CDT Appointment Department of Laboratory Medicine in [place], [place] [address] [place] [phone] Saba Pearson MPAS, P.A.-C., P.A. [address] [phone] 03/05/2025 2:30 PM CDT Office Visit Department of Endocrinology in [place], [place] [address] [address] Saba Pearson MPAS, P.A.-C., P.A. [address] [place] [address] documented as of this encounter Procedures Procedure Name Priority Date/Time Associated Diagnosis Comments PET CT SKULL TO THIGH PSMA RAD - Routine (most inpatients and all outpatients) 10/01/2024 2:10 PM AUTO ADJUDICATION SPECIALIST Primary Malignant Neoplasm Of Prostate (HCC) documented in this encounter Results * PET CT Skull to Thigh PSMA (10/01/2024 2:10 PM AUTO ADJUDICATION SPECIALIST) Anatomical Region Laterality Modality Body, Nuclear Medicine PET R ST LOS, PET ARZ LOS, Nuclear Medicine PET FLA LOS, Nuclear Medicine N/A Positron Emission Tomography (PET) Impressions 10/01/2024 3:32 PM AUTO ADJUDICATION SPECIALIST 1. Prominent uptake noted within the right prostate gland, consistent with MRI and primary prostatic malignancy. 2. No evidence for osseous metastatic disease. 3. Focal uptake in the right lower lobe/pleura with associated focal opacity, findings concerning for infection. Narrative 10/01/2024 3:32 PM AUTO ADJUDICATION SPECIALIST EXAM: PET CT SKULL TO THIGH PSMA COMPARISON: None INDICATION: [place] 4+3 prostate cancer.. The patient reports no [...] SKULL TO THIGH PSMA COMPARISON: None INDICATION: [place] 4+3 prostate cancer.. The patient reports no [...] APRN, C.N.P. IM NM PROCEDURES Final Result documented in this encounter Visit Diagnoses Diagnosis Primary Malignant Neoplasm Of Prostate (HCC) documented in this encounter Administered Medications Inactive Administered Medications - up to 3 most recent administrations Medication Order MAR Action Action Date Dose Rate Site piflufolastat F 18 injection (Pylarify F-18) 9.9 millicurie, intravenous, Once, On Mon10/01/24 at 1300, For 1 dose, Imaging Protocol Orders Given 10/01/2024 12:30 PM AUTO ADJUDICATION SPECIALIST 9.9 millicuries Right Antecubital documented in this encounter Care Teams Rubber Liner Relationship Specialty Start Date End Date Elsewhere, Pcp PCP - General Family Medicine 11/19/20 documented as of this encounter
--- OUTSIDE RECORDS SUMMARY | 2024-10-22 13:55 | XMS_ITS | Encounter Summary ---
Author Organization [facility] Address [address] [place] [address] Care Team Providers Care Mechanical Integrity Specialist Name Role Phone Elsewhere, Pcp Primary Care Provider Unavailabl e Reason for Referral * Outpatient (Routine) - Closed Specialty Diagnoses / Procedures Referred By Radhaac t Referred To Contact Radiation Oncology Diagnoses Primary Malignant Neoplasm Of Prostate (HCC) Justine Finn APRN, C.N.P. [address] [address] Phone: tel: fax: [facility] Region Referral ID Status Reason Start Date Expiration Date Visits Re quested Visits Authorized [id number] Closed 09/27/2024 03/29/2026 1 1 Scheduling Instructions Scott * MRI/CAT/PET Scan (Routine) - Closed Specialty Diagnoses / Procedures Referred By Contac t Referred To Contact Diagnoses Primary Malignant Neoplasm Of Prostate (HCC) Procedures PET CT Skull to Thigh PSMA Justine Finn APRN, C.N.P. [address], [place] [address] Phone: tel: fax: [facility] Region Referral ID Status Reason Start Date Expiration Date Visits Re quested Visits Authorized [id number] Closed 09/27/2024 09/27/2025 1 1 Reason for Visit * Reason Comments Follow-up Prostate Bx * Outpatient (Routine) - Closed Specialty Diagnoses / Procedures Referred By Daron basilio Referred To Contact Urology Justine Finn APRN, C.N.P. [address] [address] Phone: tel: fax: [facility] Region Referral ID Status Reason Start Date Expiration Date Visits Re quested Visits Authorized [id number] Closed 09/19/2024 03/21/2026 1 1 Encounter Details Date Type Department Care Team (Late st Contact Info) Description 09/27/2024 1:00 PM CDT Office Visit Department of Urology in [place], [place] [address] [address] Justine Finn APRN, C.N.P. [address] [address] Primary Malignant Neoplasm Of Prostate (HCC) (Primary Dx) Social History Tobacco Use Types Packs/Day Years Used Date Smoking Tobacco: Former Cigarettes 1 19.3 0 07/28/1960 - 11/27/1979 Smokeless Tobacco: Never Alcohol Use Standard Drinks/Week Comments No 0 (1 standard drink = 0.6 oz pur e alcohol) [facility] Utilities Answer Date Recorded In the past [address] [facility] [employer] gas, oil, or water [employer] threatened to shut off services in your [...] often do you attend chur ch or orthodoxy services? More than 4 times per year 06/02/2022 Do you belong to any clubs o r organizations such as pentecostalism groups, unions, fraternal or athletic groups, or [...] heating? Not hard at all 06/02/2022 [facility] of Occupat ionwa Health - Occupational Stress Questionnaire Answer Date [...] your living situation today? I have a [facility] place to live 12/03/2023 Education Answer Date Recorded What is the highest level of school you have completed or the highest degree you have received? Associate degree: academic program 06/02/2022 Sex and Gender Information Value Date Recorded Sex Assigned at Male 09/22/2023 8:15 PM CDT Legal Sex Male 3:53 AM ICING AND GLAZE MAKER Gender Identity Male 09/22/2023 8:15 PM CDT Sexual Orientation Straight 06/02/2022 12 :11 PM CDT documented as of this encounter Progress Notes * Justine Finn APRN, C.N.P. - 09/27/2024 1:00 PM CDT SUBJECTIVE CHIEF COMPLAINT/REASON FOR VISIT Chief Complaint Patient presents with Follow-up Prostate Bx HISTORY OF PRESENT ILLNESS Asael is a pleasant 83-year-old male here today with his for follow-up after prostate biopsies. He had a bit of blood in his urine but is otherwise doing quite well. The following portions of the patient's history were reviewed and updated as appropriate: allergies, current medications, family history, medical history, social history, surgical history, and problem list. Recent Results (from the past 720 hours) Surgical Pathology Status: None Result Value Report electronically signed by Loreto Child MD Specimen Received A. Prostate needle biopsy six cores right side B. Prostate needle biopsy six cores left side Clinical History Elevated PSA, abnormal MRI prostate Gross Description A: Submitted as right prostate biopsy are multiple goins biopsies aggregating to 1.7 cm in length, less than 0.1 cm in diameter. ESB, one block. B: Submitted as left prostate biopsy are multiple goins biopsies aggregating to 1.7 cm in length, less than 0.1 cm in diameter. ESB, one block. af/bhc/lisandro Interpretation FINAL DIAGNOSIS A. Prostate, right, core biopsies: --- Prostate adenocarcinoma, acinar type. --- Grade group 3 ([place] score 4+3=7). --- Tumor involves 40% of overall specimen (4 of 6 cores). --- Percentage pattern 4: Greater than 75%. --- Most affected core is involved by tumor over 75% of its length. B. Prostate, left, core biopsies: Benign prostate tissue with focal atrophic change and chronic inflammation. *Note: Due to a large number of results and/or encounters for the requested time period, some results have not been displayed. A complete set of results can be found in Results Review. ASSESSMENT / PLAN 1. Primary Malignant Neoplasm Of Prostate (HCC) (Primary) Cancer Staging Primary Malignant Neoplasm Of Prostate (HCC) Staging form: Prostate, AJCC 8th Edition - Clinical stage from 09/27/2024: Stage IIC (cT1c, cN0, cM0, PSA: 8.1, Grade Group: 3) We had an in-depth discussion about his prostate biopsy results, discussed [place] grade, grade group 3, unfavorable intermediate according to NCCN guidelines. Orders are placed for PSMA scan for staging purposes. He is most interested in radiation therapy, orders are placed for this as well. He will return to us for follow-up as needed. All questions are answered today. - PET CT Skull to Thigh PSMA; Future - Radiation Oncology - consult (clinic); Future Signed by: Justine Finn APRN, C.N.P. 09/29/2024 6:51 PM ICING AND GLAZE MAKER G AND GLAZE MAKER documented in this encounter Plan of Treatment Upcoming Encounters Date Type Department Care Team (Late st Contact Info) Description 10/29/2024 1:45 PM ICING AND GLAZE MAKER Appointment Department of Radiation Oncology in [place], [place] [address] [facility] [place] [address] Chris Kinsey M.D. [address] [place] [address] 11/28/2024 12:00 PM ICING AND GLAZE MAKER Appointment Department of Laboratory Medicine in [place], [place] [address] [address] Saba Pearson MPAS, P.Olya.-C., P.A. [address] [address] 03/05/2025 1:20 PM CDT Appointment Department of Laboratory Medicine in [place], [place] [address] [address] Saba Pearson MPAS, P.A.-C., P.A. [address] [address] 03/05/2025 2:30 PM CDT Office Visit Department of Endocrinology in [place], [place] [address] [address] Saba Pearson MPAS, Jesenia.A.-C., P.A. [address] [address] Scheduled Referrals Name Type Priority Associated Diagnoses Orde r Schedule Radiation Oncology - consult (clinic) Outpatient Referral Routine Primary Malignant Neoplasm Of Prostate (HCC) Expected: 10/04/2024, Expires: 12/28/2025 documented as of this encounter Results * PET CT Skull to Thigh PSMA (10/01/2024 2:10 PM ICING AND GLAZE MAKER) Anatomical Region Laterality Modality Body, Nuclear Medicine PET R ST LOS, PET ARZ LOS, Nuclear Medicine PET FLA LOS, Nuclear Medicine N/A Positron Emission Tomography (PET) Impressions 10/01/2024 3:32 PM ICING AND GLAZE MAKER 1. Prominent uptake noted within the right prostate gland, consistent with MRI and primary prostatic malignancy. 2. No evidence for osseous metastatic disease. 3. Focal uptake in the right lower lobe/pleura with associated focal opacity, findings concerning for infection. Narrative 10/01/2024 3:32 PM ICING AND GLAZE MAKER EXAM: PET CT SKULL TO THIGH PSMA COMPARISON: None INDICATION: [place] 4+3 prostate cancer.. The patient reports no [...] concerning for infection. Justine Finn APRN, C.N.P. IMG NM PROCEDURES Final Result documented in this encounter Visit Diagnoses Diagnosis Primary Malignant Neoplasm Of Prostate (HCC)- Primary Primary Malignant Neoplasm Of Prostate (HCC) documented in this encounter Care Teams Mechanical Integrity Specialist Relationship Specialty Start Date End Date Elsewhere, Pcp PCP - General Family Medicine 11/19/20 documented as of this encounter
--- OUTSIDE RECORDS SUMMARY | 2024-10-22 13:55 | XMS_ITS | Encounter Summary ---
Author Organization [facility] Address [address] [place] [address] Care Team Providers Care Supervisor Laboratory Name Role Phone Elsewhere, Pcp Primary Care Provider Unavailabl e Reason for Referral * Outpatient (Routine) - Closed Specialty Diagnoses / Procedures Referred By Daron basilio Referred To Contact Radiation Oncology Chris Kinsey M.D. [address] [place] [phone] Phone: tel: fax: [facility] Region Referral ID Status Reason Start Date Expiration Date Visits Re quested Visits Authorized [id number] Closed 10/10/2024 04/11/2026 1 1 Scheduling Instructions Approximately; would like [employer] results back prior to appointment TITUTE NURSE Reason for Visit * Outpatient (Routine) - Closed Specialty Diagnoses / Procedures Referred By Contac t Referred To Contact Radiation Oncology Chris Kinsey M.D. [address] [place] [address] Phone: tel: fax: [facility] Region Referral ID Status Reason Start Date Expiration Date Visits Re quested Visits Authorized [id number] Closed 10/10/2024 04/11/2026 1 1 Encounter Details Date Type Department Care Team (Late st Contact Info) Description 10/22/2024 12:06 PM SUBSTITUTE NURSE Hospital Encounter Department of Radiation Oncology in [place] [address] [place] [phone] Chris Kinsey M.D. [address] [place] [address] Karlee Perezge Rodriguez Social History Tobacco Use Types Packs/Day Years Used Date Smoking Tobacco: Former Cigarettes 1 19.3 0 07/28/1960 - 11/27/1979 Smokeless Tobacco: Never Alcohol Use Standard Drinks/Week Comments No 0 (1 standard drink = 0.6 oz pur e alcohol) [facility] Utilities Answer Date Recorded In [...] often do you attend chur ch or gnosticist services? More than 4 times per year 06/02/2022 Do you belong to any clubs o r organizations such as lutheran groups, unions, fraternal or athletic groups, or [...] and heating? Not hard at all 06/02/2022 [facility] of Occupat ional Health - [...] living situation today? I have a [facility] place to live 12/03/2023 Education Answer Date Recorded What is the highest level of school you have completed or the highest degree you have received? Associate degree: academic program 06/02/2022 Sex and Gender Information Value Date Recorded Sex Assigned at Male 09/22/2023 8:15 PM CDT Legal Sex Male 3:53 AM SUBSTITUTE NURSE Gender Identity Male 09/22/2023 8:15 PM CDT Sexual Orientation Straight 06/02/2022 12 :11 PM CDT documented as of this encounter Last Filed Vital Signs Vital Sign Reading Time Taken Comments Blood Pressure - - Pulse - - Temperature 36.2 C (97.2 F) 10/22/2024 12:23 PM SUBSTITUTE NURSE Respiratory Rate - - Oxygen Saturation - - Inhaled Oxygen Concentration - - Weight 139 kg (306 lb 14.1 oz) 10/22/2024 12:23 PM SUBSTITUTE NURSE Height - - Body Mass Index 41.43 02/22/2023 1:51 PM CDT documented in this encounter Plan of Treatment Upcoming Encounters Date Type Department Care Team (Late st Contact Info) Description 10/29/2024 1:45 PM SUBSTITUTE NURSE Appointment Department of Radiation Oncology in [place], [place] [address] [place] [address] Chris Kinsey M.D. [address] [place] [address] 11/28/2024 12:00 PM SUBSTITUTE NURSE Appointment Department of Laboratory Medicine in [place], [place] [address] [phone] Saba Pearson MPAS, P.A.-C., P.A. [address] [phone] 03/05/2025 1:20 PM CDT Appointment Department of Laboratory Medicine in [place], [place] [address] [phone] Saba Pearson MPAS, P.A.-C., P.A. [address] [address] 03/05/2025 2:30 PM CDT Office Visit Department of Endocrinology in [place], [place] [address] [place] [phone] Saba Pearson MPAS, P.A.-C., P.A. [address] [place] [phone] Scheduled Referrals Name Type Priority Associated Diagnoses Order Schedule Radiation Oncology office visit (clinic) Outpatient Referral Routine Once for 1 Occurrences starting 10/22/2024 until 10/22/2024 documented as of this encounter Visit Diagnoses Not on filedocumented in this encounter Care Teams Supervisor Laboratory Relationship Specialty Start Date End Date Elsewhere, Pcp PCP - General Family Medicine 11/19/20 documented as of this encounter
--- OUTSIDE RECORDS SUMMARY | 2024-10-22 13:55 | XMS_ITS ---
Author Organization [facility] Address [address] [place] [address] Care Team Providers Care Floor Coverer Apprentice Name Role Phone Unavailable Unavailable Unavailable Surgery Details Not on file Complications Check Surgery Details section. Procedure Estimated Blood Loss Check Surgery Details section. Procedure Findings Check Surgery Details section. Procedure Specimens Taken Check Surgery Details section.
--- OUTSIDE RECORDS SUMMARY | 2024-10-22 13:55 | XMS_ITS | Encounter Summary ---
Author Organization [facility] Address [address] [place] [address] Care Team Providers Care Project Developer Name Role Phone Elsewhere, Pcp Primary Care Provider Unavailabl e Reason for Visit * Reason Comments Prostate Biopsy * Outpatient (Routine) - Closed Specialty Diagnoses / Procedures Referred By Contac t Referred To Contact Diagnoses Elevated Prostate-Specific Antigen Abnormal Magnetic Resonance Imaging Prostate Procedures URO Biopsy - Prostate Justine Finn APRN, C.N.P. [address] [place] [address] Phone: tel: fax: [facility] Region Referral ID Status Reason Start Date Expiration Date Visits Re quested Visits Authorized [id number] Closed 09/19/2024 09/19/2025 1 1 Encounter Details Date Type Department Care Team (Latest Contact Info) Description 09/23/2024 1:30 PM CDT Procedure visit Department of Urology in [place], [place] [address] [place] [address] Saji Charles M.D. [address] [place] [address] Elevated Prostate-Specific Antigen; Abnormal Magnetic Resonance Imaging Prostate Social History Tobacco Use Types Packs/Day Years Used Date Smoking Tobacco: Former Cigarettes 1 19.3 0 07/28/1960 - 11/27/1979 Smokeless Tobacco: Never Alcohol Use Standard Drinks/Week Comments No 0 (1 standard drink = 0.6 oz pur e alcohol) [facility] Utilities Answer Date Recorded In [...] often do you attend chur ch or hoahaoism services? More than 4 times per year [...] and heating? Not hard at all 06/02/2022 [facility] Occupat ional [facility] - Occupational Stress [...] your living situation today? I have a [facility] place to live 12/03/2023 Education Answer Date Recorded What is the highest level of school you have completed or the highest degree you have received? 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 - 09/23/2024 1:30 PM CDT CHIEF COMPLAINT / REASON FOR VISIT Transrectal ultrasound and biopsy of the prostate (CPT 64075) Ultrasound guidance for transrectal prostate biopsy (CPT 18708) Transrectal prostate biopsy (CPT 21076) Peripheral Nerve Block (CPT 64277) INDICATION: Elevated prostate specific antigen of 8.1 The patient was appropriately identified with at least two separate identifiers and the correct procedure was confirmed. PROCEDURE: After obtaining informed consent, biplanar transrectal ultrasonography was performed with a [employer] scanner. The patient did receive preoperative ciprofloxacin one to two hours prior to the procedure and benefitted from a Fleet's enema. A rectal probe was inserted in an atraumatic fashion. Serial, sagittal and transverse images of the prostate were obtained. 10 mL of 1% plain lidocaine was used to perform a prostatic nerve block by injecting the apices of the prostate bilaterally. Using a Biopty gun 12 core biopsies were obtained in a modified sextant pattern. One biopsy was obtained from each the right and left medial and lateral apex. One biopsy was obtained from each the lateral and medial aspect of the right and left base of the prostate. One biopsy obtained from each the medial and lateral aspect of the right and left mid-section of the prostate. FINDINGS: Maximal height of prostate: 38.2 millimeters Maximal width of prostate: 67.0 millimeters Maximal length of prostate: 60.7 millimeters Prostate volume is calculated to be 81.3 cubic centimeters PSA density level: 01 (upper limits of normal 0.15) Seminal vesicles: Normal Ejaculatory ducts: Normal Prostatic capsule: The entire right margin of the prostate was difficult to completely visualize Surgical capsule: Not well defined Peripheral zone: No hypoechoic lesions Transitional zone: Normal COMMENTS: Multiple images are saved in QREADS. The procedure was well tolerated. COMPLICATIONS: None. IMPRESSION/REPORT/PLAN: 1. Elevated PSA, prostate tumor of uncertain etiology. 2. Normal ultrasound. The patient was observed for 10 to 15 minutes and discharged in satisfactory condition. The usual post-biopsy instructions were reviewed with him. He will call if he develops a fever, excessive bleeding or difficulty voiding. He will return to the clinic in approximately one week to review his biopsy results. He is to continue taking ciprofloxacin 500 milligrams twice daily for a total of five more doses. Note: A negative report or biopsy does not absolutely rule out the presence of prostate cancer. Ultrasound can only determine variations in the tissue texture or density, and cannot diagnose prostatecancer per se. Sampling errors can also occur. Therefore, followup and clinical correlation are essential. Saji Charles M.D. 09/23/24 1:34 PM CDT documented in this encounter Plan of Treatment Upcoming Encounters Date Type Department Care Team (Late st Contact Info) Description 10/29/2024 1:45 PM STONE SETTER APPRENTICE Appointment Department of Radiation Oncology in [place], [place] [address] [place] [address] Chris Kinsey M.D. [address] [place] [address] 11/28/2024 12:00 PM STONE SETTER APPRENTICE Appointment Department of Laboratory Medicine in [place], [place] [address] [address] Saba Pearson MPAS, P.A.-C., P.A. [address] [address] 03/05/2025 1:20 PM CDT Appointment Department of Laboratory Medicine in [place], [place] [address] [address] Saba Pearson MPAS, P.A.-C., P.A. [address] [address] 03/05/2025 2:30 PM CDT Office Visit Department of Endocrinology in [place], [place] [address] [address] Saba Pearson MPAS, P.A.-C., P.A. [address] [phone] documented as of this encounter Procedures Procedure Name Priority Date/Time Associated Diagnosis Comments SURGICAL PATHOLOGY Routine 09/23/2024 1: 41 PM CDT Elevated Prostate-Specific Antigen Abnormal Magnetic Resonance Imaging Prostate documented in this encounter Results * Surgical Pathology (09/23/2024 1:41 PM CDT) [...] Charles M.D. LAB SURG PATH ORDERABLES Kelly razo Result [facility] [address] [place] [address], [facility] [address] [facility] [address] [place] [address] documented in this encounter Visit Diagnoses Diagnosis Elevated Prostate-Specific Antigen Abnormal Magnetic Resonance Imaging Prostate documented in this encounter Care Teams Project Developer Relationship Specialty Start Date End Date Elsewhere, Pcp PCP - General Family Medicine 11/19/20 documented as of this encounter
--- OUTSIDE RECORDS SUMMARY | 2024-10-22 13:55 | XMS_ITS | Encounter Summary ---
Author Organization [facility] Address [address] [place] [address] Care Team Providers Care Clipper Machine Name Role Phone Elsewhere, Pcp Primary Care Provider Unavailabl e Reason for Referral * Outpatient (Routine) - Closed Specialty Diagnoses / Procedures Referred By Daron basilio Referred To Contact Urology Justine Finn APRN, C.N.P. [address] [place] [address] Phone: tel: fax: [facility] Region Referral ID Status Reason Start Date Expiration Date Visits Re quested Visits Authorized [id number] Closed 09/19/2024 03/21/2026 1 1 * Outpatient (Routine) - Closed Specialty Diagnoses / Procedures Referred By Contac t Referred To Contact Diagnoses Elevated Prostate-Specific Antigen Abnormal Magnetic Resonance Imaging Prostate Procedures URO Biopsy - Prostate Justine Finn APRN, C.N.P. [address], [place] [address] Phone: tel: fax: [facility] Region Referral ID Status Reason Start Date Expiration Date Visits Re quested Visits Authorized [id number] Closed 09/19/2024 09/19/2025 1 1 Reason for Visit * Reason Comments Results Prostate MRI * Outpatient (Routine) - Closed Specialty Diagnoses / Procedures Referred By Daron basilio Referred To Contact Urology Justine Finn APRN, C.N.P. [address] [address] Phone: tel: fax: [facility] Region Referral ID Status Reason Start Date Expiration Date Visits Re quested Visits Authorized [id number] Closed 09/16/2024 03/18/2026 1 1 Encounter Details Date Type Department Care Team (Late st Contact Info) Description 09/19/2024 10:00 AM CDT Office Visit Department of Urology in [place], [place] [address] [phone] Justine Finn APRN, C.N.P. [address] [address] Elevated Prostate-Specific Antigen (Primary Dx); Abnormal Magnetic Resonance Imaging Prostate Social History Tobacco Use Types Packs/Day Years Used Date Smoking Tobacco: Former Cigarettes 1 19.3 0 07/28/1960 - 11/27/1979 Smokeless Tobacco: Never Tobacco Cessation:Counseling Given: Not Answered Alcohol Use Standard Drinks/Week Comments No 0 (1 standard drink = 0.6 oz pur e alcohol) [facility] Utilities Answer Date Recorded In the past 12 months has [facility] [employer], [employer], or water [employer] threatened to shut off services in your [...] any clubs o r organizations such as voodoo groups, unions, fraternal or athletic groups, or [...] at all 06/02/2022 [facility] Occupat ional Health - Occupational [...] your living situation today? I have a [facility] place to live 12/03/2023 Education Answer Date Recorded What is the highest level of school you have completed or the highest degree you have received? 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 - 09/19/2024 10:00 AM CDT PROSTATE BIOPSY INSTRUCTIONS General Instructions: Please refrain from taking any Aspirin or blood thinners for 10 days prior to procedure. You may use Tylenol as needed for pain. If you take prophylactic medication prior to dental work, please take this also prior to your biopsy with the antibiotic. The day of the biopsy you are advised to wear jockey style underwear opposed to boxers if possible. You will not be sedated and will not need a school bus driver/mechanic. You may eat your regular meals. You received a RX for antibiotics and a Fleets enema to mushroom picker at your pharmacy. Two hours prior to your procedure use the fleets enema, (directions are on the box) Two hours prior to your procedure take the first dose of antibiotics (One tablet) Following the procedure: You will be given an absorbent pad as some patients may experience some bleeding. It is recommendedfor the first two hours following the procedure do no strenuous activity. If bleeding increases liedown and place a pillow under your hips for two hours, if bleeding does not decrease or if it becomes ???dripping?? contact the urology nurse at the clinic immediately at [phone] or .If after hours call [phone] to be connected to the graphics production specialist service. Complete your antibiotics as prescribed. At your one week follow up appointment you will receive your pathology result and will discuss treatment plan whether results are positive or negative. documented in this encounter Progress Notes * Justine Finn APRN, C.N.P. - 09/19/2024 10:00 AM CDT SUBJECTIVE CHIEF COMPLAINT/REASON FOR VISIT Chief Complaint Patient presents with Results Prostate MRI HISTORY OF PRESENT ILLNESS Asael is a pleasant 83-year-old male here today with his for follow-up after prostate MRI. The following portions of the patient's history were reviewed and updated as appropriate: allergies, current medications, family history, medical history, social history, surgical history, and problem list. DIAGNOSTIC RADIOLOGY MR Prostate September 17, 2024 IMPRESSION: PIRADS 4- High (clinically significant cancer is likely to be present). ASSESSMENT / PLAN 1. Elevated Prostate-Specific Antigen (Primary) 2. Abnormal Magnetic Resonance Imaging Prostate We had an in-depth discussion about MRI results. With PI-RADS 4 lesion, recommend going forward with prostate biopsy. We discussed options of transrectal prostate biopsy versus transperineal prostatebiopsy, risks and benefits of each. After some discussion, they would like to go forward with transrectal prostate biopsy. He will need enema 2 hours before procedure and will need to take the 1st dose of a 3 day course of antibiotics 2 hours prior to procedure. He understands risks of procedure including risk of bleeding, risk of infection. He will stop his anticoagulation 3 days prior to procedure. We will see him in follow-up after procedure to discuss results whether positive or negative. All questions answered. - URO Biopsy - Prostate; Future Signed by: Justine Finn APRN, C.N.P. 09/19/2024 10:19 PM CDT documented in this encounter Plan of Treatment Upcoming Encounters Date Type Department Care Team (Late st Contact Info) Description 10/29/2024 1:45 PM RAILROAD CAR CLEANER Appointment Department of Radiation Oncology in [place], [place] [address] [place] [address] Chris Kinsey M.D. [address] [place] [address] 11/28/2024 12:00 PM RAILROAD CAR CLEANER Appointment Department of Laboratory Medicine in [place], [place] [address] [address] Saba Pearson MPAS, P.A.-C., P.A. [address] [address] 03/05/2025 1:20 PM CDT Appointment Department of Laboratory Medicine in [place], [place] [address] [address] Saba Pearson MPAS, P.A.-C., P.A. [address] [address] 03/05/2025 2:30 PM CDT Office Visit Department of Endocrinology in [place], [place] [address] [address] Saba Pearson MPAS, Jesenia.A.-C., P.A. [address] [phone] Scheduled Referrals Name Type Priority Associated Diagnoses Orde r Schedule Urology office visit (clinic) Outpatient Referral Routine Expected: 09/26/2024, Expires: 12/20/2025 documented as of this encounter Visit Diagnoses Diagnosis Elevated Prostate-Specific Antigen- Primary Abnormal Magnetic Resonance Imaging Prostate documented in this encounter Care Teams Clipper Machine Relationship Specialty Start Date End Date Elsewhere, Pcp PCP - General Family Medicine 11/19/20 documented as of this encounter
--- OUTSIDE RECORDS SUMMARY | 2024-10-22 13:55 | XMS_ITS | Encounter Summary ---
Author Organization [facility] Address [address] [place] [address] Care Team Providers Care Block Hacker Name Role Phone Elsewhere, Pcp Primary Care Provider Unavailabl e Reason for Referral * MRI/CAT/PET Scan (Routine) - Closed Specialty Diagnoses / Procedures Referred By Contac t Referred To Contact Radiology Diagnoses Elevated Prostate-Specific Antigen Procedures MR Prostate without and with IV Contrast Justine Finn APRN, C.N.P. [address] [address] Phone: tel: fax: [facility] Region Referral ID Status Reason Start Date Expiration Date Visits Re quested Visits Authorized [id number] Closed 09/16/2024 09/16/2025 1 1 Reason for Visit * MRI/CAT/PET Scan (Routine) - Closed Specialty Diagnoses / Procedures Referred By Contac t Referred To Contact Radiology Diagnoses Elevated Prostate-Specific Antigen Procedures MR Prostate without and with IV Contrast Justine Finn APRN, C.N.P. [address] [address] Phone: tel: fax: [facility] Region Referral ID Status Reason Start Date Expiration Date Visits Re quested Visits Authorized [id number] Closed 09/16/2024 09/16/2025 1 1 Encounter Details Date Type Department Care Team (Latest Contact Info) Description 09/17/2024 12:08 PM CDT - 09/17/2024 11:59 PM CDT Hospital Encounter Department of Radiology in [place], [place] [address] [place] [address] Justine Finn APRN, C.N.P. [address] [place] [address] Elevated Prostate-Specific Antigen Discharge Disposition: Home or Self Care Social History Tobacco Use Types Packs/Day Years Used Date Smoking Tobacco: Former Cigarettes 1 19.3 0 07/28/1960 - 11/27/1979 Smokeless Tobacco: Never Alcohol Use Standard Drinks/Week Comments No 0 (1 standard drink = 0.6 oz pur e alcohol) [facility] Utilities Answer Date Recorded In the past 12 months has e [employer], gas, oil, or water [employer] threatened to shut off services in your [...] week 06/02/2022 How often do you attend [facility] or zoroastrian services? More than 4 times [...] and heating? 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 4 omega 5-hzm-vum-fish oil 100-160-1,000 mg capsule Take 2 capsules [...] st Contact Info) Description 10/29/2024 1:45 PM SALESPERSON HOUSEHOLD APPLIANCES Appointment Department of Radiation Oncology in [place], [place] [address] [place] [address] Chris Kinsey M.D. [address] [place] [address] 11/28/2024 12:00 PM SALESPERSON HOUSEHOLD APPLIANCES Appointment Department of Laboratory Medicine in [place], [place] [address] [address] Saba Pearson MPAS, P.A.-C., P.A. [address] [address] 03/05/2025 1:20 PM CDT Appointment Department of Laboratory Medicine in [place], [place] [address] [phone] Saba Pearson MPAS, P.A.-C., P.A. [address] [place] [phone] 03/05/2025 2:30 PM CDT Office Visit Department of Endocrinology in [place], [place] [address] [place] [phone] Saba Pearson MPAS, PAlan., P.A. [address] [place] [phone] documented as of this encounter Procedures Procedure Name Priority Date/Time Associated Diagnosis Comments MR PROSTATE WITHOUT AND WITH IV CONTRAST RAD - Routine (most inpatients and all outpatients) 09/17/2024 1:31 PM CDT Elevated Prostate-Specific Antigen GLUCOSE POCT, B Routine 09/17/2024 12:32 PM CDT documented in this encounter Results * MR Prostate without [...] likely to be present). us Justine Finn APRN C.N.PJazmin IMG MRI PROCEDURE S Final Result * (ABNORMAL) Glucose, POCT (09/17/2024 12:32 PM CDT) Glucose, POCT, B 165(H) 70 - 140 mg/dL 09/17/2024 12:32 PM CDT OW Blood 09/17/2024 12:3 2 PM CDT 09/17/2024 1:19 PM CDT us Generic [facility] LAB POCT ORDERABLES-MANUAL Final Result [facility] [address] [place] [address], [facility] in [place] [address] [place] [address] documented in this encounter Visit Diagnoses Diagnosis Elevated Prostate-Specific Antigen documented in this encounter Administered Medications Inactive Administered Medications - up to 3 most recent administrations Medication Order MAR Action Action Date Dose Rate Site gadoterate meglumine 0.5 mmol/mL (376.9 mg/mL) injection 1.6-20 mL (Dotarem) 1.6-20 mL, intravenous, Once in imaging, contrast, Starting on Mon09/17/24 at 1215, For 1 dose Given 09/17/2024 1:32 PM CDT 20 mL glucagon injection 1 mg (GlucaGen) 1 mg, subcutaneous, Once, On Mon09/17/24 at 1245, For 1 dose Given 09/17/2024 1:31 PM CDT 1 mg Left Upper Arm (Back) sodium chloride 0.9 % injection 1-250 mL 1-250 mL, intravenous, Once in imaging, line care, Starting on Mon09/17/24 at 1215, For 1 dose Given 09/17/2024 1:32 PM CDT 100 mL documented in this encounter Care Teams Block Hacker Relationship Specialty Start Date End Date Elsewhere, Pcp PCP - General Family Medicine 11/19/20 documented as of this encounter
--- OUTSIDE RECORDS SUMMARY | 2024-10-22 13:55 | XMS_ITS | Encounter Summary ---
Author Organization [facility] Address [address] [place] [address] Care Team Providers Care Car Lubricator Name Role Phone Elsewhere, Pcp Primary Care Provider Unavailabl e Encounter Details Date Type Department Care Team (Late st Contact Info) Description 09/23/2024 2:15 PM CDT Ancillary Procedure Department of Urology Social History Tobacco Use Types Packs/Day Years Used Date Smoking Tobacco: Former Cigarettes 1 19.3 0 07/28/1960 - 11/27/1979 Smokeless Tobacco: Never Alcohol Use Standard Drinks/Week Comments No 0 (1 standard drink = 0.6 oz pur e alcohol) [facility] Utilities Answer Date Recorded In the past 12 months has e [employer], gas, oil, or water [email or web address] threatened to shut off services in your [...] often do you attend chur ch or protestant services? More than 4 times per year 06/02/2022 Do you belong to any clubs o r organizations such as caodaism groups, unions, fraternal or athletic groups, or [...] and heating? Not hard at all 06/02/2022 [facility] Occupat ional Health - Occupational [...] living situation today? I have a [facility] place to live 12/03/2023 Education Answer Date Recorded What is the highest level of school you have completed or the highest degree you have received? 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 [address] [place] [address] 11/28/2024 12:00 PM FENDER MECHANIC Appointment Department of Laboratory Medicine in [place], [place] [address] [address] Saba Pearson MPAS, P.A.-C., P.A. [address] [place] [phone] 03/05/2025 1:20 PM CDT Appointment Department of Laboratory Medicine in [place], [place] [address] [place] [phone] Saba Pearson MPAS, P.A.-C., P.A. [address] [phone] 03/05/2025 2:30 PM CDT Office Visit Department of Endocrinology in [place], [place] [address] [phone] Saba Pearson MPAS, P.A.-C., P.A. [address] [place] [phone] documented as of this encounter Procedures Procedure Name Priority Date/Time Associated Diagnosis Comments UROLOGY IMAGE EXAM Routine 09/23/2024 1: 36 PM CDT documented in this encounter Results * Non-Radiology Image-Urology Image Exam (09/23/2024 1:36 [...] NON RAD IMAGING PROCE DURES Final Result IIMS NA documented in this encounter Visit Diagnoses Not on filedocumented in this encounter Care Teams Car Lubricator Relationship Specialty Start Date End Date Elsewhere, Pcp PCP - General Family Medicine 11/19/20 documented as of this encounter
--- OUTSIDE RECORDS SUMMARY | 2024-10-22 13:55 | XMS_ITS | Encounter Summary ---
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 [address] [address] Phone: tel: fax: [facility] Region Referral ID Status Reason Start Date Expiration Date Visits Re quested Visits Authorized [id number] Closed 04/30/2024 10/30/2025 1 1 Encounter Details Date Type Department Care Team (Late st Contact Info) Description 09/03/2024 3:00 PM CDT Office Visit Department of Endocrinology in [place], [place] [address] [address] Saba Pearson MPAS, P.Olya.-C., P.A. [address] [address] Diabetes Mellitus Type 2 With Other Circulatory Complication (HCC) (Primary Dx); Assisted Use Of Insulin Active (HCC); Diabetes Mellitus Type 2 With Diabetic Chronic Kidney Disease (HCC); Diabetes Mellitus Type 2 With Diabetic Neuropathy (HCC); Assisted Current Use Of Injectable Non-Insulin Antidiabetic Drugs; Morbid Obesity Body Mass Index >= 35 with Comorbid Condition (HCC) Social History Tobacco Use Types Packs/Day Years Used Date Smoking Tobacco: Former Cigarettes 1 19.3 0 07/28/1960 - 11/27/1979 Smokeless Tobacco: Never Tobacco Cessation:Counseling Given: Not Answered Alcohol Use Standard Drinks/Week Comments No 0 (1 standard drink = 0.6 oz pur e alcohol) [facility] Utilities Answer Date Recorded In the past 12 months has e [employer], gas, oil, or water [employer] threatened to shut off services in your [...] How often do you attend chur or rastafarian services? More than 4 times per year [...] heating? Not hard at all 06/02/2022 [facility] - Occupational [...] your living situation today? I have a [facility] place to live 12/03/2023 Education Answer Date Recorded What is the highest level of school you have completed or the highest degree you have received? Associate degree: academic program 06/02/2022 Sex and Gender Information Value Date Recorded Sex Assigned at Male 09/22/2023 8:15 PM CDT Legal Sex Male 3:53 AM DIGITAL PRE PRESS OPERATOR Gender Identity Male 09/22/2023 8:15 PM CDT Sexual Orientation Straight 06/02/2022 12 :11 PM CDT documented as of this encounter Last Filed Vital Signs Vital Sign Reading Time Taken Comments Blood Pressure 116/64 09/03/2024 2:39 PM CDT Pulse 64 09/03/2024 2:39 PM CDT Temperature - - Respiratory Rate - - Oxygen Saturation - - Inhaled Oxygen Concentration - - Weight 137 kg (302 lb 7.5 oz) 09/03/2024 2:39 PM CDT Height - - Body Mass Index 40.84 02/22/2023 1:51 PM CDT documented in this encounter Patient Instructions * Patient Instructions* Saba Nicole MPAS, P.A.-C., P.A. - 09/03/2024 3:00 PM CDT Reduce Metformin XR 500 mg twice daily (1 tablet twice daily). Due to reduced Metformin XR dose and some fasting higher blood sugars, increase Lantus insulin to 24 units once daily. Continue Jardiance 25 mg once daily. Continue Ozempic 2 mg once weekly. A1c due 11/28/2024, along with metabolic panel. Endo return visit in 6 months. A1c and metabolic panel again prior to visit. Drink 80 oz water daily. documented in this encounter Progress Notes * Saba Nicole MPAS, P.A.-C., P.A. - 09/03/2024 3:00 PM CDT SUBJECTIVE CHIEF COMPLAINT Chief Complaint Patient presents with Diabetes Lab Results Component Value Date HGBA1C 7.1 (H) 08/28/2024 HISTORY OF PRESENT ILLNESS Patient presents today [...] Ozempic. - Cyrus 2 supplies come from [employer]. Diabetes related medication: - 1000 mg Metformin XR BID- notes intermittent, unpredictable, fecal urgency. - Jardiance 25 mg once daily; - Ozempic 2 mg once weekly. - Lantus: 22 units once daily- nightly. - no abdominal pain/nausea/vomiting. - denies burning/painful urination or genital infection s/sx. - Patient had previously been on: glipizide- stopped in favor of Jardiance. - History of pancreatitis: none. Current T- 08/28/2024 - History of pancreatic cancer: none. - History of medullary thyroid cancer: self: none; family: none. - History of MEN (multiple endocrine neoplasia-2): none. - History of recurrent UTIs: never. Blood glucose monitoring: - 08/21-09/03/2024 - % time CGM active: 65% - Avg glucose: 171 mg/dL; - GMI: 7.4%; - GV: 22.3%; TIME in range - very high: 4%; - high: 27%; - target range: 69% - low: 0%; - very low: 0%. BG patterns: - stable, but elevated overnight: 130-165 (fasting). - some post-prandial hyperglycemia pending dietary choices. Hypoglycemia: - Hypoglycemia: no. - Frequency of [...] Hctz. - Last diabetic eye exam: 08/09/2022- [facility]. Denies retinopathy or macular edema. Hx cataract repair. Dry eye syndrome. - Last Diabetic foot exam/ Monofilament: follows with podiatry, last exam with PCP. + neuropathy- intermittent. Reports balance problem when ambulating on grass. Last exam: 09/02/2024 at the [facility]. - Daily Self Foot Exam: yes. Patient [...] - Alcohol intake: none. - Last Certified Tab Builder Visit: several years. - Last Pension Examiner Visit: several years. Current Diet: 3 meals daily- loves sweets. - Beverage intake: carb free beverages. Current Exercise: ADLs- trying to walk more. Member at local [employer]. Work: retired. Marital status: . MEDICATIONS Current Outpatient Medications Medication Sig alcohol swabs pads, medicated Use as needed for diabetes control aspirin 81 mg chewable tablet Chew 1 tablet daily. cholecalciferol (VITAMIN D3) 10 mcg (400 Unit) tablet Take 10 mcg by mouth daily. Contour Test Strips strips daily. for testing Droplet Pen Needle 32 gauge x 5/32 needle empagliflozin (Jardiance) 25 mg tablet Take 1 tablet (25 mg total) by mouth daily before morning meal. Take with 8-16 oz water 30 minutes prior to breakfast. flash glucose sensor (FreeStyle Cyrus 2 Sensor) kit 1 each (1 kit total) every 14 (fourteen) days. foot care products pad FOR HOME USE [id number] 116-100 mg capsule Take 1 tablet by mouth 2 (two) times a day. hydroCHLOROthiazide (HYDRODIURIL) 25 mg tablet Take 25 mg by mouth daily. insulin glargine (Lantus Solostar U-100 Insulin) 100 unit/mL (3 mL) injection Inject 20 Units underthe skin at bedtime. insulin glargine-yfgn (Semglee) 100 unit/mL (3 mL) pen Inject 24 Units under the skin at bedtime. isosorbide mononitrate (IMDUR) 60 mg 24 hr tablet Take 60 mg by mouth daily. losartan (COZAAR) 100 mg tablet Take 1 tablet by mouth daily. metFORMIN XR (Glucophage-XR) 500 mg 24 hr tablet Take 1 tablet (500 mg total) by mouth 2 (two) times a day with meals. metoprolol tartrate (LOPRESSOR) 100 mg tablet Take 100 mg by mouth 2 (two) times a day. multivitamin tablet Take 1 tablet by mouth daily. omega 4-tbn-dlg-fish oil 100-160-1,000 mg capsule Take 2 capsules [...] for joint swelling. Neurological: Positive for light-headedness. The following systems were negative: Constitutional, Skin, Eyes, ENT, Cardiovascular HISTORY REVIEW: History Review OBJECTIVE PHYSICAL EXAM BP 116/64 (BP Location: Right arm, Patient Position: Sitting, Cuff Size: Large) Pulse 64 Wt (!)137 kg BMI 40.84 kg/m?? GENERAL: Well developed, well nourished. No apparent distress. Appearance, behavior, and speech areappropriate. SKIN: Warm to touch, good turgor. No rash on exposed skin. MUSCULOSKELETAL: Gait normal. NEUROLOGICAL: Mental Status: Alert and oriented times 3, relaxed, and cooperative. Normal affect. DIAGNOSTICS Wt Readings from Last 3 Encounters: 09/03/24 (!) 137 kg 04/30/24 (!) 136 kg 12/07/23 (!) 138 kg Most Recent Diabetic Monitoring Labs: Last A1c: Lab Results Component Value Date HGBA1C 7.1 (H) 08/28/2024 Last urine microalbumin: Last lipid panel: Lab Results Component Value Date CHOL 165 08/28/2024 Lab Results Component Value Date HDL 49 08/28/2024 Lab Results Component Value Date LDLCALC 73 08/28/2024 Lab Results Component Value Date TRIG 263 (H) 08/28/2024 Last Creatinine: Lab Results Component Value Date CREATININE 1.38 (H) 08/28/2024 Lab Results Component Value Date EGFR 51 (L) 08/28/2024 EGFRNONBLKAA 58 (L) 06/02/2022 EGFRBLKAA 67 06/02/2022 Lipids updated 11/29/2022 through [facility] and include the following: Triglycerides 181; total cholesterol 163; LDL 74; HDL 53. Urine microalbumin was negative. ASSESSMENT / PLAN #1 Diabetes Mellitus Type 2 With Other Circulatory Complication (HCC) - empagliflozin (Jardiance) 25 mg tablet; Take 1 tablet (25 mg total) by mouth daily before morningmeal. 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) #3 Diabetes Mellitus Type 2 With Diabetic Chronic Kidney Disease (HCC) - metFORMIN XR (Glucophage-XR) 500 mg 24 hr tablet; Take 1 tablet (500 mg total) by mouth 2 (two) times a day with meals., Starting Mon09/03/2024, Until Mon09/03/2025, Normal #4 Diabetes Mellitus Type 2 With Diabetic Neuropathy (HCC) #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 - reports increased fecal urgency has unpredictable in nature. Consequently, will modify metformin XR dose today. Patient will take 500 mg metformin XR twice daily. - Denies abdominal pain/n/v/fever/chills. - Denies burning/painful urination or s/sx genital mycotic infections. -patient's overnight blood sugars have improved significantly since starting Lantus insulin, however patient is having some overall elevated overnight and fasting blood sugars. Consequently, will increase Lantus insulin to 24 units nightly. - hemoglobin A1c is stable at 7.1%, down from 9.3% on 03/14/2022. - goal A1c: <7.5% without hypoglycemia. - patient will continue to utilize the FreeStyle Cyrus 2. - encouraged increased activity to help further improve post-prandial bg levels as well as support weight loss. PLAN: Reduce Metformin XR 500 mg twice daily (1 tablet twice daily). Due to reduced Metformin XR dose and some fasting higher blood sugars, increase Lantus insulin to 24 units once daily. Continue Jardiance 25 mg once daily. Continue Ozempic 2 mg once weekly. A1c due 11/28/2024, along with metabolic panel. Endo return visit in 6 months. A1c and metabolic panel again prior to visit. Drink 80 oz water daily. -Goal hemoglobin A1C: less than 7.5% without hypoglycemia. -Goal capillary plasma glucose: fasting and preprandial: 90-140 mg/dL. 2 hour peak post-prandial bglevel: <180 mg/dL. - Frequency of hemoglobin A1C measurement: Every 3 months. Next due: 11/28/2024, and again 02/26/2025. - Certified Tab Builder visit: declined. - Next Diabetic Follow-up Visit: 6 months. Labs ordered. Tobacco cessation: does not [...] noted. No further questions today. Total time: 27 minutes with time also spent in chart/lab review. MANGO Mendez, P.A.-C., P.A. Patient Instructions Reduce Metformin XR 500 mg twice daily (1 tablet twice daily). Due to reduced Metformin XR dose and some fasting higher blood sugars, increase Lantus insulin to 24 units once daily. Continue Jardiance 25 mg once daily. Continue Ozempic 2 mg once weekly. A1c due 11/28/2024, along with metabolic panel. Endo return visit in 6 months. A1c and metabolic panel again prior to visit. Drink 80 oz water daily. documented in this encounter Plan of Treatment Upcoming Encounters Date Type Department Care Team (Late st Contact Info) Description 10/29/2024 1:45 PM DIGITAL PRE PRESS OPERATOR Appointment Department of Radiation Oncology in [place], [place] [address] [place] [address] Chris Kinsey M.D. [address] [place] [address] 11/28/2024 12:00 PM DIGITAL PRE PRESS OPERATOR Appointment Department of Laboratory Medicine in [place], [place] [address] [phone] Saba Pearson MPAS, P.A.-C., P.A. [address] [phone] 03/05/2025 1:20 PM CDT Appointment Department of Laboratory Medicine in [place], [place] [address] [address] Saba Pearson MPAS, P.A.Michela., P.A. [address] [address] 03/05/2025 2:30 PM CDT Office Visit Department of Endocrinology in [place], [place] [address] [address] Saba Pearson MPAS, P.A.-C., P.A. [address] [address] Scheduled Orders Name Type Priority Associated Diagnoses Orde r Schedule Hemoglobin A1c Lab Routine Diabetes Mellitus Type 2 With Other Circulatory Complication (HCC) Expected: 11/28/2024, Expires: 2025 Basic Metabolic Panel Lab Routine Diabetes Mellitus Type 2 With Other Circulatory Complication (HCC) Expected: 11/28/2024, Expires: 2025 Hemoglobin A1c Lab Routine Diabetes Mellitus Type 2 With Other Circulatory Complication (HCC) Expected: 02/26/2025, Expires: 2025 Basic Metabolic Panel Lab Routine Diabetes Mellitus Type 2 With Other Circulatory Complication (HCC) Expected: 02/26/2025, Expires: 2025 Scheduled Referrals Name Type Priority Associated Diagnoses Orde r Schedule Endocrinology office visit (clinic) Outpatient Referral Routine Diabetes Mellitus Type 2 With Other Circulatory Complication (HCC) Assisted Use Of Insulin Active (HCC) 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) Assisted Current Use Of Injectable Non-Insulin Antidiabetic Drugs Expected: 03/04/2025 (Approximate), Expires: 2025 documented as of this encounter Visit Diagnoses Diagnosis Diabetes Mellitus Type 2 With Other Circulatory Complication (HCC)- Primary Assisted Use Of Insulin Active (HCC) 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
--- OUTSIDE RECORDS SUMMARY | 2024-10-22 13:56 | XMS_ITS | Encounter Summary ---
Author Organization [facility] Address [address] [place] [address] Care Team Providers Care Radiation Protection Technician Name Role Phone Elsewhere, Pcp Primary Care Provider Unavailabl e Encounter Details Date Type Department Care Team (Latest Contact Info) Description 08/28/2024 1:31 PM CDT - 08/28/2024 11:59 PM CDT Hospital Encounter Department of Laboratory Medicine in [place], [place] [address] [phone] Sal alanis, Saba Horner, [facility], P.A.-C., P.A. [address] [phone] Diabetes Mellitus Type 2 With Other Circulatory Complication (HCC); Elevated Prostate-Specific Antigen Discharge Disposition: Home or Self Care Social History Tobacco Use Types Packs/Day Years Used Date Smoking Tobacco: Former Cigarettes 1 19.3 0 07/28/1960 - 11/27/1979 Smokeless Tobacco: Never Alcohol Use Standard Drinks/Week Comments No 0 (1 standard drink = 0.6 oz pur e alcohol) [facility] Utilities Answer Date Recorded In the past 12 months has [facility] [employer], gas, oil, or water [employer] threatened to shut off services in your [...] often do you attend chur ch or holiness services? More than 4 times per year 06/02/2022 Do you belong to any clubs o r organizations such as gnosticist groups, unions, fraternal or athletic groups, or [...] and heating? Not hard at all 06/02/2022 [facility] of Occupat ional Health - Occupational Stress [...] exercise (like a brisk walk)? 6 days 01 /05/2024 On average, how many minutes do you [...] your living situation today? I have a [facility] place to live 12/03/2023 Education Answer Date Recorded What is the highest level of school you have completed or the highest degree you have received? Associate degree: academic program 06/02/2022 Sex and Gender Information Value Date Recorded Sex Assigned at Male 09/22/2023 8:15 PM CDT Legal Sex Male 3:53 AM CHAPLAIN Gender Identity Male 09/22/2023 8:15 PM CDT Sexual Orientation Straight 06/02/2022 12 :11 PM CDT documented as of this encounter Medications at Time of Discharge alcohol swabs (Alcohol Prep) pads, medicated Apply [...] Needle 32 gauge x 5/32 needle 1 flash glucose sensor (FreeStyle Cyrus 2 Sensor) [...] bedtime. 20 mL 3 4 12/06/19 25 isosorbide mononitrate (IMDUR) 60 mg 24 hr tablet Take 60 mg by mouth daily. 8 ketoconazole (Nizoral) 2 % cream MIX 11 WITH TRIAMCINOLONE ACETONIDE 0.1% TOPICAL CREAM. APPLY ON AFFECTED AREAS ON BODY 1-2X DAILY FOR UP TO 2 WEEKS. CONTINUE WITH ONLY KE 4 losartan (COZAAR) 100 mg tablet Take 1 tablet by mouth daily. 4 metoprolol tartrate (LOPRESSOR) 100 mg tablet Take 100 mg by mouth 2 (two) times a day. 9 multivitamin tablet Take 1 tablet by mouth daily. 4 omega 2-hfh-zae-fish oil 100-160-1,000 mg capsule Take 2 capsules [...] and 1 tab all other days 5 empagliflozin (JARDIANCE) 25 mg tablet Take 1 tablet (25 mg total) by mouth every morning before breakfast. Take with 8-16 oz water 30 minutes prior to breakfast. 90 tablet 3 2 09/03/20 24 insulin glargine-yfgn (SEMGLEE) 100 unit/mL (3 mL) injection Inject 22 Units under the skin at bedtime. 3 09/03/20 24 metFORMIN XR (GLUCOPHAGE-XR) 500 mg 24 hr tabletIndications: Diabetes Mellitus Type 2 With Diabetic Chronic Kidney Disease Hyperglycemic (HCC) Take 2 tablets (1,000 mg total) by mouth 2 (two) times a day with meals. 360 tablet 3 3 09/03/20 24 documented as of this encounter Plan of Treatment Upcoming Encounters Date Type Department Care Team (Late st Contact Info) Description 10/29/2024 1:45 PM CHAPLAIN Appointment Department of Radiation Oncology in [place], [place] [address] [place] [phone] Chris Kinsey M.D. [address] [place] [address] 11/28/2024 12:00 PM CHAPLAIN Appointment Department of Laboratory Medicine in [place], [place] [address] [place] [address] Saba Pearson, MPAS, P.A.-C., P.A. [address] [place] [address] 03/05/2025 1:20 PM CDT Appointment Department of Laboratory Medicine in [place], [place] [address] [place] [address] Saba Pearson MPAS, P.A.-C., P.A. [address] [place] [address] 03/05/2025 2:30 PM CDT Office Visit Department of Endocrinology in [place], [place] [address] [place] [address] Saba Pearson MPAS, P.A.-C., P.A. [address] [place] [address] documented as of this encounter Procedures Procedure Name Priority Date/Time Associated Diagnosis Comments LIPID PANEL, S Routine 08/28/2024 1:48 PM CDT Diabetes Mellitus Type 2 With Other Circulatory Complication (HCC) PROSTATE-SPECIFIC AG (PSA), TOT AND FR, S Routine 08/28/2024 1:48 PM CDT Elevated Prostate-Specific Antigen HEMOGLOBIN A1C, B Routine 08/28/2024 1:4 8 PM CDT Diabetes Mellitus Type 2 With Other Circulatory Complication (HCC) BASIC METABOLIC PANEL, S/P Routine 08/28/2024 1:48 PM CDT Diabetes Mellitus Type 2 With Other Circulatory Complication (HCC) documented in this encounter Results * (ABNORMAL) PSA (Prostate-Specific Antigen), Total and Free (08/28/2024 1:48 PM CDT) [facility] Prostate-Specific Ag 8.1(H) <=7.2 ng/mL 08/29/2024 10:[address] [facility] Free PSA 0.5 ng/mL 08/29/2024 10:[address] [facility] Free PSA/PSA Ratio 0.06 ratio 2023 10:[address] [facility] Comment: When Total PSA is in the range of 4.0-10.0 ng/mL: Probability of Cancer fPSA/tPSA ratio 50-59 years 60-69 years >or= 70 years < or = 0.10 49% 58% 65% 0.11 - 0.18 27% 34% 41% 0.19 - 0.25 18% 24% 30% > 0.25 9% 12% 16% ----ADDITIONAL INFORMATION---- The testing method is an electrochemiluminescence assay manufactured by [employer] and performed on the Modular [...] LAB BLOOD NON ADD -ON Final Result [facility] [address] [place] [address] [facility] [address] [place] [address] * (ABNORMAL) Lipid Panel (08/28/2024 1:48 PM CDT) [facility] Triglycerides 263(H) mg/dL 08/28/2024 2:38 PM CDT [...] P.A.-C., P.A. LAB BLOOD ADD-ON Final Result [facility] [address] [place] [address], [facility] [place] [address] [place] [address] * (ABNORMAL) Basic Metabolic Panel (08/28/2024 1:48 [...] P.A.-C., P.A. LAB BLOOD ADD-ON Final Result [facility] [address] [place] [address], [facility] in [place] [address] [place] [address] * (ABNORMAL) Hemoglobin A1c (08/28/2024 1:48 PM [...] P.A.-C., P.A. LAB BLOOD ADD-ON Final Result [facility] [address] [place] [address], [facility] in [place] [address] [place] [address] documented in this encounter Visit Diagnoses Diagnosis Diabetes Mellitus Type 2 With Other Circulatory Complication (HCC) Elevated Prostate-Specific Antigen documented in this encounter Care Teams Radiation Protection Technician Relationship Specialty Start Date End Date Elsewhere, Pcp PCP - General Family Medicine 11/19/20 documented as of this encounter
== END 2024-10-22 13:52 | disposition home or self-care (01) ==
LOC: MRI 13:52
PROVIDERS: PCP Family Medicine; Visit Provider Internal Medicine
DX: C61 Malignant neoplasm of prostate (principal)
CPT/HCPCS: 72195

== ENCOUNTER 2025-08-05 08:42 | Outpatient (CLI) | payer MEDICARE, BC, SELFPAY | END 2025-08-05 08:43 | disposition home or self-care (01) | LOC: NFLDREF 08-09 17:43 | PROVIDERS: PCP Family Medicine; Referring Provider Family Medicine; Visit Provider Family Medicine | DX: I10 Essential (primary) hypertension (principal); E78.5 Hyperlipidemia, unspecified; E11.9 Type 2 diabetes mellitus without complications; Z12.5 Encounter for screening for malignant neoplasm of prostate; Z79.01 Long term (current) use of anticoagulants | CPT/HCPCS: 80053; 80061; G0103 ==

== ENCOUNTER 2025-10-05 17:16 | Emergency (ER) | payer MEDICARE, BC, SELFPAY ==
--- OUTSIDE RECORDS SUMMARY | 2025-10-05 17:18 | XMS_ITS ---
Author Organization [facility] Address [address] [place] [address] Care Team Providers Care Molder Hand Name Role Phone Elsewhere, Pcp Primary Care Provider Unavailabl e Active Problems Problem Noted Date Diagnosed Date Primary Malignant Neoplasm Of Prostate Cancer Staging:Clinical stage from 09/27/2024:Stage IIC(cT1c, cN0, cM0, PSA: 8.1, Grade Group: 3) - Signed by Justine Finn APRN, C.N.P. on 09/27/2024 Stock Handler Use Of Insulin Active 12/14/2022 Stock Handler Current Use Of Inj ectable Non-Insulin Antidiabetic [...] Graft Status Post Perso nal History 12/14/2000 Current Treatment and Therapy Plans No current plan information found. Past Treatment and Therapy Plans No past plan information found. Past Radiation Episodes * IMRT: ProstateOverview* First Treatment Date Last Treatment Date Treatment Site Technique Goal Episode Provider 10/29/2024 11/26/2024 Prostate IMRT Curative * Linked Problems Primary Malignant Neoplasm O f Prostate Treatment Courses* Course 1xProstate 10/29/2024 - 11/26/2024 Treatment Period Fraction Dose Fractions Total Dose Plans Planned [id number] 10/29/2024 - 11/26/2024 300 cGy 6 ,000 cGy Reference Points Delivered [id number] 10/29/2024 - 11/26/2024 6,000 cGy
--- OUTSIDE RECORDS SUMMARY | 2025-10-05 17:18 | XMS_ITS | Clinical Summary ---
Author Organization [facility] Address [address] [place] [address] Care Team Providers Care Human Resources Operations Coordinator Name Role Phone Elsewhere, Pcp Primary Care Provider Unavailabl e Source Comments Patient records contain information from all sites at [facility]. For routine questions regarding patient records, call [phone] during business hours, M-F 8:00 AM - 5:00 PM Central Time. Record requests for emergency care only can be directed to [phone] at any time.[facility] Allergies No known active allergies Medications foot care products pad FOR HOME USE 0 8 Active aspirin 81 mg chewable tablet Chew 1 tablet daily. 4 Active omega 1-lzt-bls-fish oil 100-160-1,000 mg capsule Take 2 capsules by mouth daily. 4 Active glucosam-chondroit in-diet cb25 116-100 mg capsule Take 1 tablet by mouth 2 (two) times a day. 4 Active hydroCHLOROthiazid e (HYDRODIURIL) 25 mg tablet Take 25 mg by mouth daily. 9 Active isosorbide mononitrate (IMDUR) 60 mg 24 hr tablet Take 60 mg by mouth daily. 8 Active losartan (COZAAR) 100 mg tablet Take 1 tablet by mouth daily. 4 Active metoprolol tartrate (LOPRESSOR) 100 mg tablet Take 100 mg by mouth 2 (two) times a day. 9 Active multivitamin tablet Take 1 tablet by mouth daily. 4 Active psyllium husk (METAMUCIL) 0.4 gram capsule Take 1 capsule by mouth 2 (two) times a day. 5 Active spironolactone (ALDACTONE) 25 mg tablet Take 25 mg by mouth daily. 9 Active warfarin (COUMADIN) 5 mg tablet Take 5 mg by mouth daily. 2.5 mg on Monday and Mon and 5 mg tab all other days 5 Active cholecalciferol (VITAMIN D3) 10 mcg (400 Unit) tablet Take 10 mcg by mouth daily. Active Contour Test Strips strips daily. 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 20 mL 3 4 Active pravastatin (PravachoL) 40 mg tablet Take 40 mg by mouth daily. 3 Active metFORMIN XR (Glucophage-XR) 500 mg 24 hr tabletIndications: Diabetes Mellitus Type 2 With Diabetic Chronic Kidney Disease (HCC) Take 1 tablet (500 mg total) by mouth 2 (two) times a day with meals. 180 tablet 3 4 Active empagliflozin (Jardiance) 25 mg tabletIndications: Diabetes Mellitus Type 2 With Other Circulatory Complication (HCC) Take 1 tablet (25 mg total) by mouth daily before morning meal. Take with 8-16 oz water 30 minutes prior to breakfast. 90 tablet 3 4 Active albuterol 90 mcg/actuation inhaler Inhale. 4 Active alcohol swabs (Alcohol Prep) pads, medicated Apply topically. 2 Active tamsulosin (Flomax) 0.4 mg 24 hr capsule Take 2 capsules (0.8 mg total) by mouth daily. 60 capsule 2 4 Active insulin glargine-yfgn (Semglee) 100 unit/mL (3 mL) penIndications:Nory betes Mellitus Type 2 With Other Circulatory Complication (HCC),Alf Use Of Insulin Active (HCC),Diabetes Mellitus Type 2 With Diabetic Chronic Kidney Disease (HCC),Diabetes Mellitus Type 2 With Diabetic Neuropathy (HCC) Inject 29 Units under the skin at bedtime. 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 Replace sensor every 15 days. 6 each 5 04/02/20 26 Active tirzepatide (Mounjaro) 10 mg/0.5 mL pen injector injectionIndicatio ns:type 2 diabetes mellitus Inject 0.5 mL (10 mg total) under the skin every 7 (seven) days Indications: type 2 diabetes mellitus. 2 mL 11 5 07/16/20 26 Active Active Problems Problem Noted Date Diagnosed Date Primary Malignant Neoplasm Of Prostate 4 Cancer Staging:Clinical stage from 09/27/2024:Stage IIC(cT1c, cN0, cM0, PSA: 8.1, Grade Group: 3) - Signed by Justine Finn APRN, C.N.P. on 09/27/2024 Alf Use Of Insulin Active 12/14/2022 Alf Current Use Of Inj ectable Non-Insulin Antidiabetic [...] Encounters Date Type Department Care Team Description 07/16/2025 1:00 PM CDT Office Visit Department of Endocrinology in [address] [id number] Saba Gutierrez MPAS, P.A.-C., P.A. Diabetes Mellitus Type 2 With Diabetic Neuropathy (HCC) (Primary Dx); Morbid Obesity Body Mass Index >= 35 with Comorbid Condition (HCC); Diabetes Mellitus Type 2 With Other Circulatory Complication (HCC); Diabetes Mellitus Type 2 With Diabetic Chronic Kidney Disease (HCC); Alf Use Of Insulin Active (HCC); Alf Current Use Of Injectable Non-Insulin Antidiabetic Drugs 07/16/2025 10:59 AM CDT - 07/16/2025 11:59 PM CDT Hospital Encounter Department of Laboratory Medicine in [address] [address] Saba Gutierrez MPAS, P.Olya.-C., P.A. Diabetes Mellitus Type 2 With Diabetic Chronic Kidney Disease (HCC) Discharge Disposition: Home or Self Care from Last 3 Months Family History Medical History Relation Name Comments Diabetes type II Aunt paternal Coronary artery disease Father Thierno Rodriguez Diabetes type II Father Thierno Rodriguez Obesity Father Thierno Rodriguez Relation Name Status Comments Aunt paternal Father Thierno Rodriguez Mother Social History Tobacco Use Types Packs/Day Years Used Date Smoking Tobacco: Former Cigarettes 1 19.3 0 07/28/1960 - 11/27/1979 Smokeless Tobacco: Never Tobacco Cessation:Counseling Given: Not Answered Alcohol Use Standard Drinks/Week Comments No 0 (1 standard drink = 0.6 oz pur e alcohol) [facility] Utilities Answer Date Recorded In the past 12 months has [facility] [employer], gas, oil, or water [employer] threatened to shut off services in your [...] by your partner or ex-partner? No 06/02/2022 Hunger Vital Sign Answer Date Recorded [...] things needed for daily living? No 12/03/2023 Housing Stability Answer Date Recorded What is your living situation today? I have a [facility] place to live 12/03/2023 Education Answer Date Recorded What is the highest level of school you have completed or the highest degree you have received? Associate degree: academic program 06/02/2022 Sex and Gender Information Value Date Recorded Sex Assigned at Male 09/22/2023 8:15 PM CDT Legal Sex Male 3:53 AM PATIENT REGISTRATION SPECIALIST Gender Identity Male 09/22/2023 8:15 PM CDT Sexual Orientation Straight 06/02/2022 12 :11 PM CDT Last Filed Vital Signs Vital Sign Reading Time Taken Comments Blood Pressure 108/64 07/16/2025 12:54 PM CDT Pulse 72 07/16/2025 12:54 PM CDT Temperature 36.1 C (96.9 F) 03/06/2025 3:53 PM CDT Respiratory Rate 20 01/21/2014 11:1 6 AM PATIENT REGISTRATION SPECIALIST Vital sign result from Clinical Notes. Oxygen Saturation 94% 06/14/2023 2:4 6 PM CDT Inhaled Oxygen Concentration - - Weight 139 kg (306 lb 10.6 oz) 07/16/2025 12:54 PM CDT Height 183.3 cm (6' 0.17) 02/22/2023 1 :51 PM CDT Body Mass Index 41.4 02/22/2023 1:51 PM CDT Plan of Treatment Upcoming Encounters Date Type Department Care Team (Late st Contact Info) Description 12/03/2025 9:00 AM PATIENT REGISTRATION SPECIALIST Appointment Department of Laboratory Medicine in [place], [place] [address] [place] [address] Saba Pearson MPAS, P.Olya.-C., P.A. [address] [place] [address] 12/03/2025 10:30 AM PATIENT REGISTRATION SPECIALIST Office Visit Department of Endocrinology in [place], [place] [address] [place] [address] Saba Pearson MPAS, P.A.-C., P.A. [address] [place] [address] Health Maintenance Due Date Last Done Comments Diabetic Eye Exam 1941 Diabetic Office Visit with Foot Exam 1941 Office Visit for Blood Pressure Check / Re-check 1941 Urine Albumin 1941 Hepatitis B Vaccines (1 of 3 - Risk 3-dose series) 2001 Depression Screening (Annual PHQ-2) 11/27/2024 Fall Risk Screen (Annual) 11/27/2024 Hemoglobin A1C 01/16/2026 07/16/2025, 04/0 07/2025, 11/28/2024, Additional history exists COVID-19 Vaccine (13 - Pfizer risk season) 2026 08/28/2025, 03/27/2025, 08/05/2024, Additional history exists Creatinine Level (Kidney Function Test) 07/16/2026 07/16/2025, 03/05/2025, 11/28/2024, Additional history exists Potassium Level 07/16/2026 07/16/2025, 04/0 07/2025, 11/28/2024, Additional history exists Sodium Level 07/16/2026 07/16/2025, 04/0 07/2025, 11/28/2024, Additional history exists DTaP,Tdap,and Td Vaccines (5 - Td or Tdap) 03/29/2031 03/29/2021, 11/07/2011, 10/28/2011, Additional history exists Colonoscopy Discontinued 12/07/2009 (Perf ormed elsewhere) Colorectal Cancer Surveillance Discontinued Pneumococcal vaccine (50+ years) Completed 07/28/2016, 01/06/2015, 11/27/2013, Additional history exists Zoster Vaccines Completed 12/13/2018, 07/28, 11/27/2007, Additional history exists RSV vaccine - (32-36 weeks) or 50+ years Completed 09/18/2023 Influenza Vaccine Completed 08/28/2025, , 08/22/2023, Additional history exists CT Colonography Discontinued Cologuard Discontinued HPV Vaccines Aged Out No longer eligi ble based on patient's age to complete this topic IPV Vaccines Aged Out No longer eligi ble based on patient's age to complete this topic Medical Devices Implanted Type Area Network Support Engineer Device Identifier Shelf Expiration Date Model / Serial / Lot Adah Andi Fuzzy 1 X 1 - Nettles [id number] Implanted:Qty: 1 on 12/14/2000 Mesh or Patch [employer] Insurance Description:Device Manufactu [facility] - [employer]. Device Status Text - [id number]. [facility] Data - [id number]. Procedures Procedure Name Priority Date/Time Associated Diagnosis Comments BASIC METABOLIC PANEL, S/P Routine 07/16/2025 11:11 AM CDT Diabetes Mellitus Type 2 With Diabetic Chronic Kidney Disease (HCC) HEMOGLOBIN A1C, B Routine 07/16/2025 11: 11 AM CDT Diabetes Mellitus Type 2 With Diabetic Chronic Kidney Disease (HCC) from Last 3 Months Results * (ABNORMAL) Hemoglobin A1c (07/16/2025 11:11 AM CDT) Hemoglobin A1c, B 7.3(H) 4.2 - 5.6 % 07/16/2025 11:32 AM CDT OWAT Comment: Hemoglobin A1c values greater than or equal to 6.5 percent are diagnostic for diabetes mellitus. Diagnosis should be confirmed by repeat testing. In diabetic patients, HbA1c goals should be discussed with healthcare provider. Blood (Blood, Venous) 07/16/2025 11:11 AM CDT 07/16/2025 11:16 AM CDT us Saba COBIAN, P.A.-C., P.A. LAB BLOOD ADD-ON Final Result [facility] [address] [address], [facility] [place] [address] [place] [address] * (ABNORMAL) Basic Metabolic Panel (07/16/2025 11:11 AM CDT) Potassium, P 4.4 3.6 - 5.2 mmol/L 07/16/2025 11:50 AM CDT OW[facility] Sodium, P 140 135 - 145 mmol/L 07/16/2025 11:50 AM CDT OW[facility] Chloride, P 101 98 - 107 mmol/L 07/16/2025 11:50 AM CDT OW[facility] Bicarbonate, P 25 22 - 29 mmol/L 07/16/2025 11:49 AM CDT OW[facility] Anion Gap, P 14 7 - 15 07/16/2025 11:50 AM CDT [facility] BUN (Blood Urea Nitrogen), P 31(H) 8 - 24 mg/dL 07/16/2025 11:49 AM CDT [facility] Creatinine 1.17 0.74 - 1.35 mg/dL 07/16/2025 11:49 AM CDT OW[facility] Estimated GFR (eGFR) 62 >=60 mL/min/BSA 07/16/2025 11:49 AM CDT OWAT Comment: Estimated GFR calculated using the 2020 CKD_EPI creatinine equation. Calcium, Total, P 9.5 8.8 - 10.2 mg/dL 07/16/2025 11:49 AM CDT OWAT Glucose, P 170(H) 70 - 140 mg/dL 07/16/2025 11:49 AM CDT [facility] Blood (Blood, Venous) 07/16/2025 11:11 AM CDT 07/16/2025 11:16 AM CDT Saba COBIAN, PJazminA.-C., P.A. LAB BLOOD ADD-ON Final Result [facility] [address] [place] [address], [place] [facility] [place] [address] [place] [address] from Last 3 Months Insurance MEDICARE [facility] Care Teams Human Resources Operations Coordinator Relationship Specialty Start Date End Date Elsewhere, Pcp PCP - General Family Medicine 11/19/20
--- OUTSIDE RECORDS SUMMARY | 2025-10-05 17:18 | XMS_ITS | Clinical Summary ---
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 Gender Identity Not on file Sexual Orientation Not on file Plan of Treatment Health Maintenance Due Date Last Done Comments Tetanus booster 1952 Depression screening for age 12+ 1953 BMI (ht and wt on same day) for age 18+ 1959 Pneumococcal series for age 50+ (1 of 1 - PCV) 1991 Zoster (shingles) series for age 50+ (1 of 2) 1991 Medicare Wellness for age 65+ 2006 RSV vaccine for adults or (1 - 1-dose 75+ series) 2016 Influenza Vaccine (#1) 2025 Hepatitis B series for 19+ Aged Out N o longer eligible based on patient's age to complete this topic Insurance [employer] [place] [place] ONLY [facility] Care Teams Manager Field Investigations Relationship Specialty Start Date End Date Pcp, No . PCP - General 12/23/22
--- NOTE | 2025-10-05 17:25 | ED.GENADULT ---
HPI - General Adult General Date Seen: 10/05/25 Chief complaint: Unspecified Complaint, Adult Stated complaint: Bowel obstruction Time Seen by Provider: 10/05/25 17:23 History of Present Illness HPI narrative: 84-year-old male with complex past history including type 2 diabetes, atrial fibrillation (on beta-blockers and Coumadin), hyperlipidemia, hypertension, coronary artery disease, severe tricuspid regurgitation ([facility]), prostate cancer managed by radiation oncology. Per his EMR he also has a history of elevated BMI, colon polyps, sleep apnea diabetic neuropathy, chronic right pepe ulcer. He does not have any history of bowel obstructions or previous abdominal surgery. He does note a pattern where he occasionally gets constipated and needs to strain did defecate. He has been healthy and well lately with essentially a normal bowel pattern recently. Maybe it has been a couple of days since his last p.m.. This evening he started the field cramping and urgency to defecate. At home he had to strain might Ali but was not able to pass any stool. He even tried to digitally disimpact his rectum but was not able to get any stool coming out. He started developed some abdominal cramping and was worried that he might be developing a bowel obstruction so came straight here to the ER. He is not nauseous or vomiting. No fever. Since arriving here in the ER he went to the bathroom and he says he was able to successfully pass a fairly large caliber 6 in long stool that was fairly hard at its tip and then fairly soft and followed by diarrhea. Since passage of the stool his symptoms have resolved. He is not having any abdominal pain. No nausea vomiting. No rectal pain. He has noted some bright red blood per rectum since passage of the stool. He says he essentially feels back to normal. No ongoing symptoms. He is on warfarin. INR has been therapeutic for quite a few months. He is due for his every 6 week check in a couple of days. He has no other unusual bleeding or bruising. Related Data Home Medications ?Medication ?Instructions ?Recorded ?Confirmed aspirin 81 mg tablet,delayed 81 mg PO QDAY 05/31/22 08/12/25 release (Enteric Coated Aspirin) omega 4-uzt-zme-fish oil 1,000 mg 1 cap PO BID 05/31/22 08/12/25 (120 mg-180 mg) capsule (Fish Oil) empagliflozin 25 mg tablet 25 mg PO QDAY 12/19/22 08/12/25 multivitamin (Multiple Vitamins 1 tab PO QDAY 12/19/22 08/12/25 tablet) metoprolol tartrate 100 mg tablet 100 mg PO BID 09/14/23 08/12/25 Glucosamine/Chondroitin PO BID 05/16/24 08/12/25 metformin 500 mg tablet 500 mg PO BID 01/07/25 08/12/25 insulin glargine 100 unit/mL (3 29 unit subcut QPM 03/25/25 08/12/25 mL) subcutaneous pen (Lantus Solostar U-100 Insulin) tirzepatide 10 mg/0.5 mL 10 mg subcut QWEEK 08/12/25 08/12/25 subcutaneous pen injector (Haja) Previous Rx's ?Medication ?Instructions ?Recorded hydrochlorothiazide 25 mg tablet 25 mg PO QDAY #90 tabs 12/19/22 isosorbide mononitrate 60 mg 60 mg PO QDAY #90 tabs 12/19/22 tablet,extended release 24 hr losartan 100 mg tablet 100 mg PO QDAY #90 tabs 12/19/22 pravastatin 40 mg tablet 40 mg PO QDAY #90 tabs 12/19/22 spironolactone 25 mg tablet 25 mg PO QDAY #90 tabs 12/19/22 warfarin 5 mg tablet See Rx Instructions PO .COMPLEX 04/24/25 #90 tabs Allergies Allergy/AdvReac Type Severity Reaction Status Date / Time No Known Drug Allergies Allergy Verified 08/12/25 07:43 [facility] Medical History Skin infection ?L08.9 - Local infection of the skin and subcutaneous tissue, unspecified (ICD-10) Surgical History 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 (ICD-10) Family History (Updated 08/14/25 @ 11:02 by Ruma Victor~CHILD DAYCARE WORKER) Father Myocardial infarction Social History (Updated 08/12/25 @ 08:42 by Yaritza Baptiste~CUSTOMER DEVELOPMENT MANAGER, CUSTOMER DEVELOPMENT MANAGER) What is your current living situation?: I presently have a place to live Problems where you live: no known problems In the past 12 months, utilities in danger of being shut off: no In past 12 months, lack of transportation kept you from medical appts, meetings, work, or getting things needed for daily living: no In the past 12 mos, have been you worried that your food would run out before you had money to buy more?: never true In the past 12 mos, the food you bought just didn't last and you didn't have money to buy more?: never true Smoking Status: Never smoker How often does anyone, including family, friends and others, physically hurt you: never How often does anyone, including family, friends and others, insult or talk down to you: never How often does anyone, including family, friends and others, threaten you with harm: never How often does anyone, including family, friends and others, scream or curse at you: never Exam Narrative: Exam Narrative: Constitutional: Appears well-developed and well-nourished. Alert. Conversant. Non toxic. HENT: Head: Atraumatic. Nose: Nose normal. Mouth/Throat: Oral mucosa is clear and moist. no trismus. Pharynx normal. Tonsils symmetric. No tonsillar enlargement, erythema, or exudate. Eyes: Conjunctivae normal. EOM normal. Pupils equal, round, and reactive to light. No scleral icterus. Neck: Normal range of motion. Neck supple. No tracheal deviation present. Cardiovascular: Normal rate, regular rhythm. No gallop. No friction rub. No murmur heard. Symmetric radial artery pulses Pulmonary/Chest: Effort normal. No stridor. No respiratory distress. No wheezes. No rales. No rhonchi . No tenderness. Abdominal: Soft. Bowel sounds normal. No distension. No mass. No tenderness. No rebound. No guarding. Rectal: There is little bit of bruising/ecchymosis (a couple of 1 or 2 cm small ecchymotic bruises) in the posterior gluteal cleft just behind the rectum. However no tenderness. No new leg swelling to suggest hematoma or abscess there. There is a tiny rectal fissure between the folds of the anus in the posterior midline. I do not see any external hemorrhoids. Normal rectal tone. He does have a small amount of soft yellow/brown stool. No active bleeding. Musculoskeletal: RUE: Normal range of motion. No tenderness. No deformity LUE: Normal range of motion. No tenderness. No deformity RLE: Normal range of motion. No edema. No tenderness. No deformity LLE: Normal range of motion. No edema. No tenderness. No deformity Neurological: Alert and oriented to person, place, and time. Normal strength. CN II-VII intact. No sensory deficit. GCS eye subscore is 4. GCS verbal subscore is 5. GCS motor subscore is 6. Normal coordination Skin: Skin is warm and dry. No rash noted. No pallor. Normal capillary refill. Psychiatric: Normal mood. Normal affect. Const: Vital Signs, click to edit/add: Vital Signs - 24 hr 10/05/25 17:26 Temperature 97.9 F Pulse Rate [Pulse Oximeter] 70 Respiratory Rate 22 Blood Pressure [Ri ght Upper Arm] 147/74 H Pulse Oximetry 95 Oxygen Delivery Me thod Room Air Course Course ED Course: Recheck-no recurrent symptoms. Feeling fine. Vital Signs Vital signs: Initial Vital Signs Temperature 97.9 F 10/05/25 17:26 Temperature Source Temporal Artery Scan 10/05/25 17:26 Pulse Rate 70 10/05/25 17:26 Respiratory Rate 22 10/05/25 17:26 Blood Pressure 147/74 H 10/05/25 17:26 Blood Pressure Mean 98 10/05/25 17:26 Blood Pressure Position Sitting 10/05/25 17:26 Pulse Oximetry 95 10/05/25 17:26 Oxygen Delivery Method Room Air 10/05/25 17:26 Vital Signs Temperature 97.9 F 10/05/25 17:26 Pulse Rate 70 10/05/25 17:26 Respiratory Rate 22 10/05/25 17:26 Blood Pressure 147/74 H 10/05/25 17:26 Pulse Oximetry 95 10/05/25 17:26 Oxygen Delivery Method Room Air 10/05/25 17:26 Temperature 97.9 F 10/05/25 17:26 Pulse Rate 70 10/05/25 17:26 Respiratory Rate 22 10/05/25 17:26 Blood Pressure 147/74 H 10/05/25 17:26 Pulse Oximetry 95 10/05/25 17:26 Oxygen Delivery Method Room Air 10/05/25 17:26 Medical Decision Making MDM Narrative Medical decision making narrative: Very pleasant 84-year-old gentleman presented to the ER today with an episode of rectal discomfort and inability to pass a bowel movement that lasted a couple of hours. He was concerned that he might be in the early phases of dove developing a small bowel obstruction. However shortly after arrival here in the ER he was able to pass a fairly large hard stool. After passing the stool he noted some bright red blood per rectum but is now feeling better. No ongoing symptoms at all On my exam he has no exam adult tenderness, distention, or other findings of bowel obstruction, perforation, abscess, or other severe infection. On my rectal exam he does have evidence for small rectal fissure as well as some bruising in the gluteal cleft adjacent to his rectum. I do not see any evidence for any external hemorrhoid, prolapsed internal hemorrhoid, perirectal abscess. No ongoing bleeding. At this point I do not think he needs CT imaging, or admission for monitoring or serial hemoglobins. Laboratory workup shows normal hemoglobin, normal white count. INR is slightly subtherapeutic at 1.87. Patient is generally fairly consistent with his INRs. He has not had to adjust his dose of Coumadin and quite a few months. It actually had been about 8 weeks since his last check. At this point I would think it is reasonable for him to continue on his current to dose and recheck his INR in clinic this week. We discussed management for rectal fissure Precautions for return to the ER reviewed if he does develop any recurrent rectal pain, worsening bleeding, any abdominal pain, bloating, vomiting, fever, or other symptoms. Lab Data Labs: Lab Results 10/05/25 Range/Units 18:20 WBC 6.21 (4.50-11.00) K/uL RBC 4.67 (4.30-5.90) m/uL Hgb 14.1 (13.5-17.5) gm/dL Hct 43.7 (37.0-53.0) % MCV 94 (80-100) fL MCH 30 (26-34) pg MCHC 32 (32-36) gm/dL RDW Coeff of Diane 13.9 (11.5-15.5) % Plt Count 146 (140-440) K/uL Neut % (Auto) 67.3 (42.0-72.0) % Lymph % (Auto) 20.1 (20-44) % Garvin % (Auto) 8.4 (0.0-11.0) % Eos % (Auto) 3.4 (0.0-7.0) % Baso % (Auto) 0.6 (0.0-3.0) % Neut # (Auto) 4.18 (1.7-7.0) K/uL Lymph # (Auto) 1.25 (0.90-2.90) K/uL Garvin # (Auto) 0.50 (0.00-0.90) K/UL Eos # (Auto) 0.21 (0.00-0.50) K/uL Baso # (Auto) 0.04 (0.00-0.30) K/uL Abs Immat Gran (auto) 0.01 (0.00-0.30) K/uL Imm/Tot Granulo (auto) 0.2 % INR 1.87 H (0.91-1.10) Sodium 139 (135-149) mmol/L Potassium 4.1 (3.6-5.1) mmol/L Chloride 98 (96-114) mmol/L Carbon Dioxide 29 (20-32) mmol/L Anion Gap 12 (7-15) mEq/L BUN 29 (7-30) mg/dL Creatinine 1.2 (0.5-1.5) mg/dL Estimated Creat Clear 52.71 Estimated GFR 60 ml/min Glucose 159 H (60-115) mg/dL Calcium 8.9 (8.4-10.6) mg/dL Discharge Plan Discharge Clinical Impression: Constipation, Rectal fissure, Diabetic ulcer of pepe Patient Disposition: Home, Self-Care Condition: Stable Instructions: Constipation (ED), Rectal Bleeding (ED) Additional Instructions: As we discussed, we suspect that your the bleeding was because of a rectal fissure triggered by passing stool. For the next few days try to cut take stool softeners to make sure there stools are soft and not hard or formed. Try to shower or soak in the bathtub after each bowel movement and once or twice a day to keep your backside clean. We expect that the fissure should heal over the next couple of days or week. If you notice increasing bleeding, any rectal pain, or other symptoms such as abdominal pain, fever, or vomiting, please come back to the emergency department right away. The INR is slightly subtherapeutic today at 1.87. Please recheck her INR in clinic within the next 3-5 days. I have placed a referral to the [facility] for your wound on your right pepe. You should receive a phone call from the wound clinic within 1 or 2 days to set up a visit. If you do not receive a call by Monday, please call [phone] Prescriptions: No Action metoprolol tartrate 100 mg tablet 100 mg PO BID Mounjaro 10 mg/0.5 mL pen injector 10 mg subcut QWEEK multivitamin [Multiple Vitamins] Tablet 1 tab PO QDAY hydrochlorothiazide 25 mg tablet 25 mg PO QDAY Qty: 90 3RF isosorbide mononitrate 60 mg tablet extended release 24 hr 60 mg PO QDAY Qty: 90 3RF losartan 100 mg tablet 100 mg PO QDAY Qty: 90 3RF pravastatin 40 mg tablet 40 mg PO QDAY Qty: 90 3RF spironolactone 25 mg tablet 25 mg PO QDAY Qty: 90 3RF Glucosamine/Chondroitin PO BID insulin glargine [Lantus Solostar U-100 Insulin] 100 unit/mL (3 mL) insulin pen 29 unit subcut QPM metformin 500 mg tablet 500 mg PO BID aspirin [Enteric Coated Aspirin] 81 mg tablet,delayed release (DR/EC) 81 mg PO QDAY omega 5-xkq-ldv-fish oil [Fish Oil] 1,000 mg (120 mg-180 mg) capsule 1 cap PO BID empagliflozin 25 mg tablet 25 mg PO QDAY warfarin 5 mg tablet See Rx Instructions PO .COMPLEX Qty: 90 0RF Protocol: Dose Management Condition: Monday Dose/Route: 5 mg Instruction: 1 x 5 mg tablet Condition: Monday Dose/Route: 2.5 mg Instruction: 0.5 x 5 mg tablets Condition: Monday Dose/Route: 5 mg Instruction: 1 x 5 mg tablet Condition: Monday Dose/Route: 2.5 mg Instruction: 0.5 x 5 mg tablets Condition: Dose/Route: 5 mg Instruction: 1 x 5 mg tablet Condition: Monday Dose/Route: 2.5 mg Instruction: 0.5 x 5 mg tablets Condition: Monday Dose/Route: 5 mg Instruction: 1 x 5 mg tablet Protocol Text: Adjustment Start Date: Monday08/05/25 INR Value: 2.1 INR Date: 08/05/25 Recheck Date: 09/30/25 Rx Instructions: 2.5mg on Mon/Mon/Mon, 5mg the rest of the week Follow Up/Referrals: Cameron Blair MD [Primary Care Provider, Family Practice] Stand Alone Forms: [employer] Info Instructions
[2025-10-05 17:26] VITALS: BP 147/74; PULSE 70; RESP 22; TEMP 36.6; O2SAT 95; BMI 40.5
[2025-10-05 18:29] LABS: Hematocrit* 43.7 % (37.0-53.0); Hemoglobin* 14.1 gm/dL (13.5-17.5); Immature Granulocytes Abs Auto 0.01 K/uL (0.00-0.30); Immature Granulocytes Pct Auto 0.2 %; Lymphocytes Absolute Auto 1.25 K/uL (0.90-2.90); Mean Corpuscular HGB Conc 32 gm/dL (32-36); Mean Corpuscular Hemoglobin 30 pg (26-34); Mean Corpuscular Volume 94 fL (80-100); RDW Coefficient of Variation % 13.9 % (11.5-15.5); Red Blood Count* 4.67 m/uL (4.30-5.90); White Blood Count* 6.21 K/uL (4.50-11.00)
[2025-10-05 18:33] LABS: Slide Review Reflex No
[2025-10-05 18:41] LABS: Chloride* 98 mmol/L (96-114); Sodium* 139 mmol/L (135-149)
[2025-10-05 18:42] LABS: Potassium* 4.1 mmol/L (3.6-5.1)
[2025-10-05 18:44] LABS: Blood Urea Nitrogen* 29 mg/dL (7-30); Creatinine* 1.2 mg/dL (0.5-1.5); Est. Creatinine Clearance* 52.71; Estimated Glomerular Filt Rate 60 ml/min
[2025-10-05 18:45] LABS: Anion Gap 12 mEq/L (7-15); Calcium* 8.9 mg/dL (8.4-10.6); Carbon Dioxide* 29 mmol/L (20-32); Glucose* 159 mg/dL (60-115); INR 1.87 (0.91-1.10); Prothrombin Time 22.6 Seconds
== END 2025-10-05 19:13 | disposition home or self-care (01) ==
PROVIDERS: Emergency Provider Emergency Medicine; PCP Family Medicine
DX: K59.00 Constipation, unspecified (principal); K60.2 Anal fissure, unspecified; E11.622 Type 2 diabetes mellitus with other skin ulcer; L97.219 Non-pressure chronic ulcer of right calf with unspecified severity; Z79.01 Long term (current) use of anticoagulants; Z79.4 Long term (current) use of insulin
CPT/HCPCS: 36415; 80048; 85025; 85610; 99282; 99283

== ENCOUNTER 2025-10-08 07:45 | Outpatient (CLI) | payer MEDICARE, BC, SELFPAY | END 2025-10-08 07:46 | disposition home or self-care (01) | LOC: WOUND 07:46 | PROVIDERS: PCP Family Medicine; Referring Provider Emergency Medicine; Visit Provider Nurse Practitioner Family | DX: I87.311 Chronic venous hypertension (idiopathic) with ulcer of right lower extremity (principal); E11.622 Type 2 diabetes mellitus with other skin ulcer; L97.212 Non-pressure chronic ulcer of right calf with fat layer exposed; E11.40 Type 2 diabetes mellitus with diabetic neuropathy, unspecified; Z79.4 Long term (current) use of insulin; Z79.01 Long term (current) use of anticoagulants; Z95.1 Presence of aortocoronary bypass graft | CPT/HCPCS: 11042; G0463 ==

== ENCOUNTER 2025-10-15 09:56 | Outpatient (CLI) | payer MEDICARE, BC, SELFPAY | END 2025-10-15 09:57 | disposition home or self-care (01) | LOC: WOUND 09:56 | PROVIDERS: PCP Family Medicine; Visit Provider Nurse Practitioner Family | DX: I87.311 Chronic venous hypertension (idiopathic) with ulcer of right lower extremity (principal); E11.622 Type 2 diabetes mellitus with other skin ulcer; L97.812 Non-pressure chronic ulcer of other part of right lower leg with fat layer exposed; Z95.1 Presence of aortocoronary bypass graft; Z79.01 Long term (current) use of anticoagulants; Z79.4 Long term (current) use of insulin; Z79.84 Long term (current) use of oral hypoglycemic drugs | CPT/HCPCS: 11042 ==

== ENCOUNTER 2025-10-22 09:53 | Outpatient (CLI) | payer MEDICARE, BC, SELFPAY | END 2025-10-22 09:54 | disposition home or self-care (01) | LOC: WOUND 09:53 | PROVIDERS: PCP Family Medicine; Visit Provider Nurse Practitioner Family | DX: I87.311 Chronic venous hypertension (idiopathic) with ulcer of right lower extremity (principal); I87.2 Venous insufficiency (chronic) (peripheral); E11.622 Type 2 diabetes mellitus with other skin ulcer; L97.812 Non-pressure chronic ulcer of other part of right lower leg with fat layer exposed; Z79.4 Long term (current) use of insulin; Z79.84 Long term (current) use of oral hypoglycemic drugs; Z79.01 Long term (current) use of anticoagulants; Z95.1 Presence of aortocoronary bypass graft | CPT/HCPCS: 11042 ==

== ENCOUNTER 2025-10-29 09:49 | Outpatient (CLI) | payer MEDICARE, BC, SELFPAY | END 2025-10-29 09:50 | disposition home or self-care (01) | LOC: WOUND 09:49 | PROVIDERS: PCP Family Medicine; Visit Provider Nurse Practitioner Family | DX: I87.311 Chronic venous hypertension (idiopathic) with ulcer of right lower extremity (principal); I87.2 Venous insufficiency (chronic) (peripheral); E11.622 Type 2 diabetes mellitus with other skin ulcer; L97.812 Non-pressure chronic ulcer of other part of right lower leg with fat layer exposed; I25.10 Atherosclerotic heart disease of native coronary artery without angina pectoris; Z95.1 Presence of aortocoronary bypass graft; Z79.01 Long term (current) use of anticoagulants; Z79.4 Long term (current) use of insulin; Z79.84 Long term (current) use of oral hypoglycemic drugs | CPT/HCPCS: 11042 ==